=== PATIENT | female | born 1955 | race Caucasian/White ===

== ENCOUNTER 2016-12-14 17:58 | Emergency (ER) | payer MEDICARE, BC ==
[~2016-12-14] VITALS: Ht 167.6 cm; Wt 60.0 kg
[~2016-12-14 17:58] MED LIST: AMIT50TA3 PO; BACL10TA PO; BUTA1CAP49 PO; DIAZ5TAB4 PO; HYDR-3841 PO; HYDR-4181 PO; PROP80TA4 PO; [UNRECOGNIZED DRUG - CODE] PO
--- OUTSIDE RECORDS SUMMARY | 2016-12-14 18:02 | XMS REPORT ---
Author Author GENERATED, SYSTEM Organization Unknown Address Unknown Phone Unavailable Care Team Providers Care Cremator Name Role Phone FRIEND, CHIQUI FLORZE PP [phone] Reason For Visit Chief Complaint MUSCLE CRAMPS Social History Functional Status Vital Signs Results Chemistry from 07/12/2016 3:30 PMSODIUM 135 MMOL/L L (136-145 MMOL/L) POTASSIUM 3.7 MMOL/L (3.5-5.1 MMOL/L) CHLORIDE 101 MMOL/L (98-107 MMOL/L) TCO2 27.4 MMOL/L (21.0-32.0 MMOL/L) *ANION GAP 6.6 MMOL/L L (8.0-16.0 MMOL/L) BUN 11 MG/DL (7-18 MG/DL) CREATININE 0.71 MG/DL (0.55-1.02 MG/DL) *BUN/CREATININE RATIO 15.5 (9.1-17.0 ) GLUCOSE 95 MG/DL (65-99 MG/DL) *GFR EST NON AFR PALAUAN >90 ML/MIN *GFR EST AFR AMER >90 ML/MIN CALCIUM 10.1 MG/DL (8.5-10.1 MG/DL) BILIRUBIN TOTAL 0.30 MG/DL (0.20-1.00 MG/DL) TOTAL PROTEIN 7.1 GM/DL (6.4-8.2 GM/DL) ALBUMIN 4.0 GM/DL (3.4-5.0 GM/DL) *GLOBULIN 3.1 GM/DL (2.3-3.5 GM/DL) *A/G RATIO 1.3 MG/DL L (1.5-2.2 MG/DL) ALK PHOS 144 U/L H (46-116 U/L) ALT (SGPT) 16 U/L (16-63 U/L) AST (SGOT) 13 U/L L (15-37 U/L) MAGNESIUM 2.0 MG/DL (1.8-2.4 MG/DL) Problems Encounter Diagnosis No relevant problems exist. Additional Problems * Fall Risk Comment:Problem resolved by [facility] Workflow upon Discharge, Status: Resolved. Encounters Encounter Diagnosis No relevant problems exist. Plan of Care Procedures * Completed septoplasty bilateral inferior turbinectomy sphenoid sinuplasty, by MD MARK MENESES, on 04/03/2015 1:15 PM Immunizations No immunizations administered or ordered. Hospital Course Hospital Discharge Instructions Allergies, Adverse Reactions, Alerts * Latex Allergy has not been assessed. * IV Contrast Allergy has not been assessed. * No Known Drug Allergies. * No Known Food Allergies. * No Known Allergies. Medication Medication reconciliation has not been performed.
--- OUTSIDE RECORDS SUMMARY | 2016-12-14 18:02 | XMS REPORT ---
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 61089371 Problem Depression F32.9 Active 260815757 Problem Neuropathy G62.9 Active 035915679 Problem Arthritis of left knee M19.90 Active 1324780292986447 Problem Tear of meniscus of left knee S83.207A Active Problem Fibromyalgia M79.7 Active 635782954 Problem Migraine headache G43.909 Active 80655018 Problem Elevated alkaline phosphatase level R74.8 Active 258926893 Problem High cholesterol E78.0 Active 06349974 Problem CAD (coronary artery disease) I25.10 Active 79167193 Problem Status post left knee replacement Z96.652 Active 512173674292 Problem High blood pressure I10 Active 44190854 ALLERGIES Unknown Allergies SOCIAL HISTORY No smoking Hx information available PLAN OF CARE VITAL SIGNS MEDICATIONS Medication Instructions Dosage Frequency Start Date End Date Duration Status Fiorinal 50-325-40 MG Orally 3-4 times a day 1 capsule as needed Jul, 30 Active RESULTS No Results PROCEDURES No Known procedures IMMUNIZATIONS No Known Immunizations
--- OUTSIDE RECORDS SUMMARY | 2016-12-14 18:02 | XMS REPORT ---
Author Author GENERATED, SYSTEM Organization Unknown Address Unknown Phone Unavailable Care Team Providers Care Baseball Glove Stuffer Name Role Phone MD DENISE, GARY Unavailable Reason For Visit Chief Complaint ANGIOPLASTY,TELEMTRY MONITORED EXCERCISE Social History Functional Status Vital Signs Results Problems Encounter Diagnosis No relevant problems exist. [...]
--- OUTSIDE RECORDS SUMMARY | 2016-12-14 18:03 | XMS REPORT | Summary of Care ---
Author Author Jose Trammell M.D. Organization Unknown Address [address], [place] [id number] Phone Unavailable Care Team Providers Care Tax Staff Accountant Name Role Phone Price Garcia M.D. Unavailable Unavailable Normh-Laura BIG DATA HADOOP DEVELOPER, Crystal Unavailable Unavailable Jose Trammell M.D. Unavailable Unavailable Price Garcia PP Unavailable Unavailable Unavailable Functional Status Functional Status Health Issues* Name Dates Details Functional status health issues are not documented Status: Cognitive Status Health Issues* Name Dates Details Cognitive status health issues are not documented Status: Problems Name Dates Details Bilateral Elbow Joint Pain Status: Active Joint Pain In Both Wrists Status: Active Joint Pain In Both Knees Status: Active Injection Of Trigger Point(S) One Or Two Muscle Group(S) Status: Active Postmenopausal status (V49.81, Z78.0) Status: Active Endometriosis (617.9, N80.9) Status: Active Essential and other specified forms of tremor (333.1, R25.1) Status: Active Obsessive compulsive disorder (300.3, F42) Status: Active Postconcussion syndrome (310.2, F07.81) Status: Active Abnormal electrocardiogram (794.31, R94.31) Status: Active Well woman exam (V70.0, Z00.00) Status: Active High risk medication use (V58.69, Z79.899) Status: Active Atypical facial pain (350.2, G50.1) Status: Active Hyperthyroidism (242.90, E05.90) Status: Active Need for influenza vaccination (V04.81, Z23) Status: Active Headache (784.0, R51) Status: Active Insomnia (780.52, G47.00) Status: Active Dermatitis (692.9, L30.9) Status: Active Inflamed seborrheic keratosis (702.11, L82.0) Status: Active Depression (311, F32.9) Status: Active Hypertension (401.9, I10) Status: Active Anxiety (300.00, F41.9) Status: Active Migraine headache (346.90, G43.909) Status: Active Medications Name Dates Details Zolpidem Tartrate 10 MG Oral Tablet TAKE 1 TABLET AT BEDTIME NEEDED FOR SLEEP. Quantity: 30 Jose Trammell M.D.* Started 03-Jun-2014 ActiveAmitriptyline HCl - 100 MG Oral Tablet TAKE 1 TABLET DAILY AT BEDTIME. * Quantity: 30 Refills: 6 Jose Trammell M.D.* Started 09-Jun-2014 PjwenkAgqynfbnih-SBWZ-Daevxqde 50-325-40 MG Oral Tablet TAKE 1 TABLET Q 4HRS NEEDED FOR MIGRAINEMAX 6 PER DAYMUST LAST 30 DAYS * Quantity: 180 Refills: 0 Price Garcia M.D.* Started 09-Jun-2014 Ended 04-Oct-2014 ActiveMelatonin 5 MG Oral Tablet * Refills: 0 * Started 16-Jun-2014 ActiveTriamcinolone .1%/ Eucerin Compound (50/50 mix) -- 1 pound tub (454 grams) APPLY TO THE AFFECTED AREA TWICE DAILY * Quantity: 60 Refills: 0 rsh-Francktilek, Crystal BIG DATA HADOOP DEVELOPER* Started 24-Jun-2014 ActivePropranolol HCl - 80 MG Oral Tablet TAKE 1 TABLET EVERY 12 HOURS DAILY. * Quantity: 60 Refills: 3 Price Garcia M.D.* Started 07-Jul-2014 ActiveHydrALAZINE HCl - 50 MG Oral Tablet Take 1 tablet three times daily. * Quantity: 90 Refills: 5 Price Garcia M.D.* Started 05-Aug-2014 ActiveDiazepam 5 MG Oral Tablet TAKE 1 TABLET EVERY 8HRS NEEDED.*MUST LAST 30 DAYS*MAY FILL ON OR AFTER * * Quantity: 90 Refills: 0 Price Garcia M.D.* Started 21-Jul-2014 ActiveHydrOXYzine Pamoate 25 MG Oral Capsule TAKE 1 CAP BY MOUTH EVERY 6 HRS NEEDED WHILE IN [facility]. * Quantity: 120 Refills: 2 Price Garcia M.D.* Started 05-Aug-2014 Active Allergies and Adverse Reactions Name Dates Details No Known Drug Allergies Status: Active Past Medical History Name Dates Details History of anemia (V12.3, Z86.2) Status: Resolved History of depression (V11.8, Z86.59) Status: Resolved History of fibrocystic disease of breast (V13.89, Z87.898) Status: Resolved History of Inflamed seborrheic keratosis (702.11, L82.0) Status: Resolved History of migraine (V12.49, Z86.69) Status: Resolved Procedures Procedure Dates Details History of Appendectomy History of Tonsillectomy History of Cholecystectomy History of Tubal Ligation Injection Of Trigger Point(S) One Or Two Muscle Group(S) History of Colonoscopy (Fiberoptic) History of Section Procedures not documented Immunization Name Dates Details Influenza Administered on:21-Jun-2011 Influenza Administered on:03-May-2012 Tdap (Adacel) Lot #: [id number] Administered on:14-May-2013 Fluzone Quadrivalent 0.5 ML Intramuscular Suspension Lot #: [id number] Administered on:03-Jun-2014 Family History Grandfather* Name Dates Details Family history of Suicide by gunshot wound (E955.9, X74.9XXA) Status: Active Mother* Name Dates Details Family history of Chronic Obstructive Pulmonary Disease Status: Active Father* Name Dates Details Family history of Acute Myocardial Infarction (V17.3) Status: Active Family history of myocardial infarction (V17.3, Z82.49) Status: Active Family history of cerebrovascular accident (V17.1, Z82.3) Status: Active Family history of hypertension (V17.49, Z82.49) Status: Active Family history of diabetes mellitus (V18.0, Z83.3) Status: Active Family history of chronic obstructive pulmonary disease (V17.6, Z82.5) Status: Active Sister* Name Dates Details Family history of Asthma (V17.5) Status: Active Family history of Arthritis (V17.7) Status: Active Family history of Uterine Cancer (V16.49) Status: Active Social History Name Dates Details Smoking Status* Never smoker Vital Signs Date Test Result Details 16-Aug-2014 10:19 BP Systolic 165 mm[Hg] Status: BP Diastolic 85 mm[Hg] Status: Heart Rate 79 /min Status: Temperature 98.1 c Status: O2 SAT 97 % Status: 14-Aug-2014 09:38 BP Systolic 140 mm[Hg] Status: BP Diastolic 96 mm[Hg] Status: Heart Rate 84 /min Status: Respiration Rate 16 /min Status: Weight 150 lb Status: Height 66 in Status: O2 SAT 96 % Status: Body Mass Index Calculated 24.21 kg/m2 Status: Body Surface Area Calculated 1.77 m2 Status: Results Date Description Value Details Results not documented Plan of Care Planned Observations* Name Dates Details Planned Goals not documented Goal Planned Encounters* Appointment; Provider: Andre Pratt On 15-Jul-2015 13:45 * Appointment; Provider: Price Garcia On 16-Oct-2014 09:30 * Appointment; Provider: Price Garcia On 08-Sep-2014 15:15 Instructions * Instructions not documented Encounters Appointment; Ilya Basurto Encounter Diagnosis: Problem not documented On 16-Aug-2014 11:10 Appointment; Price Garcia Encounter Diagnosis: Problem not documented On 14-Aug-2014 09:30 Appointment; Price Garcia Encounter Diagnosis: Problem not documented On 05-Aug-2014 16:00 Appointment; Price Garcia Encounter Diagnosis: Problem not documented On 21-Jul-2014 14:00 Appointment; Andre Pratt Encounter Diagnosis: Problem not documented On 14-Jul-2014 13:15 Appointment; Price Garcia Encounter Diagnosis: Problem not documented On 07-Jul-2014 15:00 Appointment; Gaston Hare Encounter Diagnosis: Problem not documented On 27-Jun-2014 12:15 Appointment; Jessica Nguyen Encounter Diagnosis: Problem not documented On 24-Jun-2014 13:45 Appointment; [place] Encounter Diagnosis: Problem not documented On 16-Jun-2014 08:30 Appointment; Jose Trammell Encounter Diagnosis: Problem not documented On 09-Jun-2014 11:00 Appointment; Whitney Whitfield Encounter Diagnosis: Problem not documented On 07-Jun-2014 08:45 Appointment; Jose Trammell Encounter Diagnosis: Problem not documented On 03-Jun-2014 13:45 Appointment; Whitney Whitfield Encounter Diagnosis: Problem not documented On 31-May-2014 10:15 Appointment; Bessie Romero Encounter Diagnosis: Problem not documented On 29-May-2014 11:30 Appointment; Jose Trammell Encounter Diagnosis: Problem not documented On 19-May-2014 11:00 Appointment; Gaston Hare Encounter Diagnosis: Problem not documented On 13-May-2014 08:15 Appointment; Jessica Nguyen Encounter Diagnosis: Problem not documented On 29-Apr-2014 11:25 Appointment; Jessica Nguyen Encounter Diagnosis: Problem not documented On 09-Apr-2014 08:45 Appointment; Igor Charles Encounter Diagnosis: Problem not documented On 08:45 Appointment; Jose Trammell Encounter Diagnosis: Problem not documented On 14:00 Appointment; [place] Encounter Diagnosis: Problem not documented On 09:20 Appointment; Igor Charles Encounter Diagnosis: Problem not documented On 08:15 Appointment; Jose Trammell Encounter Diagnosis: Problem not documented On 11:15 Appointment; April Talley Encounter Diagnosis: Problem not documented On 08:40 Appointment; Melvin Cotto Encounter Diagnosis: Problem not documented On 11:00 Appointment; Melvin Cotto Encounter Diagnosis: Problem not documented On 14:00 Appointment; Gaston Hare Encounter Diagnosis: Problem not documented On 08:30 Appointment; Melvin Cotto Encounter Diagnosis: Problem not documented On 11:45 Appointment; Melvin Cotto Encounter Diagnosis: Problem not documented On 23-Jan-2014 08:15 Appointment; Jasmin Trejo Encounter Diagnosis: Problem not documented On 22-Jan-2014 09:15 Appointment; Juan Mendez Encounter Diagnosis: Problem not documented On 21-Jan-2014 11:00 Appointment; Jasmin Trejo Encounter Diagnosis: Problem not documented On 10-Jan-2014 09:30 Appointment; Melvin Cotto Encounter Diagnosis: Problem not documented On 09-Jan-2014 09:45 Appointment; Melvin Cotto Encounter Diagnosis: Problem not documented On 30-Dec-2013 11:00 Appointment; Melvin Cotto Encounter Diagnosis: Problem not documented On 09-Dec-2013 10:30 Appointment; Melvin Cotto Encounter Diagnosis: Problem not documented On 03-Dec-2013 11:30 Appointment; Jasmin Trejo Encounter Diagnosis: Problem not documented On 28-Nov-2013 11:50 Appointment; Melvin Cotto Encounter Diagnosis: Problem not documented On 20-Nov-2013 13:00 Appointment; Melvin Cotto Encounter Diagnosis: Problem not documented On 13-Nov-2013 11:00 Appointment; Melvin Cotto Encounter Diagnosis: Problem not documented On 30-Oct-2013 11:00 Appointment; Melvin Cotto Encounter Diagnosis: Problem not documented On 25-Oct-2013 15:30 Appointment; Jasmin Trejo Encounter Diagnosis: Problem not documented On 10-Oct-2013 11:10 Appointment; Melvin Cotto Encounter Diagnosis: Problem not documented On 07-Oct-2013 10:45 Appointment; Melvin Cotto Encounter Diagnosis: Problem not documented On 30-Sep-2013 15:30 Appointment; Melvin Cotto Encounter Diagnosis: Problem not documented On 10-Sep-2013 14:15 Appointment; Melvin Cotto Encounter Diagnosis: Problem not documented On 27-Aug-2013 15:45 Appointment; Melvin Cotto Encounter Diagnosis: Problem not documented On 14-Aug-2013 09:30 Appointment; Melvin Cotto Encounter Diagnosis: Problem not documented On 31-Jul-2013 15:30 Appointment; Melvin Cotto Encounter Diagnosis: Problem not documented On 24-Jul-2013 10:15 Appointment; Leigha Sanders Encounter Diagnosis: Problem not documented On 23-Jul-2013 13:00 Appointment; Melvin Cotto Encounter Diagnosis: Problem not documented On 17-Jul-2013 14:30 Appointment; Karolyn Cox Encounter Diagnosis: Problem not documented On 11-Jul-2013 15:45 Appointment; Jasmin Trejo Encounter Diagnosis: Problem not documented On 11-Jul-2013 09:35 Appointment; Josue Patel Encounter Diagnosis: Problem not documented On 01-Jul-2013 14:15 Appointment; Jasmin Trejo Encounter Diagnosis: Problem not documented On 21-Jun-2013 08:40 Appointment; Josue Patel Encounter Diagnosis: Problem not documented On 12-Jun-2013 09:00 Appointment; Melvin Cotto Encounter Diagnosis: Problem not documented On 05-Jun-2013 12:30 Appointment; Melvin Cotto Encounter Diagnosis: Problem not documented On 23-May-2013 09:00 Appointment; Melvin Cotto Encounter Diagnosis: Problem not documented On 20-May-2013 09:00 Appointment; Gaston Hare Encounter Diagnosis: Problem not documented On 14-May-2013 14:10 Appointment; Melvin Cotto Encounter Diagnosis: Problem not documented On 23-Apr-2013 10:30 Appointment; Jasmin Trejo Encounter Diagnosis: Problem not documented On 16-Apr-2013 09:20 Appointment; Melvin Cotto Encounter Diagnosis: Problem not documented On 28-Mar-2013 14:45 Appointment; Jasmin Trejo Encounter Diagnosis: Problem not documented On 14:45 Appointment; Jasmin Trejo Encounter Diagnosis: Problem not documented On 15:05 Appointment; Melvin Cotto Encounter Diagnosis: Problem not documented On 13:30 Appointment; Jasmin Trejo Encounter Diagnosis: Problem not documented On 13:50 Appointment; Melvin Cotto Encounter Diagnosis: Problem not documented On 24-Jan-2013 09:45 Appointment; Melvin Cotto Encounter Diagnosis: Problem not documented On 17-Jan-2013 09:00 Appointment; Jasmin Trejo Encounter Diagnosis: Problem not documented On 09-Jan-2013 16:25 Appointment; Melvin Cotto Encounter Diagnosis: Problem not documented On 08-Jan-2013 15:00 Appointment; Melvin Cotto Encounter Diagnosis: Problem not documented On 21-Nov-2012 13:15 Appointment; Igor Charles Encounter Diagnosis: Problem not documented On 01-Nov-2012 07:45 Appointment; Igor Charles Encounter Diagnosis: Problem not documented On 29-Oct-2012 08:00 Appointment; Melvin Cotto Diagnosis: Problem not documented On 25-Oct-2012 14:45 Appointment; Melvin Cotto Encounter Diagnosis: Problem not documented On 10-Oct-2012 11:45 Appointment; Melvin Cotto Encounter Diagnosis: Problem not documented On 04-Oct-2012 12:30 Appointment; Melvin Cotto Encounter Diagnosis: Problem not documented On 26-Sep-2012 08:45
--- OUTSIDE RECORDS SUMMARY | 2016-12-14 18:03 | XMS REPORT ---
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
--- OUTSIDE RECORDS SUMMARY | 2016-12-14 18:03 | XMS REPORT | Summary of Care ---
Author Author Jessica Nguyen APRN Organization Unknown Address [address], [place] [id number] Phone Unavailable Care Team Providers Care Industrial Maintenance Technician Name Role Phone Price Garcia M.D. Unavailable Unavailable Мария Gonzalez APRN Unavailable Unavailable Jessica Nguyen APRN Unavailable Unavailable Price Garcia PP Unavailable Unavailable [...] for influenza vaccination (V04.81, Z23) Status: Active Insomnia (780.52, G47.00) Status: Active Dermatitis (692.9, L30.9) Status: Active Inflamed seborrheic keratosis (702.11, L82.0) Status: Active Depression (311, F32.9) Status: Active Pain in a tooth or teeth (525.9, K08.8) Status: Active Bronchitis, acute (466.0, J20.9) Status: Active Anxiety (300.00, F41.9) Status: Active Hip pain, left (719.45, M25.552) Status: Active Atypical chest pain (786.59, R07.89) Status: Active Hypertension (401.9, I10) Status: Active Polyarthritis (716.50, M13.0) Status: Active Spondylolysis, lumbar region (738.4, M43.06) Status: Active Precordial pain (786.51, R07.2) Status: Active Cerumen impaction (380.4, H61.20) Status: Active Chronic sinus infection (473.9, J32.9) Status: Active Nasal septal deviation (470, J34.2) Status: Active Migraine headache (346.90, G43.909) Status: Active Cervicalgia (723.1, M54.2) Status: Active Headache (784.0, R51) Status: Active Medications Name Dates Details Euizcltirs-OJLI-Fujhszaw 50-325-40 MG Oral Tablet TAKE ONE TABLET BY MOUTH EVERY 4 HOURS MAX OF 6 TABLETS PER DAY MUST LAST 30 DAYS Quantity: 180 Price Garcia M.D.* Started 09-Jun-2014 ActiveMelatonin 5 MG Oral Tablet * Refills: 0 * Started 16-Jun-2014 ActiveTriamcinolone .1%/ Eucerin Compound (50/50 mix) -- 1 pound tub (454 grams) APPLY TO THE AFFECTED AREA TWICE DAILY * Quantity: 60 Refills: 0 Jessica Nguyen APRN* Started 24-Jun-2014 ActiveHydrALAZINE HCl - 50 MG Oral Tablet Take 1 tablet three times daily. * Quantity: 90 Refills: 5 Price Garcia M.D.* Started 05-Aug-2014 ActiveVerapamil HCl - 80 MG Oral Tablet 1 TABLET TWICE DAILY * Quantity: 60 Refills: 5 Price Garcia M.D.* Started 30-Oct-2014 ActiveQUEtiapine Fumarate 50 MG Oral Tablet TAKE 1 TABLET AT BEDTIME. * Refills: 0 * Started 30-Oct-2014 ActiveDiazepam 10 MG Oral Tablet TAKE ONE TABLET BY MOUTH EVERY 8 HOURSMUST LAST 30 DAYS * Quantity: 90 Refills: 0 Price Garcia M.D.* Started 30-Oct-2014 ActiveFluvoxaMINE Maleate 100 MG Oral Tablet TAKE 1 TABLET AT BEDTIME. * Quantity: 30 Refills: 5 Price Garcia M.D.* Started 30-Oct-2014 ActiveAmLODIPine Besylate 5 MG Oral Tablet TAKE 1 TABLET BY MOUTH DAILY * Quantity: 30 Refills: 5 Price Garcia M.D.* Started 30-Oct-2014 ActiveZolpidem Tartrate ER 12.5 MG Oral Tablet Extended Release TAKE 1 TABLET AT BEDTIME NEEDED FOR SLEEP.*MUST LAST 30 DAYS * Quantity: 30 Refills: 0 Price Garcia M.D.* Started 30-Oct-2014 ActiveLithium Carbonate 300 MG Oral Capsule TAKE 1 CAPSULE TWICE DAILY. * Refills: 0 * Started 18-Dec-2014 ActiveNalbuphine HCl - 10 MG/ML Injection Solution Inject 10mg IM x 1 now * Quantity: 1 Refills: 0 Мария Gonzalez APRN* Started 24-Jan-2015 Admin RequestedPromethazine HCl - 25 MG/ML Injection Solution Inject 12.5mg IM x 1 now * Quantity: 1 Refills: 0 Мария Gonzalez APRN* Started 24-Jan-2015 Admin Requested Allergies and Adverse Reactions Name Dates Details [...] Influenza Administered on:03-May-2012 Tdap (Adacel) Lot #: [id number] Administered on:14-May-2013 Fluzone Quadrivalent 0.5 ML Intramuscular Suspension Lot #: [id number] Administered on:03-Jun-2014 Family History Grandfather* Name Dates [...] smoker Vital Signs Date Test Result Details 09:17 BP Systolic 144 mm[Hg] Status: BP Diastolic 87 mm[Hg] Status: Heart Rate 60 /min Status: Respiration Rate 18 /min Status: Temperature 97.7 c Status: Weight 150 lb Status: O2 SAT 97 % Status: Body Mass Index Calculated 24.21 kg/m2 Status: Body Surface Area Calculated 1.77 m2 Status: 11:13 BP Systolic 128 mm[Hg] Status: BP Diastolic 76 mm[Hg] Status: Heart Rate 60 /min Status: Respiration Rate 18 /min Status: Weight 149.375 lb Status: Height 66 in Status: O2 SAT 97 % Status: Body Mass Index Calculated 24.11 kg/m2 Status: Body Surface Area Calculated 1.77 m2 Status: 09:04 BP Systolic 158 mm[Hg] Status: BP Diastolic 68 mm[Hg] Status: Heart Rate 67 /min Status: Temperature 98.6 c Status: Weight 149 lb Status: O2 SAT 97 % Status: Body Mass Index Calculated 24.05 kg/m2 Status: Body Surface Area Calculated 1.76 m2 Status: 08:47 Heart Rate 66 /min Status: Temperature 98.8 c Status: O2 SAT 98 % Status: 24-Jan-2015 10:38 BP Systolic 144 mm[Hg] Status: BP Diastolic 90 mm[Hg] Status: Heart Rate 60 /min Status: Temperature 98.2 c Status: O2 SAT 96 % Status: 22-Jan-2015 10:45 BP Systolic 142 mm[Hg] Status: BP Diastolic 90 mm[Hg] Status: Heart Rate 65 /min Status: Respiration Rate 18 /min Status: Temperature 98.2 c Status: O2 SAT 97 % Status: Results Date Description Value Details 14:07 CT SINUSES Comments: Exam Date: 01/26/2015 13: 48Dictation Date: 01/26/2015 14:07 XC SINUSES ([facility]) 13:37 XRay SPINE-CERVICAL Comments: Exam Date: 02/12/2015 11:49Dictation Date: 02/12/2015 13:37 X SPINE CERVICAL COMP ([facility]) Plan of Care Planned Observations* Name Dates Details Planned Goals not documented Goal Planned Encounters* Appointment; Provider: Andre Pratt On 15-Jul-2015 13:45 * Appointment; Provider: Price Garcia On 11:15 * Appointment; Provider: Harris Barragan On 08:45 Instructions * Instructions not documented Encounters Appointment; Jessica Nguyen Encounter Diagnosis: Problem not documented On 09:15 Appointment; Price Garcia Encounter Diagnosis: Problem not documented On 10:45 Appointment; Linda Bingham Encounter Diagnosis: Problem not documented On 09:05 Appointment; Harris Barragan Encounter Diagnosis: Problem not documented On 11:15 Appointment; Linda Bingham Encounter Diagnosis: Problem not documented On 08:30 Appointment; Мария Gonzalez Encounter Diagnosis: Problem not documented On 24-Jan-2015 10:35 Appointment; Price Garcia Encounter Diagnosis: Problem not documented On 22-Jan-2015 10:30 Appointment; Price Garcia Encounter Diagnosis: Problem not documented On 06-Jan-2015 10:45 Appointment; Price Garcia Encounter Diagnosis: Problem not documented On 29-Dec-2014 11:15 Appointment; Price Garcia Encounter Diagnosis: Problem not documented On 18-Dec-2014 09:45 Appointment; Gaston Hare Encounter Diagnosis: Problem not documented On 05-Dec-2014 13:00 Appointment; Linda Bingham Encounter Diagnosis: Problem not documented On 03-Dec-2014 10:20 Appointment; Price Garcia Encounter Diagnosis: Problem not documented On 13-Nov-2014 13:45 Appointment; Price Garcia Encounter Diagnosis: Problem not documented On 30-Oct-2014 09:30 Appointment; [place] Encounter Diagnosis: Problem not documented On 11-Oct-2014 08:25 Appointment; Linda Bingham Encounter Diagnosis: Problem not documented On 02-Oct-2014 08:15 Appointment; Jessica Nguyen Encounter Diagnosis: Problem not documented On 15-Sep-2014 09:30 Appointment; Price Garcia Encounter Diagnosis: Problem not documented On 08-Sep-2014 15:15 Appointment; Ilya Basurto Encounter Diagnosis: Problem not [...] not documented On 19-May-2014 11:00 Appointment; Gaston Hrae Encounter Diagnosis: Problem not documented On 13-May-2014 08:15 Appointment; Jessica Nguyen Encounter Diagnosis: Problem not documented On 29-Apr-2014 11:25 Appointment; Jessica Nguyen Encounter Diagnosis: Problem not documented On 09-Apr-2014 08:45 Appointment; Igor Charles Encounter Diagnosis: Problem not documented On 08:45 Appointment; Jose Trammell Encounter Diagnosis: Problem not documented On 14:00 Appointment; [place] Encounter Diagnosis: Problem not documented On 09:20 [...] Problem not documented On 21-Jun-2013 08:40 Appointment; Joseu Patel Encounter Diagnosis: Problem not documented On [...]
--- OUTSIDE RECORDS SUMMARY | 2016-12-14 18:03 | XMS REPORT | Summary of Care ---
Author Author Gaston Hare M.D. Organization Unknown Address [address], [place] [id number] Phone Unavailable Care Team Providers Care Line Up Examiner Name Role Phone Price Garcia M.D. Unavailable Unavailable Lisa MISSION MANAGER, Мария Unavailable Unavailable [employer] MISSION MANAGER, Crystal Unavailable Unavailable Price Garcia PP Unavailable Unavailable Unavailable Functional Status Functional Status Health Issues* Name Dates Details Functional status health issues are not documented Status: Cognitive Status Health Issues* Name Dates Details Cognitive status health issues are not documented Status: Problems Name Dates Details Joint Pain In Both Wrists Status: Active Joint Pain In Both Knees Status: Active Injection Of Trigger Point(S) One Or Two Muscle Group(S) Status: Active Postmenopausal status (V49.81, Z78.0) Status: Active Endometriosis (617.9, N80.9) Status: Active Essential and other specified forms of tremor (333.1, G25.0) Status: Active Abnormal electrocardiogram (794.31, R94.31) Status: Active Well woman exam (V70.0, Z00.00) Status: Active High risk medication use (V58.69, Z79.899) Status: Active Hyperthyroidism (242.90, E05.90) Status: Active Insomnia (780.52, G47.00) Status: Active Dermatitis (692.9, L30.9) Status: Active Inflamed seborrheic keratosis (702.11, L82.0) Status: Active Depression (311, F32.9) Status: Active Hip pain, left (719.45, M25.552) Status: Active Polyarthritis (716.50, M13.0) Status: Active Spondylolysis, lumbar region (738.4, M43.06) Status: Active Precordial pain (786.51, R07.2) Status: Active Headache (784.0, R51) Status: Active Nasal congestion (478.19, R09.81) Status: Active Preop examination (V72.84, Z01.818) Status: Active Anxiety (300.00, F41.9) Status: Active Pain of both shoulder joints (719.41, M25.511) Status: Active Knee joint pain, right (719.46, M25.561) Status: Active Nasal septal deviation (470, J34.2) Status: Active Hypertrophy of nasal turbinates (478.0, J34.3) Status: Active Chronic sinus infection (473.9, J32.9) Status: Active Presence of stent in coronary artery in patient with coronary artery disease ( 414.01, I25.10) Status: Active Dysuria (788.1, R30.0) Status: Active Dysuria (788.1, R30.0) Status: Active 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, M47.812) Status: Active Cervicogenic headache (784.0, R51) Status: Active Essential hypertension, benign (401.1, I10) Status: Active Migraine headache (346.90, G43.909) Status: Active Medications Name Dates Details Tyiwhblmdq-AHVL-Yeamqbtn 50-325-40 MG Oral Tablet TAKE ONE TABLET BY MOUTH EVERY 4 HOURS NEEDED MAX OF 6 TABLETS PER DAY MUST LAST 30 DAYS Quantity: 180 Price Garcia M.D.* Started 09-Jun-2014 ActiveTriamcinolone .1%/ Eucerin Compound (50/50 mix) -- 1 pound tub (454 grams) APPLY TO THE AFFECTED AREA TWICE DAILY * Quantity: 60 Refills: 0 Jessica Nguyen APRN* Started 24-Jun-2014 ActiveQUEtiapine Fumarate 25 MG Oral Tablet TAKE 1 TABLET IN MORNING, THEN TAKE 1 TABLET IN EVENING, THEN TAKE 2 TABLETS AT BEDTIME * Quantity: 120 Refills: 3 Price Garcia M.D.* Started 30-Oct-2014 ActiveDiazepam 10 MG Oral Tablet TAKE ONE TABLET BY MOUTH EVERY 8 HOURS NEEDED MUST LAST 30 DAYS * Quantity: 90 Refills: 0 Price Garcia M.D.* Started 30-Oct-2014 ActiveFluvoxaMINE Maleate 100 MG Oral Tablet TAKE 1 TABLET AT BEDTIME. * Quantity: 30 Refills: 5 Price Garcia M.D.* Started 30-Oct-2014 ActiveAmLODIPine Besylate 10 MG Oral Tablet take one tablet by mouth every day * Quantity: 30 Refills: 6 Price Garcia M.D.* Started 30-Oct-2014 ActiveNalbuphine HCl - 10 MG/ML Injection Solution Inject 10mg IM x 1 now * Quantity: 1 Refills: 0 Мария Gonzalez MISSION MANAGER* Started 24-Jan-2015 Admin RequestedPromethazine HCl - 25 MG/ML Injection Solution Inject 12.5mg IM x 1 now * Quantity: 1 Refills: 0 LisaPrakashy MISSION MANAGER* Started 24-Jan-2015 Admin RequestedCyclobenzaprine HCl - 10 MG Oral Tablet TAKE 1 TABLET 3 TIMES DAILY NEEDED. * Quantity: 90 Refills: 3 Price Garcia M.D.* Started ActiveAspirin 325 MG Oral Tablet TAKE 1 TABLET DAILY. * Refills: 0 * Started 05-May-2015 ActiveAtorvastatin Calcium 80 MG Oral Tablet TAKE 1 TABLET AT BEDTIME. * Refills: 0 * Started 05-May-2015 ActivePlavix 75 MG Oral Tablet TAKE 1 TABLET DAILY. * Refills: 0 * Started 05-May-2015 ActiveDocusate Sodium 100 MG Oral Capsule Take 1 capsule BID. * Refills: 0 * Started 05-May-2015 ActiveZetia 10 MG Oral Tablet * Refills: 0 * Started 05-May-2015 ActiveLosartan Potassium 50 MG Oral Tablet TAKE 1 TABLET DAILY. * Quantity: 30 Refills: 5 * Started 05-May-2015 ActiveZolpidem Tartrate ER 12.5 MG Oral Tablet Extended Release TAKE ONE TABLET BY MOUTH AT BEDTIME * Quantity: 30 Refills: 0 Price Garcia M.D.* Started 30-Oct-2014 ActiveAtenolol 50 MG Oral Tablet take 25 MG in a.m then 50 MG at p.m * Refills: 0 * Started 05-May-2015 ActiveEvzio 0.4 MG/0.4ML Injection Solution Auto-injector INJECT 0.4MG SC/IM Q 2-3MIN NEEDED PER OVERDOSE * Quantity: 1 Refills: 0 Price Garcia M.D.* Started 17-Jun-2015 Active0.4 ML Package (2 Packages) Hydrocodone-Acetaminophen 5-325 MG Oral Tablet TAKE 1 TABLET EVERY 8 HOURS NEEDED.*MAX 3 PER DAY* * Quantity: 90 Refills: 0 Price Garcia M.D.* Started 17-Jun-2015 Active Allergies and Adverse Reactions Name Dates Details Imitrex Status: Active Past Medical History Name Dates [...] Influenza Administered on:03-May-2012 Tdap (Adacel) Lot #: [id number] Administered on:14-May-2013 Fluzone Quadrivalent 0.5 ML Intramuscular Suspension Lot #: [id number] Administered on:03-Jun-2014 Fluzone Quadrivalent 0.5 ML Intramuscular Suspension Prefilled Syringe Lot #: [id number] Administered on:17-Jun-2015 Family History Grandfather* Name Dates Details Family [...] smoker Vital Signs Date Test Result Details 23-Jun-2015 10:51 BP Systolic 137 mm[Hg] Status: BP Diastolic 78 mm[Hg] Status: Temperature 97.9 f Status: Heart Rate 69 /min Status: O2 SAT 94 % Status: 17-Jun-2015 10:22 BP Systolic 170 mm[Hg] Status: BP Diastolic 110 mm[Hg] Status: Heart Rate 71 /min Status: Respiration Rate 20 /min Status: Height 66 in Status: Weight 138.125 lb Status: O2 SAT 98 % Status: Body Mass Index Calculated 22.29 kg/m2 Status: Body Surface Area Calculated 1.71 m2 Status: 09-Jun-2015 15:06 BP Systolic 178 mm[Hg] Status: BP Diastolic 98 mm[Hg] Status: Temperature 98.2 f Status: Heart Rate 86 /min Status: O2 SAT 96 % Status: 06-Jun-2015 10:57 BP Systolic 155 mm[Hg] Status: BP Diastolic 96 mm[Hg] Status: Temperature 97.5 c Status: Heart Rate 74 /min Status: O2 SAT 96 % Status: Results Date Description Value Details Results not documented Plan of Care Planned Observations* Name Dates Details Planned Goals not documented Goal Planned Encounters* Appointment; Provider: Price Garcia On 13-Aug-2015 10:00 * Appointment; Provider: Andre Pratt On 15-Jul-2015 13:45 * Appointment; Provider: Harris Barragan On 03-Apr-2015 13:00 * Appointment; Provider: Schedule Radiology On 07:00 Instructions * Instructions not documented Encounters Appointment; Gaston Hare Encounter Diagnosis: Problem not documented On 23-Jun-2015 10:35 Appointment; Price Garcia Encounter Diagnosis: Problem not documented On 17-Jun-2015 10:15 Appointment; Gaston Hare Encounter Diagnosis: Problem not documented On 09-Jun-2015 14:35 Appointment; Lesley Trimble Encounter Diagnosis: Problem not documented On 09-Jun-2015 14:00 Appointment; Gordon Mancera Encounter Diagnosis: Problem not documented On 06-Jun-2015 10:55 Appointment; Lesley Trimble Encounter Diagnosis: Problem not documented On 02-Jun-2015 11:30 Appointment; Price Garcia Encounter Diagnosis: Problem not documented On 22-May-2015 13:15 Appointment; Price Garcia Encounter Diagnosis: Problem not documented On 14-May-2015 15:15 Appointment; Price Garcia Encounter Diagnosis: Problem not documented On 05-May-2015 11:00 Appointment; Harris Barragan Encounter Diagnosis: Problem not documented On 05-May-2015 10:30 Appointment; Price Garcia Encounter Diagnosis: Problem not documented On 22-Apr-2015 10:15 Appointment; Harris Barragan Encounter Diagnosis: Problem not documented On 13-Apr-2015 11:00 Appointment; Price Garcia Encounter Diagnosis: Problem not documented On 10:00 Appointment; Linda Bingham Encounter Diagnosis: Problem not documented On 09:50 Appointment; Price Garcia Encounter Diagnosis: Problem not documented On 09:45 Appointment; Harris Barragan Encounter Diagnosis: Problem not documented On 08:45 Appointment; Price Garcia Encounter Diagnosis: Problem not documented On 11:15 Appointment; Jessica Nguyen Encounter Diagnosis: Problem not [...]
--- OUTSIDE RECORDS SUMMARY | 2016-12-14 18:04 | XMS REPORT | Summary of Care ---
Author Author Radha Titus, Price Organization Unknown Address Unknown Phone Unavailable Care Team Providers Care General Worker Name Role Phone Price Garcia M.D. Unavailable Unavailable [employer] WEB SERVICES PROFESSIONAL, Crystal Unavailable Unavailable Price Garcia PP Unavailable [...] Hip pain, left (719.45, M25.552) Status: Active Migraine headache (346.90, G43.909) Status: Active Atypical chest pain (786.59, R07.89) Status: Active Hypertension (401.9, I10) Status: Active Polyarthritis (716.50, M13.0) Status: Active Spondylolysis, lumbar region (738.4, M43.06) Status: Active Precordial pain (786.51, R07.2) Status: Active Medications Name Dates Details Melatonin 5 MG Oral Tablet * Started 16-Jun-2014 ActiveTriamcinolone .1%/ Eucerin Compound (50/50 mix) -- 1 pound tub (454 grams) APPLY TO THE AFFECTED AREA TWICE DAILY * Quantity: 60 Refills: 0 Patrick, Jessica WEB SERVICES PROFESSIONAL* Started 24-Jun-2014 ActiveZolpidem Tartrate ER 12.5 MG Oral Tablet Extended Release TAKE 1 TABLET AT BEDTIME NEEDED FOR SLEEP.*MUST LAST 30 DAYS * Quantity: 30 Refills: 0 Price Garcia M.D.* Started 30-Oct-2014 ActiveFluvoxaMINE Maleate 100 MG Oral Tablet TAKE 1 TABLET AT BEDTIME. * Quantity: 30 Refills: 5 Price Garcia M.D.* Started 30-Oct-2014 ActiveHydrALAZINE HCl - 50 MG Oral Tablet [...] Refills: 5 Price Garcia M.D.* Started 30-Oct-2014 EirdvjJgwbtzwxlx-NGXT-Ygxdppfn 50-325-40 MG Oral Tablet TAKE ONE TABLET BY MOUTH EVERY 4 HOURS MAX OF 6 TABLETS PER DAY MUST LAST 30 DAYS * Quantity: 180 Refills: 0 Price Garcia M.D.* Started 09-Jun-2014 ActiveDiazepam 10 MG Oral Tablet TAKE ONE TABLET BY MOUTH EVERY 8 HOURS MUST LAST 30 DAYS * Quantity: 90 Refills: 0 Price Garcia M.D.* Started 30-Oct-2014 ActiveQUEtiapine Fumarate 50 MG Oral Tablet TAKE 1 TABLET AT BEDTIME. * Refills: 0 * Started 30-Oct-2014 ActiveLithium Carbonate 300 MG Oral Capsule TAKE 1 CAPSULE TWICE DAILY. * Refills: 0 * Started 18-Dec-2014 ActiveAcetaminophen-Codeine 300-30 MG Oral Tablet TAKE ONE TABLET BY MOUTH EVERY 6 HOURS NEEDED FOR PAIN.MAX 4 PER DAY* * Quantity: 120 Refills: 0 Price Garcia M.D.* Started 29-Dec-2014 Active Allergies and Adverse Reactions Name Dates [...] History of Colonoscopy (Fiberoptic) History of Section URIC ACID 1155 Ordered:18-Dec-2014 ANALYZER PROFILE 3031 Ordered:18-Dec-2014 ERYTHROCYTE SED RATE 7800 Ordered:18-Dec-2014 HLA B 27 Disease Association 164260 Ordered:18-Dec-2014 XRay CHEST-PA & LAT Ordered:29-Dec-2014 Immunization Name Dates Details Influenza Administered on:21-Jun-2011 Influenza Administered on:03-May-2012 Tdap (Adacel) Lot #: [id number] Administered on:14-May-2013 Fluzone Quadrivalent 0.5 ML Intramuscular Suspension Lot #: [id number] Administered on:03-Jun-2014 Family History Grandfather* Name Dates [...] smoker Vital Signs Date Test Result Details 29-Dec-2014 11:10 BP Systolic 162 mm[Hg] Status: BP Diastolic 102 mm[Hg] Status: Heart Rate 58 /min Status: Respiration Rate 18 /min Status: Weight 150.375 lb Status: Height 66 in Status: O2 SAT 97 % Status: Body Mass Index Calculated 24.27 kg/m2 Status: Body Surface Area Calculated 1.77 m2 Status: 18-Dec-2014 09:42 BP Systolic 162 mm[Hg] Status: BP Diastolic 98 mm[Hg] Status: Heart Rate 63 /min Status: Respiration Rate 18 /min Status: Weight 149.25 lb Status: Height 66 in Status: O2 SAT 97 % Status: Body Mass Index Calculated 24.09 kg/m2 Status: Body Surface Area Calculated 1.77 m2 Status: 05-Dec-2014 13:08 BP Systolic 153 mm[Hg] Status: BP Diastolic 85 mm[Hg] Status: Heart Rate 55 /min Status: Temperature 97.9 c Status: O2 SAT 98 % Status: 03-Dec-2014 10:21 BP Systolic 124 mm[Hg] Status: BP Diastolic 72 mm[Hg] Status: Heart Rate 66 /min Status: Temperature 98.1 c Status: Weight 152 lb Status: Body Mass Index Calculated 24.53 kg/m2 Status: Body Surface Area Calculated 1.78 m2 Status: Results Date Description Value Details 05-Dec-2014 14:10 XRay HIP-Left Comments: Exam Date: 13: 13Dictation Date: 14:10 X HIP COMP (MIN 2V) LT ([facility]) 12-Dec-2014 10:12 LITHIUM 1162 LITHIUM 0.77 mmol/L ([facility]) Range: 0.30-1.19 Comments: Mj/ED----- Dose last dose last night at 5pm. ([facility]) Plan of Care Planned Observations* Name Dates Details Planned Goals not documented Goal Planned Encounters* Appointment; Provider: Andre Pratt On 15-Jul-2015 13:45 Instructions * Instructions not documented Encounters Appointment; Price Garcia Encounter Diagnosis: Problem not [...] Problem not documented On 29-May-2014 11:30 Appointment; Jsoe Trammell Encounter Diagnosis: Problem not documented On [...] Problem not documented On 09-Dec-2013 10:30 Appointment; Mevlin Cotto Encounter Diagnosis: Problem not documented On [...] Problem not documented On 15:05 Appointment; Melvin Cotot Diagnosis: Problem not documented On 13:30 Appointment; [...]
--- OUTSIDE RECORDS SUMMARY | 2016-12-14 18:04 | XMS REPORT | Summary of Care ---
Author Author [place] [facility] D.O. Organization Unknown Address [address], [place] [id number] Phone Unavailable Care Team Providers Care Material Stress Tester Name Role Phone Marv Titus, Ghazal Unavailable Unavailable Radha Titus, Price Unavailable Unavailable [employer] SERVICE CONSULTANT, Crystal Unavailable Unavailable Jp Titus, Jose Unavailable Unavailable Price Garcia PP Unavailable Unavailable [...] Status: Active Depression (311, F32.9) Status: Active Anxiety (300.00, F41.9) Status: Active Pain in a tooth or teeth (525.9, K08.8) Status: Active Hypertension (401.9, I10) Status: Active Bronchitis, acute (466.0, J20.9) Status: Active Migraine headache (346.90, G43.909) Status: Active Medications Name Dates Details Melatonin 5 MG Oral Tablet * Started 16-Jun-2014 ActiveTriamcinolone .1%/ Eucerin Compound (50/50 mix) -- 1 pound tub (454 grams) APPLY TO THE AFFECTED AREA TWICE DAILY * Quantity: 60 Refills: 0 MichaelleKristinaJessica Sanchez SERVICE CONSULTANT* Started 24-Jun-2014 ActiveAmitriptyline HCl - 100 MG Oral Tablet TAKE 1 TABLET DAILY AT BEDTIME. * Quantity: 30 Refills: 6 Jose Trammell M.D.* Started 09-Jun-2014 ActivePropranolol HCl - 80 MG Oral Tablet TAKE 1 TABLET EVERY 12 HOURS DAILY. * Quantity: 60 Refills: 3 Price Garcia M.D.* Started 07-Jul-2014 ActiveZolpidem Tartrate 10 MG Oral Tablet TAKE 1 TABLET AT BEDTIME NEEDED FOR SLEEP. * Quantity: 30 Refills: 0 Jose Trammell M.D.* Started 03-Jun-2014 ActiveHydrALAZINE HCl - 50 MG Oral Tablet Take 1 tablet three times daily. * Quantity: 90 Refills: 5 Price Garcia M.D.* Started 05-Aug-2014 ActiveDiazepam 5 MG Oral Tablet TAKE 1 TABLET EVERY 8HRS NEEDED.*MUST LAST 30 DAYS*MAY FILL ON OR AFTER * * Quantity: 90 Refills: 0 Price Garcia M.D.* Started 21-Jul-2014 ActiveBaclofen 10 MG Oral Tablet * Refills: 0 * Started 08-Sep-2014 ActiveHydrOXYzine Pamoate 25 MG Oral Capsule TAKE 1 CAP BY MOUTH EVERY 6 HRS NEEDED * Quantity: 120 Refills: 2 Price Garcia M.D.* Started 05-Aug-2014 BlwmrtHcgogpzqwe-PMCB-Ubykedkr 50-325-40 MG Oral Tablet TAKE ONE TABLET BY MOUTH EVERY 4 HOURS (MAX 6 PER DAY)(MUST LAST 30 DAYS) * Quantity: 180 Refills: 0 Hiram Fair M.D.* Started 09-Jun-2014 Active Allergies and Adverse Reactions Name Dates [...] Influenza Administered on:03-May-2012 Tdap (Adacel) Lot #: [id number] Administered on:14-May-2013 Fluzone Quadrivalent 0.5 ML Intramuscular Suspension Lot #: [id number] Administered on:03-Jun-2014 Family History Grandfather* Name Dates [...] smoker Vital Signs Date Test Result Details 11-Oct-2014 08:27 BP Systolic 158 mm[Hg] Status: BP Diastolic 92 mm[Hg] Status: Heart Rate 83 /min Status: Temperature 98.2 c Status: O2 SAT 95 % Status: 02-Oct-2014 08:22 Heart Rate 74 /min Status: Respiration Rate 18 /min Status: Temperature 97.2 c Status: Weight 151 lb Status: O2 SAT 98 % Status: Body Mass Index Calculated 24.37 kg/m2 Status: Body Surface Area Calculated 1.77 m2 Status: 15-Sep-2014 09:29 BP Systolic 154 mm[Hg] Status: BP Diastolic 96 mm[Hg] Status: Heart Rate 79 /min Status: Temperature 97.5 c Status: Weight 149 lb Status: Body Mass Index Calculated 24.05 kg/m2 Status: Body Surface Area Calculated 1.76 m2 Status: Results Date Description Value Details Results not documented Plan of Care Planned Observations* Name Dates Details Planned Goals not documented Goal Planned Encounters* Appointment; Provider: Andre Pratt On 15-Jul-2015 13:45 * Appointment; Provider: Price Garcia On 16-Oct-2014 09:30 Instructions * Instructions not documented Encounters Appointment; [place] Encounter Diagnosis: Problem not [...] Problem not documented On 30-Dec-2013 11:00 Appointment; Melvni Cotto Encounter Diagnosis: Problem not documented On [...] documented On 29-Oct-2012 08:00 Appointment; Melvin Cotto Encounter Diagnosis: Problem not documented On 25-Oct-2012 14:45
--- OUTSIDE RECORDS SUMMARY | 2016-12-14 18:04 | XMS REPORT ---
Author Author [employer], SYSTEM Organization Unknown Address Unknown Phone Unavailable Care Team Providers Care Seam Stay Stitcher Name Role Phone MD DENISE, GARY CASTILLO Unavailable Reason For Visit Chief Complaint LT KNEE PAIN Social History Functional Status Vital Signs Results [...]
--- OUTSIDE RECORDS SUMMARY | 2016-12-14 18:04 | XMS REPORT | Summary of Care ---
Author Author Yung Titus, Harris Boss Unknown Address [address], [place] [address] Phone Unavailable Care Team Providers Care Mayonnaise Mixer Name Role Phone Price Garcia M.D. Unavailable Unavailable Lisa COMPUTER INSTRUCTOR, Мария Unavailable Unavailable [employer] COMPUTER INSTRUCTOR, Crystal Unavailable Unavailable Price Garcia PP Unavailable [...] acute (466.0, J20.9) Status: Active Anxiety (300.00, F41.1) Status: Active Hip pain, left (719.45, M25.552) Status: Active Atypical chest pain (786.59, R07.89) Status: Active Hypertension (401.9, I10) Status: Active Polyarthritis (716.50, M13.0) Status: Active Spondylolysis, lumbar region (738.4, M43.06) Status: Active Precordial pain (786.51, R07.2) Status: Active Cerumen impaction (380.4, H61.20) Status: Active Cervicalgia (723.1, M54.2) Status: Active Cervicogenic headache (784.0, R51) Status: Active Headache (784.0, R51) Status: Active Nasal congestion (478.19, R09.81) Status: Active Migraine headache (346.90, G43.909) Status: Active Preop examination (V72.84, Z01.818) Status: Active Nasal septal deviation (470, J34.2) Status: Active Chronic sinus infection (473.9, J32.9) Status: Active Hypertrophy of nasal turbinates (478.0, J34.3) Status: Active Medications Name Dates Details Dyvmotlzlw-SPVO-Tfwrwymf 50-325-40 MG Oral Tablet TAKE ONE TABLET [...] TWICE DAILY * Quantity: 60 Refills: 0 Michaelle-Jessica Sanchez COMPUTER INSTRUCTOR* Started 24-Jun-2014 ActiveHydrALAZINE HCl - 50 MG Oral Tablet Take 1 tablet three times daily. * Quantity: 90 Refills: 5 Price Garcia M.D.* Started 05-Aug-2014 ActiveBaclofen 10 MG Oral Tablet TAKE ONE TABLET BY MOUTH EVERY 8 HOURS NEEDED FOR MUSCLE SPASM * Quantity: 90 Refills: 0 Price Garcia M.D.* Started 08-Sep-2014 ActiveVerapamil HCl - 80 MG Oral Tablet 1 TABLET TWICE DAILY * Quantity: 60 Refills: 5 Price Garcia M.D.* Started 30-Oct-2014 ActiveQUEtiapine Fumarate 50 MG Oral Tablet TAKE 1 TABLET AT BEDTIME. * Refills: 0 * Started 30-Oct-2014 ActiveDiazepam 10 MG Oral Tablet TAKE ONE TABLET BY MOUTH EVERY 8 HOURS NEEDEDMUST LAST 30 DAYS * Quantity: 90 Refills: [...] 0 Мария Gonzalez APRN* Started 24-Jan-2015 Admin RequestedCyclobenzaprine HCl - 10 MG Oral Tablet TAKE 1 TABLET 3 TIMES DAILY NEEDED. * Quantity: 90 Refills: 3 Price Garcia M.D.* Started Active Allergies and Adverse Reactions Name Dates [...] Influenza Administered on:03-May-2012 Tdap (Adacel) Lot #: [id number] Administered on:14-May-2013 Fluzone Quadrivalent 0.5 ML Intramuscular Suspension Lot #: [id number] Administered on:03-Jun-2014 Family History Grandfather* Name Dates [...] smoker Vital Signs Date Test Result Details 13-Apr-2015 10:49 Temperature 97.2 c Status: Heart Rate 72 /min Status: Weight 146 lb Status: Body Mass Index Calculated 23.57 kg/m2 Status: Body Surface Area Calculated 1.75 m2 Status: 09:37 BP Systolic 148 mm[Hg] Status: BP Diastolic 86 mm[Hg] Status: Heart Rate 63 /min Status: Respiration Rate 18 /min Status: Height 66 in Status: Weight 146.25 lb Status: O2 SAT 97 % Status: Body Mass Index Calculated 23.61 kg/m2 Status: Body Surface Area Calculated 1.75 m2 Status: 09:53 BP Systolic 147 mm[Hg] Status: BP Diastolic 88 mm[Hg] Status: Temperature 98.8 c Status: Heart Rate 60 /min Status: Weight 146 lb Status: O2 SAT 97 % Status: Body Mass Index Calculated 23.57 kg/m2 Status: Body Surface Area Calculated 1.75 m2 Status: Results Date Description Value Details 09:52 CBC w/ Auto Diff 7150 WBC 5.3 K/uL (Better) Range: 4.5-11.0 RBC 3.92 mil/uL (Better) Range: 3.60-5.00 HGB 12.5 g/dL (Better) Range: 12.0-16.0 HCT 37.8 % (Better) Range: 36.0-48.0 MCV 96.6 fL (Better) Range: 80.0-99.0 MCH 32.0 pg (Better) Range: 27.3-32.5 MCHC 33.1 % (Better) Range: 32.0-36.0 RDW 12.4 % (Better) Range: 11.6-14.8 PLATELETS 205 K/uL (Better) Range: 150-400 MPV 8.5 fL (Better) Range: 6.0-11.0 %NEUTRO 62.7 % (Better) Range: 37.0-80.0 %LYMPHS 29.8 % (Better) Range: 13.0-50.0 %MONO 5.2 % (Better) Range: 0.0-12.0 %EOS 0.4 % (Better) Range: 0.0-7.0 %BASO 0.2 % (Better) Range: 0.0-2.5 %ALVINO 1.6 % (Better) Range: 0.0-5.0 NEUTRO 3.3 K/uL (Better) Range: 2.0-6.9 LYMPHS 1.6 K/uL (Better) Range: 0.6-3.4 MONOS 0.3 K/uL (Better) Range: 0.0-0.9 EOS 0.0 K/uL (Better) Range: 0.0-0.7 BASO 0.0 K/uL (Better) Range: 0.0-0.2 09:56 Urinalysis, Reflex to Microscopic or Culture PRN 8005 pH 7.0 (Better) Range: 5.0-7.5 SP GRAVITY 1.010 (Better) Range: 1.010-1.030 APPEARANCE CLEAR (Better) Range: Clear COLOR YELLOW (Better) Range: Straw-Yellow PROTEIN NEGATIVE mg/dL (Better) Range: Negative-Trace GLUCOSE NEGATIVE mg/dL (Better) Range: Negative KETONE NEGATIVE mg/dL (Better) Range: Negative BILIRUB NEGATIVE (Better) Range: Negative BLOOD NEGATIVE (Better) Range: Negative UROBIL 0.2 EU/dL (Better) Range: 0.2-1.0 NITRITE NEGATIVE (Better) Range: Negative LEUK NEGATIVE (Better) Range: Negative 10:04 XRay CHEST-PA & LAT Comments: Exam Date: 03/26/2015 09: 54Dictation Date: 03/26/2015 10:04 X CHEST PA & LAT (Better) 10:04 PROTIME PANEL 7000 PROTIME 12.4 secs (Better) Range: 12.0-14.9 INR 0.93 (Better) 10:08 ECG/ EKG Preop Electro CardioGram (Better) 10:08 BASIC METABOLIC PROFILE 1210 SODIUM 137 mmol/L (Better) Range: 133-144 POTASSIUM 3.9 mmol/L (Better) Range: 3.5-5.1 CHLORIDE 104 mmol/L (Better) Range: 98-110 CARBON DIOXIDE 27.1 mmol/L (Better) Range: 23.0-33.0 ANION GAP 6 mmol/L (Better) Range: 6-16 BUN 9 mg/dL (Better) Range: 7-18 CREATININE, SERUM 0.81 mg/dL (Better) Range: 0.55-1.02 Comments: Please note new reference ranges effective 2015.----- EST GFR, >60 ml/min (Better) Range: >60 EST GFR, NON-AFR ANDORRAN >60 ml/min (Better) Range: >60 Comments: EST GFR is reported in ml/min per 1.73 m2 of body surface area. For -[place], please multiple result by 1.2.----- BUN:CREATININE RATIO 11 (Better) GLUCOSE 92 mg/dL (Better) Range: 70-100 CALCIUM 9.7 mg/dL (Better) Range: 8.5-10.1 Plan of Care Planned Observations* Name Dates Details Planned Goals not documented Goal Planned Encounters* Appointment; Provider: Andre Pratt On 15-Jul-2015 13:45 * Appointment; Provider: Price Garcia On 22-Apr-2015 10:15 * Appointment; Provider: Harris Barragan On 03-Apr-2015 13:00 * Appointment; Provider: Schedule Radiology On 07:00 Instructions * Instructions not documented Encounters Appointment; Harris Barragan Encounter Diagnosis: Problem not [...]
--- OUTSIDE RECORDS SUMMARY | 2016-12-14 18:04 | XMS REPORT ---
Author Author GENERATED, SYSTEM Organization Unknown Address Unknown Phone Unavailable Care Team Providers Care Data Entry Analyst Name Role Phone MD DENISE, GARY CASTILLO Unavailable Reason For Visit Reason for Visit from 04/02/2015 3:40 PM:* Pt Stated Reason for Adm : "sinus surgery" Chief Complaint HEADACHES, NASAL SEPTAL DEVIATION,BILATERAL ENDO SINUS Social History Social History from 04/03/2015 3:21 PM:* Tobacco Use? : Former Smoker Social History from 04/02/2015 3:40 PM:* Tobacco Use? : Former Smoker Functional Status Functional Status from 04/03/2015 3:25 PM:* LOC : Alert Functional Status from 04/03/2015 2:18 PM:* LOC : Alert Functional Status from 04/02/2015 3:40 PM:* LOC : Alert * Oriented To : Person,Place,Time,Event * Weight Bearing Status : Full * Assist Level : Independent * # Assists : Independent Vital Signs Hospital Vital Signs from 04/03/2015 4:30 PM:* Height : 5/4.25 ft,in * Pulse : 64 * Respirations : 16 * BP : 155/96 Hospital Vital Signs from 04/03/2015 4:15 PM:* Height : 5/4.25 ft,in * Pulse : 69 * Respirations : 16 * BP : 152/87 Hospital Vital Signs from 04/03/2015 4:00 PM:* Height : 5/4.25 ft,in * Pulse : 66 * Respirations : 16 * BP : 153/82 Hospital Vital Signs from 04/03/2015 3:55 PM:* Height : 5/4.25 ft,in * Pulse : 62 * Respirations : 16 * BP : 153/82 Hospital Vital Signs from 04/03/2015 2:50 PM:* Heart Rate : 64 * Resp Rate : 11 * Systolic BP (mmHg) : 169 * Diastolic BP (mmHg) : 92 * Mean BP (mmHg) : 124 * O2 Saturation (%) : 99 Hospital Vital Signs from 04/03/2015 2:45 PM:* Heart Rate : 66 * Resp Rate : 11 * Systolic BP (mmHg) : 170 * Diastolic BP (mmHg) : 92 * Mean BP (mmHg) : 122 * O2 Saturation (%) : 99 Hospital Vital Signs from 04/03/2015 2:40 PM:* Heart Rate : 64 * Resp Rate : 12 * Systolic BP (mmHg) : 172 * Diastolic BP (mmHg) : 92 * Mean BP (mmHg) : 133 * O2 Saturation (%) : 100 Hospital Vital Signs from 04/03/2015 2:35 PM:* Temp : 98.1 * Heart Rate : 69 * Resp Rate : 11 * Systolic BP (mmHg) : 163 * Diastolic BP (mmHg) : 92 * Mean BP (mmHg) : 119 * O2 Saturation (%) : 98 Hospital Vital Signs from 04/03/2015 2:30 PM:* Heart Rate : 77 * Resp Rate : 11 * Systolic BP (mmHg) : 161 * Diastolic BP (mmHg) : 89 * Mean BP (mmHg) : 120 * O2 Saturation (%) : 96 Hospital Vital Signs from 04/03/2015 2:25 PM:* Heart Rate : 80 * Resp Rate : 13 * Systolic BP (mmHg) : 157 * Diastolic BP (mmHg) : 95 * Mean BP (mmHg) : 120 * O2 Saturation (%) : 96 Hospital Vital Signs from 04/03/2015 2:20 PM:* Temp : 98.2 * Heart Rate : 84 * Resp Rate : 12 * Systolic BP (mmHg) : 151 * Diastolic BP (mmHg) : 88 * Mean BP (mmHg) : 114 * O2 Saturation (%) : 94 Hospital Vital Signs from 04/03/2015 11:19 AM:* Weight : 65.4/ kg * Height : 5/4.25 ft,in * Temperature : 98.2 F * Pulse : 71 * Respirations : 16 * BP : 157/91 Hospital Vital Signs from 04/02/2015 3:40 PM:* Weight : 65.4/ kg * Height : 5/4 ft,in Results Problems Encounter Diagnosis * Fall Risk Status:Active. Encounters Encounter Diagnosis * Fall Risk Status:Active. Plan of Care Follow-up Appointments from 04/03/2015 3:21 PM:* #1 Office appointment: : Dr. Meneses * #1 Date/Time : 04/13/2015 11:00 AM * Address # 1 : [facility]: [address], [place]- or Procedures * Completed septoplasty bilateral inferior turbinectomy sphenoid sinuplasty, by MD MARK MENESES on 04/03/2015 1:15 PM Immunizations No immunizations administered or ordered. Hospital Course Hospital Discharge Instructions How to care for yourself at home from 04/03/2015 3:21 PM:* Discharge Activity : May Shower * Do not drive or operate machinery for: : 24 hours or while taking narcotic pain medication * Discharge Diet : Diet as tolerated * Discharge Wound Care : Notify your physician if the following develops: redness, swelling, drainage or color of drainage changes, odor or increased pain. * Call your doctor if: : Fever over 101 F or severe chills,You have persistent or worsening symptoms * Specific Discharge Teaching Instructions provided: : Yes * Specific Discharge Teaching Instructions Reviewed: : Other * Discharge on Warfarin : No Allergies, Adverse Reactions, Alerts * No Latex Allergy. * No IV Contrast Allergy. * No Known Drug Allergies. * No Known Food Allergies. * No Known Allergies. Medication Medication reconciliation has not been performed.
--- OUTSIDE RECORDS SUMMARY | 2016-12-14 18:04 | XMS REPORT ---
Author Author GENERATED, SYSTEM Organization Unknown Address Unknown Phone Unavailable Care Team Providers Care Development Geologist Name Role Phone DO TIERNEY ALAN [phone] Reason For Visit Chief Complaint MIGRAIN HEADACH Social History Functional Status Vital Signs Results Problems Encounter Diagnosis No relevant problems exist. Encounters Encounter Diagnosis No relevant problems exist. Plan of Care Procedures No relevant procedures performed. Immunizations No immunizations administered or ordered. Hospital Course Hospital Discharge Instructions Allergies, Adverse Reactions, Alerts * Latex Allergy has not been assessed. * IV Contrast Allergy has not been assessed. * No Known Drug Allergies. * No Known Food Allergies. * No Known Allergies. Medication Medication reconciliation has not been performed.
--- OUTSIDE RECORDS SUMMARY | 2016-12-14 18:05 | XMS REPORT ---
Author Author FriendKyara 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
--- OUTSIDE RECORDS SUMMARY | 2016-12-14 18:05 | XMS REPORT ---
Author Author FriendKyara [employer] Address Unknown Phone Unavailable Care Team Providers Care Wool Washer Feeder Name Role Phone Friend, Kyara CP Unavailable [...]
--- OUTSIDE RECORDS SUMMARY | 2016-12-14 18:05 | XMS REPORT | Summary of Care ---
Author Author Yung Titus, Harris Boss Unknown Address [address], [place] [address] Phone Unavailable Care Team Providers Care Crown Blocker Name Role Phone Price Garcia M.D. Unavailable Unavailable Lisa PRODUCTION CONTROL PEGBOARD CLERK, Мария Unavailable Unavailable [employer] PRODUCTION CONTROL PEGBOARD CLERK, Crystal Unavailable Unavailable Price Garcia PP Unavailable [...] forms of tremor (333.1, G25.0) Status: Active Obsessive compulsive disorder (300.3, F42) [...] Active Bronchitis, acute (466.0, J20.9) Status: Active Hip pain, left (719.45, M25.552) Status: Active Atypical chest pain (786.59, R07.89) Status: Active Polyarthritis (716.50, M13.0) Status: Active Spondylolysis, lumbar region (738.4, M43.06) Status: Active Precordial pain (786.51, R07.2) Status: Active Cerumen impaction (380.4, H61.20) Status: Active Cervicalgia (723.1, M54.2) Status: Active Headache (784.0, R51) Status: Active Nasal congestion (478.19, R09.81) Status: Active Migraine headache (346.90, G43.909) Status: Active Preop examination (V72.84, Z01.818) Status: Active Hypertension (401.9, I10) Status: Active Cervicogenic headache (784.0, R51) Status: Active Anxiety (300.00, F41.9) Status: Active Pain of both shoulder joints (719.41, M25.511) Status: Active Knee joint pain, right (719.46, M25.561) Status: Active Nasal septal deviation (470, J34.2) Status: Active Hypertrophy of nasal turbinates (478.0, J34.3) Status: Active Chronic sinus infection (473.9, J32.9) Status: Active Medications Name Dates Details Rccvauqptt-ZDEW-Neujirrn 50-325-40 MG Oral Tablet TAKE ONE TABLET [...] TWICE DAILY * Quantity: 60 Refills: 0 Smarsh-Kutilek, Crystal PRODUCTION CONTROL PEGBOARD CLERK* Started 24-Jun-2014 ActiveHydrALAZINE HCl - 50 MG Oral Tablet Take 1 tablet three times daily. * Quantity: 90 Refills: 5 Price Garcia M.D.* Started 05-Aug-2014 ActiveQUEtiapine Fumarate 50 MG Oral Tablet TAKE [...] Refills: 6 Price Garcia M.D.* Started 30-Oct-2014 ActiveZolpidem Tartrate ER 12.5 MG Oral Tablet Extended Release TAKE 1 TABLET AT BEDTIME NEEDED FOR SLEEP.*MUST LAST 30 DAYS * Quantity: 30 Refills: 0 Price Garcia M.D.* Started 30-Oct-2014 ActiveNalbuphine HCl - 10 MG/ML Injection Solution Inject 10mg IM x 1 now * Quantity: 1 Refills: 0 Мария Gonzalez APRN* Started 24-Jan-2015 Admin RequestedPromethazine HCl - 25 MG/ML Injection Solution Inject 12.5mg IM x 1 now * Quantity: 1 Refills: 0 Мария Gonzalez PRODUCTION CONTROL PEGBOARD CLERK* Started 24-Jan-2015 Admin RequestedCyclobenzaprine HCl - 10 MG Oral Tablet TAKE 1 TABLET 3 TIMES DAILY NEEDED. * Quantity: 90 Refills: 3 Price Garcia M.D.* Started ActiveAcetaminophen 500 MG Oral Capsule * Refills: 0 * Started 05-May-2015 ActiveAcetaminophen-Codeine #3 300-30 MG Oral Tablet * Refills: 0 * Started 05-May-2015 ActiveAspirin 325 MG Oral Tablet TAKE 1 TABLET DAILY. * Refills: 0 * Started 05-May-2015 ActiveAtenolol 50 MG Oral Tablet TAKE 1 TABLET DAILY. * Refills: 0 * Started 05-May-2015 ActiveAtorvastatin Calcium 80 MG Oral Tablet TAKE 1 TABLET AT BEDTIME. * Refills: 0 * Started 05-May-2015 ActivePlavix 75 MG Oral Tablet TAKE 1 TABLET DAILY. * Refills: 0 * Started 05-May-2015 ActiveDiclofenac Sodium 3 % Transdermal Gel * Refills: 0 * Started 05-May-2015 ActiveDocusate Sodium 100 MG Oral Capsule Take 1 capsule BID. * Refills: 0 * Started 05-May-2015 ActiveZetia 10 MG Oral Tablet * Refills: 0 * Started 05-May-2015 Active Allergies and Adverse Reactions Name Dates [...] Influenza Administered on:03-May-2012 Tdap (Adacel) Lot #: [id number] Administered on:14-May-2013 Fluzone Quadrivalent 0.5 ML Intramuscular Suspension Lot #: [id number] Administered on:03-Jun-2014 Family History Grandfather* Name Dates [...] smoker Vital Signs Date Test Result Details 05-May-2015 10:46 BP Systolic 157 mm[Hg] Status: BP Diastolic 97 mm[Hg] Status: Heart Rate 87 /min Status: Weight 139.25 lb Status: Body Mass Index Calculated 22.48 kg/m2 Status: Body Surface Area Calculated 1.71 m2 Status: 22-Apr-2015 10:01 BP Systolic 158 mm[Hg] Status: BP Diastolic 102 mm[Hg] Status: Heart Rate 67 /min Status: Respiration Rate 18 /min Status: Height 66 in Status: Weight 145.125 lb Status: O2 SAT 97 % Status: Body Mass Index Calculated 23.42 kg/m2 Status: Body Surface Area Calculated 1.75 m2 Status: 13-Apr-2015 10:49 Temperature 97.2 c Status: Heart Rate 72 /min Status: Weight 146 lb Status: Body Mass Index Calculated 23.57 kg/m2 Status: Body Surface Area Calculated 1.75 m2 Status: Results Date Description Value Details 22-Apr-2015 11:05 XRay SHOULDER-BILATERAL Comments: Exam Date: 2014 10:22Dictation Date: 04/22/2015 11:05 X SHOULDER COMP (MIN 2V) BILAT (Better) 11:06 XRay KNEE-Right Comments: Exam Date: 04/22/2015 10:23Dictation Date: 04/22/2015 11:06 X KNEE COMP (MIN 4V) RT (Better) Plan of Care Planned Observations* Name Dates Details Planned Goals not documented Goal Planned Encounters* Appointment; Provider: Andre Pratt On 15-Jul-2015 13:45 * Appointment; Provider: Price Garcia On 17-Jun-2015 10:15 * Appointment; Provider: Price Garcia On 22-May-2015 13:15 * Appointment; Provider: Harris Barragan On 03-Apr-2015 [...]
--- OUTSIDE RECORDS SUMMARY | 2016-12-14 18:05 | XMS REPORT ---
Author Author FriendKyara [facility] Address [address] [place], [place] [address] Care Team Providers Care Poultry Husbandman Name Role Phone FriendKyara Unavailable [phone] PROBLEMS Type Condition ICD9-CM Code PUG23-SE Code Onset Dates Condition Status SNOMED Code Problem Neuropathy G62.9 Active 378766184 Problem CAD (coronary artery disease) I25.10 Active 78676827 Problem Depression F32.9 Active 478509566 Problem Arthritis of left knee M19.90 Active 6836596559814197 Problem Tear of meniscus of left knee S83.207A Active Problem Fibromyalgia M79.7 Active 068481916 Problem 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
--- OUTSIDE RECORDS SUMMARY | 2016-12-14 18:05 | XMS REPORT | Summary of Care ---
Author Author Radha Titus, Price Organization Unknown Address Unknown Phone Unavailable Care Team Providers Care Curam Developer Name Role Phone Price Garcia M.D. Unavailable Unavailable Мария Gonzalez APRN Unavailable Unavailable Price Garcia PP Unavailable [...] Active Abnormal electrocardiogram (794.31, R94.31) Status: Active Hyperthyroidism (242.90, E05.90) Status: Active Insomnia (780.52, G47.00) Status: Active Depression (311, F32.9) Status: Active Hip pain, left (719.45, M25.552) Status: Active Spondylolysis, lumbar region (738.4, M43.06) Status: Active Precordial pain (786.51, R07.2) Status: Active Headache (784.0, R51) Status: Active Nasal congestion (478.19, R09.81) Status: Active Anxiety (300.00, F41.9) Status: Active Pain of both shoulder joints (719.41, M25.511) Status: Active Knee joint pain, right (719.46, M25.561) Status: Active Nasal septal deviation (470, J34.2) Status: Active Hypertrophy of nasal turbinates (478.0, J34.3) Status: Active Chronic sinus infection (473.9, J32.9) Status: Active Presence of stent in coronary artery in patient with coronary artery disease ( 414.01, I25.10) Status: Active Nausea (787.02, R11.0) Status: Active Inflamed seborrheic keratosis (702.11, L82.0) Status: Active Polyarthritis (716.50, M13.0) Status: Active Migraine headache (346.90, G43.909) Status: Active 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, M47.812) Status: Active Cervicogenic headache (784.0, R51) Status: Active Essential hypertension, benign (401.1, I10) Status: Active Medications Name Dates Details FluvoxaMINE Maleate 100 MG Oral Tablet TAKE 1 TABLET AT BEDTIME. Quantity: 30 Price Garcia M.D.* Started 30-Oct-2014 ActiveNalbuphine HCl - 10 MG/ML Injection Solution Inject 10mg IM x 1 now * Quantity: 1 Refills: 0 Мария Gonzalez BANK OPERATIONS OFFICER* Started 24-Jan-2015 Admin RequestedPromethazine HCl - 25 MG/ML Injection Solution Inject 12.5mg IM x 1 now * Quantity: 1 Refills: 0 Мария Gonzalez BANK OPERATIONS OFFICER* Started 24-Jan-2015 Admin RequestedAspirin 325 MG Oral Tablet TAKE 1 TABLET DAILY. * Refills: 0 * Started 05-May-2015 ActiveAtorvastatin Calcium 80 MG Oral Tablet TAKE 1 TABLET AT BEDTIME. * Refills: 0 * Started 05-May-2015 ActivePlavix 75 MG Oral Tablet TAKE 1 TABLET DAILY. * Refills: 0 * Started 05-May-2015 ActiveDocusate Sodium 100 MG Oral Capsule Take 1 capsule BID. * Refills: 0 * Started 05-May-2015 ActiveLosartan Potassium 50 MG Oral Tablet TAKE 1 TABLET DAILY. * Quantity: 30 Refills: 5 * Started 05-May-2015 ActiveAmLODIPine Besylate 10 MG Oral Tablet take one tablet by mouth every day * Quantity: 30 Refills: 6 Price Garcia M.D.* Started 30-Oct-2014 ActiveQUEtiapine Fumarate 25 MG Oral Tablet TAKE 1 TABLET IN MORNING, THEN TAKE 1 TABLET IN EVENING, THEN TAKE 2 TABLETS AT BEDTIME * Quantity: 120 Refills: 3 Price Garcia M.D.* Started 30-Oct-2014 ActiveAtenolol 50 MG Oral Tablet take 25 MG in a.m then 50 MG at p.m * Refills: 0 * Started 05-May-2015 ActiveEvzio 0.4 MG/0.4ML Injection Solution Auto-injector INJECT 0.4MG SC/IM Q 2-3MIN NEEDED PER OVERDOSE * Quantity: 1 Refills: 0 Price Garcia M.D.* Started 17-Jun-2015 Active0.4 ML Package (2 Packages) Cyclobenzaprine HCl - 10 MG Oral Tablet TAKE ONE TABLET BY MOUTH THREE TIMES DAILY NEEDED * Quantity: 90 Refills: 0 Price Garcia M.D.* Started ActiveZolpidem Tartrate 10 MG Oral Tablet TAKE ONE TABLET BY MOUTH AT BEDTIME NEEDED FOR SLEEP MUST LAST 30 DAYS * Quantity: 30 Refills: 0 Price Garcia M.D.* Started 26-Jun-2015 ActiveDiazepam 10 MG Oral Tablet TAKE ONE TABLET BY MOUTH EVERY 8 HOURS NEEDED MUST LAST 30 DAYS * Quantity: 90 Refills: 0 Price Garcia M.D.* Started 30-Oct-2014 Active Allergies and Adverse Reactions Name Dates [...] Influenza Administered on:03-May-2012 Tdap (Adacel) Lot #: [id number] Administered on:14-May-2013 Fluzone Quadrivalent 0.5 ML Intramuscular Suspension Lot #: [id number] Administered on:03-Jun-2014 Fluzone Quadrivalent 0.5 ML Intramuscular Suspension Prefilled Syringe Lot #: [id number] Administered on:17-Jun-2015 Family History Grandfather* Name Dates [...] smoker Vital Signs Date Test Result Details 17-Aug-2015 10:50 BP Systolic 160 mm[Hg] Status: BP Diastolic 90 mm[Hg] Status: Heart Rate 64 /min Status: Respiration Rate 16 /min Status: Height 66 in Status: Weight 139 lb Status: O2 SAT 97 % Status: Body Mass Index Calculated 22.44 kg/m2 Status: Body Surface Area Calculated 1.71 m2 Status: 13-Aug-2015 09:06 BP Systolic 142 mm[Hg] Status: BP Diastolic 74 mm[Hg] Status: Temperature 97.7 f Status: Heart Rate 76 /min Status: Respiration Rate 16 /min Status: O2 SAT 98 % Status: 07-Aug-2015 13:10 BP Systolic 96 mm[Hg] Status: BP Diastolic 60 mm[Hg] Status: Heart Rate 78 /min Status: Respiration Rate 20 /min Status: Height 66 in Status: Weight 137.25 lb Status: O2 SAT 96 % Status: Body Mass Index Calculated 22.15 kg/m2 Status: Body Surface Area Calculated 1.7 m2 Status: Results Date Description Value Details Results not documented Plan of Care Planned Observations* Name Dates Details Planned Goals not documented Goal Planned Encounters* Appointment; Provider: Andre Pratt On 18-Jul-2016 11:00 * Appointment; Provider: Harris Barragan On 03-Apr-2015 13:00 * Appointment; Provider: Schedule Radiology On 07:00 Instructions * Instructions not documented Encounters Appointment; Price Garcia Encounter Diagnosis: Problem not documented On 17-Aug-2015 11:00 Appointment; Gaston Hare Encounter Diagnosis: Problem not documented On 13-Aug-2015 08:35 Appointment; Price Garcia Encounter Diagnosis: Problem not documented On 07-Aug-2015 13:15 Appointment; Andre Pratt Encounter Diagnosis: Problem not documented On 15-Jul-2015 13:45 Appointment; [place] Encounter Diagnosis: Problem not documented On 13-Jul-2015 09:15 Appointment; Virginia Medina Encounter Diagnosis: Problem not documented On 25-Jun-2015 10:50 Appointment; Gaston Hare Encounter Diagnosis: Problem not [...]
--- OUTSIDE RECORDS SUMMARY | 2016-12-14 18:05 | XMS REPORT | Continuity of care Document ---
Author Author GENERATED, SYSTEM Organization Unknown Address Unknown Phone Unavailable Purpose Hospital Course Allergies, Adverse Reactions, Alerts * Latex Allergy has not been assessed. * IV Contrast Allergy has not been assessed. * No Known Drug Allergies. * No Known Food Allergies. * No Known Allergies. Problems No relevant problems exist. Procedures No relevant procedures performed. Medication Medication reconciliation has not been performed. Results Chemistry from 01/18/2014 9:28 AMSODIUM 134 MMOL/L L (136-145 MMOL/L) POTASSIUM 3.4 MMOL/L L (3.5-5.1 MMOL/L) CHLORIDE 95 MMOL/L L (98-107 MMOL/L) TCO2 30.6 MMOL/L (21.0-32.0 MMOL/L) ANION GAP 8.4 MMOL/L (8.0-16.0 MMOL/L) BUN 16 MG/DL (7-18 MG/DL) CREATININE 0.73 MG/DL (0.43-0.83 MG/DL) BUN/CREATININE RATIO 21.9 H (9.1-17.0 ) GLUCOSE 108 MG/DL H (65-99 MG/DL) GFR EST NON AFR GABONESE >=90 ML/MIN GFRA EST AFR AMER >=90 ML/MIN CALCIUM 10.3 MG/DL H (8.5-10.1 MG/DL) Hematology from 01/18/2014 9:28 AMWBC 7.3 X10e3/UL (3.6-11.2 X10e3/UL) RBC 4.30 X10e6/UL (3.63-4.92 X10e6/UL) HEMOGLOBIN 12.5 G/DL (11.0-14.3 G/DL) HEMATOCRIT 37.4 % (31.2-41.9 %) MCV 87.0 FL (79.0-98.0 FL) MCH 29.1 PG (27.0-33.0 PG) MCHC 33.4 G/DL (32.0-36.0 G/DL) RDW 12.4 % (12.3-17.0 %) RDWSD 37.6 (37.1-47.8 ) PLATELET 223 X10e3/UL (159-386 X10e3/UL) MPV 7.0 FL L (7.4-10.4 FL) AUTOMATED DIFF PERFORMED SEGS 66.0 % LYMPHOCYTES 28.4 % MONOCYTES 5.4 % EOSINOPHILS 0.0 % BASOPHILS 0.2 % ABSOLUTE NEUTROPHILS 4.8 X10e3/UL (1.8-7.8 X10e3/UL) ABSOLUTE LYMPHOCYTES 2.1 X10e3/UL (1.0-3.0 X10e3/UL) ABSOLUTE MONOCYTES 0.4 X10e3/UL (0.3-1.0 X10e3/UL) ABSOLUTE EOSINOPHILS 0.0 X10e3/UL (0.0-0.5 X10e3/UL) ABSOLUTE BASOPHILS 0.0 X10e3/UL (0.0-0.2 X10e3/UL) CT Scan from 01/18/2014 9:16 AMCT CEREBRAL W/O CONTRAST (Preliminary Result) DATE OF EXAM: Jan 18 2014 9:43AM Proc: CT 0001 - CT CEREBRAL W/O CONTRAST CPT Code(s): 60272-; ; ; INDICATION / CLINICAL HISTORY: Headache COMPARISON: None. FINDINGS: The ventricles are normal in size and configuration. There is no mass effect or midline shift. No intracranial hemorrhage or abnormal extraaxial fluid collections are demonstrated. The visualized sinuses are well aerated. IMPRESSION: No acute intracranial processes.
--- OUTSIDE RECORDS SUMMARY | 2016-12-14 18:05 | XMS REPORT | Summary of Care ---
Author Author Papa Keys M.D. Organization Unknown Address [address], [place] [id number] Phone Unavailable Care Team Providers Care Brineyard Supervisor Name Role Phone Price Garcia M.D. Unavailable Unavailable Мария Gonzalez APRN Unavailable Unavailable Klaudia Keys M.D. Unavailable Unavailable Price Garcia PP Unavailable Unavailable Unavailable Functional Status Functional Status Health Issues* Name Dates Details Functional status health issues are not documented Status: Cognitive Status Health Issues* Name Dates Details Cognitive status health issues are not documented Status: Problems Name Dates Details Essential and other specified forms of tremor (333.1, G25.0) Status: Active Abnormal electrocardiogram (794.31, R94.31) Status: Active Hyperthyroidism (242.90, E05.90) Status: Active Insomnia (780.52, G47.00) Status: Active Depression (311, F32.9) Status: Active Nasal septal deviation (470, J34.2) Status: Active Hypertrophy of nasal turbinates (478.0, J34.3) Status: Active Chronic sinus infection (473.9, J32.9) Status: Active Presence of stent in coronary artery in patient with coronary artery disease ( 414.01, I25.10) Status: Active Clinical trial exam (V70.7, Z00.6) Status: Active Never smoker Status: Active Cervicogenic headache (784.0, R51) Status: Active Migraine headache (346.90, G43.909) Status: Active Essential hypertension, benign (401.1, I10) Status: Active 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, F41.8) Status: Active Low back pain (724.2, M54.5) Status: Active Spondylolysis, lumbar region (738.4, M43.06) Status: Active Localized primary osteoarthritis of right lower leg (715.16, M17.11) Status: Active Cervical pain (neck) (723.1, M54.2) Status: Active Localized primary osteoarthritis of left lower leg (715.16, M17.12) Status: Active Tear of medial meniscus of knee, left, initial encounter (836.0, S83.242A) Status: Active Primary osteoarthritis of left knee (715.16, M17.12) Status: Active Acute pain of left knee (719.46, M25.562) Status: Active Medications Name Dates Details Mqshyfayrn-WQKH-Vizhrzgl 50-325-40 MG Oral Tablet TAKE ONE TABLET BY MOUTH EVERY 6 HOURS NEEDED MAX OF 4 TABLETS PER DAY MUST LAST 30 DAYSMAY FILL ON OR AFTER 01/11/16* Quantity: 120 Price Garcia M.D.* Started 09-Jun-2014 ActiveQUEtiapine Fumarate 25 MG Oral Tablet TAKE 1 TABLET IN MORNING, THEN TAKE 1 TABLET IN EVENING, THEN TAKE 2 TABLETS AT BEDTIME * Quantity: 120 Refills: 3 Price Garcia M.D.* Started 30-Oct-2014 ActiveDiazepam 10 MG Oral Tablet TAKE ONE TABLET BY MOUTH EVERY 8 HOURS NEEDED MUST LAST 30 DAYSMAY FILL ON OR AFTER 01/11/16 * Quantity: 90 Refills: 0 Price Garcia [...] * Quantity: 1 Refills: 0 Мария Gonzalez HAND EDGER* Started 24-Jan-2015 Admin RequestedPromethazine HCl - 25 MG/ML Injection Solution Inject 12.5mg IM x 1 now * Quantity: 1 Refills: 0 Lisa, Мария HAND EDGER* Started 24-Jan-2015 Admin RequestedAspirin 325 MG Oral [...] BID. * Refills: 0 * Started 05-May-2015 ActiveAtenolol 50 MG Oral Tablet take 25 [...] TIMES DAILY NEEDED * Quantity: 90 Refills: 3 Price Garcia M.D.* Started ActiveLosartan Potassium 100 MG Oral Tablet TAKE 1 TABLET DAILY. * Quantity: 30 Refills: 6 Price Garcia M.D.* Started 05-May-2015 ActivePennsaid 2 % Transdermal Solution Apply 2 pumps twice daily over area of pain. * Quantity: 1 Refills: 0 Papa Keys M.D.* Started 23-Dec-2015 [id number] GM Pump Btl Acetaminophen-Codeine 300-30 MG Oral Tablet Si PO every 4-6 hrs prn with a max of 4 per day. Scripts must last 30 days. * Quantity: 120 Refills: 0 Papa Keys M.D.* Started 30-Dec-2015 ActiveZolpidem Tartrate 10 MG Oral Tablet TAKE 1 TAB BY MOUTH EVERY NIGHT AT BEDTIME NEEDED FOR SLEEP *MUST LAST 30 DAYS*MAY FILL ON OR AFTER 01/16/16* * Quantity: 30 Refills: 0 Price Garcia M.D.* Started 26-Jun-2015 ActiveOxycodone-Acetaminophen 5-325 MG Oral Tablet Si PO every 4-6 hrs prn with a max of 3 per day. * Quantity: 90 Refills: 0 Papa Keys M.D.* Started 21-Jan-2016 Active Allergies and Adverse Reactions Name Dates Details codeine Status: Active Imitrex Status: Active Maxalt Status: Active Toradol Status: Active Past Medical History Name Dates Details History of anemia (V12.3, Z86.2) Status: Resolved History of Cervico-occipital neuralgia of right side (723.8, M54.81) Status: Resolved History of depression (V11.8, Z86.59) Status: Resolved History of fibrocystic disease of breast (V13.89, Z87.898) Status: Resolved History of Inflamed seborrheic keratosis (702.11, L82.0) Status: Resolved History of Localized primary osteoarthritis of left lower leg (715.16, M17.12) Status: Resolved History of migraine (V12.49, Z86.69) Status: Resolved Procedures Procedure Dates Details History of Appendectomy History of Tonsillectomy History of Cholecystectomy History of Tubal Ligation History of Colonoscopy (Fiberoptic) History of Section History of Septoplasty History of Excision Of Turbinate History of Nasal Endoscopy With Dilation Of Sphenoid Sinus Ostium Clinical Trials 4045 Ordered:11-Jan-2016 Immunization Name Dates Details Influenza Administered on:21-Jun-2011 Influenza Administered on:03-May-2012 Tdap (Adacel) Lot #: [id number] Administered on:14-May-2013 Fluzone Quadrivalent 0.5 ML Intramuscular Suspension Lot #: [id number] Administered on:03-Jun-2014 Fluzone Quadrivalent 0.5 ML Intramuscular Suspension Prefilled Syringe Lot #: [id number] Administered on:17-Jun-2015 Family History Grandfather* Name Dates [...] smoker Vital Signs Date Test Result Details 20-Jan-2016 13:58 BP Systolic 110 mm[Hg] Status: BP Diastolic 62 mm[Hg] Status: Temperature 97.9 f Status: Heart Rate 72 /min Status: O2 SAT 97 % Status: Results Date Description Value Details 04-Jan-2016 08:13 Clinical Trials 4045 Comments: Fastin hours Clinical Trials Clinical Trial [facility] ([facility] 11-Jan-2016 08:02 Clinical Trials 4045 Clinical Trials Clinical Trial Lab ([facility] Plan of Care Planned Observations* Name Dates Details Planned Goals not documented Goal Planned Encounters* Appointment; Provider: Andre Pratt On 18-Jul-2016 11:00 * Appointment; Provider: Price Garcia On 10:00 * Appointment; Provider: Price Garcia On 26-Jan-2016 14:15 * Appointment; Provider: Schedule Radiology On 30-Nov-2015 07:00 * Appointment; Provider: Schedule Radiology On 25-Nov-2015 08:00 * Appointment; Provider: Harris Barragan On 03-Apr-2015 13:00 * Appointment; Provider: Schedule Radiology On 07:00 Instructions * Instructions not documented Encounters Appointment; Paap Keys Encounter Diagnosis: Problem not documented On 21-Jan-2016 14:00 Appointment; [place] Encounter Diagnosis: Problem not documented On 20-Jan-2016 13:45 Appointment; Papa Keys Encounter Diagnosis: Problem not documented On 31-Dec-2015 15:30 Appointment; Papa Keys Encounter Diagnosis: Problem not documented On 23-Dec-2015 14:00 Appointment; Papa Keys Encounter Diagnosis: Problem not documented On 16-Dec-2015 14:00 Appointment; Price Garcia Encounter Diagnosis: Problem not documented On 11-Dec-2015 14:00 Appointment; Papa Keys Diagnosis: Problem not documented On 09-Dec-2015 14:00 Appointment; Papa Keys Encounter Diagnosis: Problem not documented On 02-Dec-2015 14:00 Appointment; Papa Keys Encounter Diagnosis: Problem not documented On 25-Nov-2015 14:00 Appointment; Price Garcia Encounter Diagnosis: Problem not documented On 20-Nov-2015 09:45 Appointment; Papa Keys Encounter Diagnosis: Problem not documented On 18-Nov-2015 13:30 Appointment; Jose Jimenez Encounter Diagnosis: Problem not documented On 10-Nov-2015 10:15 Appointment; Jose Jimenez Encounter Diagnosis: Problem not documented On 06-Nov-2015 09:00 Appointment; Jose Jimenez Encounter Diagnosis: Problem not documented On 03-Nov-2015 08:15 Appointment; Jose Jimenez Encounter Diagnosis: Problem not documented On 27-Oct-2015 08:30 Appointment; Jose Jimenez Encounter Diagnosis: Problem not documented On 23-Oct-2015 09:30 Appointment; Jose Jimenez Encounter Diagnosis: Problem not documented On 21-Oct-2015 11:30 Appointment; Jose Jimenez Encounter Diagnosis: Problem not documented On 16-Oct-2015 09:15 Appointment; Gordon Sandy Encounter Diagnosis: Problem not documented On 16-Oct-2015 08:45 Appointment; Gaston Hare Encounter Diagnosis: Problem not documented On 15-Oct-2015 16:10 Appointment; Price Garcia Encounter Diagnosis: Problem not documented On 14-Oct-2015 10:30 Appointment; Gordon Sandy Encounter Diagnosis: Problem not documented On 30-Sep-2015 09:00 Appointment; Linda Bingahm Encounter Diagnosis: Problem not documented On 22-Sep-2015 09:10 Appointment; Gordon Sandy Encounter Diagnosis: Problem not documented On 16-Sep-2015 08:45 Appointment; Gordon Sandy Encounter Diagnosis: Problem not documented On 08-Sep-2015 09:45 Appointment; Price Garcia Encounter Diagnosis: Problem not documented On 03-Sep-2015 10:10 Appointment; Linda Bingham Encounter Diagnosis: Problem not documented On 26-Aug-2015 08:35 Appointment; Price Garcia Encounter Diagnosis: Problem [...] Diagnosis: Problem not documented On 08:30 Appointment; Маиря Gonzalez Encounter Diagnosis: Problem not documented On [...]
--- OUTSIDE RECORDS SUMMARY | 2016-12-14 18:06 | XMS REPORT | Continuity of Care Document ---
Author Author [facility] Organization [facility] Address Unknown Phone Unavailable Allergies Active Description Code Type Severity Reaction Onset Reported/Identified Relationship to Patient Clinical Status Yes codeine 1550 1 N/A N/A Yes Iodinated Contrast Media - IV Dye 7 3 N/A N/A Yes RIZATRIPTAN BENZOATE 7572 1 N/A N/A Yes sumatriptan 4044 1 N/A N/A Yes SUMATRIPTAN SUCCINATE 4045 1 N/A N/A Yes codeine codeine Drug Allergy Moderate FAST HEART BEAT 06/14/2016 Yes morphine morphine Drug Allergy Moderate HEART FEELS WEIRD 06/14/2016 Yes rizatriptan rizatriptan Drug Allergy Moderate HEART RACES 06/14/2016 Yes sumatriptan sumatriptan Drug Allergy Moderate FAST HEARBEAT 06/14/2016 Yes codeine codeine Drug Allergy Moderate FAST HEART BEAT 06/14/2016 Yes morphine morphine Drug Allergy Moderate HEART FEELS WEIRD 06/14/2016 Yes rizatriptan rizatriptan Drug Allergy Moderate HEART RACES 06/14/2016 Yes sumatriptan sumatriptan Drug Allergy Moderate FAST HEARBEAT 06/14/2016 Medications Problems Date Dx Coded Attending Type Code Diagnosis Diagnosed By 10/28/2015 ITA PAGAN [id number] Pain in left leg 10/28/2015 ITA PAGAN [id number] Other specified postprocedural states 06/15/2016 Gordon Aragon MD D62 ACUTE POSTHEMORRHAGIC ANEMIA 06/15/2016 Gordon Aragon MD E78.5 HYPERLIPIDEMIA, UNSPECIFIED 06/15/2016 Gordon Aragon MD F32.9 MAJOR DEPRESSIVE DISORDER, SINGLE EPISODE, UNSPECI 06/15/2016 Gordon Aragon MD F41.9 ANXIETY DISORDER, UNSPECIFIED 06/15/2016 Gordon Aragon MD F44.81 DISSOCIATIVE IDENTITY DISORDER 06/15/2016 Gordon Aragon MD I10 ESSENTIAL (PRIMARY) HYPERTENSION 06/15/2016 Gordon Aragon MD I25.10 ATHSCL HEART DISEASE OF [place] CORONARY ARTERY W/O 06/15/2016 Gordon Aragon MD M17.12 UNILATERAL PRIMARY OSTEOARTHRITIS, LEFT KNEE 06/15/2016 Gordon Aragon MD M25.562 PAIN IN LEFT KNEE 06/15/2016 Gordon Aragon MD M79.7 FIBROMYALGIA 12/06/2016 D R296 Repeated falls 12/06/2016 D R51 Headache 12/06/2016 D R531 Weakness 12/06/2016 D Z955 Presence of coronary angioplasty implant and graft Procedures Code Description Performed By Performed On [id number] REPLACE OF L KNEE JT WITH SYNTH SUB, CEMENT, OPEN Gordon Aragon MD 06/15/2016 70893 11/29/2016 26976 11/29/2016 80773 11/29/2016 89171 11/29/2016 55680 11/29/2016 57789 11/29/2016 06239 11/29/2016 95094 11/29/2016 23810 11/29/2016 74457 11/29/2016 A9270 11/29/2016 Results Test Result Range CBC - 06/16/16 04:50 MEAN CELL HGB 29.7 pg 27.0-33.0 MEAN CELL HGB CONCENTRATION 34.5 g/dL 32.0-37.0 MEAN CELL VOLUME 86.0 fl 80.0-100.0 RED BLOOD CELL 3.44 m/cumm 4.00-6.00 RED CELL DISTRIBUTION WIDTH 13.2 % 11.0- 15.6 WHITE BLOOD CELL 7.7 k/cumm 5.0-10.0 HEMOGLOBIN 10.2 gm/dL 12.0-16.0 HEMATOCRIT 29.6 % 37.0-47.0 PLATELET COUNT 144 k/cumm 150-400 METABOLIC PANEL, COMPREHN - 06/16/16 04:50 POTASSIUM 3.6 mmol/L 3.5-5.3 EST GFR (MDRD) > 60 mL/min > 59 ANION GAP 8 mmol/L 5-15 EST CrCl (CG) > 60 mL/min > 59 GLUCOSE 129 mg/dL 70-99 CALCIUM 8.9 mg/dL 8.5-10.1 BLOOD UREA NITROGEN 10 mg/dL 7-20 CREATININE 0.7 mg/dL 0.6-1.0 SODIUM 138 mmol/L 135-148 CHLORIDE 103 mmol/L 98-110 AST/SGOT 72 Units/L 10-37 ALT/SGPT 64 Units/L < 66 CARBON DIOXIDE 27 mmol/L 21-32 TOTAL PROTEIN 6.1 gm/dL 6.4-8.2 ALBUMIN 3.2 gm/dL 3.4-5.0 BILI TOTAL 0.2 mg/dL 0.0-1.0 ALKALINE PHOSPHATASE TOTAL 157 IU/L 45- 117 COMPREHENSIVE METABOLIC PANEL - 07/12/16 15:30 BILIFUBIN TOTAL 0.30 0.20-1.00 TOTAL PROTEIN 7.1 6.4-8.2 ALBUMIN 4.0 3.4-5.0 *GLOBULIN 3.1 2.3-3.5 *A/G RATIO 1.3 1.5-2.2 ALK PHOS 144 U/L 46-116 ALT (SGPT) 16 U/L 16-63 AST (SGOT) 13 U/L 15-37 GFR ESTIMATION - 07/12/16 15:30 *GFR EST NON AFR [place] >90 mL/min NRG *GRFA EST AFR AMER >90 mL/min NRG MAGNESIUM - 07/12/16 15:30 MAGNESIUM 2.0 1.8-2.4 METABOLIC PANEL, BASIC - 07/16/16 05:32 POTASSIUM 4.0 mmol/L 3.5-5.3 EST GFR (MDRD) > 60 mL/min > 59 ANION GAP 6 mmol/L 5-15 GLUCOSE 94 mg/dL 70-99 CALCIUM 9.8 mg/dL 8.5-10.1 BLOOD UREA NITROGEN 4 mg/dL 7-20 CREATININE 0.7 mg/dL 0.6-1.0 SODIUM 141 mmol/L 135-148 CHLORIDE 106 mmol/L 98-110 CARBON DIOXIDE 29 mmol/L 21-32 LIPID PANEL - 07/16/16 05:32 CHOLESTEROL/HDL RATIO 2.9 < 5.0 LDL CHOLESTEROL 90 mg/dL < 100 VLDL CHOLESTEROL 23 mg/dL < 30 TRIGLYCERIDES 113 mg/dL < 150 CHOLESTEROL 171 mg/dL < 200 HDL CHOLESTEROL 58 mg/dL > 39 MAGNESIUM - 07/16/16 05:32 MAGNESIUM 2.0 mg/dL 1.8-2.4 THYROID STIM HORMONE (TSH) - 07/16/16 05:32 THYROID STIM HORMONE (TSH) 3.69 uIU/mL 0.34-4.82 CBC W/DIFF - 07/16/16 05:32 BASOPHIL # 0.0 k/cumm 0.0-0.2 BASOPHIL % 1 % 0-1 GRANULOCYTE # 1.1 k/cumm 2.0-9.0 GRANULOCYTE % 30 % 50-75 LYMPHOCYTE # 2.1 k/cumm 1.0-4.0 LYMPHOCYTE % 59 % 20-30 MEAN CELL HGB 30.1 pg 27.0-33.0 MEAN CELL HGB CONCENTRATION 32.5 g/dL 32.0-37.0 MEAN CELL VOLUME 92.6 fl 80.0-100.0 MONOCYTE # 0.4 k/cumm 0.1-1.0 MONOCYTE % 10 % 4-6 RED BLOOD CELL 3.52 m/cumm 4.00-6.00 RED CELL DISTRIBUTION WIDTH 13.1 % 11.0- 15.6 WHITE BLOOD CELL 3.6 k/cumm 5.0-10.0 HEMOGLOBIN 10.6 gm/dL 12.0-16.0 HEMATOCRIT 32.6 % 37.0-47.0 PLATELET COUNT 223 k/cumm 150-450 VITAMIN B12 - 07/16/16 10:52 VITAMIN B12 496 pg/mL 211-911 VITAMIN D 25-HYDROXY - 07/16/16 10:52 VITAMIN D 25-HYDROXY 21.4 ng/mL 30.0- 100.0 CBC WITH PLATELET AND DIFFERENTIAL - 11/29/16 11:50 SEGS 59.6 % NRG *BASOPHILS 0.6 % NRG *EOSINOPHILS 0.0 % NRG AUTOMATED DIFF PERFORMED NRG *LYMPHOCYTES 33.1 % NRG *MONOCYTES 6.7 % NRG *ABSOLUTE BASOPHILS 0.00 10*3/uL 0.00- 0.20 *ABSOLUTE EOSINOPHILS 0.00 10*3/uL 0.00- 0.50 *ABSOLUTE LYMPHOCYTES 1.60 10*3/uL 1.00- 3.00 *ABSOLUTE MONOCYTES 0.30 10*3/uL 0.30- 1.00 *ABSOLUTE NEUTROPHILS 2.90 10*3/uL 1.80- 7.80 MPV 7.6 fL 7.4-10.4 PLATELETS 222 10*3/uL 159-386 WBC 4.9 10*3/uL 3.6-11.2 RBC 4.18 3.63-4.92 HEMOGLOBIN 12.6 11.0-14.3 HEMATOCRIT 37.9 % 31.2-41.9 MCV 90.8 fL 79.0-98.0 MCH 30.2 pg 27.0-33.0 MCHC 33.3 32.0-36.0 RDW 14.4 % 12.3-17.0 RDWSD 45.5 37.1-47.8 PROTHROMBIN TIME - 11/29/16 11:50 *INR 1.0 0.9-1.1 *PROTHROMBIN TIME 10.4 s 9.4-11.5 COMPREHENSIVE METABOLIC PANEL - 11/29/16 11:50 BILIFUBIN TOTAL 0.40 0.20-1.00 TOTAL PROTEIN 8.4 6.4-8.2 ALBUMIN 5.3 3.4-5.0 *GLOBULIN 3.1 2.3-3.5 *A/G RATIO 1.7 1.5-2.2 ALK PHOS 116 U/L 46-116 ALT (SGPT) 20 U/L 16-63 AST (SGOT) 15 U/L 15-37 GFR ESTIMATION - 11/29/16 11:50 *GFR EST NON AFR [place] 81 mL/min NRG *GRFA EST AFR AMER >90 mL/min NRG URINALYSIS (CULTURE PRN) - 11/29/16 11:50 *URINE APPEARANCE CLEAR CLEAR *URINE BILIRUBIN NEGATIVE NEGATIVE *URINE BLOOD NEGATIVE NEGATIVE *URINE GLUCOSE NEGATIVE NEGATIVE *URINE KETONES NEGATIVE NEGATIVE *URINE LEUKOCYTES NEGATIVE NEGATIVE *URINE NITRITES NEGATIVE NEGATIVE URINE PH 5.5 5.0-8.0 *URINE PROTEIN NEGATIVE NEGATIVE URINE SPECIFIC GRAVITY <1.005 <=1.005->= 1.030 *URINE UROBILINOGEN 0.2 0.2-1.0 *URINE COLOR YELLOW STRAW/YELL/DK YELL TROPONIN-I - 11/29/16 11:50 TROPONIN-I <0.017 ng/mL 0.000-0.056 MAGNESIUM - 11/29/16 11:50 MAGNESIUM 2.1 1.8-2.4 Encounters ACCT No. Visit Date/Time Discharge Status Pt. Type Provider Facility Loc./Unit Complaint [id number] 02/08/2016 08:19:00 [facility] [place]
--- OUTSIDE RECORDS SUMMARY | 2016-12-14 18:06 | XMS REPORT ---
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 02141989 Problem Depression F32.9 Active 329667151 Problem Neuropathy G62.9 Active 880604920 Problem Migraine headache G43.909 Active 97787683 Problem Elevated alkaline phosphatase level R74.8 Active 164149271 Problem High cholesterol E78.0 Active 03095531 Problem CAD (coronary artery disease) I25.10 Active 16395625 Problem Status post left knee replacement Z96.652 Active 498691067490 Problem High blood pressure I10 Active 70324344 Assessment 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 Sep, Active 70842394 Assessment Major depressive disorder, recurrent, severe with psychotic features F33.3 Sep, Active 25216832 Problem Arthritis of left knee M19.90 Active 3740734138261074 Assessment OCD (obsessive compulsive disorder) F42.9 Sep, Active 087211701 Problem Tear of meniscus of left knee S83.207A Active Assessment Generalized anxiety disorder F41.1 Sep, Active 07652937 Problem Fibromyalgia M79.7 Active 948524860 ALLERGIES Unknown Allergies SOCIAL HISTORY No smoking Hx information available PLAN OF CARE VITAL SIGNS MEDICATIONS Medication Instructions Dosage Frequency Start Date End Date Duration Status Amlodipine Besylate 5 MG Orally Once a day preferably at bedtime 1 tablet Aug, 30 day(s) Active Oxycodone-Acetaminophen 10-325 MG Orally every 6 hours 1 tablet as needed 6h 5 Oct, 2016 30 days Active Losartan Potassium 100 MG Orally Once a day 1 tablet 24h 90 Active Clopidogrel Bisulfate 75 MG Orally Once a day 1 tablet 24h Active Propranolol HCl 20 MG Orally Twice a day 1 tablet 12h Jul, Active Diazepam 10 MG Orally three times a day 1 tablet as needed 8h Active QUEtiapine Fumarate ER 200 MG Orally three times a day 1 tablet 8h Active Fluvoxamine Maleate 100 MG Orally Once a day 1 tablet at bedtime 24h Active Promethazine HCl 25 MG Orally every 8 hrs prn neausea 1 tablet as needed Jul, Nov, 30 day(s) Active Sennosides-Docusate Sodium 8.6-50 MG Orally twice a day 1 tablet 12h Active Zolpidem Tartrate 10 MG Orally Once a day 1 tablet at bedtime as needed 24h Active Fiorinal 50-325-40 MG Orally 3-4 times a day 1 capsule as needed Jul, 15 Active RESULTS No Results PROCEDURES Procedure Date Ordered Related Diagnosis Body Site PSYTX PT 60 MINUTES Oct 20, 2016 [facility] VISIT MENTAL HEALTH ESTAB PT Oct 20, 2016 IMMUNIZATIONS No Known Immunizations
--- OUTSIDE RECORDS SUMMARY | 2016-12-14 18:06 | XMS REPORT | Summary of Care ---
Author Author Linda Bingham APRN Organization Unknown Address [address], [place] [id number] Phone Unavailable Care Team Providers Care Business Performance Advisor Name Role Phone Price Garcia M.D. 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, F41.8) Status: Active Spondylolysis, lumbar region (738.4, M43.06) Status: Active Localized primary osteoarthritis of right lower leg (715.16, M17.11) Status: Active Tear of medial meniscus of knee, left, initial encounter (836.0, S83.242A) Status: Active Primary osteoarthritis of left knee (715.16, M17.12) Status: Active CAD (coronary atherosclerotic disease) (414.00, I25.10) Status: Active Cervicogenic headache (784.0, R51) Status: Active Preop examination (V72.84, Z01.818) Status: Active Localized primary osteoarthritis of left lower leg (715.16, M17.12) Status: Active Migraine without status migrainosus, not intractable (346.90, G43.909) Status: Active Left knee pain (719.46, M25.562) Status: Active Medications Name Dates Details Bhfbnciatz-ENIL-Zinfkzth 50-325-40 MG Oral Tablet TAKE 1 TABLET BY MOUTH EVERY 6 HRS NEEDED MAX OF 4 TABS PER DAY MUST LAST 30 DAYSMAY FILL ON OR AFTER 02/09/16* Quantity: 120 Price Garcia M.D.* Started 09-Jun-2014 ActiveFluvoxaMINE Maleate 100 MG Oral Tablet TAKE 1 TABLET AT BEDTIME. * Quantity: 30 Refills: 5 Price Garcia M.D.* Started 30-Oct-2014 ActiveNalbuphine HCl - 10 MG/ML Injection Solution Inject 10mg IM x 1 now * Quantity: 1 Refills: 0 Мария Gonzalez APRN* Started 24-Jan-2015 Admin RequestedPromethazine HCl - 25 MG/ML Injection Solution Inject 12.5mg IM x 1 now * Quantity: 1 Refills: 0 Мария Gonzalez APRN* Started 24-Jan-2015 Admin RequestedAspirin 325 MG Oral [...] BID. * Refills: 0 * Started 05-May-2015 ActiveAmLODIPine Besylate 10 MG Oral Tablet take one tablet by mouth every day * Quantity: 30 Refills: 6 Price Garcia M.D.* Started 30-Oct-2014 ActiveAtenolol 50 [...] Refills: 0 Papa Keys M.D.* Started 23-Dec-2015 [id number] GM Pump Btl Acetaminophen-Codeine 300-30 MG Oral Tablet Si PO every 4-6 hrs prn with a max of 4 per day. Scripts must last 30 days. * Quantity: 120 Refills: 0 Papa Keys M.D.* Started 30-Dec-2015 ActiveQUEtiapine Fumarate 200 MG Oral Tablet TAKE 1 TABLET Three DAILY. * Quantity: 90 Refills: 0 Price Garcia M.D.* Started 30-Oct-2014 ActiveDiazepam 10 MG Oral Tablet TAKE ONE TABLET BY MOUTH EVERY 8 HOURS NEEDED MUST LAST 30 DAYSMAY FILL ON OR AFTER 02/09/16 * Quantity: 90 Refills: 0 Price Garcia M.D.* Started 30-Oct-2014 ActiveZolpidem Tartrate 10 MG Oral Tablet TAKE 1 TAB BY MOUTH EVERY NIGHT AT BEDTIME NEEDED FOR SLEEP *MUST LAST 30 DAYS*MAY FILL ON OR AFTER 02/14/16* * Quantity: 30 Refills: 0 Price Garcia M.D.* Started 26-Jun-2015 ActiveEndocet 10-325 MG Oral Tablet Si PO every 6-8 hrs prn with a max of 3 per day. Script must last 30 days. * Quantity: 90 Refills: 0 Papa Keys M.D.* Started Active Allergies and Adverse Reactions [...] Endoscopy With Dilation Of Sphenoid Sinus Ostium ECG/ EKG Preop Pendin22-Jan-2016 Clinical Trials 4045 Ordered:11-Jan-2016 XRay CHEST-PA & LAT Ordered:22-Jan-2016 XRay KNEE-Left Ordered: Immunization Name Dates Details Influenza Administered on:21-Jun-2011 Influenza Administered on:03-May-2012 Tdap (Adacel) Lot #: [id number] Administered on:14-May-2013 Fluzone Quadrivalent 0.5 ML Intramuscular Suspension Lot #: [id number] Administered on:03-Jun-2014 Fluzone Quadrivalent 0.5 ML Intramuscular Suspension Prefilled Syringe Lot #: [id number] Administered on:17-Jun-2015 Family History Grandfather* Name Dates [...] smoker Vital Signs Date Test Result Details 11:52 BP Systolic 124 mm[Hg] Status: BP Diastolic 88 mm[Hg] Status: Temperature 97.9 f Status: Heart Rate 67 /min Status: O2 SAT 97 % Status: 09:53 BP Systolic 112 mm[Hg] Status: BP Diastolic 68 mm[Hg] Status: Temperature 97.9 f Status: Heart Rate 70 /min Status: O2 SAT 97 % Status: 26-Jan-2016 14:16 BP Systolic 144 mm[Hg] Status: BP Diastolic 80 mm[Hg] Status: Heart Rate 75 /min Status: Respiration Rate 16 /min Status: Height 66 in Status: Weight 139.5 lb Status: O2 SAT 95 % Status: Body Mass Index Calculated 22.52 kg/m2 Status: Body Surface Area Calculated 1.72 m2 Status: Results Date Description Value Details 26-Jan-2016 09:44 Urinalysis, reflex to Micro and Culture ([facility]) 8016 pH 6.0 (Better) Range: 5.0-7.5 SP GRAVITY 1.015 (Better) Range: 1.010-1.030 APPEARANCE Cloudy (Abnormal) Range: Clear COLOR Straw (Better) Range: Straw-Yellow PROTEIN 15 mg/dL (Abnormal) Range: Negative-Trace GLUCOSE Negative mg/dL (Better) Range: Negative KETONES Negative mg/dL (Better) Range: Negative BILIRUBIN Negative (Better) Range: Negative BLOOD Negative (Better) Range: Negative UROBIL 0.2 EU/dL (Better) Range: 0.2-1.0 NITRITE Negative (Better) Range: Negative LEUKOCYTES Negative (Better) Range: Negative 10:19 PROTIME PANEL 7000 Comments: Fastin hours PROTIME 12.3 secs (Better) Range: 12.0-14.9 INR 0.92 (Better) 10:22 CBC w/ Auto Diff 7150 Comments: Fastin hours WBC 5.7 K/uL (Better) Range: 4.5-11.0 RBC 3.93 mil/uL (Better) Range: 3.60-5.00 HGB 12.0 g/dL (Better) Range: 12.0-16.0 HCT 38.2 % (Better) Range: 36.0-48.0 MCV 97.0 fL (Better) Range: 80.0-99.0 MCH 30.5 pg (Better) Range: 27.3-32.5 MCHC 31.5 % (Below low threshold) Range: 32.0-36.0 RDW 13.2 % (Better) Range: 11.6-14.8 PLATELETS 244 K/uL (Better) Range: 150-400 MPV 8.1 fL (Better) Range: 6.0-11.0 %NEUTRO 62.9 % (Better) Range: 37.0-80.0 %LYMPHS 28.5 % (Better) Range: 13.0-50.0 %MONO 6.1 % (Better) Range: 0.0-12.0 %EOS 0.3 % (Better) Range: 0.0-7.0 %BASO 0.3 % (Better) Range: 0.0-2.5 %ALVINO 1.9 % (Better) Range: 0.0-5.0 NEUTRO 3.6 K/uL (Better) Range: 2.0-6.9 LYMPHS 1.6 K/uL (Better) Range: 0.6-3.4 MONOS 0.4 K/uL (Better) Range: 0.0-0.9 EOS 0.0 K/uL (Better) Range: 0.0-0.7 BASO 0.0 K/uL (Better) Range: 0.0-0.2 10:30 BASIC METABOLIC PROFILE 1210 Comments: Fastin hours SODIUM 139 mmol/L (Better) Range: 133-144 POTASSIUM 4.0 mmol/L (Better) Range: 3.5-5.1 CHLORIDE 102 mmol/L (Better) Range: 98-110 CARBON DIOXIDE 28.5 mmol/L (Better) Range: 23.0-33.0 ANION GAP 9 mmol/L (Better) Range: 6-16 BUN 14 mg/dL (Better) Range: 7-18 CREATININE, SERUM 0.73 mg/dL (Better) Range: 0.55-1.02 Comments: Please note new reference ranges effective 2015.----- EST GFR, >60 ml/min (Better) Range: >60 EST GFR, NON-AFR [place] >60 ml/min (Better) Range: >60 Comments: EST GFR is reported in ml/min per 1.73 m2 of body surface area. For -Swedish, please multiple result by 1.2.----- BUN:CREATININE RATIO 19 (Better) GLUCOSE 104 mg/dL (Above high threshold) Range: 70-100 CALCIUM 9.5 mg/dL (Better) Range: 8.5-10.1 Plan of Care Planned Observations* Name Dates Details Planned Goals not documented Goal Planned Encounters* Appointment; Provider: Andre Pratt On 18-Jul-2016 11:00 * Appointment; Provider: Schedule Radiology On 30-Nov-2015 07:00 * Appointment; Provider: Schedule Radiology On 25-Nov-2015 08:00 * Appointment; Provider: Harris Barragan On 03-Apr-2015 13:00 * Appointment; Provider: Schedule Radiology On 07:00 Instructions * Instructions not documented Encounters Appointment; Linda Bingham Encounter Diagnosis: Problem not documented On 11:35 Appointment; Papa Keys Encounter Diagnosis: Problem not documented On 13:15 Appointment; Linda Bingham Encounter Diagnosis: Problem not documented On 09:45 Appointment; Price Garcia Encounter Diagnosis: Problem not documented On 26-Jan-2016 14:15 Appointment; Papa Keys Encounter Diagnosis: Problem not [...] documented On 11-Dec-2015 14:00 Appointment; Papa Keys Encounter Diagnosis: Problem not documented On 09-Dec-2015 14:00 [...] not documented On 30-Sep-2015 09:00 Appointment; Linda Bingham Encounter Diagnosis: Problem not documented On 22-Sep-2015 [...] Diagnosis: Problem not documented On 14:00 Appointment; Wset Berrios Encounter Diagnosis: Problem not documented On 09:20 Appointment; Igor Charles Encounter Diagnosis: Problem not documented On 08:15 Appointment; Jose Trammell Encounter Diagnosis: Problem not documented On 11:15 Appointment; April Talley Encounter Diagnosis: Problem not documented On 08:40 Appointment; Melvin Cotto Encounter Diagnosis: Problem not documented On 11:00
--- OUTSIDE RECORDS SUMMARY | 2016-12-14 18:06 | XMS REPORT | Summary of Care ---
Author Author Price Garcia M.D. Organization Unknown Address Unknown Phone Unavailable Care Team Providers Care Sleeve Wheel Maker Name Role Phone Price Garcia M.D. Unavailable Unavailable Lisa INSIDE SALES, Мария Unavailable Unavailable [employer] INSIDE SALES, Crystal Unavailable Unavailable Price Garcia PP Unavailable [...] Status: Active Dysuria (788.1, R30.0) Status: Active Urinary tract infection (599.0, N39.0) Status: Active Medications Name Dates Details Triamcinolone .1%/ Eucerin Compound (50/50 mix) -- 1 pound tub (454 grams) APPLY TO THE AFFECTED AREA TWICE DAILY Quantity: 60 rsh-Jessica Sanchez APRN* Started 24-Jun-2014 ActiveFluvoxaMINE Maleate 100 MG Oral Tablet TAKE 1 TABLET AT BEDTIME. * Quantity: 30 Refills: 5 Price Garcia M.D.* Started 30-Oct-2014 ActiveNalbuphine HCl - 10 MG/ML Injection Solution Inject 10mg IM x 1 now * Quantity: 1 Refills: 0 Мария Gonzalez INSIDE SALES* Started 24-Jan-2015 Admin RequestedPromethazine HCl - 25 MG/ML Injection Solution Inject 12.5mg IM x 1 now * Quantity: 1 Refills: 0 Мария Gonzalez INSIDE SALES* Started 24-Jan-2015 Admin RequestedCyclobenzaprine HCl - 10 MG Oral Tablet TAKE 1 TABLET 3 TIMES DAILY NEEDED. * Quantity: 90 Refills: 3 Price Garcia M.D.* Started JfenwxGzbyfxksos-WVVR-Frfyzucm 50-325-40 MG Oral Tablet TAKE ONE TABLET BY MOUTH EVERY 4 HOURS NEEDED MAX OF 6 TABLETS PER DAY MUST LAST 30 DAYS * Quantity: 180 Refills: 0 Price Garcia M.D.* Started 09-Jun-2014 ActiveAspirin 325 MG Oral Tablet TAKE 1 [...] Quantity: 30 Refills: 5 * Started 05-May-2015 ActiveAcetaminophen-Codeine #3 300-30 MG Oral Tablet TAKE ONE TABLET BY MOUTH EVERY 4-6 HOURS NEEDED FOR PAIN MUST LAST 30 DAYS* * * Quantity: 60 Refills: 0 Price Garcia M.D.* Started 05-May-2015 ActiveAmLODIPine Besylate 10 MG Oral Tablet take one tablet by mouth every day * Quantity: 30 Refills: 6 Price Garcia M.D.* Started 30-Oct-2014 ActiveQUEtiapine Fumarate 25 MG Oral Tablet TAKE 1 TABLET IN MORNING, THEN TAKE 1 TABLET IN EVENING, THEN TAKE 2 TABLETS AT BEDTIME * Quantity: 120 Refills: 3 Price Garcia M.D.* Started 30-Oct-2014 ActiveZolpidem Tartrate ER 12.5 MG Oral Tablet Extended Release TAKE ONE TABLET BY MOUTH AT BEDTIME * Quantity: 30 Refills: 0 Price Garcia M.D.* Started 30-Oct-2014 ActiveDiazepam 10 MG Oral Tablet TAKE ONE TABLET BY MOUTH EVERY 8 HOURS NEEDED MUST LAST 30 DAYS * Quantity: 90 Refills: 0 Price Garcia M.D.* Started 30-Oct-2014 ActiveSulfamethoxazole-TMP DS 800-160 MG Oral Tablet TAKE 1 TABLET TWICE DAILY WITH FOOD. * Quantity: 10 Refills: 0 Price Garcia M.D.* Started 14-May-2015 Ended 19-May-2015 Active Allergies and Adverse Reactions Name Dates [...] Influenza Administered on:03-May-2012 Tdap (Adacel) Lot #: [id number] Administered on:14-May-2013 Fluzone Quadrivalent 0.5 ML Intramuscular Suspension Lot #: [id number] Administered on:03-Jun-2014 Family History Grandfather* Name Dates [...] smoker Vital Signs Date Test Result Details 14-May-2015 15:11 BP Systolic 116 mm[Hg] Status: BP Diastolic 72 mm[Hg] Status: Temperature 97.5 c Status: Heart Rate 72 /min Status: Respiration Rate 20 /min Status: Height 66 in Status: Weight 138 lb Status: O2 SAT 97 % Status: Body Mass Index Calculated 22.27 kg/m2 Status: Body Surface Area Calculated 1.71 m2 Status: 05-May-2015 11:18 BP Systolic 160 mm[Hg] Status: BP Diastolic 106 mm[Hg] Status: Heart Rate 92 /min Status: Respiration Rate 18 /min Status: Height 66 in Status: Weight 139.25 lb Status: O2 SAT 97 % Status: Body Mass Index Calculated 22.48 kg/m2 Status: Body Surface Area Calculated 1.71 m2 Status: 05-May-2015 10:46 BP Systolic 157 mm[Hg] Status: [...] X KNEE COMP (MIN 4V) RT (Better) 14-May-2015 15:30 Urinalysis, Reflex to Microscopic or Culture PRN 8005 pH 6.0 (Better) Range: 5.0-7.5 SP GRAVITY 1.010 (Better) Range: 1.010-1.030 APPEARANCE CLOUDY (Abnormal) Range: Clear COLOR YELLOW (Better) Range: Straw-Yellow PROTEIN NEGATIVE mg/dL (Better) Range: Negative-Trace GLUCOSE NEGATIVE mg/dL (Better) Range: Negative KETONE NEGATIVE mg/dL (Better) Range: Negative BILIRUB NEGATIVE (Better) Range: Negative BLOOD MODERATE (Abnormal) Range: Negative UROBIL 0.2 EU/dL (Better) Range: 0.2-1.0 NITRITE POSITIVE (Abnormal) Range: Negative Comments: Specimen referred to Microbiology for Culture----- LEUK LARGE (Abnormal) Range: Negative 15:30 Urine Microscopic UMIC Comments: Quantity not sufficient for concentration.Less than 10 ml received for analysis WBC TNTC /HPF (Abnormal) Range: 0-5 Comments: Specimen referred to Microbiology for Culture----- BACTERIA 1+ /HPF (Abnormal) Range: Negative-Trace U TRANSEPI 0-2 /HPF (Better) Range: 0-2 Plan of Care Planned Observations* Name Dates [...] Problem not documented On 24-Jul-2013 10:15 Appointment; Leigah Sanders Encounter Diagnosis: Problem not documented On [...]
--- OUTSIDE RECORDS SUMMARY | 2016-12-14 18:06 | XMS REPORT ---
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 89251272 Problem Depression F32.9 Active 679390843 Problem Neuropathy G62.9 Active 238406147 Problem Migraine headache G43.909 Active 35684855 Problem Elevated alkaline phosphatase level R74.8 Active 966781402 Problem High cholesterol E78.0 Active 92150457 Problem CAD (coronary artery disease) I25.10 Active 18853406 Problem Status post left knee replacement Z96.652 Active 660702341365 Problem High blood pressure I10 Active 05442297 Assessment 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 Oct, Active 07593324 Assessment Major depressive disorder, recurrent, severe with psychotic features F33.3 Oct, Active 98392825 Problem Arthritis of left knee M19.90 Active 6302965684505903 Assessment OCD (obsessive compulsive disorder) F42.9 Oct, Active 435622456 Problem Tear of meniscus of left knee S83.207A Active Assessment Generalized anxiety disorder F41.1 Oct, Active 00259449 Problem Fibromyalgia M79.7 Active 846996349 ALLERGIES Unknown Allergies SOCIAL HISTORY No smoking Hx information available PLAN OF CARE VITAL SIGNS MEDICATIONS Medication Instructions Dosage Frequency Start Date End Date Duration Status Propranolol HCl 20 MG Orally Twice a day 1 tablet 12h Jul, Active Amlodipine Besylate 5 MG Orally Once a day preferably at bedtime 1 tablet Aug, 30 day(s) Active Fluvoxamine Maleate 100 MG Orally Once a day 1 tablet at bedtime 24h Active Promethazine HCl 25 MG Orally every 8 hrs prn neausea 1 tablet as needed Jul, Nov, 30 day(s) Active Oxycodone-Acetaminophen 10-325 MG Orally every 6 hours 1 tablet as needed 6h 30 Oct, 2016 30 days Active Naproxen 500 MG Orally every 12 hrs 1 tablet as needed 12h 09 Oct, 2016 8 Nov, 2016 30 days Active Cyclobenzaprine HCl 10 MG Orally Three times a day as needed 1 tablet 30 Active Sennosides-Docusate Sodium 8.6-50 MG Orally twice a day 1 tablet 12h as needed Active QUEtiapine Fumarate ER 200 MG Orally three times a day 1 tablet 8h Active Losartan Potassium 100 MG Orally Once a day 1 tablet 24h 90 Active Zolpidem Tartrate 10 MG Orally Once a day 1 tablet at bedtime as needed 24h 30 Active Clopidogrel Bisulfate 75 MG Orally Once a day 1 tablet 24h Active Atorvastatin Calcium 40 MG Orally Once a day 1 tablet 24h Active Diazepam 10 MG Orally three times a day 1 tablet as needed 8h 30 Active RESULTS No Results PROCEDURES Procedure Date Ordered Related Diagnosis Body Site PSYTX PT 60 MINUTES November 17, 2016 [facility] VISIT MENTAL HEALTH ESTAB PT November 17, 2016 IMMUNIZATIONS No Known Immunizations
--- OUTSIDE RECORDS SUMMARY | 2016-12-14 18:07 | XMS REPORT | Summary of Care ---
Author Author Radha Titus, Price Organization Unknown Address Unknown Phone Unavailable Care Team Providers Care Quality Assurance Supervisor Body Name Role Phone Radha Titus, Price Unavailable Unavailable Patrick PROFESSIONAL SHOPPER, Jessica Unavailable Unavailable Jose Trammell M.D. Unavailable Unavailable [...] Active Migraine headache (346.90, G43.909) Status: Active Pain in a tooth or teeth (525.9, K08.8) Status: Active Hypertension (401.9, I10) Status: Active Medications Name Dates Details Zolpidem Tartrate 10 MG Oral Tablet TAKE 1 TABLET AT BEDTIME NEEDED FOR SLEEP. Quantity: 30 Jose Trammell M.D.* Started 03-Jun-2014 ActiveAmitriptyline HCl - 100 MG Oral Tablet TAKE 1 TABLET DAILY AT BEDTIME. * Quantity: 30 Refills: 6 Jose Trammell M.D.* Started 09-Jun-2014 BzvnpoLorwebwntd-JTUL-Tzmznhfr 50-325-40 MG Oral Tablet TAKE 1 TABLET [...] TWICE DAILY * Quantity: 60 Refills: 0 rsh-Ladyk, Crystal PROFESSIONAL SHOPPER* Started 24-Jun-2014 ActivePropranolol HCl - 80 MG [...] Influenza Administered on:03-May-2012 Tdap (Adacel) Lot #: [id number] Administered on:14-May-2013 Fluzone Quadrivalent 0.5 ML Intramuscular Suspension Lot #: [id number] Administered on:03-Jun-2014 Family History Grandfather* Name Dates [...] smoker Vital Signs Date Test Result Details 08-Sep-2014 15:29 BP Systolic 202 mm[Hg] Status: BP Diastolic 118 mm[Hg] Status: Heart Rate 82 /min Status: Respiration Rate 16 /min Status: Temperature 97 c Status: O2 SAT 97 % Status: 16-Aug-2014 10:19 BP Systolic 165 mm[Hg] Status: [...] not documented On 21-Jul-2014 14:00 Appointment; Andre Partt Encounter Diagnosis: Problem not documented On 14-Jul-2014 [...] not documented On 21-Jan-2014 11:00 Appointment; Jasmin Trjeo Encounter Diagnosis: Problem not documented On 10-Jan-2014 [...]
--- OUTSIDE RECORDS SUMMARY | 2016-12-14 18:07 | XMS REPORT ---
Author Author FriendKyara [facility] Address [address] [place], [place] [address] Care Team Providers Care Display Fabricator Name Role Phone FriendKyara Unavailable [phone] PROBLEMS Type Condition ICD9-CM Code KAD34-HM Code Onset Dates Condition Status SNOMED Code Problem Neuropathy G62.9 Active 009845256 Problem CAD (coronary artery disease) I25.10 Active 25631016 Problem Depression F32.9 Active 312197926 Problem Arthritis of left knee M19.90 Active 9319587323497680 Problem Tear of meniscus of left knee S83.207A Active Problem Fibromyalgia M79.7 Active 242285880 Problem 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
--- OUTSIDE RECORDS SUMMARY | 2016-12-14 18:07 | XMS REPORT ---
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 41092517 Problem Depression F32.9 Active 153781665 Problem Neuropathy G62.9 Active 620519322 Problem Arthritis of left knee M19.90 Active 6449164884243292 Problem Tear of meniscus of left knee S83.207A Active Problem Fibromyalgia M79.7 Active 360342089 Problem Migraine headache G43.909 Active 91383422 Problem Elevated alkaline phosphatase level R74.8 Active 138266440 Problem High cholesterol E78.0 Active 42450384 Problem CAD (coronary artery disease) I25.10 Active 59403939 Problem Status post left knee replacement Z96.652 Active 817675560999 Problem High blood pressure I10 Active 78996439 ALLERGIES Unknown Allergies SOCIAL HISTORY No smoking Hx information available PLAN OF CARE VITAL SIGNS MEDICATIONS Unknown Medications RESULTS No Results PROCEDURES No Known procedures IMMUNIZATIONS No Known Immunizations
--- OUTSIDE RECORDS SUMMARY | 2016-12-14 18:07 | XMS REPORT ---
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
--- OUTSIDE RECORDS SUMMARY | 2016-12-14 18:07 | XMS REPORT | Summary of Care ---
Author Author Gaston Hare M.D. Organization Unknown Address [address], [place] [address] Phone Unavailable Care Team Providers Care Oiling Machine Operator Name Role Phone Price Garcia M.D. Unavailable Unavailable rsh-Kutilek ELECTRONIC EQUIPMENT REPAIRMEN, Crystal Unavailable Unavailable Price Garcia PP Unavailable [...] Active Bronchitis, acute (466.0, J20.9) Status: Active Hypertension (401.9, I10) Status: Active Anxiety (300.00, F41.9) Status: Active Spondylolysis, lumbar region (738.4, M43.06) Status: Active Migraine headache (346.90, G43.909) Status: Active Hip pain, left (719.45, M25.552) Status: Active Medications Name Dates Details Auglajiiyg-MHPF-Jjiokqsu 50-325-40 MG Oral Tablet TAKE ONE TABLET BY MOUTH EVERY 4 HOURS (MAX 6 PER DAY)(MUST LAST 30 DAYS) Quantity: 180 Price Garcia M.D.* Started 09-Jun-2014 ActiveMelatonin 5 MG Oral Tablet * Refills: 0 * Started 16-Jun-2014 ActiveTriamcinolone .1%/ Eucerin Compound (50/50 mix) -- 1 pound tub (454 grams) APPLY TO THE AFFECTED AREA TWICE DAILY * Quantity: 60 Refills: 0 Jessica Nguyen ELECTRONIC EQUIPMENT REPAIRMEN* Started 24-Jun-2014 ActiveQUEtiapine Fumarate 25 MG Oral Tablet USE DIRECTED. * Refills: 0 * Started 30-Oct-2014 ActiveDiazepam 10 MG Oral Tablet TAKE 1 TABLET Q 8HRS.*MUST LAST 30 DAYSMAY FILL ON OR AFTER 11/20/14* * Quantity: 90 Refills: 0 Price Garcia M.D.* Started 30-Oct-2014 ActiveHydrocodone-Acetaminophen 5-325 MG Oral Tablet TAKE 1 TABLET EVERY 6 HOURS NEEDED.*Max 4 per day* * Quantity: 56 Refills: 0 Price Garcia M.D.* Started 13-Nov-2014 ActiveZolpidem Tartrate ER 12.5 MG Oral Tablet Extended Release TAKE 1 TABLET AT BEDTIME NEEDED FOR SLEEP.*MUST LAST 30 DAYS * Quantity: 30 Refills: 0 Price Garcia M.D.* Started 30-Oct-2014 ActivePropranolol HCl - 80 MG Oral Tablet TAKE 1 TABLET EVERY 12 HOURS DAILY. * Quantity: 60 Refills: 6 Price Garcia M.D.* Started 07-Jul-2014 ActiveFluvoxaMINE Maleate 100 MG Oral Tablet TAKE 1 TABLET AT BEDTIME. * Quantity: 30 Refills: 5 Price Garcia M.D.* Started 30-Oct-2014 ActiveHydrALAZINE HCl - 50 MG Oral Tablet Take 1 tablet three times daily. * Quantity: 90 Refills: 5 Price Garcia M.D.* Started 05-Aug-2014 ActiveIndomethacin 25 MG Oral Capsule TAKE 1 CAPSULE 3 TIMES DAILY WITH FOOD NEEDED. * Quantity: 90 Refills: 5 Price Garcia M.D.* Started 30-Oct-2014 ActiveVerapamil HCl - 80 MG Oral Tablet 1 TABLET TWICE DAILY * Quantity: 60 Refills: 5 Price Garcia M.D.* Started 30-Oct-2014 ActiveBaclofen 10 MG Oral Tablet TAKE 1 TABLET EVERY 8 HOURS NEEDED FOR MUSCLE SPASM. * Quantity: 90 Refills: 3 Price Garcia M.D.* Started 08-Sep-2014 ActiveAmLODIPine Besylate 5 MG Oral Tablet TAKE 1 TABLET BY MOUTH DAILY * Quantity: 30 Refills: 5 Price Garcia M.D.* Started 30-Oct-2014 Active Allergies [...] History of Colonoscopy (Fiberoptic) History of Section XRay HIP-Left Ordered:05-Dec-2014 Immunization Name Dates Details Influenza Administered on:21-Jun-2011 Influenza Administered on:03-May-2012 Tdap (Adacel) Lot #: [id number] Administered on:14-May-2013 Fluzone Quadrivalent 0.5 ML Intramuscular Suspension Lot #: [id number] Administered on:03-Jun-2014 Family History Grandfather* Name Dates [...] smoker Vital Signs Date Test Result Details 05-Dec-2014 13:08 BP Systolic 153 mm[Hg] Status: [...] Body Surface Area Calculated 1.78 m2 Status: 13-Nov-2014 13:36 BP Systolic 122 mm[Hg] Status: BP Diastolic 90 mm[Hg] Status: Heart Rate 79 /min Status: Respiration Rate 18 /min Status: O2 SAT 97 % Status: Results Date Description Value Details Results not documented Plan of Care Planned Observations* Name Dates Details Planned Goals not documented Goal Planned Encounters* Appointment; Provider: Andre Pratt On 15-Jul-2015 13:45 * Appointment; Provider: Price Garcia On 29-Dec-2014 11:15 Instructions * Instructions not documented Encounters Appointment; [...] Problem not documented On 07-Oct-2013 10:45 Appointment; Melivn Cotto Encounter Diagnosis: Problem not documented On [...] not documented On 14:45 Appointment; Jasmin Trejo Diagnosis: Problem not documented On 15:05 Appointment; Melvin Cotto Encounter Diagnosis: Problem not documented On 13:30 Appointment; Jasmin Trejo Encounter Diagnosis: Problem not documented On 13:50 Appointment; Melvin Cotto Encounter Diagnosis: Problem not documented On 24-Jan-2013 09:45 Appointment; Melvin Cotto Encounter Diagnosis: Problem not documented On 17-Jan-2013 09:00 Appointment; Jasmin Trejo Encounter Diagnosis: Problem not documented On 09-Jan-2013 16:25 Appointment; Melvin Cotto Diagnosis: Problem not documented On 08-Jan-2013 15:00
--- OUTSIDE RECORDS SUMMARY | 2016-12-14 18:07 | XMS REPORT | Summary of Care ---
Author Author Du Titus, [facility] Address [address] [place] [address] Phone Unavailable Care Team Providers Care Wood Room Supervisor Name Role Phone Price Garcia M.D. 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, M47.812) Status: Active Cervicogenic headache (784.0, R51) Status: Active Essential hypertension, benign (401.1, I10) Status: Active Clinical trial exam (V70.7, Z00.6) Status: Active Migraine headache (346.90, G43.909) Status: Active Marquez cyst, left (727.51, M71.22) Status: Active Acute knee pain, left (719.46, M25.562) Status: Active Medications Name Dates Details Tytmxppnnv-JEJB-Vgmcedfq 50-325-40 MG Oral Tablet TAKE ONE TABLET BY MOUTH EVERY 4 HOURS NEEDED MAX OF 6 TABLETS PER DAY MUST LAST 30 DAYSMAY FILL ON OR AFTER 09/15/15* Quantity: 180 Price Garcia M.D.* Started 09-Jun-2014 ActiveQUEtiapine Fumarate [...] Quantity: 30 Refills: 5 * Started 05-May-2015 ActiveAtenolol 50 MG Oral Tablet take 25 MG in a.m then 50 MG at p.m * Refills: 0 * Started 05-May-2015 ActiveEvzio 0.4 MG/0.4ML Injection Solution Auto-injector INJECT 0.4MG SC/IM Q 2-3MIN NEEDED PER OVERDOSE * Quantity: 1 Refills: 0 Price Garcia M.D.* Started 17-Jun-2015 Active0.4 ML Package (2 Packages) Zolpidem Tartrate 10 MG Oral Tablet TAKE ONE TABLET BY MOUTH AT BEDTIME NEEDED FOR SLEEP MUST LAST 30 DAYS * Quantity: 30 Refills: 0 Price Garcia M.D.* Started 26-Jun-2015 ActiveCyclobenzaprine HCl - 10 MG Oral Tablet TAKE ONE TABLET BY MOUTH THREE TIMES DAILY NEEDED * Quantity: 90 Refills: 3 Price Garcia M.D.* Started Active Allergies and Adverse Reactions Name Dates Details codeine Status: Active Imitrex Status: Active Past Medical History Name [...] History of Colonoscopy (Fiberoptic) History of Section Clinical Trials 4045 Ordered:09-Sep-2015 Immunization Name Dates Details Influenza Administered on:21-Jun-2011 Influenza Administered on:03-May-2012 Tdap (Adacel) Lot #: [id number] Administered on:14-May-2013 Fluzone Quadrivalent 0.5 ML Intramuscular Suspension Lot #: [id number] Administered on:03-Jun-2014 Fluzone Quadrivalent 0.5 ML Intramuscular Suspension Prefilled Syringe Lot #: [id number] Administered on:17-Jun-2015 Family History Grandfather* Name Dates [...] smoker Vital Signs Date Test Result Details 16-Sep-2015 08:28 BP Systolic 142 mm[Hg] Status: BP Diastolic 89 mm[Hg] Status: Heart Rate 78 /min Status: Weight 139 lb Status: Body Mass Index Calculated 22.44 kg/m2 Status: Body Surface Area Calculated 1.71 m2 Status: 08-Sep-2015 09:49 BP Systolic 144 mm[Hg] Status: BP Diastolic 89 mm[Hg] Status: Heart Rate 80 /min Status: Weight 139 lb Status: Body Mass Index Calculated 22.44 kg/m2 Status: Body Surface Area Calculated 1.71 m2 Status: 03-Sep-2015 10:52 BP Systolic 150 mm[Hg] Status: BP Diastolic 94 mm[Hg] Status: Heart Rate 81 /min Status: Respiration Rate 16 /min Status: O2 SAT 95 % Status: 26-Aug-2015 08:58 BP Systolic 121 mm[Hg] Status: BP Diastolic 80 mm[Hg] Status: Temperature 97.9 f Status: Heart Rate 73 /min Status: O2 SAT 97 % Status: 17-Aug-2015 10:50 BP Systolic 160 mm[Hg] Status: BP Diastolic 90 mm[Hg] Status: Heart Rate 64 /min Status: Respiration Rate 16 /min Status: Height 66 in Status: Weight 139 lb Status: O2 SAT 97 % Status: Body Mass Index Calculated 22.44 kg/m2 Status: Body Surface Area Calculated 1.71 m2 Status: Results Date Description Value Details 25-Aug-2015 09:42 Clinical Trials 4045 Clinical Trials Clinical Trial Lab ([facility]) 02-Sep-2015 09:34 Clinical Trials 4045 Comments: Fastin hours Clinical Trials Clinical Trial Lab ([facility]) 14-Sep-2015 08:28 MRI KNEE LEFT Comments: Exam Date: 09/14/2015 07: 01Dictation Date: 09/14/2015 08:28 XMR EXT KNEE LEFT ([facility]) Plan of Care Planned Observations* Name Dates Details Planned Goals not documented Goal Planned Encounters* Appointment; Provider: Andre Pratt On 18-Jul-2016 11:00 * Appointment; Provider: Price Garcia On 14-Oct-2015 10:30 * Appointment; Provider: Gordon Sandy On 30-Sep-2015 09:00 * Appointment; Provider: Harris Barragan On 03-Apr-2015 13:00 * Appointment; Provider: Schedule Radiology On 07:00 Instructions * Instructions not documented Encounters Appointment; Gordon Sandy Encounter Diagnosis: Problem not [...]
--- OUTSIDE RECORDS SUMMARY | 2016-12-14 18:07 | XMS REPORT | Summary of Care ---
Author Author Price Garcia M.D. Organization Unknown Address Unknown Phone Unavailable Care Team Providers Care Publicity Writer Name Role Phone Price Garcia M.D. Unavailable Unavailable Lisa THREAD SINGER, Мария Unavailable Unavailable Smarsh-Kutilek THREAD SINGER, Crystal Unavailable Unavailable Price Garcia PP Unavailable [...] Nasal septal deviation (470, J34.2) Status: Active Cervicalgia (723.1, M54.2) Status: Active Headache (784.0, R51) Status: Active Migraine headache (346.90, G43.909) Status: Active Cervicogenic headache (784.0, R51) Status: Active Medications Name Dates Details Jbuvmyywhg-TXCU-Dnmklcxt 50-325-40 MG Oral Tablet TAKE ONE TABLET [...] * Quantity: 60 Refills: 0 Jessica Nguyen THREAD SINGER* Started 24-Jun-2014 ActiveZolpidem Tartrate ER 12.5 MG [...] * Quantity: 1 Refills: 0 Мария Gonzalez THREAD SINGER* Started 24-Jan-2015 Admin RequestedPromethazine HCl - 25 MG/ML Injection Solution Inject 12.5mg IM x 1 now * Quantity: 1 Refills: 0 Мария Gonzalez APRN* Started 24-Jan-2015 Admin RequestedDiazepam 10 MG Oral Tablet TAKE ONE TABLET [...] Influenza Administered on:03-May-2012 Tdap (Adacel) Lot #: [id number] Administered on:14-May-2013 Fluzone Quadrivalent 0.5 ML Intramuscular Suspension Lot #: [id number] Administered on:03-Jun-2014 Family History Grandfather* Name Dates [...] smoker Vital Signs Date Test Result Details 10:58 BP Systolic 148 mm[Hg] Status: BP Diastolic 86 mm[Hg] Status: Heart Rate 62 /min Status: Respiration Rate 18 /min Status: O2 SAT 98 % Status: 09:17 BP Systolic 144 mm[Hg] Status: BP [...] c Status: O2 SAT 98 % Status: Results Date Description Value Details [...]
--- OUTSIDE RECORDS SUMMARY | 2016-12-14 18:08 | XMS REPORT ---
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 right radial head fx History of Present Illness No HPI available. Problems * Normal Routine History And Physical Adult (V70.0); (Active) * Feeling Weak (780.79); (Active) * Involuntary Movements (Symptom) (781.0); (Active) * Bone Pain In The FootBilateral; (Active) * Fatigue (780.79); (Active) * Constipation (Symptom) (Active) * Osteoarthritis (715.90); (Active) * Bilateral Elbow Joint Pain (Active) * Axilla Pain Bilateral (Active) * Joint Pain In Both Wrists (Active) * Joint Pain In Both Knees (Active) * Difficulty Swallowing (Dysphagia) (787.20); (Active) * Endometriosis (617.9); (Active) * Involuntary Movements Which Come And Go (Active) * Decreased Concentrating Ability (799.51); (Active) * Menopause Has Occurred (V49.81); (Active) * Foot Pain Sudden OnsetBilateral; (Active) * Peripheral Neuropathy (356.9); (Active) * Strain Of Coccyx (847.4); (Active) * Headache (784.0); (Active) * Depression (311); (Active) * Idiopathic Peripheral Neuropathy (356.9); (Active) * Obsessive Compulsive Disorder (300.3); (Active) * Arthritis (716.90); (Active) * Anxiety (Symptom) (300.00); (Active) * Bipolar Disorder (296.00); (Active) * Classic Migraine (With Aura) With Intractable Migraine (346.01); ( Active) * Diarrhea (Symptom) (787.91); (Active) * Tension-type Headache (339.10); (Active) * Esophageal Reflux (530.81); (Active) * Lower Back Pain (724.2); (Active) * Chest Pain (786.50); (Active) * Hypertension (401.9); (Active) * Abnormal Electrocardiogram (794.31); (Active) * Tremor (781.0); (Active) * Insomnia (780.52); (Active) * Urinary Tract Infection (599.0); (Active) * Frequent, Full-bladder Emptying (Polyuria) (788.42); (Active) * Burning Sensation During Urination (Active) * Neck Pain In The Lower Neck / Upper Back Left (Active) * Injection Of Trigger Point(S) One Or Two Muscle Group(S) (Active) * Abnormality Of Walk (781.2); (Active) * Familial (Benign Essential) Tremor (333.1); (Active) * Memory Lapses Or Loss (780.93); (Active) * Upper Respiratory Infection (465.9); (Active) * Muscle Spasms (Symptom) (728.85); (Active) * Abdominal Pain (789.00); (Active) * Migraine Headache (346.90); (Active) * Classic Migraine (With Aura) (346.00); (Active) * Pain During Urination (Dysuria) (788.1); (Active) * A Fall (E888.9); (Active) * Postconcussion Syndrome (310.2); (Active) * Elbow Injury (959.3); (Active) * Joint Pain In The Left Knee (719.46); (Active) Medication * ALPRAZolam 1 MG Oral Tablet; TAKE 2 TABS IN AM TAKE 1 TAB NOON & PM; Start Date: 02/16/2011 (Active) * Zolpidem Tartrate 10 MG Oral Tablet; TAKE 1 TABLET AT BEDTIME NEEDED FOR INSOMNIA.; Start Date: 02/16/2011 (Active) * Lisinopril 10 MG Oral Tablet; TAKE 1 TABLET DAILY.; Start Date: 03/04/2013; End Date: (Active) * Morphine Sulfate 15 MG Oral Tablet; Take 15mg- 2 tablets in am, 3 tablet in pm; Start Date: 04/19/2012 (Active) * SEROquel 300 MG Oral Tablet; TAKE 1 TABLET AT BEDTIME.; Start Date: 2012 (Active) * Bystolic 20 MG Oral Tablet; Start Date: 05/20/2013 (Active) * HydrOXYzine HCl 25 MG Oral Tablet; Start Date: 06/12/2013 (Active) * Senokot 8.6 MG Oral Tablet; TAKE 2 TABLET Bedtime; Start Date: 09/05/2012; End Date: 06/12/2013 (Complete) * Estrace 0.1 MG/GM Vaginal Cream; Apply a pea sized amount to external urethra and vagina nightly; Start Date: 07/11/2012; End Date: 06/12/2013 (Complete) Allergies and Adverse Reactions * No Known Drug Allergies (Active) Past Medical History * History of Anemia (285.9); (Resolved) * History of Breast Fibrocystic Disease (610.1); (Resolved) * History of Inflamed Seborrheic Keratosis (702.11); (Resolved) Procedures Procedure Procedure Date Date Completed Status Appendectomy - - Active Tonsillectomy - - Active Cholecystectomy - - Active Tubal Ligation - - Active Immunization * Influenza - Administered on: 06/21/2011 * Influenza - Administered on: 05/03/2012 * Tdap (Adacel) (Lot #: [id number]) - Administered on: 05/14/2013 Family History * Paternal history of Acute Myocardial Infarction (V17.3); (Active) * Maternal history of Chronic Obstructive Pulmonary Disease (Active) * Sororal history of Asthma (V17.5); (Active) * Sororal history of Arthritis (V17.7); (Active) * Sororal history of Uterine Cancer (V16.49); (Active) Social History * Educational Level - Has High School Diploma (Active) * Education - Highest Level Achieved (___ Years Completed) (Active) * Mental Disability: (Active) * Physical Disability: (Active) * Marital History - Currently (Active) * Uses Safety Equipment - Seatbelts (Active) * Never Drank Alcohol (Active) * Never A Smoker (Active) Vital Signs Date Description Test Result 12 Jun 2013 08:47 AM recorded by: Candace Johnson Height 67 in BP Systolic 154 mm[Hg] BP Diastolic 74 mm[Hg] Heart Rate 63 /min Treatment Plan * XM CAD (DIAGNOSTIC) 10/21/2011 Routine * Urinalysis, Reflex to Microscopic or Culture PRN 8005 04/05/2012 Routine * Urine Culture PRN 8000 04/05/2012 Routine * Urinalysis, Reflex to Microscopic or Culture PRN 8005 04/05/2012 Routine * Urine Culture PRN 8000 04/05/2012 Routine * Urine Culture PRN 8000 04/18/2012 Routine * Urinalysis, Reflex to Microscopic or Culture PRN 8005 04/18/2012 Routine * Urine Culture PRN 8000 04/27/2012 Routine * Urinalysis, Reflex to Microscopic or Culture PRN 8005 04/27/2012 Routine * Urine Culture PRN 8000 06/06/2012 Routine * XRay ELBOW-BILATERAL 05/14/2013 Routine * XRay FOREARM-BILATERAL 05/14/2013 Routine * XRay KNEE-Left 06/04/2013 Routine Advance Directives * No Advance Directives available. Encounters * Appointment 06/12/2013 * RTNPT , Provider: Yadiel Charles, Status: Adin , Time: 11:30 AM 2012 * RTNPT , Provider: Brooke Parr, Status: Adin , Time: 3:45 PM 2012 * PX30 , Provider: Marilyn Ahuja, Status: Adin , Time: 12:30 PM * RTNPT , Provider: Yadiel Charles, Status: Adin , Time: 10:15 AM 2012
--- OUTSIDE RECORDS SUMMARY | 2016-12-14 18:08 | XMS REPORT | Summary of Care ---
Author Author Jessica Nguyen APRN Organization Unknown Address [address], [place] [address] Phone Unavailable Care Team Providers Care Conference Service Coordinator Name Role Phone Price Garcia M.D. Unavailable Unavailable Jessica Nguyen APRN Unavailable Unavailable Jose Trammell M.D. Unavailable Unavailable [...] Status: Active Hypertension (401.9, I10) Status: Active Migraine headache (346.90, G43.909) Status: Active Medications Name Dates Details Zolpidem Tartrate 10 MG Oral Tablet TAKE 1 TABLET AT BEDTIME NEEDED FOR SLEEP. Quantity: 30 Jose Trammell M.D.* Started 03-Jun-2014 ActiveAmitriptyline HCl - 100 MG Oral Tablet TAKE 1 TABLET DAILY AT BEDTIME. * Quantity: 30 Refills: 6 Jose Trammell M.D.* Started 09-Jun-2014 QnwnzoHcmhsyxvic-LDZO-Jbkmfele 50-325-40 MG Oral Tablet TAKE 1 TABLET [...] Refills: 0 Jessica Nguyen APRN* Started 24-Jun-2014 ActivePropranolol HCl - 80 MG [...] Refills: 2 Price Garcia M.D.* Started 05-Aug-2014 ActivePromethazine HCl - 25 MG/ML Injection Solution INJECT INTRAMUSCULARLY DIRECTED. * Quantity: 1 Refills: 0 Jessica Nguyen APRN* Started 15-Sep-2014 Admin RequestedKetorolac Tromethamine 30 MG/ML Injection Solution 30mg given IM in the office. * Quantity: 1 Refills: 0 Jessica Nguyen CARPENTER MOLD* Started 15-Sep-2014 Admin RequestedOrphenadrine Citrate 30 MG/ML Injection Solution 30mg given IM in the office * Quantity: 1 Refills: 0 Jessica Nguyen CARPENTER MOLD* Started 15-Sep-2014 Admin Requested Allergies and Adverse Reactions Name [...] Influenza Administered on:03-May-2012 Tdap (Adacel) Lot #: [id number] Administered on:14-May-2013 Fluzone Quadrivalent 0.5 ML Intramuscular Suspension Lot #: [id number] Administered on:03-Jun-2014 Family History Grandfather* Name Dates [...] smoker Vital Signs Date Test Result Details 15-Sep-2014 09:29 BP Systolic 154 mm[Hg] Status: BP Diastolic 96 mm[Hg] Status: Heart Rate 79 /min Status: Temperature 97.5 c Status: Weight 149 lb Status: Body Mass Index Calculated 24.05 kg/m2 Status: Body Surface Area Calculated 1.76 m2 Status: 08-Sep-2014 15:29 BP Systolic 202 mm[Hg] Status: [...] Problem not documented On 29-Apr-2014 11:25 Appointment; Jesisca Nguyen Encounter Diagnosis: Problem not documented On [...]
--- OUTSIDE RECORDS SUMMARY | 2016-12-14 18:08 | XMS REPORT | Summary of Care ---
Author Author Papa Keys M.D. Organization Unknown Address [address], [place] [id number] Phone Unavailable Care Team Providers Care Fleet Administrator Name Role Phone Price Garcia M.D. 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 Scripts must last 30 days. * Quantity: 120 Refills: 0 Papa Keys M.D.* Started 02-Dec-2015 ActiveDiazepam 10 MG Oral Tablet TAKE ONE TABLET BY MOUTH EVERY 8 HOURS NEEDED MUST LAST 30 DAYSMAY FILL ON OR AFTER 01/11/16 * Quantity: 90 Refills: 0 Price Garcia M.D.* Started 30-Oct-2014 OafsusXzhpkrvzpj-IFTB-Pkcvpxhv 50-325-40 MG Oral Tablet TAKE ONE TABLET BY MOUTH EVERY 6 HOURS NEEDED MAX OF 4 TABLETS PER DAY MUST LAST 30 DAYSMAY FILL ON OR AFTER 12/14/15* * Quantity: 120 Refills: 0 Price Garcia M.D.* Started 09-Jun-2014 Active Allergies and Adverse [...] Of Sphenoid Sinus Ostium Clinical Trials 4045 Ordered:30-Nov-2015 Immunization Name Dates Details Influenza Administered on:21-Jun-2011 Influenza Administered on:03-May-2012 Tdap (Adacel) Lot #: [id number] Administered on:14-May-2013 Fluzone Quadrivalent 0.5 ML Intramuscular Suspension Lot #: [id number] Administered on:03-Jun-2014 Fluzone Quadrivalent 0.5 ML Intramuscular Suspension Prefilled Syringe Lot #: [id number] Administered on:17-Jun-2015 Family History Grandfather* Name Dates [...] smoker Vital Signs Date Test Result Details 11-Dec-2015 13:42 BP Systolic 150 mm[Hg] Status: BP Diastolic 106 mm[Hg] Status: Heart Rate 73 /min Status: Respiration Rate 16 /min Status: Height 66 in Status: Weight 143 lb Status: O2 SAT 96 % Status: Body Mass Index Calculated 23.08 kg/m2 Status: Body Surface Area Calculated 1.73 m2 Status: 20-Nov-2015 10:14 BP Systolic 110 mm[Hg] Status: BP Diastolic 84 mm[Hg] Status: Heart Rate 84 /min Status: Respiration Rate 16 /min Status: Height 66 in Status: O2 SAT 95 % Status: Results Date Description Value Details 19-Nov-2015 12:28 Urinalysis, Reflex to Microscopic or Culture PRN 8005 pH 6.0 (Better) Range: 5.0-7.5 SP GRAVITY 1.015 (Better) Range: 1.010-1.030 APPEARANCE Cloudy (Abnormal) Range: Clear COLOR Straw (Better) Range: Straw-Yellow PROTEIN Negative mg/dL (Better) Range: Negative-Trace GLUCOSE Negative mg/dL (Better) Range: Negative KETONE Negative mg/dL (Better) Range: Negative BILIRUB Negative (Better) Range: Negative BLOOD Trace (Abnormal) Range: Negative UROBIL 0.2 EU/dL (Better) Range: 0.2-1.0 NITRITE Positive (Abnormal) Range: Negative Comments: Specimen referred to Microbiology for Culture----- LEUK Trace (Abnormal) Range: Negative 14:17 Urine Microscopic UMIC WBC 21-50 /HPF (Abnormal) Range: 0-5 Comments: Specimen referred to Microbiology for Culture----- RBC 0-2 /HPF (Better) Range: 0-2 BACTERIA 2+ /HPF (Abnormal) Range: Negative-Trace EPITH 0-2 /HPF (Better) Range: 0-10 23-Nov-2015 09:09 URINE CULTURE [id number] Comments: [email or web address] performed at: [facility] [address] [place] [address], [phone], Parking Meter Installer: Igor Perez D.O., MPHQuest Collection Date/Time: [id number] Results Received Date/Time: [id number] Reported Date/Time: [id number] performed at: [facility], [address] [place] [address], [phone], Parking Meter Installer: Igor Perez D.O., MPHQuest Collection Date/Time: [id number] Results Received Date/Time: [id number] Reported Date/Time: [id number] CULTURE, URINE, ROUTINE SEE NOTE (Abnormal) Comments: CULTURE, URINE, ROUTINE MICRO NUMBER: [id number] TEST STATUS: FINAL SPECIMEN SOURCE : URINE, CLEAN CATCH SPECIMEN QUALITY: ADEQUATE RESULT: Greater than 100,000 CFU/mL of Escherichia coli E.coli INT NEHA AMOX/ CLAVULANATE S <=2 AMPICILLIN S <=2 AMP/SULBACTAM S <=2 CEFAZOLIN NR <=4 1 CEFEPIME S <=1 CEFTRIAXONE S <=1 CIPROFLOXACIN S <=0.25 ERTAPENEM S <=0.5 GENTAMICIN S <=1 IMIPENEM S <=0.25 LEVOFLOXACIN S <=0.12 NITROFURANTOIN S <=16 PIP/TAZOBACTAM S <=4 TOBRAMYCIN S <=1 TRIMETHOPRIM/SULFA S <=20S= Susceptible I=Intermediate R=Resistant *=Not TestedNR=Not Reported NN=See Therapy CommentsTHERAPY COMMENTS Note 1: ORAL therapy: A cefazolin NEHA of < 32 predicts susceptibility to the oral agents cefaclor, cefdinir, cefpodoxime, cefprozil, cefuroxime, cephalexin, and loracarbef when used for therapy of uncomplicated UTIs due to E. coli, K. pneumoniae, and P. mirabilis. PARENTERAL therapy: A cefazolin NEHA of > 8 indicates resistance to parenteral cefazolin. An alternate test method must be performed to to confirm susceptibility to parenteral cefazolin.[KS]----- 25-Nov-2015 09:22 MRI LUMBAR SPINE Comments: Exam Date: 11/25/2015 07: 15Dictation Date: 11/25/2015 09:22 XMR SPINE LUMBAR ([facility]) 30-Nov-2015 07:30 Clinical Trials 4045 Clinical Trials Clinical Trial Lab ([facility]) 14:02 MRI KNEE LEFT Comments: Exam Date: 11/30/2015 06:28Dictation Date : 11/30/2015 14:02 XMR EXT KNEE LEFT ([facility]) Plan of Care Planned Observations* Name Dates Details Planned Goals not documented Goal Planned Encounters* Appointment; Provider: Andre Pratt On 18-Jul-2016 11:00 * Appointment; Provider: Price Garcia On 10:00 * Appointment; Provider: Papa Keys On 23-Dec-2015 14:00 * Appointment; Provider: Schedule Radiology On 30-Nov-2015 07:00 * Appointment; Provider: Schedule Radiology On 25-Nov-2015 08:00 * Appointment; Provider: Harris Barragan On 03-Apr-2015 13:00 * Appointment; Provider: Schedule Radiology On 07:00 Instructions * Instructions not documented Encounters Appointment; Papa Keys Encounter Diagnosis: Problem not [...] Problem not documented On 24-Jun-2014 13:45 Appointment; Wets Berrios Encounter Diagnosis: Problem not documented On [...]
--- OUTSIDE RECORDS SUMMARY | 2016-12-14 18:08 | XMS REPORT | Summary of Care ---
Author Author Linda Bingham APRN Organization Unknown Address [address], [place] [address] Phone Unavailable Care Team Providers Care Reeling Machine Setup Operator Name Role Phone Price Garcia M.D. [...] M25.562) Status: Active Medications Name Dates Details FluvoxaMINE [...] * Quantity: 1 Refills: 0 Мария Gonzalez DIRECTOR SALES SUPPORT* Started 24-Jan-2015 Admin RequestedAspirin 325 MG Oral [...] 90 Refills: 3 Price Garcia M.D.* Started LmrcdoFocmsrjekx-ZDZJ-Fealfkke 50-325-40 MG Oral Tablet TAKE ONE TABLET BY MOUTH EVERY 4 HOURS NEEDED MAX OF 6 TABLETS PER DAY MUST LAST 30 DAYSMAY FILL ON OR AFTER 09/15/15* * Quantity: 180 Refills: 0 Price Garcia [...] Refills: 0 Price Garcia M.D.* Started 26-Jun-2015 Active Allergies and Adverse Reactions Name Dates [...] Influenza Administered on:03-May-2012 Tdap (Adacel) Lot #: [id number] Administered on:14-May-2013 Fluzone Quadrivalent 0.5 ML Intramuscular Suspension Lot #: [id number] Administered on:03-Jun-2014 Fluzone Quadrivalent 0.5 ML Intramuscular Suspension Prefilled Syringe Lot #: [id number] Administered on:17-Jun-2015 Family History Grandfather* Name Dates [...] smoker Vital Signs Date Test Result Details 22-Sep-2015 09:22 BP Systolic 128 mm[Hg] Status: BP Diastolic 88 mm[Hg] Status: Heart Rate 83 /min Status: O2 SAT 98 % Status: 16-Sep-2015 08:28 BP Systolic 142 mm[Hg] Status: [...] % Status: Results Date Description Value Details 25-Aug-2015 09:42 Clinical Trials 4045 Clinical Trials Clinical Trial Lab ([facility]) 02-Sep-2015 09:34 Clinical Trials 4045 Comments: Fastin hours Clinical Trials Clinical Trial Lab ([facility]) 14-Sep-2015 08:28 MRI KNEE LEFT Comments: Exam Date: 09/14/2015 07: 01Dictation Date: 09/14/2015 08:28 XMR EXT KNEE LEFT ([facility]) 17-Sep-2015 08:56 Clinical Trials 4045 Comments: Fastin hours Clinical Trials Clinical Trial Lab ([facility]) Plan of Care Planned Observations* Name Dates Details Planned Goals not documented Goal Planned Encounters* Appointment; Provider: Andre Pratt On 18-Jul-2016 11:00 * Appointment; Provider: Price Garcia On 14-Oct-2015 10:30 * Appointment; Provider: Gordon Sandy On 30-Sep-2015 09:00 * Appointment; Provider: Harris Barragna On 03-Apr-2015 13:00 * Appointment; Provider: Schedule [...]
--- OUTSIDE RECORDS SUMMARY | 2016-12-14 18:08 | XMS REPORT ---
Author Author Yue Zapata [facility] Address [address] [place], [place] [address] Care Team Providers Care Accountant Property Name Role Phone Santos Zapataanda Unavailable [phone] PROBLEMS Type Condition ICD9-CM Code QIC81-BM Code Onset Dates Condition Status SNOMED Code Problem Neuropathy G62.9 Active 398784691 Problem CAD (coronary artery disease) I25.10 Active 12441640 Problem Depression F32.9 Active 113415936 Problem Hallucinations R44.3 Active 1159443 Problem Migraine headache G43.909 Active 82968449 Problem High blood pressure I10 Active 49452594 Problem High cholesterol E78.0 Active 66304200 Problem Elevated alkaline phosphatase level R74.8 Active 462859094 Problem Status post left knee replacement Z96.652 Active 306182825784 Problem Arthritis of left knee M19.90 Active 1540673448358112 Problem Tear of meniscus of left knee S83.207A Active Assessment Exposure to influenza Z20.828 Nov, Active Problem Fibromyalgia M79.7 Active 258691561 Assessment Acute URI J06.9 Nov, Active 16016406 Problem 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 21838096 ALLERGIES Substance Reaction Event Type Date Status Imitrex heart problems Drug Allergy Nov, Active Codeine Sulfate felt like a heart attack Drug Allergy Nov, Active toradol-in high or freq doses has a heart stent, it crunches my heart Non Drug Allergy Nov, Active maxalt felt like a heart attack Non Drug Allergy Nov, Active SOCIAL HISTORY No smoking Hx information available PLAN OF CARE VITAL SIGNS Height 5 ft 7 in in 2016-12-08 Weight 133 lb 0 oz lbs 2016-12-08 BMI 20.83 kg/m2 2016-12-08 Temperature 98.6 degrees Fahrenheit 2016-12-08 Heart Rate 76 /min 2016-12-08 Oximetry 95 % 2016-12-08 Blood pressure systolic 120 mm Hg 2016-12-08 Blood pressure diastolic 70 mm Hg 2016-12-08 MEDICATIONS Medication Instructions Dosage Frequency Start Date End Date Duration Status Tamiflu 75 MG Orally Twice a day 1 capsule 12h Nov, 5 day(s) Active QUEtiapine Fumarate ER 200 MG Orally three times a day 1 tablet 8h Active Promethazine HCl 25 MG Orally every 8 hrs prn neausea 1 tablet as needed Jul, Nov, 30 day(s) Active Fluvoxamine Maleate 100 MG Orally Once a day 1 tablet at bedtime 24h Active Sennosides-Docusate Sodium 8.6-50 MG Orally twice a day 1 tablet 12h as needed Active Diazepam 10 MG Orally three times a day 1 tablet as needed 8h 30 Active Cyclobenzaprine HCl 10 MG Orally Three times a day as needed 1 tablet 30 Active Amlodipine Besylate 5 MG Orally Once a day preferably at bedtime 1 tablet Aug, 30 day(s) Active Clopidogrel Bisulfate 75 MG Orally Once a day 1 tablet 24h Active Losartan Potassium 100 MG Orally Once a day 1 tablet 24h 90 Active Zolpidem Tartrate 10 MG Orally Once a day 1 tablet at bedtime as needed 24h 30 Active Propranolol HCl 20 MG Orally Twice a day 1 tablet 12h Jul, Active Atorvastatin Calcium 40 MG Orally Once a day 1 tablet 24h Active Oxycodone-Acetaminophen 10-325 MG Orally every 6 hrs 1 tablet as needed 6h Nov, Nov, 14 days Active RESULTS No Results PROCEDURES Procedure Date Ordered Related Diagnosis Body Site [facility] VISIT ESTABLISHED PATIENT December 08, 2016 OFFICE VISIT EST PATIENT LEVEL 4 December 08, 2016 IMMUNIZATIONS No Known Immunizations
--- OUTSIDE RECORDS SUMMARY | 2016-12-14 18:08 | XMS REPORT ---
Author Author Friend, Kyara Boss eClinicalWorks Address Unknown Phone Unavailable Care Team Providers Care Product Development Name Role Phone Friend, Kyara CP Unavailable Allergies, Adverse Reactions, Alerts Substance Reaction Event Type Imitrex Info Not Available Drug Allergy Codeine Sulfate Info Not Available Drug Allergy toradol Info Not Available Non Drug Allergy maxalt Info Not Available Non Drug Allergy Problems Problem Type Condition Code Onset Dates Condition Status Problem Tear of meniscus of left knee S83.207A Active Problem 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 Problem Fibromyalgia M79.7 Active Problem Status post left knee replacement Z96.652 Active Problem High blood pressure I10 Active Problem Elevated alkaline phosphatase level R74.8 Active Problem Depression F32.9 Active Problem Neuropathy G62.9 Active Problem High cholesterol E78.0 Active Problem CAD (coronary artery disease) I25.10 Active Assessment Pre-op testing Z01.818 Active Assessment Preoperative examination Z01.818 Active Assessment Pre-op chest exam Z01.811 Active Problem Arthritis of left knee M19.90 Active Medications Medication Code System Code Instructions Start Date End Date Status Dosage Atenolol [facility] [address]-69 50 MG Orally at bedtime 1 tablet Losartan Potassium [facility] [address]-94 100 MG Orally Once a day 1 tablet Fioricet [facility] [address]-37 50-300-40 MG Orally 3-4 times a day 1 capsule as needed Fluvoxamine Maleate [facility] [address]-06 100 MG Orally Once a day 1 tablet at bedtime Zolpidem Tartrate [facility] [address]-30 10 MG Orally Once a day 1 tablet at bedtime as needed Atenolol [facility] [address]-51 25 MG Orally Once a day 1 tablet Clopidogrel Bisulfate [facility] [address]-72 75 MG Orally Once a day 1 tablet Oxycodone HCl [facility] [address]-78 10 MG Orally three times a day 1 tablet as needed Seroquel [facility] [address]-57 200 MG Orally three times a day 1 tablet at bedtime Flexeril NDC 0 10mg three times a day 1 tablet Procedures Procedure Coding System Code Date COMPLETE CBC W/AUTO DIFF WBC.[facility] CPT-4 89419 May 31, 2016 PROTHROMBIN TIME CPT-4 50938 May 31, 2016 Metabolic Panel Total Ca.[facility] CPT-4 24601 May 31, 2016 MR-STAPH, DNA, AMP PROBE CPT-4 31102 May 31, 2016 THROMBOPLASTIN TIME, PARTIAL.[facility] CPT-4 89210 May 31, 2016 OFFICE VISIT EST PATIENT LEVEL 4 CPT-4 68019 May 31, 2016 [facility] VISIT ESTABLISHED PATIENT CPT-4 G0467 May 31, 2016 Vital Signs Date/Time: May 31, 2016 BMI 21.24 Index Weight 135.6 lbs Height 67 in Blood Pressure Diastolic 80 mm Hg Blood Pressure Systolic 130 mm Hg Cardiac Monitoring Heart Rate 74 /min Temperature 97.7 F Oximetry 97 % Respiratory Rate 18 /min Results Name Result Date Reference Range Unit Abnormality Flag Protime (INR) ----INR 1.1 [id number] 0.9-1.2 PTT ----PTT 27.9 [id number] 25.0-35.0 seconds Basic Metabolic Panel (BMP) ----Anion Gap 8 [id number] 3-20 ----CO2 29 60901412 22-31 mEq/L ----Chloride 105 39933472 99-111 mEq/L ----Potassium 3.7 [id number] 3.5-5.2 mEq/L ----Sodium 142 48123525 135-144 mEq/L ----Glucose 93 58226933 70-99 mg/dL ----BUN 8 04319604 10-20 mg/dL L ----Creatinine 0.68 00266156 0.57-1.11 mg/dL ----Calcium 10.0 94164789 8.9-10.5 mg/dL CBC With Platelet and Differential ----MCHC 33.5 69714545 32.0-36.0 g/dL ----MCH 30.3 [id number] 27.0-32.0 pg ----MPV 10.3 29622505 8.8-14.8 fL ----RDW 13.7 07138616 11.5-14.5 % ----Eosinophils 0 73399352 0-4 % ----Basophils 0 56633973 0-2 % ----Immature Granulocytes 0.0 00769492 0.0-1.0 % ----Absolute Neutrophils 2.66 31956743 1.90-7.00 10*3 ----Platelet Count 252 [id number] 150-400 K/uL ----Absolute Eosinophils 0.02 87144867 0.00-0.50 10*3 ----HCT 36.4 72950397 37.0-47.0 % L ----Absolute Basophils 0.02 24504602 0.00-0.20 10*3 ----MCV 90.5 21142752 82.0-99.0 fL ----RBC 4.02 39600175 4.00-5.20 10*6/uL ----Absolute Lymphocytes 1.90 21358006 0.80-3.30 10*3 ----Absolute Monocytes 0.47 36525678 0.30-1.00 10*3 ----HGB 12.2 99692128 12.0-18.0 g/dL ----Monocytes 9 15968439 4-11 % ----WBC 5.1 55132564 4.8-10.8 K/uL ----Neutrophils 52 18654751 51-75 % ----Lymphocytes 38 34157752 20-46 % MRSA Nasal Screen by PCR eGFR ----eGFR >60 [id number] >60 mL/min Chartable Prothrombin Time ----Chartable Prothrombin Time 11.2 [id number] 10.0-12.8 sec Summary Purpose eClinicalWorks Submission
--- OUTSIDE RECORDS SUMMARY | 2016-12-14 18:09 | XMS REPORT ---
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 Problem Fibromyalgia M79.7 Active Problem Depression F32.9 Active Problem Neuropathy G62.9 Active Medications Medication Code System Code Instructions Start Date End Date Status Dosage Losartan Potassium [facility] [address]-13 100 MG Orally Once a day 1 tablet Zolpidem Tartrate [facility] [address]-19 10 MG Orally Once a day 1 tablet at bedtime as needed Seroquel [facility] [address]-28 200 MG Orally three times a day 1 tablet at bedtime Clopidogrel Bisulfate [facility] [address]-99 75 MG Orally Once a day 1 tablet Flexeril ND 0 10mg three times a day 1 tablet Atenolol [facility] [address]-17 25 MG Orally Once a day 1 tablet Fioricet [facility] [address]-55 50-300-40 MG Orally 3-4 times a day 1 capsule as needed Fluvoxamine Maleate [facility] [address]-18 100 MG Orally Once a day 1 tablet at bedtime Oxycodone HCl [facility] [address]-02 10 MG Orally three times a day 1 tablet as needed Atenolol [facility] [address]-98 50 MG Orally at bedtime 1 tablet Procedures Procedure Coding System Code Date Hepatic Function Panel - [facility] CPT-4 46917 Jun 29, 2016 ROUTINE VENIPUNCTURE CPT-4 29833 Jun 29, 2016 Lipid Panel - [facility] CPT-4 52728 Jun 29, 2016 Results Name Result Date Reference Range Unit Abnormality Flag Venipuncture Summary Purpose eClinicalWorks Submission
--- OUTSIDE RECORDS SUMMARY | 2016-12-14 18:09 | XMS REPORT | Summary of Care ---
Author Author Radha Titus, Price Organization Unknown Address Unknown Phone Unavailable Care Team Providers Care Boiler Mechanic Name Role Phone Price Garcia M.D. Unavailable Unavailable [place] REPRESENTATIVE PERSONAL SERVICE, Crystal Unavailable Unavailable Price Garcia PP Unavailable [...] Inflamed seborrheic keratosis (702.11, L82.0) Status: Active Pain in a tooth or teeth (525.9, K08.8) Status: Active Bronchitis, acute (466.0, J20.9) Status: Active Anxiety (300.00, F41.9) Status: Active Hip pain, left (719.45, M25.552) Status: Active Atypical chest pain (786.59, R07.89) Status: Active Hypertension (401.9, I10) Status: Active Polyarthritis (716.50, M13.0) Status: Active Spondylolysis, lumbar region (738.4, M43.06) Status: Active Precordial pain (786.51, R07.2) Status: Active Migraine headache (346.90, G43.909) Status: Active Depression (311, F32.9) Status: Active Medications Name Dates Details Orfjktmcux-GQEH-Jxpzakxg 50-325-40 MG Oral Tablet TAKE ONE TABLET BY MOUTH EVERY 4 HOURS MAX OF 6 TABLETS PER DAY MUST LAST 30 DAYS Quantity: 180 Price Garcia M.D.* Started 09-Jun-2014 ActiveMelatonin 5 MG Oral Tablet * Refills: 0 * Started 16-Jun-2014 ActiveQUEtiapine Fumarate 50 MG Oral Tablet TAKE 1 TABLET AT BEDTIME. * Refills: 0 * Started 30-Oct-2014 ActiveFluvoxaMINE Maleate 100 MG Oral [...] DAILY. * Refills: 0 * Started 18-Dec-2014 ActiveHydrALAZINE HCl - 50 MG Oral Tablet [...] Refills: 5 Price Garcia M.D.* Started 30-Oct-2014 ActiveDiazepam 10 MG Oral Tablet TAKE ONE TABLET BY MOUTH EVERY 8 HOURS MUST LAST 30 DAYS * Quantity: 90 Refills: 0 Price Garcia M.D.* Started 30-Oct-2014 ActiveAcetaminophen-Codeine 300-30 MG Oral Tablet TAKE ONE TABLET BY MOUTH EVERY 6 HOURS NEEDED FOR PAIN.MAX 4 PER DAY* * Quantity: 120 Refills: 0 Price Garcia M.D.* Started 29-Dec-2014 ActiveTriamcinolone .1%/ Eucerin Compound (50/50 mix) -- 1 pound tub (454 grams) APPLY TO THE AFFECTED AREA TWICE DAILY * Quantity: 60 Refills: 0 Smarsh-[place], Crystal REPRESENTATIVE PERSONAL SERVICE* Started 24-Jun-2014 Active Allergies and Adverse Reactions Name Dates [...] Influenza Administered on:03-May-2012 Tdap (Adacel) Lot #: [id number] Administered on:14-May-2013 Fluzone Quadrivalent 0.5 ML Intramuscular Suspension Lot #: [id number] Administered on:03-Jun-2014 Family History Grandfather* Name Dates [...] smoker Vital Signs Date Test Result Details 06-Jan-2015 11:12 BP Systolic 142 mm[Hg] Status: BP Diastolic 88 mm[Hg] Status: Heart Rate 54 /min Status: Respiration Rate 18 /min Status: O2 SAT 96 % Status: 29-Dec-2014 11:10 BP Systolic 162 mm[Hg] Status: BP Diastolic 102 mm[Hg] Status: Heart Rate 58 /min Status: Respiration Rate 18 /min Status: Weight 150.375 lb Status: Height 66 in Status: O2 SAT 97 % Status: Body Mass Index Calculated 24.27 kg/m2 Status: Body Surface Area Calculated 1.77 m2 Status: Results Date Description Value Details 29-Dec-2014 12:40 XRay CHEST-PA & LAT Comments: Exam Date: 12/29/2014 12: 00Dictation Date: 12/29/2014 12:40 X CHEST PA & LAT (Better) Plan of Care Planned Observations* Name Dates Details Planned Goals not documented Goal Planned Encounters* Appointment; Provider: Andre Pratt On 15-Jul-2015 13:45 * Appointment; Provider: Price Garcia On 11:15 Instructions * Instructions not documented Encounters [...] Problem not documented On 30-Sep-2013 15:30 Appointment; eMlvin Cotto Encounter Diagnosis: Problem not documented On [...]
--- OUTSIDE RECORDS SUMMARY | 2016-12-14 18:09 | XMS REPORT | Summary of Care ---
Author Author Price Garcia M.D. Organization Unknown Address Unknown Phone Unavailable Care Team Providers Care Forms Analyst Name Role Phone Price Garcia M.D. Unavailable Unavailable Lisa SWITCH CREW SUPERVISOR, Мария Unavailable Unavailable [place] SWITCH CREW SUPERVISOR, Crystal Unavailable Unavailable Price Garcia PP Unavailable [...] I10) Status: Active Medications Name Dates Details Triamcinolone .1%/ Eucerin Compound (50/50 mix) -- 1 pound tub (454 grams) APPLY TO THE AFFECTED AREA TWICE DAILY Quantity: 60 Jessica Nguyen APRN* Started 24-Jun-2014 ActiveFluvoxaMINE Maleate 100 MG [...] Refills: 0 Price Garcia M.D.* Started 30-Oct-2014 SekwxbGshvdordni-OVCX-Mjgysqft 50-325-40 MG Oral Tablet TAKE ONE TABLET BY MOUTH EVERY 4 HOURS NEEDED MAX OF 6 TABLETS PER DAY MUST LAST 30 DAYS * Quantity: 180 Refills: 0 Price Garcia M.D.* Started 09-Jun-2014 ActiveAtenolol 50 MG Oral Tablet take 25 [...] Influenza Administered on:03-May-2012 Tdap (Adacel) Lot #: [id number] Administered on:14-May-2013 Fluzone Quadrivalent 0.5 ML Intramuscular Suspension Lot #: [id number] Administered on:03-Jun-2014 Fluzone Quadrivalent 0.5 ML Intramuscular Suspension Prefilled Syringe Lot #: [id number] Administered on:17-Jun-2015 Family History Grandfather* Name Dates [...] smoker Vital Signs Date Test Result Details 17-Jun-2015 10:22 BP Systolic 170 mm[Hg] Status: [...] /min Status: O2 SAT 96 % Status: 22-May-2015 13:31 BP Systolic 126 mm[Hg] Status: BP Diastolic 84 mm[Hg] Status: Heart Rate 73 /min Status: Respiration Rate 20 /min Status: Height 66 in Status: Weight 138 lb Status: O2 SAT 96 % Status: Body Mass Index Calculated 22.27 kg/m2 Status: Body Surface Area Calculated 1.71 m2 Status: Results Date Description Value Details 21-May-2015 10:41 Comprehensive Metabolic Panel 1212 Comments: Fasting : 8 hours SODIUM 135 mmol/L (Better) Range: 133-144 POTASSIUM 3.7 mmol/L (Better) Range: 3.5-5.1 CHLORIDE 98 mmol/L (Better) Range: 98-110 CARBON DIOXIDE 26.4 mmol/L (Better) Range: 23.0-33.0 ANION GAP 11 mmol/L (Better) Range: 6-16 BUN 19 mg/dL (Above high threshold) Range: 7-18 CREATININE, SERUM 0.87 mg/dL (Better) Range: 0.55-1.02 Comments: Please note new reference ranges effective 2015.----- BUN:CREATININE RATIO 22 (Better) EST GFR, >60 ml/min (Better) Range: >60 EST GFR, NON-AFR ANGOLAN >60 ml/min (Better) Range: >60 Comments: EST GFR is reported in ml/min per 1.73 m2 of body surface area. For -[place], please multiple result by 1.2.----- GLUCOSE 106 mg/dL (Above high threshold) Range: 70-100 ALK PHOSPHATASE 143 U/L (Above high threshold) Range: 46-116 TOTAL BILIRUBIN 0.20 mg/dL (Better) Range: 0.20-1.00 AST 34 U/L (Better) Range: 8-35 ALT 52 U/L (Better) Range: 14-59 Comments: Please note new reference ranges. Effective 11/06/2014.----- ALBUMIN 3.9 g/dL (Better) Range: 3.4-5.0 TOTAL PROTEIN 7.1 g/dL (Better) Range: 6.4-8.2 A/G RATIO 1.2 units (Better) Range: 1.0-1.8 CALCIUM 9.9 mg/dL (Better) Range: 8.5-10.1 10:41 LIPID PROFILE 1184 Comments: Fastin hours CHOLESTEROL 145 mg/dL (Better) Range: <200 TRIGLYCERIDES 119 mg/dL (Better) Range: 30-200 HDL Cholesterol 42 mg/dL (Better) Range: >39 NON HDL CHOLESTEROL 103 (Better) CARDIAC RSK FACTOR 3.5 units (Below low threshold) Range: 4.4-5.0 LDL - CALCULATED 79 mg/dL (Better) Range: 0-130 Plan of Care Planned Observations* Name Dates [...] not documented On 22-Apr-2015 10:15 Appointment; Harris Barraagn Encounter Diagnosis: Problem not documented On 13-Apr-2015 [...]
--- OUTSIDE RECORDS SUMMARY | 2016-12-14 18:09 | XMS REPORT | Summary of Care ---
Author Author Radha Titus, Price Organization Unknown Address Unknown Phone Unavailable Care Team Providers Care Telephone Order Dispatcher Name Role Phone Radha Titus, Price Unavailable Unavailable Patrick PASTOR, Jessica Unavailable Unavailable Jose Trammell M.D. Unavailable [...] Quantity: 30 Jose Trammell M.D.* Started 03-Jun-2014 ActiveMelatonin 5 MG Oral Tablet * Refills: 0 * Started 16-Jun-2014 ActiveTriamcinolone .1%/ Eucerin Compound (50/50 mix) -- 1 pound tub (454 grams) APPLY TO THE AFFECTED AREA TWICE DAILY * Quantity: 60 Refills: 0 Michaelle-Jessica Sanchez PASTOR* Started 24-Jun-2014 ActiveAmitriptyline HCl - 100 MG [...] Refills: 0 Price Garcia M.D.* Started 21-Jul-2014 NebempErdlqcmdxf-BAWW-Cogoytii 50-325-40 MG Oral Tablet TAKE 1 TABLET Q 4HRS NEEDED FOR MIGRAINEMAX 6 PER DAYMUST LAST 30 DAYS * Quantity: 180 Refills: 0 Price Garcia M.D.* Started 09-Jun-2014 Ended 04-Oct-2014 ActiveBaclofen 10 MG Oral Tablet * Refills: [...] Influenza Administered on:03-May-2012 Tdap (Adacel) Lot #: [id number] Administered on:14-May-2013 Fluzone Quadrivalent 0.5 ML Intramuscular Suspension Lot #: [id number] Administered on:03-Jun-2014 Family History Grandfather* Name Dates [...]
--- OUTSIDE RECORDS SUMMARY | 2016-12-14 18:10 | XMS REPORT | Summary of Care ---
Author Author Linda Bingham APRN Organization Unknown Address [address] [place], [place] [id number] Phone Unavailable Care Team Providers Care Last Picker Name Role Phone Price Garcia M.D. Unavailable Unavailable Lsia TON CONTAINER FILLER, Мария Unavailable Unavailable [place] TON CONTAINER FILLER, Crystal Unavailable Unavailable Price Garcia PP Unavailable [...] Active Migraine headache (346.90, G43.909) Status: Active Chronic sinus infection (473.9, J32.9) Status: Active Cerumen impaction (380.4, H61.20) Status: Active Medications Name Dates Details Melatonin 5 MG Oral Tablet * Started 16-Jun-2014 ActiveTriamcinolone .1%/ Eucerin Compound (50/50 mix) -- 1 pound tub (454 grams) APPLY TO THE AFFECTED AREA TWICE DAILY * Quantity: 60 Refills: 0 Smarsh-Kutilek, Crystal TON CONTAINER FILLER* Started 24-Jun-2014 ActiveZolpidem Tartrate ER 12.5 MG [...] DAILY. * Refills: 0 * Started 18-Dec-2014 ActiveDiazepam 10 MG Oral Tablet TAKE ONE TABLET BY MOUTH EVERY 8 HOURS MUST LAST 30 DAYS * Quantity: 90 Refills: 0 Price Garcia M.D.* Started 30-Oct-2014 XjzpovLnehvhjvyw-BOCJ-Nmhssbbi 50-325-40 MG Oral Tablet TAKE ONE TABLET BY MOUTH EVERY 4 HOURS MAX OF 6 TABLETS PER DAY MUST LAST 30 DAYS * Quantity: 180 Refills: 0 Price Garcia M.D.* Started 09-Jun-2014 ActiveAmoxicillin 500 MG Oral Tablet TAKE ONE TABLET THREE TIMES DAILY X 21 DAYS * Quantity: 63 Refills: 0 Price Garcia M.D.* Started 22-Jan-2015 Ended ActiveNalbuphine HCl - 10 MG/ML Injection Solution [...] Influenza Administered on:03-May-2012 Tdap (Adacel) Lot #: [id number] Administered on:14-May-2013 Fluzone Quadrivalent 0.5 ML Intramuscular Suspension Lot #: [id number] Administered on:03-Jun-2014 Family History Grandfather* Name Dates [...] smoker Vital Signs Date Test Result Details 08:47 Heart Rate 66 /min Status: Temperature [...] c Status: O2 SAT 97 % Status: 06-Jan-2015 11:12 BP Systolic 142 mm[Hg] Status: [...] 12:40 X CHEST PA & LAT (Better) 14:07 CT SINUSES Comments: Exam Date: 01/26/2015 13: 48Dictation Date: 01/26/2015 14:07 XC SINUSES (Better) Plan of Care Planned Observations* Name Dates Details Planned Goals not documented Goal Planned Encounters* Appointment; Provider: Andre Pratt On 15-Jul-2015 13:45 * Appointment; Provider: Price Garcia On 11:15 Instructions * Instructions not documented Encounters Appointment; Linda Bingham Encounter Diagnosis: Problem not documented On 08:30 Appointment; Мария Gonzalez Encounter Diagnosis: Problem not documented On 24-Jan-2015 10:35 Appointment; Price aGrcia Encounter Diagnosis: Problem not documented On 22-Jan-2015 [...]
--- OUTSIDE RECORDS SUMMARY | 2016-12-14 18:10 | XMS REPORT ---
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 25269535 Problem Depression F32.9 Active 598023702 Problem Neuropathy G62.9 Active 673450037 Problem Arthritis of left knee M19.90 Active 1009156465795666 Problem Tear of meniscus of left knee S83.207A Active Problem Fibromyalgia M79.7 Active 129363364 Problem Migraine headache G43.909 Active 56160643 Problem Elevated alkaline phosphatase level R74.8 Active 579123996 Problem High cholesterol E78.0 Active 56528382 Problem CAD (coronary artery disease) I25.10 Active 85844274 Problem Status post left knee replacement Z96.652 Active 509058379929 Problem High blood pressure I10 Active 59546021 ALLERGIES Unknown Allergies SOCIAL HISTORY No smoking Hx information available PLAN OF CARE VITAL SIGNS MEDICATIONS Unknown Medications RESULTS No Results PROCEDURES No Known procedures IMMUNIZATIONS No Known Immunizations
--- OUTSIDE RECORDS SUMMARY | 2016-12-14 18:10 | XMS REPORT ---
Author Author FriendKyara [employer]ClinicalWorks Address Unknown Phone Unavailable Care Team Providers Care Software Sales Manager Name Role Phone Friend, Kyara CP Unavailable [...]
--- OUTSIDE RECORDS SUMMARY | 2016-12-14 18:10 | XMS REPORT | Summary of Care ---
Author Author Papa Keys M.D. Organization Unknown Address Unknown Phone Unavailable Care Team Providers Care Engineer Conductor Name Role Phone Radha Titus, Price Unavailable Unavailable Lisa MEYERNМария Unavailable Unavailable Klaudia Keys M.D. Unavailable Unavailable Friend, Kyara Unavailable Unavailable Unavailable Unavailable Functional Status Name Dates Details Functional status health issues are not documented Status: Name Dates Details Cognitive status health issues [...] Z00.6) Status: Active Never smoker Status: Active Tear of medial meniscus of knee, left, initial encounter (836.0, S83.242A) Status: Active CAD (coronary atherosclerotic disease) (414.00, I25.10) Status: Active Cervicogenic headache (784.0, R51) Status: Active Preop examination (V72.84, Z01.818) Status: Active Non-smoker (V49.89, Z78.9) Status: Active Essential hypertension, benign (401.1, I10) Status: Active 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, F41.8) Status: Active Localized primary osteoarthritis of right lower leg (715.16, M17.11) Status: Active Primary osteoarthritis of left knee (715.16, M17.12) Status: Active Spondylolysis, lumbar region (738.4, M43.06) Status: Active Migraine without status migrainosus, not intractable (346.90, G43.909) Status: Active Nausea (787.02, R11.0) Status: Active Left knee pain (719.46, M25.562) Status: Active Localized primary osteoarthritis of left lower leg (715.16, M17.12) Status: Active Medications Name Dates Details Dhuuzeaspn-QGYE-Xniexvgb 50-325-40 MG Oral Tablet TAKE 1 TABLET BY MOUTH EVERY 6 HRS NEEDED MAX OF 4 TABS PER DAY MUST LAST 30 DAYSMAY FILL ON OR AFTER 03/09/16* Quantity: 120 Papa Keys M.D. * Start 09-Jun-2014 Active FluvoxaMINE Maleate 100 MG Oral Tablet TAKE 1 TABLET AT BEDTIME. * Quantity: 30 Refills: 5 Price Garcia M.D. * Start 30-Oct-2014 Active Nalbuphine HCl - 10 MG/ML Injection Solution Inject 10mg IM x 1 now * Quantity: 1 Refills: 0 Мария Gonzalez APRN * Start 24-Jan-2015 Admin Requested Promethazine HCl - 25 MG/ML Injection Solution Inject 12.5mg IM x 1 now * Quantity: 1 Refills: 0 Мария Gonzalez APRN * Start 24-Jan-2015 Admin Requested Aspirin 325 MG Oral Tablet TAKE 1 TABLET DAILY. * Refills: 0 * Start 05-May-2015 Active Atorvastatin Calcium 80 MG Oral Tablet TAKE 1 TABLET AT BEDTIME. * Refills: 0 * Start 05-May-2015 Active Plavix 75 MG Oral Tablet TAKE 1 TABLET DAILY. * Refills: 0 * Start 05-May-2015 Active Docusate Sodium 100 MG Oral Capsule Take 1 capsule BID. * Refills: 0 * Start 05-May-2015 Active AmLODIPine Besylate 10 MG Oral Tablet take one tablet by mouth every day * Quantity: 30 Refills: 6 Price Garcia M.D. * Start 30-Oct-2014 Active Atenolol 50 MG Oral Tablet take 25 MG in a.m then 50 MG at p.m * Refills: 0 * Start 05-May-2015 Active Evzio 0.4 MG/0.4ML Injection Solution Auto-injector INJECT 0.4MG SC/IM Q 2-3MIN NEEDED PER OVERDOSE * Quantity: 1 Refills: 0 Price Garcia M.D. * Start 17-Jun-2015 Active 0.4 ML Package (2 Packages) Losartan Potassium 100 MG Oral Tablet TAKE 1 TABLET DAILY. * Quantity: 30 Refills: 6 Price Garcia M.D. * Start 05-May-2015 Active Pennsaid 2 % Transdermal Solution Apply 2 pumps twice daily over area of pain. * Quantity: 1 Refills: 0 Papa Keys M.D. Start 23-Dec-2015 Active 112 GM Pump Btl Acetaminophen-Codeine 300-30 MG Oral Tablet Si PO every 4-6 hrs prn with a max of 4 per day. Scripts must last 30 days. * Quantity: 120 Refills: 0 Papa Keys M.D. Start 30-Dec-2015 Active QUEtiapine Fumarate 200 MG Oral Tablet TAKE 1 TABLET Three DAILY. * Quantity: 90 Refills: 0 Price Garcia M.D. * Start 30-Oct-2014 Active DiazePAM 10 MG Oral Tablet TAKE ONE TABLET BY MOUTH EVERY 8 HOURS NEEDED MUST LAST 30 DAYSMAY FILL ON OR AFTER 03/09/16 * Quantity: 90 Refills: 0 Price Garcia M.D. * Start 30-Oct-2014 Active Endocet 10-325 MG Oral Tablet Si PO every 6-8 hrs prn with a max of 3 per day. Script must last 30 days. * Quantity: 90 Refills: 0 Papa Keys M.D. Start 21-Jan-2016 Active Zolpidem Tartrate 10 MG Oral Tablet TAKE ONE TABLET BY MOUTH EVERY NIGHT AT BEDTIME NEEDED FOR SLEEP *MUST LAST 30 DAYS* * Quantity: 30 Refills: 0 Price Garcia M.D. * Start 26-Jun-2015 Active Cyclobenzaprine HCl - 10 MG Oral Tablet TAKE ONE TABLET BY MOUTH THREE TIMES DAILY NEEDED * Quantity: 90 Refills: 3 Papa Keys M.D. Start Active Allergies and Adverse Reactions Name Dates Details codeine (Allergy) Status: Active Imitrex (Allergy) Status: Active Maxalt (Allergy) Status: Active morphine (Allergy) Status: Active Toradol (Allergy) Status: Active Past Medical History Name Dates [...] Of Sphenoid Sinus Ostium Clinical Trials 4045 Ordered: 04-Apr-2016 Immunization Name Dates Details Influenza on: 21-Jun-2011 Influenza on: 03-May-2012 Tdap (Adacel) Lot #: [id number] on: 14-May-2013 Fluzone Quadrivalent 0.5 ML Intramuscular Suspension Lot #: [id number] on: 03-Jun-2014 Fluzone Quadrivalent 0.5 ML Intramuscular Suspension Prefilled Syringe Lot #: [id number] on: 17-Jun-2015 Family History Name Dates Details Family history of Suicide by gunshot wound (E955.9, X74.9XXA) Status: Active Name Dates Details Family history of Chronic Obstructive Pulmonary Disease Status: Active Name Dates Details Family history of Acute Myocardial Infarction (V17.3) Status: Active Family history of myocardial infarction (V17.3, Z82.49) Status: Active Family history of cerebrovascular accident (V17.1, Z82.3) Status: Active Family history of hypertension (V17.49, Z82.49) Status: Active Family history of diabetes mellitus (V18.0, Z83.3) Status: Active Family history of chronic obstructive pulmonary disease (V17.6, Z82.5) Status: Active Name Dates Details Family history of Asthma (V17.5) Status: Active Family history of Arthritis (V17.7) Status: Active Family history of Uterine Cancer (V16.49) Status: Active Social History Name Dates Details - Status: Name Dates Details Never smoker Vital Signs Date Test Result Details 11-Apr-2016 09:31 BP Systolic 148 mm[Hg] Status: Comments: Location: ; Position: BP Diastolic 82 mm[Hg] Status: Comments: Location: ; Position: Temperature 97.7 f Status: Comments: Method: Heart Rate 70 /min Status: Comments: Location: ; Physical Findings 98 Status: Comments: O2 Saturation Results Date Description Value Details 04-Apr-2016 07:30 Clinical Trials 4045 Comments: Fastin hours Clinical Trials Clinical Trial Lab Plan of Care Name Dates Details Planned Observations Planned Goals not documented Planned Encounters Appointment; Provider: Andre Pratt M.D. On 18-Jul-2016 11:00 Instructions Name Dates Details Instructions not documented Encounters Appointment; Linda Bingham A.P.R.N. Encounter Diagnosis: Problem not documented On 11-Apr-2016 09:20 Appointment; Wset Berrios D.O. Encounter Diagnosis: Problem not documented On 12:49 Appointment; Papa Keys M.D. Encounter Diagnosis: Problem not documented On 13:00 Appointment; Price Garcia M.D. Encounter Diagnosis: Problem not documented On 13:30 Appointment; Linda Bingham A.P.R.N. Encounter Diagnosis: Problem not documented On 11:35 Appointment; Papa Keys M.D. Encounter Diagnosis: Problem not documented On 13:15 Appointment; Linda Bingham A.P.R.N. Encounter Diagnosis: Problem not documented On 09:45 Appointment; Price Garcia M.D. Encounter Diagnosis: Problem not documented On 26-Jan-2016 14:15 Appointment; Papa Keys M.D. Encounter Diagnosis: Problem not documented On 21-Jan-2016 14:00 Appointment; [place] Berrios D.O. Encounter Diagnosis: Problem not documented On 20-Jan-2016 13:45 Appointment; Papa Keys M.D. Encounter Diagnosis: Problem not documented On 31-Dec-2015 15:30 Appointment; Papa Keys M.D. Encounter Diagnosis: Problem not documented On 23-Dec-2015 14:00 Appointment; Papa Keys M.D. Encounter Diagnosis: Problem not documented On 16-Dec-2015 14:00 Appointment; Price Garcia M.D. Encounter Diagnosis: Problem not documented On 11-Dec-2015 14:00 Appointment; Papa Keys M.D. Encounter Diagnosis: Problem not documented On 09-Dec-2015 14:00 Appointment; Papa Keys M.D. Encounter Diagnosis: Problem not documented On 02-Dec-2015 14:00 Appointment; Papa Keys M.D. Encounter Diagnosis: Problem not documented On 25-Nov-2015 14:00 Appointment; Price Garcia M.D. Encounter Diagnosis: Problem not documented On 20-Nov-2015 09:45 Appointment; Papa Keys M.D. Encounter Diagnosis: Problem not documented On 18-Nov-2015 13:30 Appointment; Jose Jimenez M.D. Encounter Diagnosis: Problem not documented On 10-Nov-2015 10:15 Appointment; Jose Jimenez M.D. Encounter Diagnosis: Problem not documented On 06-Nov-2015 09:00 Appointment; Jose Jimenez M.D. Encounter Diagnosis: Problem not documented On 03-Nov-2015 08:15 Appointment; Jose Jimenez M.D. Encounter Diagnosis: Problem not documented On 27-Oct-2015 08:30 Appointment; Jose iJmenez M.D. Encounter Diagnosis: Problem not documented On 23-Oct-2015 09:30 Appointment; Jose Jimenez M.D. Encounter Diagnosis: Problem not documented On 21-Oct-2015 11:30 Appointment; Jose Jimenez M.D. Encounter Diagnosis: Problem not documented On 16-Oct-2015 09:15 Appointment; Gordon Sandy M.D. Encounter Diagnosis: Problem not documented On 16-Oct-2015 08:45 Appointment; Gaston Hare M.D. Encounter Diagnosis: Problem not documented On 15-Oct-2015 16:10 Appointment; Price Garcia M.D. Encounter Diagnosis: Problem not documented On 14-Oct-2015 10:30 Appointment; Gordon Sandy M.D. Encounter Diagnosis: Problem not documented On 30-Sep-2015 09:00 Appointment; Linda Bingham A.P.R.N. Encounter Diagnosis: Problem not documented On 22-Sep-2015 09:10 Appointment; Gordon Sandy M.D. Encounter Diagnosis: Problem not documented On 16-Sep-2015 08:45 Appointment; Gordon Sandy M.D. Encounter Diagnosis: Problem not documented On 08-Sep-2015 09:45 Appointment; Priec Garcia M.D. Encounter Diagnosis: Problem not documented On 03-Sep-2015 10:10 Appointment; Linda Bingham A.P.R.N. Encounter Diagnosis: Problem not documented On 26-Aug-2015 08:35 Appointment; Price Garcia M.D. Encounter Diagnosis: Problem not documented On 17-Aug-2015 11:00 Appointment; Gaston Hare M.D. Encounter Diagnosis: Problem not documented On 13-Aug-2015 08:35 Appointment; Price Garcia M.D. Encounter Diagnosis: Problem not documented On 07-Aug-2015 13:15 Appointment; Andre Pratt M.D. Encounter Diagnosis: Problem not documented On 15-Jul-2015 13:45 Appointment; [place] Berrios D.O. Encounter Diagnosis: Problem not documented On 13-Jul-2015 09:15 Appointment; Virginia Medina Encounter Diagnosis: Problem not documented On 25-Jun-2015 10:50 Appointment; Gaston Hare M.D. Encounter Diagnosis: Problem not documented On 23-Jun-2015 10:35 Appointment; Price Garcia M.D. Encounter Diagnosis: Problem not documented On 17-Jun-2015 10:15 Appointment; Gaston Hare M.D. Encounter Diagnosis: Problem not documented On 09-Jun-2015 14:35 Appointment; Lesley Trimble, P.T.|D.P.T. Encounter Diagnosis: Problem not documented On 09-Jun-2015 14:00 Appointment; Gordon Mnacera M.D. Encounter Diagnosis: Problem not documented On 06-Jun-2015 10:55 Appointment; Lesley Trimble, P.T.|D.P.T. Encounter Diagnosis: Problem not documented On 02-Jun-2015 11:30 Appointment; Price Garcia M.D. Encounter Diagnosis: Problem not documented On 22-May-2015 13:15 Appointment; Price Garcia M.D. Encounter Diagnosis: Problem not documented On 14-May-2015 15:15 Appointment; Price Garcia M.D. Encounter Diagnosis: Problem not documented On 05-May-2015 11:00 Appointment; Harris Barragan M.D. Encounter Diagnosis: Problem not documented On 05-May-2015 10:30 Appointment; Price Garcia M.D. Encounter Diagnosis: Problem not documented On 22-Apr-2015 10:15 Appointment; Harris Barragan M.D. Encounter Diagnosis: Problem not documented On 13-Apr-2015 11:00 Appointment; Price Garcia M.D. Encounter Diagnosis: Problem not documented On 10:00 Appointment; Linda Bingham A.P.R.N. Encounter Diagnosis: Problem not documented On 09:50 Appointment; Price Garcia M.D. Encounter Diagnosis: Problem not documented On 09:45 Appointment; Harris Barragan M.D. Encounter Diagnosis: Problem not documented On 08:45 Appointment; Price Garcia M.D. Encounter Diagnosis: Problem not documented On 11:15 Appointment; Jessica Nguyen A.PKarunaRJeromy Encounter Diagnosis: Problem not documented On 09:15 Appointment; Price Garcia M.D. Encounter Diagnosis: Problem not documented On 10:45 Appointment; Linda Bingham A.PKarunaRJeromy Encounter Diagnosis: Problem not documented On 09:05 Appointment; Harris Barragan M.D. Encounter Diagnosis: Problem not documented On 11:15 Appointment; Linda Bingham A.PKarunaRJeromy Encounter Diagnosis: Problem not documented On 08:30 Appointment; Мария Gonzalez A.PKarunaRJeromy Encounter Diagnosis: Problem not documented On 24-Jan-2015 10:35 Appointment; Price Garcia M.D. Encounter Diagnosis: Problem not documented On 22-Jan-2015 10:30 Appointment; Price Garcia M.D. Encounter Diagnosis: Problem not documented On 06-Jan-2015 10:45 Appointment; Price Garcia M.D. Encounter Diagnosis: Problem not documented On 29-Dec-2014 11:15 Appointment; Price Garcia M.D. Encounter Diagnosis: Problem not documented On 18-Dec-2014 09:45 Appointment; Gaston Hare M.D. Encounter Diagnosis: Problem not documented On 05-Dec-2014 13:00 Appointment; Linda Bingham A.PKarunaRJeromy Encounter Diagnosis: Problem not documented On 03-Dec-2014 10:20 Appointment; Price Garcia M.D. Encounter Diagnosis: Problem not documented On 13-Nov-2014 13:45 Appointment; Price Garcia M.D. Encounter Diagnosis: Problem not documented On 30-Oct-2014 09:30 Appointment; [place] Berrios D.O. Encounter Diagnosis: Problem not documented On 11-Oct-2014 08:25 Appointment; Linda Bingham A.PKarunaRJeromy Encounter Diagnosis: Problem not documented On 02-Oct-2014 08:15 Appointment; Jessica Nguyen A.P.R.N. Encounter Diagnosis: Problem not documented On 15-Sep-2014 09:30 Appointment; Price Garcia M.D. Encounter Diagnosis: Problem not documented On 08-Sep-2014 15:15 Appointment; Ilya Basurto M.D. Encounter Diagnosis: Problem not documented On 16-Aug-2014 11:10 Appointment; Price Garcia M.D. Encounter Diagnosis: Problem not documented On 14-Aug-2014 09:30 Appointment; Price Garcia M.D. Encounter Diagnosis: Problem not documented On 05-Aug-2014 16:00 Appointment; Price Garcia M.D. Encounter Diagnosis: Problem not documented On 21-Jul-2014 14:00 Appointment; Andre Pratt M.D. Encounter Diagnosis: Problem not documented On 14-Jul-2014 13:15 Appointment; Price Garcia M.D. Encounter Diagnosis: Problem not documented On 07-Jul-2014 15:00 Appointment; Gaston Hare M.D. Encounter Diagnosis: Problem not documented On 27-Jun-2014 12:15 Appointment; Jessica Nguyen A.P.R.N. Encounter Diagnosis: Problem not documented On 24-Jun-2014 13:45 Appointment; [place] Berrios D.O. Encounter Diagnosis: Problem not documented On 16-Jun-2014 08:30 Appointment; Jose Trammell M.D. Encounter Diagnosis: Problem not documented On 09-Jun-2014 11:00 Appointment; Whitney Whitfield M.D. Encounter Diagnosis: Problem not documented On 07-Jun-2014 08:45 Appointment; Jose Trammell M.D. Encounter Diagnosis: Problem not documented On 03-Jun-2014 13:45 Appointment; Whitney Whitfield M.D. Encounter Diagnosis: Problem not documented On 31-May-2014 10:15 Appointment; Bessie Romero M.D. Encounter Diagnosis: Problem not documented On 29-May-2014 11:30 Appointment; Jose Trammell M.D. Encounter Diagnosis: Problem not documented On 19-May-2014 11:00 Appointment; Gaston Hare M.D. Encounter Diagnosis: Problem not documented On 13-May-2014 08:15"
--- OUTSIDE RECORDS SUMMARY | 2016-12-14 18:10 | XMS REPORT | Summary of Care ---
Author Author Price Garcia M.D. Organization Unknown Address Unknown Phone Unavailable Care Team Providers Care Production Troubleshooter Name Role Phone Price Garcia M.D. Unavailable Unavailable Lisa QUEEN'S COUNSEL, Мария Unavailable Unavailable Smarsh-[place]k QUEEN'S COUNSEL, Crystal Unavailable Unavailable Price Garcia PP Unavailable [...] Active Headache (784.0, R51) Status: Active Nasal septal deviation (470, J34.2) Status: Active Nasal congestion (478.19, R09.81) Status: Active Hypertrophy of nasal turbinates (478.0, J34.3) Status: Active Chronic sinus infection (473.9, J32.9) Status: Active Migraine headache (346.90, G43.909) Status: Active Preop examination (V72.84, Z01.818) Status: Active Medications Name Dates Details Melatonin 5 MG Oral Tablet * Started 16-Jun-2014 ActiveTriamcinolone .1%/ Eucerin Compound (50/50 mix) -- 1 pound tub (454 grams) APPLY TO THE AFFECTED AREA TWICE DAILY * Quantity: 60 Refills: 0 Smarsh-Kutilek, Crystal QUEEN'S COUNSEL* Started 24-Jun-2014 ActiveZolpidem Tartrate ER 12.5 MG [...] 90 Refills: 3 Price Garcia M.D.* Started ActiveDiazepam 10 MG Oral Tablet TAKE ONE TABLET BY MOUTH EVERY 8 HOURS NEEDEDMUST LAST 30 DAYS * Quantity: 90 Refills: 0 Price Garcia M.D.* Started 30-Oct-2014 DqwjcnAbfgseduun-MLFX-Sumcvpbd 50-325-40 MG Oral Tablet TAKE ONE TABLET [...] Influenza Administered on:03-May-2012 Tdap (Adacel) Lot #: [id number] Administered on:14-May-2013 Fluzone Quadrivalent 0.5 ML Intramuscular Suspension Lot #: [id number] Administered on:03-Jun-2014 Family History Grandfather* Name Dates [...] smoker Vital Signs Date Test Result Details 09:37 BP Systolic 148 mm[Hg] Status: BP [...] Body Surface Area Calculated 1.75 m2 Status: 09:45 BP Systolic 186 mm[Hg] Status: BP Diastolic 114 mm[Hg] Status: Heart Rate 69 /min Status: Respiration Rate 18 /min Status: O2 SAT 97 % Status: 08:34 BP Systolic 163 mm[Hg] Status: BP Diastolic 96 mm[Hg] Status: Heart Rate 62 /min Status: Weight 147 lb Status: Body Mass Index Calculated 23.73 kg/m2 Status: Body Surface Area Calculated 1.75 [...] ml/min (Better) Range: >60 EST GFR, NON-AFR [place] >60 ml/min (Better) Range: >60 Comments: EST GFR is reported in ml/min per 1.73 m2 of body surface area. For -Indian, please multiple result by 1.2.----- BUN:CREATININE RATIO 11 (Better) GLUCOSE 92 mg/dL (Better) Range: 70-100 CALCIUM 9.7 mg/dL (Better) Range: 8.5-10.1 Plan of Care Planned Observations* Name Dates Details Planned Goals not documented Goal Planned Encounters* Appointment; Provider: Andre Pratt On 15-Jul-2015 13:45 * Appointment; Provider: Price Garcia On 22-Apr-2015 10:15 * Appointment; Provider: Harris Barragan On 13-Apr-2015 11:00 * Appointment; Provider: Harris Barragan On [...] Problem not documented On 13-Nov-2013 11:00 Appointment; Mlevin Cotto Encounter Diagnosis: Problem not documented On [...]
--- OUTSIDE RECORDS SUMMARY | 2016-12-14 18:10 | XMS REPORT ---
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
--- OUTSIDE RECORDS SUMMARY | 2016-12-14 18:11 | XMS REPORT | Summary of Care ---
Author Author Linda Bingham APRN Organization Unknown Address [address], [place] [id number] Phone Unavailable Care Team Providers Care Podiatric Assistant Name Role Phone Price Garcia M.D. Unavailable [...] M25.562) Status: Active Medications Name Dates Details Owozvexrxu-JCXW-Yoakluhc 50-325-40 MG Oral Tablet TAKE 1 TABLET [...] Refills: 0 Papa Keys M.D.* Started 23-Dec-2015 [id number] GM Pump Btl Acetaminophen-Codeine 300-30 MG Oral [...] 4045 Ordered:11-Jan-2016 XRay CHEST-PA & LAT Ordered:22-Jan-2016 Immunization Name Dates Details Influenza Administered on:21-Jun-2011 Influenza Administered on:03-May-2012 Tdap (Adacel) Lot #: [id number] Administered on:14-May-2013 Fluzone Quadrivalent 0.5 ML Intramuscular Suspension Lot #: [id number] Administered on:03-Jun-2014 Fluzone Quadrivalent 0.5 ML Intramuscular Suspension Prefilled Syringe Lot #: [id number] Administered on:17-Jun-2015 Family History Grandfather* Name Dates [...] 09:44 Urinalysis, reflex to Micro and Culture ([facility]) 8016 pH 6.0 (Better) Range: 5.0-7.5 SP [...] ml/min (Better) Range: >60 EST GFR, NON-AFR [place]DIAN >60 ml/min (Better) Range: >60 Comments: EST GFR is reported in ml/min per 1.73 m2 of body surface area. For -French, please multiple result by 1.2.----- BUN:CREATININE RATIO 19 (Better) GLUCOSE 104 mg/dL (Above high threshold) Range: 70-100 CALCIUM 9.5 mg/dL (Better) Range: 8.5-10.1 13:39 XRay KNEE-Left Comments: Exam Date: 02/23/2016 12: 06Dictation Date: 02/23/2016 13:39 X KNEE COMP (MIN 4V) LT (Better) Plan of Care Planned Observations* Name [...] not documented On 31-May-2014 10:15 Appointment; Bessie oRmero Encounter Diagnosis: Problem not documented On 29-May-2014 [...]
--- OUTSIDE RECORDS SUMMARY | 2016-12-14 18:11 | XMS REPORT ---
Author Author FriendKyara [employer] Address Unknown Phone Unavailable Care Team Providers Care Flight Crew Ordnanceman Name Role Phone Friend, Kyara CP Unavailable [...]
--- OUTSIDE RECORDS SUMMARY | 2016-12-14 18:11 | XMS REPORT ---
Author Author GENERATED, SYSTEM Organization Unknown Address Unknown Phone Unavailable Care Team Providers Care Toolsmith Name Role Phone FRIEND, CHIQUI FLOREZ [phone] Reason For Visit Chief Complaint MRI BRAIN W.O W CONTRAST Social History Functional Status Vital Signs Results [...] Hospital Discharge Instructions Allergies, Adverse Reactions, Alerts This section is sales training representative of the current allergy information, at the time of the CCD generation. In the case of regeneration of the CCD, the allergy information may not reflect the state of known allergies at the time of the CCD' s subject visit. * Latex Allergy has not been assessed. * IV Contrast Allergy has not been assessed. * No Known Drug Allergies. * No Known Food Allergies. * No Known Allergies. Medication Medication reconciliation has not been performed.
--- OUTSIDE RECORDS SUMMARY | 2016-12-14 18:11 | XMS REPORT | Summary of Care ---
Author Author Papa Keys M.D. Organization Unknown Address Unknown Phone Unavailable Care Team Providers Care Baker Pie Name Role Phone Price Garcia M.D. 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, F41.8) Status: Active Localized primary osteoarthritis of right lower leg (715.16, M17.11) Status: Active Primary osteoarthritis of left knee (715.16, M17.12) Status: Active Spondylolysis, lumbar region (738.4, M43.06) Status: Active Localized primary osteoarthritis of left lower leg (715.16, M17.12) Status: Active Migraine without status migrainosus, not intractable (346.90, G43.909) Status: Active Medications Name Dates Details Rxapzdykgi-RGPR-Buepitgc 50-325-40 MG Oral Tablet TAKE 1 TABLET BY MOUTH EVERY 6 HRS NEEDED MAX OF 4 TABS PER DAY MUST LAST 30 DAYSMAY FILL ON OR AFTER 03/09/16* Quantity: 120 Price Garcia M.D.* Started 09-Jun-2014 [...] Refills: 0 Papa Keys M.D.* Started 23-Dec-2015 [id number] GM Pump Btl Acetaminophen-Codeine 300-30 MG Oral Tablet Si PO every 4-6 hrs prn with a max of 4 per day. Scripts must last 30 days. * Quantity: 120 Refills: 0 Papa Keys M.D.* Started 30-Dec-2015 ActiveQUEtiapine Fumarate 200 MG Oral Tablet TAKE 1 TABLET Three DAILY. * Quantity: 90 Refills: 0 Price Garcia M.D.* Started 30-Oct-2014 ActiveDiazePAM 10 MG Oral Tablet TAKE ONE TABLET BY MOUTH EVERY 8 HOURS NEEDED MUST LAST 30 DAYSMAY FILL ON OR AFTER 03/09/16 * Quantity: 90 Refills: 0 Price Garcia M.D.* Started 30-Oct-2014 ActiveEndocet 10-325 MG Oral Tablet Si PO every 6-8 hrs prn with a max of 3 per day. Script must last 30 days. * Quantity: 90 Refills: 0 Papa Keys M.D.* Started 21-Jan-2016 ActiveZolpidem Tartrate 10 MG Oral Tablet TAKE [...] Sphenoid Sinus Ostium ECG/ EKG Preop Pendin22-Jan-2016 XRay CHEST-PA & LAT Ordered:22-Jan-2016 Immunization Name Dates Details Influenza Administered on:21-Jun-2011 Influenza Administered on:03-May-2012 Tdap (Adacel) Lot #: [id number] Administered on:14-May-2013 Fluzone Quadrivalent 0.5 ML Intramuscular Suspension Lot #: [id number] Administered on:03-Jun-2014 Fluzone Quadrivalent 0.5 ML Intramuscular Suspension Prefilled Syringe Lot #: [id number] Administered on:17-Jun-2015 Family History Grandfather* Name Dates [...] smoker Vital Signs Date Test Result Details 13:39 BP Systolic 144 mm[Hg] Status: BP Diastolic 94 mm[Hg] Status: Heart Rate 80 /min Status: Respiration Rate 16 /min Status: Height 66 in Status: Weight 137 lb Status: O2 SAT 93 % Status: Body Mass Index Calculated 22.11 kg/m2 Status: Body Surface Area Calculated 1.7 m2 Status: 11:52 BP Systolic 124 mm[Hg] Status: BP Diastolic 88 mm[Hg] Status: Temperature 97.9 f Status: Heart Rate 67 /min Status: O2 SAT 97 % Status: Results Date Description Value Details 13:39 XRay KNEE-Left Comments: Exam Date: 02/23/2016 [...] Keys Encounter Diagnosis: Problem not documented On 13:00 Appointment; Price Garcia Encounter Diagnosis: Problem not documented On 13:30 Appointment; Linda Bingham Encounter Diagnosis: Problem not [...] Problem not documented On 22-Apr-2015 10:15 Appointment; Harrsi Barragan Encounter Diagnosis: Problem not documented On [...] Diagnosis: Problem not documented On 11:15 Appointment; Lnida Bingham Encounter Diagnosis: Problem not documented On [...]
--- OUTSIDE RECORDS SUMMARY | 2016-12-14 18:11 | XMS REPORT | Summary of Care ---
Author Author Papa Keys M.D. Organization Unknown Address [address] [place], [place] [id number] Phone Unavailable Care Team Providers Care Metal Finisher Name Role Phone Price Garcia M.D. Unavailable [...] left, initial encounter (836.0, S83.242A) Status: Active Localized primary osteoarthritis of left lower leg (715.16, M17.12) Status: Active Primary osteoarthritis of left knee (715.16, M17.12) Status: Active CAD (coronary atherosclerotic disease) (414.00, I25.10) Status: Active Cervicogenic headache (784.0, R51) Status: Active Preop examination (V72.84, Z01.818) Status: Active Migraine without status migrainosus, not intractable (346.90, G43.909) Status: Active Medications Name Dates Details Hvqpxrnbpu-ZWPA-Zcruouhb 50-325-40 MG Oral Tablet TAKE 1 TABLET [...] * Quantity: 1 Refills: 0 Мария Gonzalez COMPLIANCE SPECIALIST* Started 24-Jan-2015 Admin RequestedAspirin 325 MG Oral [...] Refills: 0 Papa Keys M.D.* Started 23-Dec-2015 [id number] GM Pump Btl Acetaminophen-Codeine 300-30 MG Oral [...] Influenza Administered on:03-May-2012 Tdap (Adacel) Lot #: [id number] Administered on:14-May-2013 Fluzone Quadrivalent 0.5 ML Intramuscular Suspension Lot #: [id number] Administered on:03-Jun-2014 Fluzone Quadrivalent 0.5 ML Intramuscular Suspension Prefilled Syringe Lot #: [id number] Administered on:17-Jun-2015 Family History Grandfather* Name Dates [...] smoker Vital Signs Date Test Result Details 09:53 BP Systolic 112 mm[Hg] Status: BP [...] Body Surface Area Calculated 1.72 m2 Status: 20-Jan-2016 13:58 BP Systolic 110 mm[Hg] Status: BP Diastolic 62 mm[Hg] Status: Temperature 97.9 f Status: Heart Rate 72 /min Status: O2 SAT 97 % Status: Results Date Description Value Details 26-Jan-2016 09:44 Urinalysis, reflex to Micro and Culture ([facility]) 8016 pH 6.0 (Better) Range: 5.0-7.5 [...] ml/min (Better) Range: >60 EST GFR, NON-AFR [place] >60 ml/min (Better) Range: >60 Comments: EST GFR is reported in ml/min per 1.73 m2 of body surface area. For -Cypriot, please multiple result by 1.2.----- BUN:CREATININE RATIO 19 (Better) GLUCOSE 104 mg/dL (Above high threshold) Range: 70-100 CALCIUM 9.5 mg/dL (Better) Range: 8.5-10.1 Plan of Care Planned Observations* Name Dates Details Planned Goals not documented Goal Planned Encounters* Appointment; Provider: Andre Pratt On 18-Jul-2016 11:00 * Appointment; Provider: Price Garcia On 10:45 * Appointment; Provider: Schedule Radiology On 30-Nov-2015 [...] not documented On 16-Dec-2015 14:00 Appointment; Price Gacria Encounter Diagnosis: Problem not documented On 11-Dec-2015 [...]
--- OUTSIDE RECORDS SUMMARY | 2016-12-14 18:11 | XMS REPORT ---
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 07932531 Problem Depression F32.9 Active 387503611 Problem Neuropathy G62.9 Active 791917502 Problem Migraine headache G43.909 Active 24473126 Problem Elevated alkaline phosphatase level R74.8 Active 293894143 Problem High cholesterol E78.0 Active 36935965 Problem CAD (coronary artery disease) I25.10 Active 44575062 Problem Status post left knee replacement Z96.652 Active 151016919404 Problem High blood pressure I10 Active 96551174 Assessment 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 Nov, Active 66482604 Assessment Major depressive disorder, recurrent, severe with psychotic features F33.3 Nov, Active 34063269 Problem Arthritis of left knee M19.90 Active 5672071889088540 Assessment OCD (obsessive compulsive disorder) F42.9 Nov, Active 199962401 Problem Tear of meniscus of left knee S83.207A Active Assessment Generalized anxiety disorder F41.1 Nov, Active 24231682 Problem Fibromyalgia M79.7 Active 193753826 ALLERGIES Unknown Allergies SOCIAL HISTORY No smoking Hx information available PLAN OF CARE VITAL SIGNS MEDICATIONS Medication Instructions Dosage Frequency Start Date End Date Duration Status Amlodipine Besylate 5 MG Orally Once a day preferably at bedtime 1 tablet Aug, 30 day(s) Active QUEtiapine Fumarate ER 200 MG Orally three times a day 1 tablet 8h Active Losartan Potassium 100 MG Orally Once a day 1 tablet 24h 90 Active Cyclobenzaprine HCl 10 MG Orally Three times a day as needed 1 tablet 30 Active Propranolol HCl 20 MG Orally Twice a day 1 tablet 12h 14 Jul, 2016 Active Promethazine HCl 25 MG Orally every 8 hrs prn neausea 1 tablet as needed Jul, Nov, 30 day(s) Active Diazepam 10 MG Orally three times a day 1 tablet as needed 8h 30 Active Atorvastatin Calcium 40 MG Orally Once a day 1 tablet 24h Active Naproxen 500 MG Orally every 12 hrs 1 tablet as needed 12h 09 Oct, 2016 Nov, 30 days Active Clopidogrel Bisulfate 75 MG Orally Once a day 1 tablet 24h Active Sennosides-Docusate Sodium 8.6-50 MG Orally twice a day 1 tablet 12h as needed Active Zolpidem Tartrate 10 MG Orally Once a day 1 tablet at bedtime as needed 24h 30 Active Fluvoxamine Maleate 100 MG Orally Once a day 1 tablet at bedtime 24h Active RESULTS No Results PROCEDURES Procedure Date Ordered Related Diagnosis Body Site PSYTX PT 45 MINUTES November 29, 2016 [facility] VISIT MENTAL HEALTH ESTAB PT November 29, 2016 IMMUNIZATIONS No Known Immunizations
--- OUTSIDE RECORDS SUMMARY | 2016-12-14 18:11 | XMS REPORT ---
Author Author FriendKyara [facility] Address [address] [place], [place] [address] Care Team Providers Care Circular Sawyer Stone Name Role Phone FriendKyara Unavailable [phone] PROBLEMS Type Condition ICD9-CM Code MZB58-EY Code Onset Dates Condition Status SNOMED Code Problem Neuropathy G62.9 Active 324787469 Problem CAD (coronary artery disease) I25.10 Active 31835896 Problem Depression F32.9 Active 014199104 Problem Arthritis of left knee M19.90 Active 7264767049226513 Problem Tear of meniscus of left knee S83.207A Active Problem Fibromyalgia M79.7 Active 692775727 Problem 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
--- OUTSIDE RECORDS SUMMARY | 2016-12-14 18:12 | XMS REPORT ---
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 86960315 Problem Depression F32.9 Active 714119920 Problem Neuropathy G62.9 Active 487493305 Problem Arthritis of left knee M19.90 Active 5637746800175037 Problem Tear of meniscus of left knee S83.207A Active Problem Fibromyalgia M79.7 Active 285575623 Problem Migraine headache G43.909 Active 58790203 Problem Elevated alkaline phosphatase level R74.8 Active 312100082 Problem High cholesterol E78.0 Active 39588773 Problem CAD (coronary artery disease) I25.10 Active 07498844 Problem Status post left knee replacement Z96.652 Active 877992325489 Problem High blood pressure I10 Active 97036345 ALLERGIES Unknown Allergies SOCIAL HISTORY No smoking Hx information available PLAN OF CARE VITAL SIGNS MEDICATIONS Unknown Medications RESULTS No Results PROCEDURES No Known procedures IMMUNIZATIONS No Known Immunizations
--- OUTSIDE RECORDS SUMMARY | 2016-12-14 18:12 | XMS REPORT ---
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 05899024 Problem Depression F32.9 Active 786703047 Problem Neuropathy G62.9 Active 602506132 Problem Arthritis of left knee M19.90 Active 5471094875948483 Problem Tear of meniscus of left knee S83.207A Active Problem Fibromyalgia M79.7 Active 404586427 Problem Migraine headache G43.909 Active 92435696 Problem Elevated alkaline phosphatase level R74.8 Active 003187403 Problem High cholesterol E78.0 Active 32088730 Problem CAD (coronary artery disease) I25.10 Active 58635916 Problem Status post left knee replacement Z96.652 Active 701149422382 Problem High blood pressure I10 Active 94982217 ALLERGIES Unknown Allergies SOCIAL HISTORY No smoking Hx information available PLAN OF CARE VITAL SIGNS MEDICATIONS Medication Instructions Dosage Frequency Start Date End Date Duration Status Cyclobenzaprine HCl 10 MG Orally Three times a day as needed 1 tablet 30 Active RESULTS No Results PROCEDURES No Known procedures IMMUNIZATIONS No Known Immunizations
--- OUTSIDE RECORDS SUMMARY | 2016-12-14 18:12 | XMS REPORT ---
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 60183909 Problem Depression F32.9 Active 299088119 Problem Neuropathy G62.9 Active 672186398 Problem Arthritis of left knee M19.90 Active 4981129422078516 Problem Tear of meniscus of left knee S83.207A Active Problem Fibromyalgia M79.7 Active 709495317 Problem Migraine headache G43.909 Active 43052669 Problem Elevated alkaline phosphatase level R74.8 Active 007896787 Problem High cholesterol E78.0 Active 72193808 Problem CAD (coronary artery disease) I25.10 Active 99046004 Problem Status post left knee replacement Z96.652 Active 585274688952 Problem High blood pressure I10 Active 07200827 ALLERGIES Unknown Allergies SOCIAL HISTORY No smoking Hx information available PLAN OF CARE VITAL SIGNS MEDICATIONS Unknown Medications RESULTS No Results PROCEDURES No Known procedures IMMUNIZATIONS No Known Immunizations
--- OUTSIDE RECORDS SUMMARY | 2016-12-14 18:12 | XMS REPORT ---
Author Author Igor Charles Organization Unknown Address [address] [place], [place] [address] Phone Care Team Providers Care Renewable Energy Broker Name Role Phone Yadiel Charles, PP Unavailable Unavailable Reason for Referral No Reason for Referral was given. History of Present Illness No HPI available. [...] Joint Pain In Both Knees (Active) * Classic Migraine (With Aura) (346.00); (Active) * Difficulty Swallowing (Dysphagia) (787.20); (Active) * Endometriosis (617.9); (Active) * Involuntary Movements Which Come And Go (Active) * Decreased Concentrating Ability (799.51); (Active) * Menopause Has Occurred (V49.81); (Active) * Foot Pain Sudden OnsetBilateral; (Active) * Migraine Headache (346.90); (Active) * Peripheral Neuropathy (356.9); (Active) * [...] * Memory Lapses Or Loss (780.93); (Active) Medication * Zolpidem Tartrate 10 MG Oral Tablet; TAKE 1 TABLET AT BEDTIME NEEDED FOR INSOMNIA.; Start Date: 02/16/2011 (Active) * BuPROPion HCl 100 MG Oral Tablet; TAKE 1 TABLET DAILY.; Start Date: 02/20/2012 ; End Date: (Active) * Promethazine HCl 25 MG Oral Tablet; TAKE 1 TABLET EVERY 4 TO 6 HOURS NEEDED.; Start Date: 01/12/2011; End Date: (Active) * Meloxicam 7.5 MG Oral Tablet; Take 1 tablet twice daily; Start Date: 2011; End Date: (Active) * Bystolic 20 MG Oral Tablet; TAKE 1 TABLET DAILY.; Start Date: 02/01/2011 ( Active) * ALPRAZolam 1 MG Oral Tablet; TAKE 2 TABS IN AM TAKE 1 TAB NOON & PM; Start Date: 02/16/2011 (Active) * Carisoprodol 350 MG Oral Tablet; TAKE ONE TABLET BY MOUTH EVERY NIGHT AT BEDTIME; Start Date: 02/01/2011 (Active) * TraZODone HCl 100 MG Oral Tablet; TAKE 1 TABLET AT BEDTIME.; Start Date: 02/01; End Date: (Active) * Morphine Sulfate 15 MG Oral Tablet; Take 15mg- 2 tablets in am, 1 tablet in pm ; Start Date: 04/19/2012 (Active) * Senokot 8.6 MG Oral Tablet; TAKE 2 TABLET Bedtime; Start Date: 09/05/2012 ( Active) * Estrace 0.1 MG/GM Vaginal Cream; Apply a pea sized amount to external urethra and vagina nightly; Start Date: 07/11/2012; End Date: (Active) * Ketorolac Tromethamine 10 MG Oral Tablet; TAKE 1 TABLET Every 6 hours PRN pain ; Start Date: 10/10/2012; End Date: (Active) * Cymbalta 30 MG Oral Capsule Delayed Release Particles; TAKE 1 CAPSULE DAILY. in the am for 2 weeks then increased to 60mg; Start Date: 10/25/2012 (Active) * Cymbalta 60 MG Oral Capsule Delayed Release Particles; TAKE 1 CAPSULE DAILY.; Start Date: 10/25/2012 (Active) Allergies and Adverse Reactions * No Known [...] 06/21/2011 * Influenza - Administered on: 05/03/2012 Family History * Paternal history of Acute [...] Safety Equipment - Seatbelts (Active) * Never A Smoker (Active) * Never Drank Alcohol (Active) Vital Signs Date Description Test Result 01 Nov 2012 07:45 AM recorded by: Melany Schmid Weight 142 lb Body Mass Index Calculated 23.66 Body Surface Area Calculated 1.71 BP Systolic 140 mm[Hg] BP Diastolic 80 mm[Hg] Heart Rate 72 /min 29 Oct 2012 08:03 AM recorded by: Melany Schmid Weight 142 lb Body Mass Index Calculated 23.66 Body Surface Area Calculated 1.71 BP Systolic 140 mm[Hg] BP Diastolic 82 mm[Hg] Heart Rate 72 /min Results Date Description Test Name Value Reference Interpretation Status 29 Oct 2012 11:31 AM XMR BRAIN WO/W DIO XMR BRAIN WO/W DIO Active 29 Oct 2012 09:10 AM VITAMIN B12 3606 VITAMIN B12 481 pg/mL 211-911 Active 29 Oct 2012 09:10 AM THYROID STIM. HORMONE 3602 THYROID STIM. HORMONE 0.930 uIU/mL 0.510-6.270 Active 29 Oct 2012 09:10 AM FOLATE 3608 FOLATE >20 ng/mL 5.4-20.3 H Active 29 Oct 2012 09:10 AM CBC w/ Auto Diff 7150 RDW 13.3 % 11.6-14.8 Active PLATELETS 265 K/uL 150-400 Active %LYMPHS 18.5 % 13.0-50.0 Active %NEUTRO 76.4 % 37.0-80.0 Active BASO 0.0 K/uL 0.0-0.2 Active RBC 4.45 mil/uL 3.60-5.00 Active WBC 8.0 K/uL 4.5-11.0 Active HCT 40.3 % 36.0-48.0 Active HGB 13.0 g/dL 12.0-16.0 Active MCH 29.3 pg 27.3-32.5 Active MCV 90.7 fL 80.0-99.0 Active %BASO 0.3 % 0.0-2.5 Active MCHC 32.3 % 32.0-36.0 Active %EOS 0.5 % 0.0-7.0 Active LYMPHS 1.5 K/uL 0.6-3.4 Active MONOS 0.3 K/uL 0.0-0.9 Active %ALVINO 0.7 % 0.0-5.0 Active EOS 0.0 K/uL 0.0-0.7 Active MPV 7.6 fL 6.0-11.0 Active NEUTRO 6.1 K/uL 2.0-6.9 Active %MONO 3.7 % 0.0-12.0 Active 29 Oct 2012 09:10 AM Comprehensive Metabolic Panel 1212 CREATININE, SERUM 0.57 mg/dL 0.43-1.13 Active BUN 10 mg/dL 7-18 Active ALK PHOSPHATASE 93 U/L 50-136 Active ALBUMIN 4.3 g/dL 3.4-5.0 Active ANION GAP 11 mmol/L 6-16 Active ALT 25 U/L 12-78 Active SODIUM 136 mmol/L 133-144 Active AST 16 U/L 8-35 Active CHLORIDE 99 mmol/L 98-110 Active POTASSIUM 4.0 mmol/L 3.5-5.1 Active EST GFR, >60 ml/min >60 Active CARBON DIOXIDE 26 mmol/L 23-33 Active BUN:CREATININE RATIO 18 Active EST GFR, NON-AFR [place] >60 ml/min >60 Active GLUCOSE 106 mg/dL 70-100 H Active TOTAL PROTEIN 7.8 g/dL 6.4-8.2 Active TOTAL BILIRUBIN 0.23 mg/dL 0.00-1.00 Active CALCIUM 9.6 mg/dL 8.5-10.1 Active A/G RATIO 1.2 units 1.0-1.8 Active Treatment Plan * XM CAD (DIAGNOSTIC) 10/21/2011 Routine * CP Echo 01/11/2012 Routine * XN CARD REST PERFUSION 01/11/2012 Routine * XN NUC MED HEART WALL MOTION 01/11/2012 Routine * XN PERFUSION STUDY WITH EF 01/11/2012 Routine * XN CARD STRESS PERFUSION 01/11/2012 Routine * Urinalysis, Reflex to Microscopic or [...] Urine Culture PRN 8000 06/06/2012 Routine * Urinalysis, Reflex to Microscopic or Culture PRN 8005 09/07/2012 Routine Advance Directives * No Advance Directives available. Encounters * Appointment 11/01/2012 * RTNPT , Provider: Jason Iglesias, Status: Randell , Time: 12:15 PM * RTNPT , Provider: Jason Iglesias, Status: Adin , Time: 12:15 PM * RTNPT , Provider: Yadiel Charles, Status: Adin , Time: 10:30 AM 2012 * RTNPT , Provider: Brooke Parr, Status: Adin , Time: 3:45 PM 2012
--- OUTSIDE RECORDS SUMMARY | 2016-12-14 18:12 | XMS REPORT | Summary of Care ---
Author Author Jamison Lobo Unknown Address [address], [place] [address] Phone Unavailable Care Team Providers Care Labor Conciliator Name Role Phone Price Garcia M.D. Unavailable Unavailable Мария Gonzalez APRN Unavailable Unavailable Tony Titus, Valentina Unavailable Unavailable Price Garcia PP Unavailable Unavailable Unavailable Functional Status Functional Status Health Issues* Name Dates Details Functional status health issues are not documented Status: Cognitive Status Health Issues* Name Dates Details Cognitive status health issues are not documented Status: Problems Name Dates Details Joint Pain In Both Wrists Status: Active Injection Of Trigger Point(S) One Or Two Muscle Group(S) Status: Active Postmenopausal status (V49.81, Z78.0) Status: Active Endometriosis (617.9, N80.9) Status: Active Essential and other specified forms of tremor (333.1, G25.0) Status: Active Abnormal electrocardiogram (794.31, R94.31) Status: Active Hyperthyroidism (242.90, E05.90) Status: Active Insomnia (780.52, G47.00) Status: Active Depression (311, F32.9) Status: Active Spondylolysis, lumbar region (738.4, M43.06) Status: Active Pain of both shoulder joints (719.41, M25.511) Status: Active Nasal septal deviation (470, J34.2) Status: Active Hypertrophy of nasal turbinates (478.0, J34.3) Status: Active Chronic sinus infection (473.9, J32.9) Status: Active Presence of stent in coronary artery in patient with coronary artery disease ( 414.01, I25.10) Status: Active Inflamed seborrheic keratosis (702.11, L82.0) Status: Active Polyarthritis (716.50, M13.0) Status: Active Clinical trial exam (V70.7, Z00.6) Status: Active Migraine headache (346.90, G43.909) Status: Active 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, M47.812) Status: Active Essential hypertension, benign (401.1, I10) Status: Active Anxiety (300.00, F41.9) Status: Active Never smoker Status: Active Cervicogenic headache (784.0, R51) Status: Active Cervico-occipital neuralgia of right side (723.8, M54.81) Status: Active Primary osteoarthritis of left knee (715.16, M17.12) Status: Active Pre-op testing (V72.84, Z01.818) Status: Active Post-op pain (338.18, G89.18) Status: Active Status post arthroscopy of left knee (V45.89, Z98.89) Status: Active Medications Name Dates Details Hxhelfqpni-OKRL-Eksupwlb 50-325-40 MG Oral Tablet TAKE ONE TABLET BY MOUTH EVERY 4 HOURS NEEDED MAX OF 6 TABLETS PER DAY MUST LAST 30 DAYSMAY FILL ON OR AFTER 11/12/15* Quantity: 180 Price Garcia M.D.* Started 09-Jun-2014 ActiveFluvoxaMINE Maleate [...] * Quantity: 1 Refills: 0 Мария Gonzalez [employer]S [employer] SCI[employer]ES DEAN* Started 24-Jan-2015 Admin RequestedAspirin 325 MG Oral [...] Refills: 6 Price Garcia M.D.* Started 05-May-2015 ActiveDiazepam 10 MG Oral Tablet TAKE ONE TABLET BY MOUTH EVERY 8 HOURS NEEDED MUST LAST 30 DAYSMAY FILL ON OR AFTER 11/14/15 * Quantity: 90 Refills: 0 Price Garcia M.D.* Started 30-Oct-2014 ActiveHydrocodone-Acetaminophen 10-325 MG Oral Tablet Take 1/2 - 1 tablet PO q 4-6 hrs PRN pain * Quantity: 45 Refills: 0 Jose Jimenez M.D.* Started 20-Oct-2015 ActiveZolpidem Tartrate 10 MG Oral Tablet TAKE [...] Dilation Of Sphenoid Sinus Ostium ECG/ EKG Outside Interp Ordered:24-Sep-2015 Immunization Name Dates Details Influenza Administered on:21-Jun-2011 Influenza Administered on:03-May-2012 Tdap (Adacel) Lot #: [id number] Administered on:14-May-2013 Fluzone Quadrivalent 0.5 ML Intramuscular Suspension Lot #: [id number] Administered on:03-Jun-2014 Fluzone Quadrivalent 0.5 ML Intramuscular Suspension Prefilled Syringe Lot #: [id number] Administered on:17-Jun-2015 Family History Grandfather* Name Dates [...] smoker Vital Signs Date Test Result Details 16-Oct-2015 08:19 BP Systolic 142 mm[Hg] Status: BP Diastolic 76 mm[Hg] Status: Heart Rate 86 /min Status: Weight 142 lb Status: Body Mass Index Calculated 22.92 kg/m2 Status: Body Surface Area Calculated 1.73 m2 Status: 15-Oct-2015 16:15 BP Systolic 151 mm[Hg] Status: BP Diastolic 79 mm[Hg] Status: Temperature 99.3 f Status: Heart Rate 87 /min Status: O2 SAT 96 % Status: 14-Oct-2015 10:02 BP Systolic 146 mm[Hg] Status: BP Diastolic 96 mm[Hg] Status: Heart Rate 71 /min Status: Respiration Rate 16 /min Status: Height 66 in Status: Weight 142.5 lb Status: O2 SAT 97 % Status: Body Mass Index Calculated 23 kg/m2 Status: Body Surface Area Calculated 1.73 m2 Status: Results Date Description Value Details 16-Oct-2015 10:46 CBC w/ Auto Diff 7150 Comments: Manual differential indicated. WBC 6.1 K/uL (Better) Range: 4.5-11.0 RBC 3.97 mil/uL (Better) Range: 3.60-5.00 HGB 12.0 g/dL (Better) Range: 12.0-16.0 HCT 38.1 % (Better) Range: 36.0-48.0 MCV 96.1 fL (Better) Range: 80.0-99.0 MCH 30.2 pg (Better) Range: 27.3-32.5 MCHC 31.4 % (Below low threshold) Range: 32.0-36.0 RDW 13.1 % (Better) Range: 11.6-14.8 PLATELETS 237 K/uL (Better) Range: 150-400 MPV 8.4 fL (Better) Range: 6.0-11.0 10:52 XRay CHEST-PA & LAT Comments: Exam Date: 10/16/2015 10: 08Dictation Date: 10/16/2015 10:52 X CHEST PA & LAT (Better) 11:08 Manual Differential 7400 SEGS 84 % (Above high threshold) Range: 37-80 BANDS 0 % (Better) Range: 0-7 LYMPH 14 % (Better) Range: 13-50 MONO 2 % (Better) Range: 0-12 EOSIN 0 % (Better) Range: 0-7 BASO 0 % (Better) Range: 0-3 TATY LYMPH 0 % (Better) Range: 0-0 META 0 % (Better) Range: 0-0 MYELO 0 % (Better) Range: 0-0 PRO 0 % (Better) Range: 0-0 BLAST 0 % (Better) Range: 0-0 NUC RBC 0 /100 WBC (Better) Range: 0-0 SMUDGE 0 /100 WBC (Better) PLATELET Adequate (Better) Range: Adequate 11:12 Comprehensive Metabolic Panel 1212 SODIUM 138 mmol/L (Better) Range: 133-144 POTASSIUM 3.8 mmol/L (Better) Range: 3.5-5.1 CHLORIDE 102 mmol/L (Better) Range: 98-110 CARBON DIOXIDE 26.0 mmol/L (Better) Range: 23.0-33.0 ANION GAP 10 mmol/L (Better) Range: 6-16 BUN 15 mg/dL (Better) Range: 7-18 CREATININE, SERUM 0.65 mg/dL (Better) Range: 0.55-1.02 Comments: Please note new reference ranges effective 2015.----- BUN:CREATININE RATIO 23 (Better) EST GFR, >60 ml/min (Better) Range: >60 EST GFR, NON-AFR [place] >60 ml/min (Better) Range: >60 Comments: EST GFR is reported in ml/min per 1.73 m2 of body surface area. For -Nigerian, please multiple result by 1.2.----- GLUCOSE 124 mg/dL (Above high threshold) Range: 70-100 ALK PHOSPHATASE 123 U/L (Above high threshold) Range: 46-116 TOTAL BILIRUBIN 0.20 mg/dL (Better) Range: 0.20-1.00 AST 23 U/L (Better) Range: 8-35 ALT 60 U/L (Above high threshold) Range: 14-59 Comments: Please note new reference ranges. Effective 11/06/2014.----- ALBUMIN 4.1 g/dL (Better) Range: 3.4-5.0 TOTAL PROTEIN 7.5 g/dL (Better) Range: 6.4-8.2 A/G RATIO 1.2 units (Better) Range: 1.0-1.8 CALCIUM 9.9 mg/dL (Better) Range: 8.5-10.1 02-Nov-2015 08:23 Clinical Trials 4045 Clinical Trials Clinical Trial Lab (Better) Plan of Care Planned Observations* Name Dates Details Planned Goals not documented Goal Planned Encounters* Appointment; Provider: Andre Pratt On 18-Jul-2016 11:00 * Appointment; Provider: Price Garcia On 11-Dec-2015 14:00 * Appointment; Provider: Papa Keys On 18-Nov-2015 13:30 * Appointment; Provider: Harris Barragan On 03-Apr-2015 13:00 * Appointment; Provider: Schedule Radiology On 07:00 Instructions * Instructions not documented Encounters Appointment; Jose Jimenez Encounter Diagnosis: Problem not [...] not documented On 29-Apr-2014 11:25 Appointment; Jessica Nguyne Encounter Diagnosis: Problem not documented On 09-Apr-2014 [...] Diagnosis: Problem not documented On 11:45 Appointment; eMlvin Cotto Encounter Diagnosis: Problem not [...]
--- OUTSIDE RECORDS SUMMARY | 2016-12-14 18:12 | XMS REPORT | Summary of Care ---
Author Author Мария Gonzalez APRN Organization Unknown Address [address], [place] [address] Phone Unavailable Care Team Providers Care Rv Repairer Name Role Phone Price Garcia M.D. Unavailable Unavailable Мария Gonzalez APRN Unavailable Unavailable [place] ACCOUNT MANAGER B2B, Crystal Unavailable Unavailable Price Garcia PP Unavailable [...] J32.9) Status: Active Medications Name Dates Details Melatonin 5 MG Oral Tablet * Started 16-Jun-2014 ActiveTriamcinolone .1%/ Eucerin Compound (50/50 mix) -- 1 pound tub (454 grams) APPLY TO THE AFFECTED AREA TWICE DAILY * Quantity: 60 Refills: 0 Jessica Nguyen ACCOUNT MANAGER B2B* Started 24-Jun-2014 ActiveZolpidem Tartrate ER 12.5 MG [...] Refills: 0 Price Garcia M.D.* Started 30-Oct-2014 YredumMmopkzwzgq-CNPQ-Qzcfbrxq 50-325-40 MG Oral Tablet TAKE ONE TABLET BY MOUTH EVERY 4 HOURS MAX OF 6 TABLETS PER DAY MUST LAST 30 DAYS * Quantity: 180 Refills: 0 Price Garcia M.D.* Started 09-Jun-2014 ActiveAmoxicillin 500 MG Oral Tablet TAKE ONE TABLET THREE TIMES DAILY X 21 DAYS * Quantity: 63 Refills: 0 Price Garcia M.D.* Started 22-Jan-2015 Ended ActivePredniSONE 20 MG Oral Tablet Take 2 PO daily for 5 days * Quantity: 10 Refills: 0 Price Garcia M.D.* Started 22-Jan-2015 Ended ActiveNalbuphine HCl - 10 MG/ML Injection Solution Inject 10mg IM x 1 now * Quantity: 1 Refills: 0 Мария Gonzalez APRN* Started 24-Jan-2015 Admin RequestedPromethazine HCl - 25 MG/ML Injection Solution Inject 12.5mg IM x 1 now * Quantity: 1 Refills: 0 Prakash Gonzalezy ACCOUNT MANAGER B2B* Started 24-Jan-2015 Admin Requested Allergies and Adverse [...] History of Colonoscopy (Fiberoptic) History of Section CT SINUSES Ordered:22-Jan-2015 Immunization Name Dates Details Influenza Administered on:21-Jun-2011 Influenza Administered on:03-May-2012 Tdap (Adacel) Lot #: [id number] Administered on:14-May-2013 Fluzone Quadrivalent 0.5 ML Intramuscular Suspension Lot #: [id number] Administered on:03-Jun-2014 Family History Grandfather* Name Dates [...] smoker Vital Signs Date Test Result Details 24-Jan-2015 10:38 BP Systolic 144 mm[Hg] Status: [...] Instructions * Instructions not documented Encounters Appointment; Мария Gonzalez Encounter Diagnosis: Problem not [...]
--- OUTSIDE RECORDS SUMMARY | 2016-12-14 18:12 | XMS REPORT ---
Author Author FriendKyara [facility] Address [address] [place], [place] [address] Care Team Providers Care Double End Tenoner Operator Name Role Phone FriendKyara Unavailable [phone] PROBLEMS Type Condition ICD9-CM Code INK86-MH Code Onset Dates Condition Status SNOMED Code Problem Neuropathy G62.9 Active 665852899 Problem CAD (coronary artery disease) I25.10 Active 66011346 Problem Depression F32.9 Active 760175737 Problem Hallucinations R44.3 Active 4375930 Problem Migraine headache G43.909 Active 64335512 Problem High blood pressure I10 Active 87451237 Problem High cholesterol E78.0 Active 01986753 Problem Elevated alkaline phosphatase level R74.8 Active 160488409 Problem Status post left knee replacement Z96.652 Active 384978208703 Problem Arthritis of left knee M19.90 Active 4980338072603214 Problem Tear of meniscus of left knee S83.207A Active Problem Fibromyalgia M79.7 Active 313666285 Assessment Migraine G43.909 Nov, Active 55353785 Problem 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
--- OUTSIDE RECORDS SUMMARY | 2016-12-14 18:12 | XMS REPORT | Summary of Care ---
Author Author Linda Bingham APRN Organization Unknown Address [address], [place] [id number] Phone Unavailable Care Team Providers Care Smart Energy Specialist Name Role Phone Price Garcia M.D. Unavailable Unavailable Sabinaantoniooma Jessica DA SILVA Unavailable Unavailable Price Garcia PP Unavailable Unavailable [...] Active Migraine headache (346.90, G43.909) Status: Active Spondylolysis, lumbar region (738.4, M43.06) Status: Active Medications Name Dates Details Melatonin 5 MG Oral Tablet * Started 16-Jun-2014 ActiveTriamcinolone .1%/ Eucerin Compound (50/50 mix) -- 1 pound tub (454 grams) APPLY TO THE AFFECTED AREA TWICE DAILY * Quantity: 60 Refills: 0 Smarsh-Kutilek, Crystal TRIM OPERATOR* Started 24-Jun-2014 AmnkzySsrvolyyyl-AIDV-Gzcafpcw 50-325-40 MG Oral Tablet TAKE ONE TABLET BY MOUTH EVERY 4 HOURS (MAX 6 PER DAY)(MUST LAST 30 DAYS) * Quantity: 180 Refills: 0 Price Garcia M.D.* Started 09-Jun-2014 ActivePropranolol HCl - 80 MG Oral Tablet TAKE 1 TABLET EVERY 12 HOURS DAILY. * Quantity: 60 Refills: 6 Price Garcia M.D.* Started 07-Jul-2014 ActiveQUEtiapine Fumarate 25 MG Oral Tablet USE [...] Influenza Administered on:03-May-2012 Tdap (Adacel) Lot #: [id number] Administered on:14-May-2013 Fluzone Quadrivalent 0.5 ML Intramuscular Suspension Lot #: [id number] Administered on:03-Jun-2014 Family History Grandfather* Name Dates [...] smoker Vital Signs Date Test Result Details 03-Dec-2014 10:21 BP Systolic 124 mm[Hg] Status: [...]
--- OUTSIDE RECORDS SUMMARY | 2016-12-14 18:13 | XMS REPORT | Summary of Care ---
Author Author Radha Titus, Price Organization Unknown Address Unknown Phone Unavailable Care Team Providers Care Propellant Assembler Name Role Phone Price Garcia M.D. Unavailable Unavailable [place] REAL ESTATE PHOTOGRAPHER, Crystal Unavailable Unavailable Price Garcia PP Unavailable [...] J32.9) Status: Active Medications Name Dates Details Neqtkxwgck-QPYN-Jygixdzd 50-325-40 MG Oral Tablet TAKE ONE TABLET [...] TWICE DAILY * Quantity: 60 Refills: 0 Normlianna-FranckJessica gruber REAL ESTATE PHOTOGRAPHER* Started 24-Jun-2014 ActiveZolpidem Tartrate ER 12.5 MG [...] Refills: 0 Price Garcia M.D.* Started 30-Oct-2014 ActiveAmoxicillin 500 MG Oral Tablet TAKE ONE TABLET THREE TIMES DAILY X 21 DAYS * Quantity: 63 Refills: 0 Price Garcia M.D.* Started 22-Jan-2015 Ended ActivePredniSONE 20 MG Oral Tablet Take 2 PO daily for 5 days * Quantity: 10 Refills: 0 Price Garcia M.D.* Started 22-Jan-2015 Ended Active Allergies and Adverse Reactions Name Dates [...] Influenza Administered on:03-May-2012 Tdap (Adacel) Lot #: [id number] Administered on:14-May-2013 Fluzone Quadrivalent 0.5 ML Intramuscular Suspension Lot #: [id number] Administered on:03-Jun-2014 Family History Grandfather* Name Dates [...] smoker Vital Signs Date Test Result Details 22-Jan-2015 10:45 BP Systolic 142 mm[Hg] Status: [...] Problem not documented On 05-Dec-2014 13:00 Appointment; Linad Bingham Encounter Diagnosis: Problem not documented On [...]
--- OUTSIDE RECORDS SUMMARY | 2016-12-14 18:13 | XMS REPORT ---
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 71116252 Problem Depression F32.9 Active 720576739 Problem Neuropathy G62.9 Active 863392759 Problem Arthritis of left knee M19.90 Active 1782122259140460 Problem Tear of meniscus of left knee S83.207A Active Problem Fibromyalgia M79.7 Active 897084213 Problem Migraine headache G43.909 Active 45988148 Problem Elevated alkaline phosphatase level R74.8 Active 262227186 Problem High cholesterol E78.0 Active 60700556 Problem CAD (coronary artery disease) I25.10 Active 88201411 Problem Status post left knee replacement Z96.652 Active 947165845855 Problem High blood pressure I10 Active 50573257 ALLERGIES Unknown Allergies SOCIAL HISTORY No smoking Hx information available PLAN OF CARE VITAL SIGNS MEDICATIONS Unknown Medications RESULTS No Results PROCEDURES No Known procedures IMMUNIZATIONS No Known Immunizations
--- OUTSIDE RECORDS SUMMARY | 2016-12-14 18:13 | XMS REPORT ---
Author Author FriendKyara [facility] Address [address] [place], [place] [address] Care Team Providers Care Vacation Planner Name Role Phone FriendKyara Unavailable [phone] PROBLEMS Type Condition ICD9-CM Code OIY02-VO Code Onset Dates Condition Status SNOMED Code Problem Neuropathy G62.9 Active 797943082 Problem CAD (coronary artery disease) I25.10 Active 98268381 Problem Depression F32.9 Active 947939343 Problem Arthritis of left knee M19.90 Active 5225980369029175 Problem Tear of meniscus of left knee S83.207A Active Problem Fibromyalgia M79.7 Active 300892989 Problem 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
--- OUTSIDE RECORDS SUMMARY | 2016-12-14 18:13 | XMS REPORT | Referral Summary ---
Author Author [facility] Organization [facility] Address Unknown Phone Unavailable Care Team Providers Care Trimmer And Borer Machine Operator Name Role Phone Aurora Garcia Primary Care Physician [phone] Encounter SCARLET [id number] Date(s): 05/02/15 - 05/03/15 [facility] [address] [place] [id number] Final: SYNCOPE AND COLLAPSE Final: CORONARY ATHEROSCLEROSIS OF [place] CORONARY ARTERY Final: PERIPHERAL VASCULAR DISEASE, UNSPECIFIED Final: UNSPECIFIED ESSENTIAL HYPERTENSION Final: OTHER AND UNSPECIFIED HYPERLIPIDEMIA Final: ANXIETY STATE, UNSPECIFIED Final: Insomnia, unspecified Final: DISORDERS OF MAGNESIUM METABOLISM Final: Migraine, unspecified, without mention of intractable migraine, without mention of status migrainosus Discharge Disposition: 01-Home or Self Care Attending Physician: Clement Arrieta MD Admitting Physician: Clement Arrieta MD Vital Signs Most recent to 1 oldest [Reference Range]: Temperature Oral 36.5 degC [35.8-37.3 degC] (05/03/15 12:00 PM) Peripheral Pulse 82 bpm Rate [60-100 bpm] (05/03/15 3:51 PM) Respiratory Rate 18 br/min [14-20 br/min] (05/03/15 12:00 PM) Blood Pressure 153/89 mmHg [90-140/60-90 mmHg] *HI* (05/03/15 3:51 PM) SpO2 92 % (05/03/15 12:00 PM) Problem List Condition Effective Dates Status Health Status Informant Acute Active pain(Confirmed) At risk for Active infection(Confirmed) 1 At risk of pressure Active sore(Confirmed) Cardiac Active disorder(Confirmed)2 Depression(Confirmed Active patient ) Hypertension(Confirm Active patient ed) Insomnia(Confirmed) Active patient Knowledge Active deficit(Confirmed)3 Migraines(Confirmed) Active patient Tissue perfusion Active alteration(Confirmed )4 1Problem added automatically by system based on initiation of At Risk for Infection in Nutrition Plan of Care 2Problem added automatically by system based on initiation of Cardiac Output/ Ineffective Cardiac Perfusion Plan of Care 3Problem added automatically by system based on initiation of Knowledge Deficit Plan of Care 4Problem added automatically by system based on initiation of Tissue Perfusion Cerebral Plan of Care Allergies, Adverse Reactions, Alerts Substance Reaction Severity Status Imitrex heart races Active Maxalt heart races Active Medications acetaminophen 500 mg oral tablet 1,000 mg 2 tabs, Oral, BID, Pain - Breakthrough, 0 Refill(s) Start Date: 06/06/14 Status: Ordered amLODIPine 5 mg, Oral, Daily, Hypertension/High Blood Pressure, Take as needed for high blood pressure. If your blood pressure top number is greater than 160 take one tablet daily., 0 Refill(s) Start Date: 05/02/15 Status: Ordered aspirin 325 mg oral tablet 325 mg 1 tabs, Oral, Daily, 0 Refill(s) Start Date: 04/30/15 Status: Ordered atenolol 50 mg oral tablet 50 mg 1 tabs, Oral, Daily, # 30 tabs, 6 Refill(s), called to pharmacy (Rx) Start Date: 05/03/15 Status: Ordered atorvastatin 80 mg oral tablet 80 mg 1 tabs, Oral, Daily, # 30 tabs, 0 Refill(s), other reason (Rx) Start Date: 05/03/15 Status: Ordered butalbital/acetaminophen/caffeine 50 mg-325 mg-40 mg oral tablet 1 tabs, Oral, q4hr, Headache, 0 Refill(s) Start Date: 06/06/14 Status: Ordered cyclobenzaprine 10 mg oral tablet 10 mg 1 tabs, Oral, TID, as needed for spasm, # 30 tabs, 0 Refill(s) Start Date: 04/28/15 Status: Ordered diazepam 10 mg oral tablet 10 mg 1 tabs, Oral, TID, as needed for anxiety, 0 Refill(s) Start Date: 04/28/15 Status: Ordered docusate sodium 100 mg oral capsule 100 mg 1 caps, Oral, BID, 0 Refill(s) Start Date: 06/06/14 Status: Ordered fluvoxaMINE 100 mg oral tablet 100 mg 1 tabs, Oral, Bedtime (once a day), 0 Refill(s) Start Date: 04/28/15 Status: Ordered losartan 50 mg oral tablet 50 mg 1 tabs, Oral, Daily, # 30 tabs, 0 Refill(s), other reason (Rx) Start Date: 05/03/15 Status: Ordered Melatonin 5 mg, Oral, Bedtime (once a day), as needed for insomnia, 0 Refill(s) Start Date: 06/04/14 Status: Ordered Plavix 75 mg oral tablet 75 mg 1 tabs, Oral, Daily, Take daily for one year!!!!, # 30 tabs, 11 Refill(s) , Pharmacy: [facility], 1 tabs Oral Daily,Instr:Take daily for one year!!!! Start Date: 04/30/15 Status: Ordered QUEtiapine 25 mg oral tablet 25 mg 1 tabs, Oral, BID, 0 Refill(s) Start Date: 04/28/15 Status: Ordered SEROquel 50 mg, Oral, Daily, 0 Refill(s) Start Date: 05/02/15 Status: Ordered Voltaren 1% topical gel 1 karolyn, Topical, QID, 0 Refill(s) Start Date: 05/03/15 Status: Ordered Zetia 10 mg oral tablet 10 mg 1 tabs, Oral, Daily, # 30 tabs, 0 Refill(s), other reason (Rx) Start Date: 05/03/15 Status: Ordered zolpidem extended release 12.5 mg, Oral, Bedtime (once a day), 0 Refill(s) Start Date: 05/02/15 Status: Ordered Results Hematology Most recent to 1 oldest [Reference Range]: WBC [4.8-10.8 4.5 10*3/uL 10*3/uL] *LOW* (05/02/15 12:35 PM) RBC [4.00-5.20] 3.66 *LOW* (05/02/15 12:35 PM) Hgb [12.0-16.0 11.1 gm/dL gm/dL] *LOW* (05/02/15 12:35 PM) Hct [37.0-47.0 %] 33.4 % *LOW* (05/02/15 12:35 PM) MCV [82.0-99.0 fL] 91.3 fL (05/02/15 12:35 PM) MCH [27.0-32.0 pg] 30.3 pg (05/02/15 12:35 PM) MCHC [32.0-36.0 33.2 gm/dL gm/dL] (05/02/15 12:35 PM) RDW [11.5-14.5 %] 12.2 % (05/02/15 12:35 PM) Platelet [150-400 168 10*3/uL 10*3/uL] (05/02/15 12:35 PM) MPV [9.4-12.4 fL] 10.1 fL (05/02/15 12:35 PM) Chemistry Most recent to 1 oldest [Reference Range]: Sodium Lvl [136-144 141 mEq/L mEq/L] (05/03/15:35 AM) Potassium Lvl 4.8 mEq/L [3.6-5.1 mEq/L] (05/03/15 5:35 AM) Chloride [99-109 108 mEq/L mEq/L] (05/03/15:35 AM) CO2 [22-32 mEq/L] 30 mEq/L (05/03/15 5:35 AM) AGAP [3-20] 3 (05/03/15 5:35 AM) BUN [4-20 mg/dL] 6 mg/dL (05/03/15 5:35 AM) Glucose Lvl [70-100 102 mg/dL mg/dL] *HI* (05/03/15 5:35 AM) Creatinine Lvl 0.68 mg/dL [0.44-1.03 mg/dL] (05/03/15 5:35 AM) eGFR [>60] >60 1 (05/03/15 5:35 AM) Calcium Lvl 9.6 mg/dL [8.6-10.0 mg/dL] (05/03/15 5:35 AM) Albumin Lvl [3.5-4.8 3.7 gm/dL gm/dL] (05/02/15 12:34 PM) Total Protein 6.4 gm/dL [6.1-7.9 gm/dL] (05/02/15 12:34 PM) Globulin [1.9-4.3 2.7 gm/dL gm/dL] (05/02/15 12:34 PM) ALT [14-54 U/L] 23 U/L (05/02/15 12:34 PM) AST [15-41 U/L] 25 U/L (05/02/15 12:34 PM) Alk Phos [26-104 91 U/L U/L] (05/02/15 12:34 PM) Bili Total [0.2-1.2 0.5 mg/dL 2 mg/dL] (05/02/15 12:34 PM) Magnesium Lvl 1.7 mg/dL [1.8-2.5 mg/dL] *LOW* (05/02/15 12:34 PM) BNP [0-99 pg/mL] 14 pg/mL (05/02/15 12:35 PM) Troponin [<0.06 <0.05 ng/mL ng/mL] (05/02/15 8:01 PM) Chol [0-200 mg/dL] 143 mg/dL (05/03/15 5:35 AM) Trig [0-150 mg/dL] 96 mg/dL (05/03/15 5:35 AM) HDL [>40 mg/dL] 41 mg/dL (05/03/15 5:35 AM) LDL [0-100 mg/dL] 83 mg/dL (05/03/15 5:35 AM) VLDL Cholesterol 19 mg/dL [0-30 mg/dL] (05/03/15 5:35 AM) Cardiac Risk 3.5 [0.0-5.0] (05/03/15 5:35 AM) TSH with Reflex Free 0.60 T4 [0.35-5.50] (05/02/15 12:34 PM) 1Result Comment: Multiply eGFR results by 1.21 for race. 2Result Comment: Naproxen, specifically the metabolite O-desmethylnaproxen, may cause spurious elevation in Total Bilirubin levels. Urinalysis Most recent to 1 oldest [Reference Range]: UA Color Lt Yellow (05/02/15 10:08 PM) UA Appear Clear (05/02/15 10:08 PM) UA pH [5.0-8.0] 7.0 (05/02/15 10:08 PM) UA Leuk Est Negative [Negative] (05/02/15 10:08 PM) UA Nitrite Negative [Negative] (05/02/15 10:08 PM) UA Protein Negative [Negative] (05/02/15 10:08 PM) UA Glucose Negative [Negative] (05/02/15 10:08 PM) UA Ketones Negative [Negative] (05/02/15 10:08 PM) UA Urobilinogen Negative [<1.0] (05/02/15 10:08 PM) UA Bili [Negative] Negative (05/02/15 10:08 PM) UA Blood [Negative] Negative (05/02/15 10:08 PM) UA Spec Grav 1.007 [1.003-1.030] (05/02/15 10:08 PM) Type Clean Catch (05/02/15 10:08 PM) Immunizations No data available for this section Procedures Procedure Date Related Diagnosis Body Site Appendectomy section Cholecystectomy Colonoscopy Renal arteriogram sinus surgery Tonsillectomy Tubal ligation Social History Social History Type Response Smoking Status Former smoker Assessment and Plan No data available for this section
--- OUTSIDE RECORDS SUMMARY | 2016-12-14 18:13 | XMS REPORT ---
Author Author GENERATED, SYSTEM Organization Unknown Address Unknown Phone Unavailable Care Team Providers Care Public Relations Studies Director Name Role Phone MD DENISE, GARY CASTILLO [...] 11:00 AM * Address # 1 : [facility]: [address], [place]- or Procedures [...]
--- OUTSIDE RECORDS SUMMARY | 2016-12-14 18:13 | XMS REPORT | Summary of Care ---
Author Author West Berrios D.O[facility] Organization Unknown Address Unknown Phone Unavailable Care Team Providers Care Splunk Developer Name Role Phone Radha Titus, Price Unavailable Unavailable Patrick WIRE DRAWER, Jessica Unavailable Unavailable Jp Titus, Jose Unavailable Unavailable [...] Refills: 6 Jose Trammell M.D.* Started 09-Jun-2014 RjaktwLgsrrizmtf-CKHI-Nlwmpnhq 50-325-40 MG Oral Tablet TAKE 1 TABLET [...] TWICE DAILY * Quantity: 60 Refills: 0 MichaelleKristinaLauraJessica WIRE DRAWER* Started 24-Jun-2014 ActivePropranolol HCl - 80 MG [...] MOUTH EVERY 6 HRS NEEDED WHILE IN SENIOR LIVING. * Quantity: 120 Refills: 2 Price Garcia [...] Influenza Administered on:03-May-2012 Tdap (Adacel) Lot #: [id number] Administered on:14-May-2013 Fluzone Quadrivalent 0.5 ML Intramuscular Suspension Lot #: [id number] Administered on:03-Jun-2014 Family History Grandfather* Name Dates [...] Problem not documented On 23-Jan-2014 08:15 Appointment; Jasimn Trejo Encounter Diagnosis: Problem not documented On [...] not documented On 28-Nov-2013 11:50 Appointment; Melvin Ctoto Encounter Diagnosis: Problem not documented On 20-Nov-2013 [...]
--- OUTSIDE RECORDS SUMMARY | 2016-12-14 18:13 | XMS REPORT | Summary of Care ---
Author Author Radha Titus, Price Organization Unknown Address Unknown Phone Unavailable Care Team Providers Care Cabinet And Trim Installer Name Role Phone Marv Titus, Ghazal Unavailable Unavailable Radha Titus, Price Unavailable Unavailable [id number] SENIOR PYTHON DEVELOPER, Crystal Unavailable Unavailable Jp Titus, Jose Unavailable [...] Quantity: 30 Jose Trammell M.D.* Started 03-Jun-2014 VybgteAypqpznsia-KDXB-Btwwlzmj 50-325-40 MG Oral Tablet TAKE ONE TABLET BY MOUTH EVERY 4 HOURS (MAX 6 PER DAY)(MUST LAST 30 DAYS) * Quantity: 180 Refills: 0 Hiram Fair M.D.* Started 09-Jun-2014 ActiveMelatonin 5 MG Oral [...] Refills: 3 Price Garcia M.D.* Started 07-Jul-2014 ActiveDiazepam 5 MG Oral Tablet TAKE 1 TABLET EVERY 8HRS NEEDED.*MUST LAST 30 DAYS*MAY FILL ON OR AFTER * * Quantity: 90 Refills: 0 Price Garcia M.D.* Started 21-Jul-2014 ActiveHydrALAZINE HCl - 50 MG Oral Tablet Take 1 tablet three times daily. * Quantity: 90 Refills: 5 Price Garcia M.D.* Started 05-Aug-2014 ActiveBaclofen 10 MG Oral Tablet * Refills: 0 * Started 08-Sep-2014 ActiveIndomethacin 25 MG Oral Capsule TAKE 1 CAPSULE 3 TIMES DAILY WITH FOOD. * Quantity: 90 Refills: 0 * Started 30-Oct-2014 ActiveVerapamil HCl - 80 MG Oral Tablet 1 TABLET TWICE DAILY * Refills: 0 * Started 30-Oct-2014 ActiveQUEtiapine Fumarate 25 MG Oral Tablet USE DIRECTED. * Refills: 0 * Started 30-Oct-2014 ActiveDiazepam 10 MG Oral Tablet TAKE 1 TABLET TWICE DAILY NEEDED. * Refills: 0 * Started 30-Oct-2014 ActiveFluvoxaMINE Maleate 100 MG Oral Tablet TAKE 1 TABLET AT BEDTIME. * Refills: 0 * Started 30-Oct-2014 ActiveAmLODIPine Besylate 5 MG Oral Tablet TAKE 1 TABLET BY MOUTH DAILY * Quantity: 30 Refills: 5 * Started 30-Oct-2014 Active Allergies and Adverse Reactions [...] Influenza Administered on:03-May-2012 Tdap (Adacel) Lot #: [id number] Administered on:14-May-2013 Fluzone Quadrivalent 0.5 ML Intramuscular Suspension Lot #: [id number] Administered on:03-Jun-2014 Family History Grandfather* Name Dates [...] smoker Vital Signs Date Test Result Details 30-Oct-2014 09:39 BP Systolic 172 mm[Hg] Status: BP Diastolic 92 mm[Hg] Status: Heart Rate 82 /min Status: Respiration Rate 18 /min Status: Weight 150 lb Status: Height 66 in Status: O2 SAT 98 % Status: Body Mass Index Calculated 24.21 kg/m2 Status: Body Surface Area Calculated 1.77 m2 Status: 11-Oct-2014 08:27 BP Systolic 158 mm[Hg] Status: [...] not documented On 14-Aug-2014 09:30 Appointment; Price Garcai Encounter Diagnosis: Problem not documented On 05-Aug-2014 [...]
[2016-12-14 18:14] VITALS: TEMP 97.8
--- OUTSIDE RECORDS SUMMARY | 2016-12-14 18:14 | XMS REPORT | Summary of Care ---
Author Author Jamison Lobo Unknown Address [address] [place], [place] [id number] Phone Unavailable Care Team Providers Care Patient Financial Representative Name Role Phone Price Garcia M.D. Unavailable [...] Z98.89) Status: Active Medications Name Dates Details Cqtkzsqeqj-WOWE-Pdfrxvta 50-325-40 MG Oral Tablet TAKE ONE TABLET [...] Refills: 6 Price Garcia M.D.* Started 05-May-2015 ActiveHydrocodone-Acetaminophen 10-325 MG Oral Tablet Take 1/2 [...] Influenza Administered on:03-May-2012 Tdap (Adacel) Lot #: [id number] Administered on:14-May-2013 Fluzone Quadrivalent 0.5 ML Intramuscular Suspension Lot #: [id number] Administered on:03-Jun-2014 Fluzone Quadrivalent 0.5 ML Intramuscular Suspension Prefilled Syringe Lot #: [id number] Administered on:17-Jun-2015 Family History Grandfather* Name Dates [...] m2 Status: Results Date Description Value Details 05-Oct-2015 07:35 Clinical Trials 4045 Clinical Trials Clinical Trial Lab ([facility]) 16-Oct-2015 10:46 CBC w/ Auto Diff 7150 [...] ml/min ([facility]) Range: >60 EST GFR, NON-AFR NAURUAN >60 ml/min ([facility]) Range: >60 Comments: EST GFR is reported in ml/min per 1.73 m2 of body surface area. For -[place], please multiple result by 1.2.----- GLUCOSE 124 [...] Trials 4045 Clinical Trials Clinical Trial Lab ([facility]) Plan of Care Planned Observations* Name Dates Details Planned Goals not documented Goal Planned Encounters* Appointment; Provider: Andre Pratt On 18-Jul-2016 11:00 * Appointment; Provider: Price Garcia On 11-Dec-2015 14:00 * Appointment; Provider: Papa Keys On 23-Nov-2015 08:00 * Appointment; Provider: Harris Barragan On [...] Problem not documented On 22-May-2015 13:15 Appointment; Pirce Garcia Encounter Diagnosis: Problem not documented On [...]
--- OUTSIDE RECORDS SUMMARY | 2016-12-14 18:14 | XMS REPORT ---
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 Problem Fibromyalgia M79.7 Active Problem Depression F32.9 Active Problem Neuropathy G62.9 Active Medications Medication Code System Code Instructions Start Date End Date Status Dosage Losartan Potassium [facility] [address]-77 100 MG Orally Once a day 1 tablet Clopidogrel Bisulfate [facility] [address]-64 75 MG Orally Once a day 1 tablet Fluvoxamine Maleate [facility] [address]-92 100 MG Orally Once a day 1 tablet at bedtime Oxycodone HCl [facility] [address]-18 10 MG Orally three times a day 1 tablet as needed Atenolol [facility] [address]-56 50 MG Orally at bedtime 1 tablet Atenolol [facility] [address]-03 25 MG Orally Once a day 1 tablet Seroquel [facility] [address]-04 200 MG Orally Once a day 1 tablet at bedtime Zolpidem Tartrate [facility] [address]-57 10 MG Orally Once a day 1 tablet at bedtime as needed Fioricet [facility] [address]-97 50-300-40 MG Orally 3-4 times a day 1 capsule as needed Flexeril NDC 0 10mg three times a day 1 tablet Procedures Procedure Coding System Code Date URINE CULTURE/COLONY COUNT.AMS CPT-4 65930 Apr 21, 2016 URINALYSIS NONAUTO WO SCOPE CPT-4 69353 Apr 21, 2016 Results Name Result Date Reference Range Unit Abnormality Flag Urinalysis (UA) - IH ----Leukocytes neg 20160421 ----pH 6.5 20160421 ----Specific [place] 1.010 20160421 ----Ketones neg 20160421 0 - 0 ----Bilirubin neg 20160421 ----Nitrates neg 20160421 ----Color yellow 20160421 ----Protein neg 20160421 0 - 0 ----Character clear 20160421 ----Blood trace 20160421 ----Urobilirubin 0.2 20160421 0.2 - 1 ----Glucose neg 20160421 0 - 0 Summary Purpose eClinicalWorks Submission
--- OUTSIDE RECORDS SUMMARY | 2016-12-14 18:14 | XMS REPORT | Summary of Care ---
Author Author Papa Keys M.D. Organization Unknown Address [address], [place] [address] Phone Unavailable Care Team Providers Care Manager Auto Name Role Phone Price Garcia M.D. 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, M47.812) Status: Active Essential hypertension, benign (401.1, I10) Status: Active Anxiety (300.00, F41.9) Status: Active Never smoker Status: Active Cervicogenic headache (784.0, R51) Status: Active Cervico-occipital neuralgia of right side (723.8, M54.81) Status: Active Status post arthroscopy of left knee (V45.89, Z98.89) Status: Active UTI (urinary tract infection) (599.0, N39.0) Status: Active Low back pain (724.2, M54.5) Status: Active Degenerative disc disease, lumbar (722.52, M51.36) Status: Active Radicular syndrome of lower limbs (724.4, M54.10) Status: Active Migraine headache (346.90, G43.909) Status: Active Acute knee pain, left (719.46, M25.562) Status: Active Primary osteoarthritis of left knee (715.16, M17.12) Status: Active Medications Name Dates Details Fpxazgkfqd-XJJU-Qxjgtrgj 50-325-40 MG Oral Tablet TAKE ONE TABLET [...] * Quantity: 1 Refills: 0 Мария Gonzalez BRAILLE CODER* Started 24-Jan-2015 Admin RequestedAspirin 325 MG Oral [...] Refills: 0 Papa Keys M.D.* Started 02-Dec-2015 Active Allergies and Adverse Reactions Name Dates [...] Influenza Administered on:03-May-2012 Tdap (Adacel) Lot #: [id number] Administered on:14-May-2013 Fluzone Quadrivalent 0.5 ML Intramuscular Suspension Lot #: [id number] Administered on:03-Jun-2014 Fluzone Quadrivalent 0.5 ML Intramuscular Suspension Prefilled Syringe Lot #: [id number] Administered on:17-Jun-2015 Family History Grandfather* Name Dates [...] smoker Vital Signs Date Test Result Details 20-Nov-2015 10:14 BP Systolic 110 mm[Hg] Status: [...] ([facility]) Range: 0-10 23-Nov-2015 09:09 URINE CULTURE [id number] Comments: Xsigo performed at: [facility], [address] [place] [address], [address], Security Systems Administrator: Igor Perez D.O., MPHQuest Collection Date/Time: [id number] Results Received Date/Time: [id number] Reported Date/Time: [id number] performed at: [facility], [address], Security Systems Administrator: Igor Perez D.O., MPHQuest Collection Date/Time: [id number] Results Received Date/Time: [id number] Reported Date/Time: [id number] CULTURE, URINE, ROUTINE SEE NOTE (Abnormal) Comments: CULTURE, URINE, ROUTINE MICRO NUMBER: [id number] TEST STATUS: FINAL SPECIMEN SOURCE : URINE, [...] 15Dictation Date: 11/25/2015 09:22 XMR SPINE LUMBAR ([facility]) 30-Nov-2015 07:30 Clinical Trials 4045 Clinical Trials Clinical Trial Lab ([facility]) 14:02 MRI KNEE LEFT Comments: Exam Date: 11/30/2015 06:28Dictation Date : 11/30/2015 14:02 XMR EXT KNEE LEFT ([facility]) Plan of Care Planned Observations* Name Dates Details Planned Goals not documented Goal Planned Encounters* Appointment; Provider: Andre Pratt On 18-Jul-2016 11:00 * Appointment; Provider: Papa Keys On 23-Dec-2015 14:00 * Appointment; Provider: Papa Keys On 16-Dec-2015 14:00 * Appointment; Provider: Price Garcia On 11-Dec-2015 14:00 * Appointment; Provider: Papa Keys On 09-Dec-2015 14:00 * Appointment; Provider: Schedule Radiology On [...] Problem not documented On 22-May-2015 13:15 Appointment; Priec Garcia Encounter Diagnosis: Problem not documented On [...]
--- OUTSIDE RECORDS SUMMARY | 2016-12-14 18:14 | XMS REPORT ---
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 62860165 Problem Depression F32.9 Active 505541989 Problem Neuropathy G62.9 Active 844142527 Problem Arthritis of left knee M19.90 Active 6668751702386194 Problem Tear of meniscus of left knee S83.207A Active Problem Fibromyalgia M79.7 Active 958329382 Problem Migraine headache G43.909 Active 95509275 Problem Elevated alkaline phosphatase level R74.8 Active 536287754 Problem High cholesterol E78.0 Active 06119392 Problem CAD (coronary artery disease) I25.10 Active 76330539 Problem Status post left knee replacement Z96.652 Active 985649361019 Problem High blood pressure I10 Active 78836333 ALLERGIES Unknown Allergies SOCIAL HISTORY No smoking Hx information available PLAN OF CARE VITAL SIGNS MEDICATIONS Unknown Medications RESULTS No Results PROCEDURES No Known procedures IMMUNIZATIONS No Known Immunizations
--- OUTSIDE RECORDS SUMMARY | 2016-12-14 18:14 | XMS REPORT | Summary of Care ---
Author Author Price Garcia M.D. Organization Unknown Address Unknown Phone Unavailable Care Team Providers Care Bill Peddler Name Role Phone Price Garcia M.D. Unavailable Unavailable Мария Gonzalez APRN Unavailable Unavailable Klaudia Keys M.D. Unavailable Unavailable rPice Garcia PP Unavailable Unavailable Unavailable Functional Status [...] of left knee (V45.89, Z98.89) Status: Active Primary osteoarthritis of left knee (715.16, M17.12) Status: Active UTI (urinary tract infection) (599.0, N39.0) Status: Active Medications Name Dates Details Efxfkibsgl-JAEI-Mxfcainb 50-325-40 MG Oral Tablet TAKE ONE TABLET [...] * Quantity: 1 Refills: 0 Мария Gonzalez VALIDATION SCIENTIST* Started 24-Jan-2015 Admin RequestedAspirin 325 MG Oral [...] Refills: 0 Price Garcia M.D.* Started 26-Jun-2015 ActiveLortab 10-325 MG Oral Tablet ONE TABLET BY MOUTH EVERY 6-8 HOURS NEEDED WITH MAX OF 3 PER DAY * Quantity: 90 Refills: 0 Papa Keys M.D.* Started 18-Nov-2015 Active Allergies and Adverse Reactions Name Dates [...] Sinus Ostium ECG/ EKG Outside Interp Ordered:24-Sep-2015 MRI LUMBAR SPINE Ordered:18-Nov-2015 Immunization Name Dates Details Influenza Administered on:21-Jun-2011 Influenza Administered on:03-May-2012 Tdap (Adacel) Lot #: [id number] Administered on:14-May-2013 Fluzone Quadrivalent 0.5 ML Intramuscular Suspension Lot #: [id number] Administered on:03-Jun-2014 Fluzone Quadrivalent 0.5 ML Intramuscular Suspension Prefilled Syringe Lot #: [id number] Administered on:17-Jun-2015 Family History Grandfather* Name Dates [...] % Status: Results Date Description Value Details 02-Nov-2015 08:23 Clinical Trials 4045 Clinical Trials Clinical Trial Lab ([facility]) 19-Nov-2015 12:28 Urinalysis, Reflex to Microscopic or [...] Negative-Trace EPITH 0-2 /HPF ([facility]) Range: 0-10 Plan of Care Planned Observations* Name Dates Details Planned Goals not documented Goal Planned Encounters* Appointment; Provider: Andre Pratt On 18-Jul-2016 11:00 * Appointment; Provider: Papa Keys On 23-Dec-2015 14:00 * Appointment; Provider: Papa Keys On 16-Dec-2015 14:00 * Appointment; Provider: Price Garcia On 11-Dec-2015 14:00 * Appointment; Provider: Papa Keys On 09-Dec-2015 14:00 * Appointment; Provider: Papa Keys On 02-Dec-2015 14:00 * Appointment; Provider: Papa Keys On 25-Nov-2015 14:00 * Appointment; Provider: Schedule Radiology On 25-Nov-2015 [...] Diagnosis: Problem not documented On 09:20 Appointment; Iogr Charles Encounter Diagnosis: Problem not documented On [...]
--- OUTSIDE RECORDS SUMMARY | 2016-12-14 18:15 | XMS REPORT ---
Author Author GENERATED, SYSTEM Organization Unknown Address Unknown Phone Unavailable Care Team Providers Care Adoption Coordinator Name Role Phone FRIENDDO DESIRAE [phone] Reason For Visit Chief Complaint MIGRAINE, NAUSEA Social History Functional Status Vital Signs Results CT Scan from 07/31/2016 12:25 PMCT CEREBRAL W/O CONTRAST History: headache nausea on plavix . Severe headache and nausea since this morning Priors: 05/15/2016. Findings: Ventricles and Extra axial spaces: Normal in size and morphology for the patient's age. Hemorrhage: None. Cerebral parenchyma: Normal. Mass effect/midline shift: None. Brainstem/Cerebellum: Normal. Calvarium: Normal. Visualized Paranasal sinuses/Mastoids: Clear. Impression: Stable CT head without acute intracranial abnormality. Electronically signed by: COSMO HAAS Dictated: 07/31/2016 12:37 Problems Encounter Diagnosis No relevant problems exist. [...]
--- OUTSIDE RECORDS SUMMARY | 2016-12-14 18:15 | XMS REPORT | Summary of Care ---
Author Author Мария Gonzalez APRN Organization Unknown Address [address], [place] [address] Phone Unavailable Care Team Providers Care Steward/Stewardess Name Role Phone Price Garcia M.D. Unavailable Unavailable Мария Gonzalez APRN Unavailable Unavailable [employer] TANK SHOP SUPERVISOR, Crystal Unavailable Unavailable Price Garcia PP [...] R51) Status: Active Medications Name Dates Details Melatonin 5 MG Oral Tablet * Started 16-Jun-2014 ActiveTriamcinolone .1%/ Eucerin Compound (50/50 mix) -- 1 pound tub (454 grams) APPLY TO THE AFFECTED AREA TWICE DAILY * Quantity: 60 Refills: 0 PatrickJessica APRN* Started 24-Jun-2014 ActiveZolpidem Tartrate ER 12.5 MG [...] 1 now * Quantity: 1 Refills: 0 LisaМария TANK SHOP SUPERVISOR* Started 24-Jan-2015 Admin RequestedPromethazine HCl - 25 MG/ML Injection Solution Inject 12.5mg IM x 1 now * Quantity: 1 Refills: 0 Мария Gonzalez TANK SHOP SUPERVISOR* Started 24-Jan-2015 Admin RequestedDiazepam 10 MG Oral Tablet TAKE ONE TABLET BY MOUTH EVERY 8 HOURSMUST LAST 30 DAYS * Quantity: 90 Refills: 0 Price Garcia M.D.* Started 30-Oct-2014 EbkwawJpjrurotqc-XCCQ-Uiqjrngk 50-325-40 MG Oral Tablet TAKE ONE TABLET BY MOUTH EVERY 4 HOURS MAX OF 6 TABLETS PER DAY MUST LAST 30 DAYS * Quantity: 180 Refills: 0 Price Garcia M.D.* Started 09-Jun-2014 ActiveCyclobenzaprine HCl - 10 MG Oral Tablet [...] Influenza Administered on:03-May-2012 Tdap (Adacel) Lot #: [id number] Administered on:14-May-2013 Fluzone Quadrivalent 0.5 ML Intramuscular Suspension Lot #: [id number] Administered on:03-Jun-2014 Family History Grandfather* Name Dates [...] m2 Status: Results Date Description Value Details 13:37 XRay SPINE-CERVICAL Comments: Exam Date: 02/12/2015 11:49Dictation Date: 02/12/2015 13:37 X SPINE CERVICAL COMP ([facility]) 08:40 MRI CERVICAL SPINE Comments: Exam Date: 02/25/2015 06: 37Dictation Date: 02/25/2015 08:40 XMR SPINE CERVICAL ([facility]) Plan of Care Planned Observations* Name Dates Details Planned Goals not documented Goal Planned Encounters* Appointment; Provider: Andre Pratt On 15-Jul-2015 13:45 * Appointment; Provider: Price Garcia On 11:15 * Appointment; Provider: Harris Barragan On 08:45 * Appointment; Provider: Schedule Radiology On 07:00 [...]
--- OUTSIDE RECORDS SUMMARY | 2016-12-14 18:15 | XMS REPORT ---
Author Author GENERATED, SYSTEM Organization Unknown Address Unknown Phone Unavailable Care Team Providers Care Line Appliance Assembler Name Role Phone FRIEND, CHIQUI FLOREZ [phone] Reason For Visit Chief Complaint R74.8 Social History Functional Status Vital Signs Results [...]
--- OUTSIDE RECORDS SUMMARY | 2016-12-14 18:15 | XMS REPORT | Summary of Care ---
Author Author Papa Keys M.D. Organization Unknown Address [address], [place] [address] Phone Unavailable Care Team Providers Care Ultrasonic Welding Machine Operator Name Role Phone Price Garcia [...] (urinary tract infection) (599.0, N39.0) Status: Active Primary osteoarthritis of left knee (715.16, M17.12) Status: Active Medications Name Dates Details Qugxnwijzo-WJDK-Trhnpjvi 50-325-40 MG Oral Tablet TAKE ONE TABLET [...] * Quantity: 1 Refills: 0 Мария Gonzalez FACT CHECKER* Started 24-Jan-2015 Admin RequestedCyclobenzaprine HCl - 10 [...] p.m * Refills: 0 * Started 05-May-2015 ActiveAtorvastatin Calcium 80 MG Oral Tablet TAKE 1 TABLET AT BEDTIME. * Refills: 0 * Started 05-May-2015 ActivePlavix 75 MG Oral Tablet TAKE 1 TABLET DAILY. * Refills: 0 * Started 05-May-2015 ActiveDocusate Sodium 100 MG Oral Capsule Take 1 capsule BID. * Refills: 0 * Started 05-May-2015 ActiveLosartan Potassium 100 MG Oral Tablet TAKE 1 TABLET DAILY. * Quantity: 30 Refills: 6 Price Garcia M.D.* Started 05-May-2015 ActiveEvzio 0.4 MG/0.4ML Injection Solution [...] Refills: 0 Papa Keys M.D.* Started 18-Nov-2015 ActiveCiprofloxacin HCl - 500 MG Oral Tablet TAKE 1 TABLET TWICE DAILY FOR 7 DAYS. * Quantity: 14 Refills: 0 Price Garcia M.D.* Started 20-Nov-2015 Ended 27-Nov-2015 Active Allergies and Adverse Reactions Name Dates [...] Endoscopy With Dilation Of Sphenoid Sinus Ostium Procedures not documented Immunization Name Dates Details Influenza Administered on:21-Jun-2011 Influenza Administered on:03-May-2012 Tdap (Adacel) Lot #: [id number] Administered on:14-May-2013 Fluzone Quadrivalent 0.5 ML Intramuscular Suspension Lot #: [id number] Administered on:03-Jun-2014 Fluzone Quadrivalent 0.5 ML Intramuscular Suspension Prefilled Syringe Lot #: [id number] Administered on:17-Jun-2015 Family History Grandfather* Name Dates [...] ([facility]) Range: 0-10 23-Nov-2015 09:09 URINE CULTURE [id number] Comments: Sedimap performed at: [facility] [address], [address] [place] [address], Assistant Head Cashier: Igor Perez D.O., MPHQuest Collection Date/Time: [id number] Results Received Date/Time: [id number] Reported Date/Time: [id number] performed at: [facility] [address], [address] [place] [address], Assistant Head Cashier: Igor Perez D.O., [facility] Collection Date/Time: [id number] Results Received Date/Time: [id number] Reported Date/Time: [id number] CULTURE, URINE, ROUTINE SEE NOTE (Abnormal) Comments: CULTURE, URINE, ROUTINE MICRO NUMBER: [id number] TEST STATUS: FINAL SPECIMEN SOURCE : URINE, [...] 15Dictation Date: 11/25/2015 09:22 XMR SPINE LUMBAR ([facility]) Plan of Care Planned Observations* Name [...] Keys On 02-Dec-2015 14:00 * Appointment; Provider: Schedule Radiology On [...] Problem not documented On 10-Nov-2015 10:15 Appointment; oJse Jimenez Encounter Diagnosis: Problem not documented On [...]
--- OUTSIDE RECORDS SUMMARY | 2016-12-14 18:15 | XMS REPORT | Summary of Care ---
Author Author Linda Bingham APRN Organization Unknown Address [address], [place] [address] Phone Unavailable Care Team Providers Care Medical Laboratory Assistant Name Role Phone Price Garcia M.D. [...] M25.562) Status: Active Medications Name Dates Details Rcbvsusxjf-UDXT-Dlzuiadu 50-325-40 MG Oral Tablet TAKE 1 TABLET [...] Refills: 0 Papa Keys M.D.* Started 23-Dec-2015 [id number] GM Pump Btl Acetaminophen-Codeine 300-30 MG Oral [...] Influenza Administered on:03-May-2012 Tdap (Adacel) Lot #: [id number] Administered on:14-May-2013 Fluzone Quadrivalent 0.5 ML Intramuscular Suspension Lot #: [id number] Administered on:03-Jun-2014 Fluzone Quadrivalent 0.5 ML Intramuscular Suspension Prefilled Syringe Lot #: [id number] Administered on:17-Jun-2015 Family History Grandfather* Name Dates [...] 09:44 Urinalysis, reflex to Micro and Culture ([facility]) 8016 pH 6.0 ([facility]) Range: 5.0-7.5 [...] ml/min ([facility]) Range: >60 EST GFR, NON-AFR [place]AHAMIAN >60 ml/min (Better) Range: >60 Comments: EST GFR is reported in ml/min per 1.73 m2 of body surface area. For -Afghan, please multiple result by 1.2.----- BUN:CREATININE RATIO [...]
--- OUTSIDE RECORDS SUMMARY | 2016-12-14 18:15 | XMS REPORT ---
Author Author Jaclyn Koch Organization [employer] Address Unknown Phone Unavailable Care Team Providers Care Supervisor Contact Lens Name Role Phone Jaclyn Koch CP Unavailable Allergies No Known Allergies Problems Problem Type Condition Code Onset Dates Condition Status Assessment Chronic depression F32.9 Active Problem Tear of meniscus of left [...] Date End Date Status Dosage Losartan Potassium [facility] [address]-86 100 MG Orally Once a day 1 tablet Flexeril NDC 0 10mg three times a day 1 tablet Seroquel [facility] [address]-77 200 MG Orally Once a day 1 tablet at bedtime Clopidogrel Bisulfate [facility] [address]-74 75 MG Orally Once a day 1 tablet Zolpidem Tartrate [facility] [address]-22 10 MG Orally Once a day 1 tablet at bedtime as needed Atenolol [facility] [address]-77 25 MG Orally Once a day 1 tablet Fioricet [facility] [address]-38 50-300-40 MG Orally 3-4 times a day 1 capsule as needed Fluvoxamine Maleate [facility] [address]-18 100 MG Orally Once a day 1 tablet at bedtime Oxycodone HCl [facility] [address]-95 10 MG Orally three times a day 1 tablet as needed Atenolol [facility] [address]-26 50 MG Orally at bedtime 1 tablet Procedures Procedure Coding System Code Date Behavior Intervention CPT-4 37709 Apr 05, 2016 Results No Known Results Summary Purpose [employer] Submission
--- OUTSIDE RECORDS SUMMARY | 2016-12-14 18:15 | XMS REPORT ---
Author Author FriendKyara [facility] Address [address] [place], [place] [address] Care Team Providers Care Nurses Superintendent Name Role Phone FriendKyara Unavailable [phone] PROBLEMS Type Condition ICD9-CM Code DBN82-FT Code Onset Dates Condition Status SNOMED Code Problem Neuropathy G62.9 Active 466454106 Problem CAD (coronary artery disease) I25.10 Active 09406466 Problem Depression F32.9 Active 818375186 Problem Arthritis of left knee M19.90 Active 8646836835384754 Problem Tear of meniscus of left knee S83.207A Active Problem Fibromyalgia M79.7 Active 590799073 Problem 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
--- OUTSIDE RECORDS SUMMARY | 2016-12-14 18:16 | XMS REPORT | Summary of Care ---
Author Author Papa Keys M.D. Organization Unknown Address [address], [place] [id number] Phone Unavailable Care Team Providers Care Communications Intern Name Role Phone Price Garcia M.D. Unavailable Unavailable Мария Gonzalez APRN Unavailable Unavailable Klaudia Keys M.D. 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, F41.8) Status: Active Insomnia (780.52, G47.00) Status: Active Low back pain (724.2, M54.5) Status: Active Never smoker Status: Active Clinical trial exam (V70.7, Z00.6) Status: Active Chronic sinus infection (473.9, J32.9) Status: Active Abnormal electrocardiogram (794.31, R94.31) Status: Active Depression (311, F32.9) Status: Active Essential and other specified forms of tremor (333.1, G25.0) Status: Active Migraine headache (346.90, G43.909) Status: Active Hyperthyroidism (242.90, E05.90) Status: Active Nasal septal deviation (470, J34.2) Status: Active Hypertrophy of nasal turbinates (478.0, J34.3) Status: Active Essential hypertension, benign (401.1, I10) Status: Active Spondylolysis, lumbar region (738.4, M43.06) Status: Active Cervical pain (neck) (723.1, M54.2) Status: Active Cervicogenic headache (784.0, R51) Status: Active Localized primary osteoarthritis of left lower leg (715.16, M17.12) Status: Active Localized primary osteoarthritis of right lower leg (715.16, M17.11) Status: Active Presence of stent in coronary artery in patient with coronary artery disease ( 414.01, I25.10) Status: Active Medications Name Dates Details Bopkbnibgn-EWPW-Riatqynw 50-325-40 MG Oral Tablet TAKE ONE TABLET BY MOUTH EVERY 6 HOURS NEEDED MAX OF 4 TABLETS PER DAY MUST LAST 30 DAYSMAY FILL ON OR AFTER 12/14/15* Quantity: 120 Price Garcia M.D.* Started 09-Jun-2014 [...] * Quantity: 1 Refills: 0 Мария Gonzalez SULFURIC ACID PLANT OPERATOR* Started 24-Jan-2015 Admin RequestedAspirin 325 MG Oral [...] Refills: 6 Price Garcia M.D.* Started 05-May-2015 ActiveAcetaminophen-Codeine 300-30 MG Oral Tablet Si PO every 4-6 hrs prn with a max of 4 per day. Scripts must last 30 days. * Quantity: 120 Refills: 0 Papa Keys M.D.* Started 02-Dec-2015 ActiveZolpidem Tartrate 10 MG Oral Tablet TAKE ONE TABLET BY MOUTH EVERY NIGHT AT BEDTIME NEEDED FOR SLEEP *MUST LAST 30 DAYS* * Quantity: 30 Refills: 0 Price Garcia M.D.* Started 26-Jun-2015 ActivePennsaid 2 % Transdermal Solution Apply 2 pumps twice daily over area of pain. * Quantity: 1 Refills: 0 Papa Keys M.D.* Started 23-Dec-2015 Fnewmt963 GM Pump Btl Acetaminophen-Codeine 300-30 MG Oral Tablet Si PO every 4-6 hrs prn with a max of 4 per day. Scripts must last 30 days. * Quantity: 120 Refills: 0 Papa Keys M.D.* Started 30-Dec-2015 Active Allergies and Adverse Reactions Name Dates [...] Resolved Procedures Procedure Dates Details History of Nasal Endoscopy With Dilation Of Sphenoid Sinus Ostium History of Excision Of Turbinate History of Septoplasty History of Tonsillectomy History of Appendectomy History of Cholecystectomy History of Tubal Ligation History of Section History of Colonoscopy (Fiberoptic) Clinical Trials 4045 Ordered:30-Nov-2015 Immunization Name Dates Details Influenza Administered on:21-Jun-2011 Influenza Administered on:03-May-2012 Tdap (Adacel) Lot #: [id number] Administered on:14-May-2013 Fluzone Quadrivalent 0.5 ML Intramuscular Suspension Lot #: [id number] Administered on:03-Jun-2014 Fluzone Quadrivalent 0.5 ML Intramuscular Suspension Prefilled Syringe Lot #: [id number] Administered on:17-Jun-2015 Family History Grandfather* Name Dates Details Family history of Suicide by gunshot wound (E955.9, X74.9XXA) Status: Active Mother* Name Dates Details Family history of Chronic Obstructive Pulmonary Disease Status: Active Father* Name Dates Details Family history of diabetes mellitus (V18.0, Z83.3) Status: Active Family history of Acute Myocardial Infarction (V17.3) Status: Active Family history of hypertension (V17.49, Z82.49) Status: Active Family history of chronic obstructive pulmonary disease (V17.6, Z82.5) Status: Active Family history of myocardial infarction (V17.3, Z82.49) Status: Active Family history of cerebrovascular accident (V17.1, Z82.3) Status: Active Sister* Name Dates Details Family history of Arthritis (V17.7) Status: Active Family history of Uterine Cancer (V16.49) Status: Active Family history of Asthma (V17.5) Status: Active Social History Name Dates Details [...] Price Garcia On 10:00 * Appointment; Provider: Schedule Radiology On 30-Nov-2015 [...]
--- OUTSIDE RECORDS SUMMARY | 2016-12-14 18:16 | XMS REPORT | Summary of Care ---
Author Author Radha Titus, Price Organization Unknown Address Unknown Phone Unavailable Care Team Providers Care Personal Lines Account Manager Name Role Phone Price Garcia M.D. Unavailable Unavailable Lisa SALES EXECUTIVE INSURANCE, Мария Unavailable Unavailable [employer] SALES EXECUTIVE INSURANCE, Crystal Unavailable Unavailable Price Garcia PP Unavailable [...] artery disease ( 414.01, I25.10) Status: Active Essential hypertension, benign (401.1, I10) Status: Active Nausea (787.02, R11.0) Status: Active Inflamed seborrheic keratosis (702.11, L82.0) Status: Active Polyarthritis (716.50, M13.0) Status: Active Cervicogenic headache (784.0, R51) Status: Active Migraine headache (346.90, G43.909) Status: Active 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, M47.812) Status: Active Medications Name Dates Details Triamcinolone .1%/ Eucerin Compound (50/50 mix) -- 1 pound tub (454 grams) APPLY TO THE AFFECTED AREA TWICE DAILY Quantity: 60 Jessica Nguyen APRN* Started 24-Jun-2014 ActiveQUEtiapine Fumarate [...] TABLET DAILY. * Refills: 0 * Started 8-Sep-2015 ActiveAtorvastatin Calcium 80 MG Oral Tablet TAKE [...] Influenza Administered on:03-May-2012 Tdap (Adacel) Lot #: [id number] Administered on:14-May-2013 Fluzone Quadrivalent 0.5 ML Intramuscular Suspension Lot #: [id number] Administered on:03-Jun-2014 Fluzone Quadrivalent 0.5 ML Intramuscular Suspension Prefilled Syringe Lot #: [id number] Administered on:17-Jun-2015 Family History Grandfather* Name Dates [...] smoker Vital Signs Date Test Result Details 07-Aug-2015 13:10 BP Systolic 96 mm[Hg] Status: BP Diastolic 60 mm[Hg] Status: Heart Rate 78 /min Status: Respiration Rate 20 /min Status: Height 66 in Status: Weight 137.25 lb Status: O2 SAT 96 % Status: Body Mass Index Calculated 22.15 kg/m2 Status: Body Surface Area Calculated 1.7 m2 Status: 13-Jul-2015 09:39 BP Systolic 143 mm[Hg] Status: BP Diastolic 87 mm[Hg] Status: Temperature 98.2 f Status: Heart Rate 65 /min Status: O2 SAT 97 % Status: Results Date Description Value Details Results not documented Plan of Care Planned Observations* Name Dates Details Planned Goals not documented Goal Planned Encounters* Appointment; Provider: Andre Pratt On 18-Jul-2016 11:00 * Appointment; Provider: Price Garcia On 20-Aug-2015 09:30 * Appointment; Provider: Harris Barragan On 03-Apr-2015 [...]
--- OUTSIDE RECORDS SUMMARY | 2016-12-14 18:16 | XMS REPORT | Summary of Care ---
Author Author Virginia Medina Organization Unknown Address [address] [place] [address] Phone Unavailable Care Team Providers Care Hotel Security Officer Name Role Phone Price Garcia M.D. Unavailable Unavailable Lisa VISUAL EFFECTS ARTIST, Мария Unavailable Unavailable [employer] VISUAL EFFECTS ARTIST, Crystal Unavailable Unavailable Price Garcia PP Unavailable [...] G43.909) Status: Active Medications Name Dates Details Triamcinolone .1%/ Eucerin Compound (50/50 mix) -- 1 pound tub (454 grams) APPLY TO THE AFFECTED AREA TWICE DAILY Quantity: 60 Smarsh-Kutilek, Jessica VISUAL EFFECTS ARTIST* Started 24-Jun-2014 RizmwnYurvcwmmto-IIRG-Natudenk 50-325-40 MG Oral Tablet TAKE ONE TABLET BY MOUTH EVERY 4 HOURS NEEDED MAX OF 6 TABLETS PER DAY MUST LAST 30 DAYS * Quantity: 180 Refills: 0 Price Garcia M.D.* Started 09-Jun-2014 ActiveFluvoxaMINE Maleate [...] Refills: 0 Price Garcia M.D.* Started 17-Jun-2015 ActiveCyclobenzaprine HCl - 10 MG Oral Tablet TAKE ONE TABLET BY MOUTH THREE TIMES DAILY NEEDED * Quantity: 90 Refills: 0 Price Garcia M.D.* Started Active Allergies and [...] Influenza Administered on:03-May-2012 Tdap (Adacel) Lot #: [id number] Administered on:14-May-2013 Fluzone Quadrivalent 0.5 ML Intramuscular Suspension Lot #: [id number] Administered on:03-Jun-2014 Fluzone Quadrivalent 0.5 ML Intramuscular Suspension Prefilled Syringe Lot #: [id number] Administered on:17-Jun-2015 Family History Grandfather* Name Dates [...] smoker Vital Signs Date Test Result Details 25-Jun-2015 10:56 BP Systolic 125 mm[Hg] Status: BP Diastolic 78 mm[Hg] Status: Temperature 97.2 f Status: Heart Rate 70 /min Status: Weight 137 lb Status: O2 SAT 97 % Status: Body Mass Index Calculated 22.11 kg/m2 Status: Body Surface Area Calculated 1.7 m2 Status: 23-Jun-2015 10:51 BP Systolic 137 mm[Hg] Status: [...] % Status: Results Date Description Value Details 25-Jun-2015 10:55 Urinalysis, reflex to Micro and Culture ([facility]) 8016 pH 6.0 (Better) Range: 5.0-7.5 SP GRAVITY 1.015 (Better) Range: 1.010-1.030 APPEARANCE Clear (Better) Range: Clear COLOR Yellow (Better) Range: Straw-Yellow PROTEIN Negative mg/dL (Better) Range: Negative-Trace GLUCOSE Negative mg/dL (Better) Range: Negative KETONES Negative mg/dL (Better) Range: Negative BILIRUBIN Negative (Better) Range: Negative BLOOD Negative (Better) Range: Negative UROBIL 0.2 EU/dL (Better) Range: 0.2-1.0 NITRITE Negative (Better) Range: Negative LEUKOCYTES Negative (Better) Range: Negative Plan of Care Planned Observations* Name Dates Details Planned Goals not documented Goal Planned Encounters* Appointment; Provider: Price Garcia On 13-Aug-2015 10:00 * Appointment; Provider: Andre Pratt On 15-Jul-2015 13:45 * Appointment; Provider: Harris Barragan On 03-Apr-2015 13:00 * Appointment; Provider: Schedule Radiology On 07:00 Instructions * Instructions not documented Encounters Appointment; Virginia Medina Encounter Diagnosis: Problem not [...] Problem not documented On 22-May-2015 13:15 Appointment; rPice Garcia Encounter Diagnosis: Problem not documented On [...]
--- OUTSIDE RECORDS SUMMARY | 2016-12-14 18:17 | XMS REPORT | Summary of Care ---
Author Author Gaston Hare M.D. Organization Unknown Address [address], [place] [address] Phone Unavailable Care Team Providers Care Residential Appraiser Name Role Phone Price Garcia M.D. Unavailable [...] Active Cervicogenic headache (784.0, R51) Status: Active 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, M47.812) Status: Active Degenerative arthritis of knee (715.36, M17.9) Status: Active Essential hypertension, benign (401.1, I10) Status: Active Anxiety (300.00, F41.9) Status: Active Acute knee pain, left (719.46, M25.562) Status: Active Marquez cyst, left (727.51, M71.22) Status: Active Medications Name Dates Details Rmfyvoehqw-RJWW-Gkfgjrqv 50-325-40 MG Oral Tablet TAKE ONE TABLET [...] Refills: 0 Price Garcia M.D.* Started 30-Oct-2014 ActiveCyclobenzaprine HCl - 10 MG Oral Tablet TAKE ONE TABLET BY MOUTH THREE TIMES DAILY NEEDED * Quantity: 90 Refills: 3 Price Garcia M.D.* Started ActiveLosartan Potassium 100 MG Oral Tablet TAKE 1 TABLET DAILY. * Quantity: 30 Refills: 6 Price Garcia M.D.* Started 05-May-2015 Active Allergies and Adverse Reactions [...] Influenza Administered on:03-May-2012 Tdap (Adacel) Lot #: [id number] Administered on:14-May-2013 Fluzone Quadrivalent 0.5 ML Intramuscular Suspension Lot #: [id number] Administered on:03-Jun-2014 Fluzone Quadrivalent 0.5 ML Intramuscular Suspension Prefilled Syringe Lot #: [id number] Administered on:17-Jun-2015 Family History Grandfather* Name Dates [...] smoker Vital Signs Date Test Result Details 15-Oct-2015 16:15 BP Systolic 151 mm[Hg] Status: [...] Body Surface Area Calculated 1.73 m2 Status: 22-Sep-2015 09:22 BP Systolic 128 mm[Hg] Status: BP Diastolic 88 mm[Hg] Status: Heart Rate 83 /min Status: O2 SAT 98 % Status: 16-Sep-2015 08:28 BP Systolic 142 mm[Hg] Status: BP Diastolic 89 mm[Hg] Status: Heart Rate 78 /min Status: Weight 139 lb Status: Body Mass Index Calculated 22.44 kg/m2 Status: Body Surface Area Calculated 1.71 m2 Status: Results Date Description Value Details 17-Sep-2015 08:56 Clinical Trials 4045 Comments: Fastin hours Clinical Trials Clinical Trial Lab ([facility]) 05-Oct-2015 07:35 Clinical Trials 4045 Clinical Trials Clinical Trial Lab ([facility]) Plan of Care Planned Observations* Name Dates Details Planned Goals not documented Goal Planned Encounters* Appointment; Provider: Andre Pratt On 18-Jul-2016 11:00 * Appointment; Provider: Price Garcia On 11-Dec-2015 14:00 * Appointment; Provider: Gordon Sandy On 16-Oct-2015 08:45 * Appointment; Provider: Harris Barragan On 03-Apr-2015 [...] Problem not documented On 30-Oct-2014 09:30 Appointment; Wset Berrios Encounter Diagnosis: Problem not [...]
--- OUTSIDE RECORDS SUMMARY | 2016-12-14 18:17 | XMS REPORT | Summary of Care ---
Author Author Linda Bingham APRN Organization Unknown Address [address], [place] [address] Phone Unavailable Care Team Providers Care Blocking Machine Operator Name Role Phone Price Garcia [...] G43.909) Status: Active Medications Name Dates Details Hwfnixolbs-RPVK-Wcozxusk 50-325-40 MG Oral Tablet TAKE ONE TABLET [...] * Quantity: 1 Refills: 0 Мария Gonzalez MOLD STAMPER AND REPAIRER* Started 24-Jan-2015 Admin RequestedPromethazine HCl - 25 MG/ML Injection Solution Inject 12.5mg IM x 1 now * Quantity: 1 Refills: 0 Мария Gonzalez MOLD STAMPER AND REPAIRER* Started 24-Jan-2015 Admin RequestedAspirin 325 MG Oral [...] Refills: 0 Price Garcia M.D.* Started 30-Oct-2014 ActivePennsaid 2 % Transdermal Solution Apply 2 pumps twice daily over area of pain. * Quantity: 1 Refills: 0 Papa Keys M.D.* Started 23-Dec-2015 Kcgojt500 GM Pump Btl Acetaminophen-Codeine 300-30 MG Oral [...] day. * Quantity: 90 Refills: 0 Papa eKys M.D.* Started 21-Jan-2016 ActiveQUEtiapine Fumarate 200 MG Oral Tablet TAKE [...] Influenza Administered on:03-May-2012 Tdap (Adacel) Lot #: [id number] Administered on:14-May-2013 Fluzone Quadrivalent 0.5 ML Intramuscular Suspension Lot #: [id number] Administered on:03-Jun-2014 Fluzone Quadrivalent 0.5 ML Intramuscular Suspension Prefilled Syringe Lot #: [id number] Administered on:17-Jun-2015 Family History Grandfather* Name Dates [...] 4045 Clinical Trials Clinical Trial Lab ([facility]) 26-Jan-2016 09:44 Urinalysis, reflex to Micro and Culture ([facility]) 8016 pH 6.0 ([facility]) Range: [...] ml/min ([facility]) Range: >60 EST GFR, NON-AFR DUTCH >60 ml/min ([facility]) Range: >60 Comments: EST GFR is reported in ml/min per 1.73 m2 of body surface area. For -[place], please multiple result by 1.2.----- BUN:CREATININE RATIO [...] not documented On 08-Sep-2015 09:45 Appointment; Price Gracia Encounter Diagnosis: Problem not documented On 03-Sep-2015 [...]
--- OUTSIDE RECORDS SUMMARY | 2016-12-14 18:17 | XMS REPORT ---
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 48626043 Problem Depression F32.9 Active 185280496 Problem Neuropathy G62.9 Active 137344947 Problem Arthritis of left knee M19.90 Active 0445280334309676 Problem Tear of meniscus of left knee S83.207A Active Problem Fibromyalgia M79.7 Active 990025997 Problem Migraine headache G43.909 Active 09330983 Problem Elevated alkaline phosphatase level R74.8 Active 719387209 Problem High cholesterol E78.0 Active 03062141 Problem CAD (coronary artery disease) I25.10 Active 67451571 Problem Status post left knee replacement Z96.652 Active 829157785647 Problem High blood pressure I10 Active 64327025 ALLERGIES Unknown Allergies SOCIAL HISTORY No smoking Hx information available PLAN OF CARE VITAL SIGNS MEDICATIONS Unknown Medications RESULTS No Results PROCEDURES No Known procedures IMMUNIZATIONS No Known Immunizations
--- OUTSIDE RECORDS SUMMARY | 2016-12-14 18:17 | XMS REPORT ---
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 49562637 Problem Depression F32.9 Active 412648635 Problem Neuropathy G62.9 Active 599572407 Problem Arthritis of left knee M19.90 Active 1425523142302146 Problem Tear of meniscus of left knee S83.207A Active Problem Fibromyalgia M79.7 Active 144741789 Problem Migraine headache G43.909 Active 03105753 Problem Elevated alkaline phosphatase level R74.8 Active 082320010 Problem High cholesterol E78.0 Active 30530208 Problem CAD (coronary artery disease) I25.10 Active 26951568 Problem Status post left knee replacement Z96.652 Active 891104087958 Problem High blood pressure I10 Active 42481002 ALLERGIES Unknown Allergies SOCIAL HISTORY No smoking Hx information available PLAN OF CARE VITAL SIGNS MEDICATIONS Unknown Medications RESULTS No Results PROCEDURES No Known procedures IMMUNIZATIONS No Known Immunizations
--- OUTSIDE RECORDS SUMMARY | 2016-12-14 18:17 | XMS REPORT ---
Author Author FriendKyara 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 16076097 Problem Depression F32.9 Active 400172789 Problem Neuropathy G62.9 Active 867260800 Problem Arthritis of left knee M19.90 Active 9498994230267951 Problem Tear of meniscus of left knee S83.207A Active Problem Fibromyalgia M79.7 Active 153781984 Problem Migraine headache G43.909 Active 94789588 Problem Elevated alkaline phosphatase level R74.8 Active 225816280 Problem High cholesterol E78.0 Active 35240522 Problem CAD (coronary artery disease) I25.10 Active 87623253 Problem Status post left knee replacement Z96.652 Active 410469684057 Problem High blood pressure I10 Active 51837922 ALLERGIES Unknown Allergies SOCIAL HISTORY No smoking Hx information available PLAN OF CARE VITAL SIGNS MEDICATIONS Unknown Medications RESULTS No Results PROCEDURES No Known procedures IMMUNIZATIONS No Known Immunizations
--- OUTSIDE RECORDS SUMMARY | 2016-12-14 18:17 | XMS REPORT | Summary of Care ---
Author Author Conner Bustos M.D. 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, F41.8) Status: Active Primary osteoarthritis of left knee (715.16, M17.12) Status: Active Spondylolysis, lumbar region (738.4, M43.06) Status: Active Nausea (787.02, R11.0) Status: Active Headache, acute (784.0, R51) Status: Active Left knee pain (719.46, M25.562) Status: Active Localized primary osteoarthritis of left lower leg (715.16, M17.12) Status: Active Localized primary osteoarthritis of right lower leg (715.16, M17.11) Status: Active Migraine without status migrainosus, not intractable (346.90, G43.909) Status: Active Medications Name Dates Details Qkfglvapmf-YWKZ-Xceudenb 50-325-40 MG Oral Tablet TAKE 1 TABLET EVERY 6 HOURS NEEDED.Must last [address] Keys. Quantity: 120 Papa Keys M.D. * Start 06-Jul-2016 Active QUEtiapine Fumarate 200 MG Oral Tablet TAKE 1 TABLET Three DAILY. * Quantity: 90 Refills: 0 Price Garcia M.D. * Start 30-Oct-2014 Active DiazePAM 10 MG Oral Tablet TAKE ONE TABLET BY MOUTH EVERY 8 HOURS NEEDED MUST LAST 30 DAYSMAY FILL ON OR AFTER 03/09/16 * Quantity: 90 Refills: 0 Price Garcia M.D. * Start 30-Oct-2014 Active FluvoxaMINE Maleate 100 MG Oral Tablet TAKE 1 TABLET AT BEDTIME. * Quantity: 30 Refills: 5 Price Garcia M.D. * Start 30-Oct-2014 Active AmLODIPine Besylate 10 MG Oral Tablet [...] * Refills: 0 * Start 05-May-2015 Active Atenolol 50 MG Oral Tablet take [...] 0 Papa Keys M.D. Start 30-Dec-2015 Active Zolpidem Tartrate 10 MG Oral Tablet TAKE ONE TABLET BY MOUTH EVERY NIGHT AT BEDTIME NEEDED FOR SLEEP *MUST LAST 30 DAYS* * Quantity: 30 Refills: 0 Price Garcia M.D. * Start 26-Jun-2015 Active Cyclobenzaprine HCl - 10 MG Oral Tablet TAKE ONE TABLET BY MOUTH THREE TIMES DAILY NEEDED * Quantity: 90 Refills: 3 Papa Keys M.D. Start Active Endocet 10-325 MG Oral Tablet Si PO every 6-8 hrs prn with a max of 3 per day.Script must last [address] Keys. * Quantity: 90 Refills: 0 Papa Keys M.D. Start 14-Jul-2016 Active Allergies and Adverse Reactions Name Dates [...] Sphenoid Sinus Ostium ECG/ EKG Outside Interp Pendin05-Jul-2016 Immunization Name Dates Details Influenza on: 21-Jun-2011 Influenza on: 03-May-2012 Tdap (Adacel) Lot #: [id number] on: 14-May-2013 Fluzone Quadrivalent 0.5 ML Intramuscular Suspension Lot #: [id number] on: 03-Jun-2014 Fluzone Quadrivalent 0.5 ML Intramuscular Suspension Prefilled Syringe Lot #: [id number] on: 17-Jun-2015 Family History Name Dates Details [...] smoker Vital Signs Date Test Result Details No Known Vitals to report Results Date Description Value Details 11-Jul-2016 08:18 Clinical Trials 4045 Clinical Trials Clinical Trial Lab Plan of Care Name Dates Details Planned Observations Planned Goals not documented Planned Encounters Appointment; Provider: Andre Pratt M.D. On 18-Jul-2016 11:00 Instructions Name Dates Details Instructions not documented Encounters Appointment; Papa Keys M.D. Encounter Diagnosis: Problem not documented On 24-May-2016 09:45 Appointment; Linda Bingham A.P.R.N. Encounter Diagnosis: Problem not documented On 04-May-2016 10:29 Appointment; Papa Keys M.D. Encounter Diagnosis: Problem not documented On 21-Apr-2016 13:00 Appointment; Linda Bingham A.P.R.N. Encounter Diagnosis: Problem not documented On 11-Apr-2016 09:20 Appointment; [place] Berrios D.O. Encounter Diagnosis: Problem not documented On 12:49 Appointment; Papa Keys M.D. Encounter Diagnosis: Problem not documented On 13:00 Appointment; Price Garcia M.D. Encounter Diagnosis: Problem not documented On 13:30 Appointment; Linda Bingham A.P.R.N. Encounter Diagnosis: Problem not documented On 11:35 Appointment; Papa Keys M.D. Encounter Diagnosis: Problem not documented On 13:15 Appointment; Linda Bingham A.P.RJeromy Encounter Diagnosis: Problem not documented On 09:45 [...] documented On 27-Oct-2015 08:30 Appointment; Jose Jimenez M.D. Encounter Diagnosis: Problem [...] documented On 08-Sep-2015 09:45 Appointment; Price Garcia M.D. Encounter Diagnosis: [...] documented On 09-Jun-2015 14:00 Appointment; Gordon Mancera M.D. Encounter Diagnosis: Problem not documented On [...] not documented On 10:00 Appointment; Linda Bingham A.PKarunaRJeromy Encounter Diagnosis: Problem not documented On 09:50 [...] not documented On 10:45 Appointment; Linda Bingham A.P.RJeromy Encounter Diagnosis: Problem not documented On 09:05 Appointment; Harris Barragan M.D. Encounter Diagnosis: Problem not documented On 11:15 Appointment; Linda Bingham A.P.RKarunaNKaruna Encounter Diagnosis: Problem not documented On 08:30 [...] documented On 02-Oct-2014 08:15 Appointment; Jessica Nguyen A.P.RJeromy Encounter Diagnosis: Problem not documented On 15-Sep-2014 [...] Encounter Diagnosis: Problem not documented On 14-Jul-2014 13:15"
--- OUTSIDE RECORDS SUMMARY | 2016-12-14 18:18 | XMS REPORT | Summary of Care ---
Author Author Harris Barragan M.D. Unknown Address [address], [place] [address] Phone Unavailable Care Team Providers Care Banking Teacher Name Role Phone Price Garcia M.D. Unavailable Unavailable Lisa PHARMACY COORDINATOR, Мария Unavailable Unavailable [place] PHARMACY COORDINATOR, Crystal Unavailable Unavailable Ghazal Barragan M.D. Unavailable Unavailable Price Garcia PP Unavailable [...] G43.909) Status: Active Medications Name Dates Details Ytvffakdle-LEOS-Bffjycrn 50-325-40 MG Oral Tablet TAKE ONE TABLET [...] TWICE DAILY * Quantity: 60 Refills: 0 Normh-Jessica Sanchez PHARMACY COORDINATOR* Started 24-Jun-2014 ActiveHydrALAZINE HCl - 50 MG [...] DAYS * Quantity: 30 Refills: 0 Price Gacria M.D.* Started 30-Oct-2014 ActiveLithium Carbonate 300 MG [...] 90 Refills: 3 Price Garcia M.D.* Started ActivePredniSONE 10 MG Oral Tablet Take 40mg po qd x 5 days, 20mg po qd x 3days, 10mg po qd x 3 days * Quantity: 29 Refills: 0 Harris Barragan M.D.* Ended 11-Apr-2015 ActiveLevofloxacin 500 MG Oral Tablet TAKE 1 TAB PO QD X 14 DAYS * Quantity: 14 Refills: 0 Harris Barragan M.D.* Ended 14-Apr-2015 Active Allergies and Adverse Reactions Name Dates [...] Influenza Administered on:03-May-2012 Tdap (Adacel) Lot #: [id number] Administered on:14-May-2013 Fluzone Quadrivalent 0.5 ML Intramuscular Suspension Lot #: [id number] Administered on:03-Jun-2014 Family History Grandfather* Name Dates [...] smoker Vital Signs Date Test Result Details 09:45 BP Systolic 186 mm[Hg] Status: BP Diastolic 114 mm[Hg] Status: Heart Rate 69 /min Status: Respiration Rate 18 /min Status: O2 SAT 97 % Status: 08:34 BP Systolic 163 mm[Hg] Status: BP Diastolic 96 mm[Hg] Status: Heart Rate 62 /min Status: Weight 147 lb Status: Body Mass Index Calculated 23.73 kg/m2 Status: Body Surface Area Calculated 1.75 m2 Status: 10:58 BP Systolic 148 mm[Hg] Status: BP [...] 13:45 * Appointment; Provider: Harris Barragan On 13-Apr-2015 11:00 * Appointment; Provider: Harrsi Barragan On 03-Apr-2015 13:00 * Appointment; Provider: Price Garcia On 10:00 * Appointment; Provider: Schedule Radiology On 07:00 [...] Problem not documented On 16-Aug-2014 11:10 Appointment; Prcie Garcia Encounter Diagnosis: Problem not documented On [...] Problem not documented On 14-May-2013 14:10 Appointment; eMlvin Cotto Encounter Diagnosis: Problem not documented On 23-Apr-2013 10:30 Appointment; Jasmin Trejo Encounter Diagnosis: Problem not documented On 16-Apr-2013 09:20 Appointment; Melvin Cotto Encounter Diagnosis: Problem not documented On 28-Mar-2013 14:45 Appointment; Jasmin Trejo Encounter Diagnosis: Problem not documented On 14:45
--- OUTSIDE RECORDS SUMMARY | 2016-12-14 18:18 | XMS REPORT | Summary of Care ---
Author Author Papa Keys M.D. Organization Unknown Address [address], [place] [address] Phone Unavailable Care Team Providers Care Aquatics Specialist Name Role Phone Price Garcia M.D. [...] right lower leg (715.16, M17.11) Status: Active Medications Name Dates Details Dbqraxcpur-WOKC-Ggpqdpri 50-325-40 MG Oral Tablet TAKE ONE TABLET [...] Influenza Administered on:03-May-2012 Tdap (Adacel) Lot #: [id number] Administered on:14-May-2013 Fluzone Quadrivalent 0.5 ML Intramuscular Suspension Lot #: [id number] Administered on:03-Jun-2014 Fluzone Quadrivalent 0.5 ML Intramuscular Suspension Prefilled Syringe Lot #: [id number] Administered on:17-Jun-2015 Family History Grandfather* Name Dates [...] ([facility]) Range: 0-10 23-Nov-2015 09:09 URINE CULTURE [id number] Comments: Zbird performed at: [facility] [place] Daily [address], [address] [place] [address], Window Draper: Igor Perez D.O., MPHQuest Collection Date/Time: [id number] Results Received Date/Time: [id number] Reported Date/Time: [id number] performed at: [facility] [place] Zbird [address], [address] [place] [address], Window Draper: Igor Perez D.O., MPHQuest Collection Date/Time: [id number] Results Received Date/Time: [id number] Reported Date/Time: [id number] CULTURE, URINE, ROUTINE SEE NOTE (Abnormal) Comments: CULTURE, URINE, ROUTINE MICRO NUMBER: [id number] TEST STATUS: FINAL SPECIMEN SOURCE : URINE, [...] Date: 11/25/2015 09:22 XMR SPINE LUMBAR ([facility]) 30-Nov-2015 07:30 Clinical Trials 4045 Clinical Trials Clinical Trial Lab ([facility]) 14:02 MRI KNEE LEFT Comments: Exam Date: 11/30/2015 06:28Dictation Date : 11/30/2015 14:02 XMR EXT KNEE LEFT ([facility]) Plan of Care Planned Observations* Name [...]
--- OUTSIDE RECORDS SUMMARY | 2016-12-14 18:18 | XMS REPORT | Summary of Care ---
Author Author Ilya Montoya Organization Unknown Address [address] [place], [place] [address] Phone Unavailable Care Team Providers Care Pit Slagman Name Role Phone Price Garcia M.D. Unavailable [...] Marquez cyst, left (727.51, M71.22) Status: Active Never smoker Status: Active Degenerative arthritis of knee (715.36, M17.9) Status: Active Cervicogenic headache (784.0, R51) Status: Active Cervico-occipital neuralgia of right side (723.8, M54.81) Status: Active Effusion of left knee (719.06, M25.462) Status: Active Primary osteoarthritis of left knee (715.16, M17.12) Status: Active Medications Name Dates Details Koflpdxdzy-OKUO-Exetrgnm 50-325-40 MG Oral Tablet TAKE ONE TABLET [...] AT BEDTIME * Quantity: 120 Refills: 3 Priec Garcia M.D.* Started 30-Oct-2014 ActiveAtenolol 50 MG [...] Influenza Administered on:03-May-2012 Tdap (Adacel) Lot #: [id number] Administered on:14-May-2013 Fluzone Quadrivalent 0.5 ML Intramuscular Suspension Lot #: [id number] Administered on:03-Jun-2014 Fluzone Quadrivalent 0.5 ML Intramuscular Suspension Prefilled Syringe Lot #: [id number] Administered on:17-Jun-2015 Family History Grandfather* Name Dates [...] /min Status: O2 SAT 98 % Status: Results Date Description Value Details 17-Sep-2015 [...] Garcia On 11-Dec-2015 14:00 * Appointment; Provider: Harris Barragan On 03-Apr-2015 [...] not documented On 22-Apr-2015 10:15 Appointment; Harris Barargan Encounter Diagnosis: Problem not documented On 13-Apr-2015 [...]
--- OUTSIDE RECORDS SUMMARY | 2016-12-14 18:18 | XMS REPORT ---
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 52877116 Problem Depression F32.9 Active 674808546 Problem Neuropathy G62.9 Active 018248799 Problem Arthritis of left knee M19.90 Active 2983457140639490 Problem Tear of meniscus of left knee S83.207A Active Problem Fibromyalgia M79.7 Active 214661595 Problem Migraine headache G43.909 Active 57704198 Problem Elevated alkaline phosphatase level R74.8 Active 838438184 Problem High cholesterol E78.0 Active 18513103 Problem CAD (coronary artery disease) I25.10 Active 50759904 Problem Status post left knee replacement Z96.652 Active 867380664350 Problem High blood pressure I10 Active 95444563 ALLERGIES Unknown Allergies SOCIAL HISTORY No smoking Hx information available PLAN OF CARE VITAL SIGNS MEDICATIONS Unknown Medications RESULTS No Results PROCEDURES No Known procedures IMMUNIZATIONS No Known Immunizations
--- OUTSIDE RECORDS SUMMARY | 2016-12-14 18:18 | XMS REPORT | Summary of Care ---
Author Author Radha Titus, Price Organization Unknown Address Unknown Phone Unavailable Care Team Providers Care Software Firmware Engineer Name Role Phone Price Garcia M.D. Unavailable [...] M71.22) Status: Active Medications Name Dates Details Dqmuppjffa-FUEX-Tauqunfn 50-325-40 MG Oral Tablet TAKE ONE TABLET [...] Influenza Administered on:03-May-2012 Tdap (Adacel) Lot #: [id number] Administered on:14-May-2013 Fluzone Quadrivalent 0.5 ML Intramuscular Suspension Lot #: [id number] Administered on:03-Jun-2014 Fluzone Quadrivalent 0.5 ML Intramuscular Suspension Prefilled Syringe Lot #: [id number] Administered on:17-Jun-2015 Family History Grandfather* Name Dates [...] smoker Vital Signs Date Test Result Details 03-Sep-2015 10:52 BP Systolic 150 mm[Hg] Status: [...] 4045 Clinical Trials Clinical Trial Lab ([facility]) 02-Sep-2015 09:34 Clinical Trials 4045 Comments: Fastin hours Clinical Trials Clinical Trial Lab (Better) Plan of Care Planned Observations* Name Dates Details Planned Goals not documented Goal Planned Encounters* Appointment; Provider: Andre Pratt On 18-Jul-2016 11:00 * Appointment; Provider: Price Garcia On 14-Oct-2015 10:30 * Appointment; Provider: Harirs Barragan On 03-Apr-2015 13:00 * Appointment; Provider: [...] documented On 30-Sep-2013 15:30 Appointment; Melvin Cotto Diagnosis: Problem not documented On 10-Sep-2013 14:15
--- OUTSIDE RECORDS SUMMARY | 2016-12-14 18:19 | XMS REPORT ---
Author Author FriendKyara [facility] Address [address] [place], [place] [address] Care Team Providers Care Academic Advising Director Name Role Phone FriendKyara Unavailable [phone] PROBLEMS Type Condition ICD9-CM Code OJB37-II Code Onset Dates Condition Status SNOMED Code Problem Neuropathy G62.9 Active 932756518 Problem CAD (coronary artery disease) I25.10 Active 67227909 Problem Depression F32.9 Active 389083066 Problem Arthritis of left knee M19.90 Active 9896222639706508 Problem Tear of meniscus of left knee S83.207A Active Problem Fibromyalgia M79.7 Active 599021388 Problem 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
--- OUTSIDE RECORDS SUMMARY | 2016-12-14 18:19 | XMS REPORT | Referral Summary ---
Author Author [facility] Organization [facility] Address Unknown Phone Unavailable Care Team Providers Care Bacon Stringer Name Role Phone Aurora Garcia Primary Care Physician [phone] Encounter Date(s): 04/28/15 - 04/30/15 [facility] [address], [place] [address] Final: CORONARY ATHEROSCLEROSIS OF [place] CORONARY ARTERY Final: MALIGNANT ESSENTIAL HYPERTENSION Final: OTHER AND UNSPECIFIED HYPERLIPIDEMIA Final: Migraine, unspecified, without mention of intractable migraine, without mention of status migrainosus Final: PAIN IN LIMB Final: Personal History of Tobacco Use Discharge Disposition: 01-Home or Self Care Attending Physician: Ayde Hurtado MD Admitting Physician: Ayde Hurtado MD Vital Signs Most recent to 1 oldest [Reference Range]: Temperature Tympanic 36.5 degC [36.6-38.1 degC] *LOW* (04/29/15 4:00 AM) Temperature Temporal 36.8 degC Artery [36.3-37.8 (04/30/15 8:00 AM) degC] Peripheral Pulse 72 bpm Rate [60-100 bpm] (04/30/15 8:34 AM) Heart Rate Monitored 72 bpm [60-100 bpm] (04/30/15 8:00 AM) Respiratory Rate 18 br/min [14-20 br/min] (04/30/15 8:00 AM) Blood Pressure 112/72 mmHg [90-140/60-90 mmHg] (04/30/15 8:34 AM) Mean Arterial 97 mmHg Pressure, Cuff (04/30/15 2:54 AM) SpO2 94 % (04/30/15 8:00 AM) Problem List Condition Effective Dates Status Health [...] # 30 tabs, 11 Refill(s) , Pharmacy: [facility], 1 tabs Oral Daily,Instr:Take daily for one [...] to 1 oldest [Reference Range]: WBC [4.8-10.8 4.4 10*3/uL 10*3/uL] *LOW* (04/30/15 3:44 AM) RBC [4.00-5.20] 3.58 *LOW* (04/30/15 3:44 AM) Hgb [12.0-16.0 11.0 gm/dL gm/dL] *LOW* (04/30/15 3:44 AM) Hct [37.0-47.0 %] 33.4 % *LOW* (04/30/15 3:44 AM) MCV [82.0-99.0 fL] 93.3 fL (04/30/15 3:44 AM) MCH [27.0-32.0 pg] 30.7 pg (04/30/15 3:44 AM) MCHC [32.0-36.0 32.9 gm/dL gm/dL] (04/30/15 3:44 AM) RDW [11.5-14.5 %] 12.1 % (04/30/15 3:44 AM) Platelet [150-400 134 10*3/uL 10*3/uL] *LOW* (04/30/15 3:44 AM) MPV [9.4-12.4 fL] 10.3 fL (04/30/15 3:44 AM) Coagulation Most recent to 1 oldest [Reference Range]: INR [0.9-1.2] 1.0 (04/28/15 6:30 PM) PTT [25.0-35.0 29.1 seconds seconds] (04/28/15 6:30 PM) Chemistry Most recent to 1 oldest [Reference Range]: Sodium Lvl [136-144 131 mEq/L mEq/L] *LOW* (04/30/15 3:44 AM) Potassium Lvl 3.8 mEq/L [3.6-5.1 mEq/L] (04/30/15 3:44 AM) Chloride [99-109 99 mEq/L mEq/L] (04/30/15 3:44 AM) CO2 [22-32 mEq/L] 26 mEq/L (04/30/15 3:44 AM) AGAP [3-20] 6 (04/30/15 3:44 AM) BUN [4-20 mg/dL] 8 mg/dL (04/30/15 3:44 AM) Glucose Lvl [70-100 110 mg/dL mg/dL] *HI* (04/30/15 3:44 AM) Creatinine Lvl 0.58 mg/dL [0.44-1.03 mg/dL] (04/30/15 3:44 AM) eGFR [>60] >60 1 (04/30/15 3:44 AM) Calcium Lvl 9.2 mg/dL [8.6-10.0 mg/dL] (04/30/15 3:44 AM) Troponin [<0.06 0.06 ng/mL 2 ng/mL] (04/28/15 6:30 PM) Vitamin B12 Lvl 488 pg/mL [213-816 pg/mL] (04/28/15 6:29 PM) Chol [0-200 mg/dL] 270 mg/dL *HI* (04/28/15 5:30 AM) Trig [0-150 mg/dL] 118 mg/dL (04/28/15 5:30 AM) HDL [>40 mg/dL] 61 mg/dL (04/28/15 5:30 AM) LDL [0-100 mg/dL] 185 mg/dL *HI* (04/28/15 5:30 AM) VLDL Cholesterol 24 mg/dL [0-30 mg/dL] (04/28/15 5:30 AM) Cardiac Risk 4.4 [0.0-5.0] (04/28/15 5:30 AM) TSH with Reflex Free 4.47 T4 [0.35-5.50] (04/28/15 6:30 PM) Hgb A1c [4.1-5.6 %] 5.4 % (04/28/15 6:29 PM) eAvg Glucose 108.3 mg/dL (04/28/15 6:29 PM) 1Result Comment: Multiply eGFR results by 1.21 for race. 2Result Comment: Critical value called, and read-back verified. Called to Papa Correa RN 04/28/2015 19:07 Immunizations No data available for this section Procedures Procedure Date Related Diagnosis Body Site Appendectomy section Cholecystectomy Colonoscopy Renal arteriogram sinus surgery Tonsillectomy Tubal ligation Social History Social History Type Response Smoking Status Former smoker Assessment and Plan No data available for this section
--- OUTSIDE RECORDS SUMMARY | 2016-12-14 18:19 | XMS REPORT | Summary of Care ---
Author Author Yung Titus, Harris Boss Unknown Address [address], [place] [address] Phone Unavailable Care Team Providers Care Senior Contracts Administrator Name Role Phone Price Garcia M.D. Unavailable Unavailable Lisa MANAGER UNIX, Мария Unavailable Unavailable Smarsh[place] MANAGER UNIX, Crystal Unavailable Unavailable Price Garcia PP Unavailable [...] I25.10) Status: Active Medications Name Dates Details Qztvcosvny-XUTN-Iysktsnr 50-325-40 MG Oral Tablet TAKE ONE TABLET BY MOUTH EVERY 4 HOURS NEEDED MAX OF 6 TABLETS PER DAY MUST LAST 30 DAYS Quantity: 180 Price Garcia M.D.* Started 09-Jun-2014 ActiveTriamcinolone .1%/ Eucerin Compound (50/50 mix) -- 1 pound tub (454 grams) APPLY TO THE AFFECTED AREA TWICE DAILY * Quantity: 60 Refills: 0 Smarsh-Kutilek, Crystal MANAGER UNIX* Started 24-Jun-2014 ActiveQUEtiapine Fumarate 25 MG Oral [...] * Quantity: 1 Refills: 0 Мария Gonzalez MANAGER UNIX* Started 24-Jan-2015 Admin RequestedCyclobenzaprine HCl - 10 [...] Refills: 0 Price Garcia M.D.* Started 05-May-2015 Active Allergies [...] Influenza Administered on:03-May-2012 Tdap (Adacel) Lot #: [id number] Administered on:14-May-2013 Fluzone Quadrivalent 0.5 ML Intramuscular Suspension Lot #: [id number] Administered on:03-Jun-2014 Family History Grandfather* Name Dates [...] Vital Signs Date Test Result Details 05-May-2015 11:18 BP Systolic 160 mm[Hg] Status: [...]
--- OUTSIDE RECORDS SUMMARY | 2016-12-14 18:19 | XMS REPORT ---
Author Author [employer], SYSTEM Organization Unknown Address Unknown Phone Unavailable Care Team Providers Care Telephone Operators Supervisor Name Role Phone MD DENISE, GARY CASTILLO Unavailable Reason For Visit Chief Complaint L LEG PAIN AND SWELLING, FATIGUE Social History Functional Status Vital Signs Results [...]
--- OUTSIDE RECORDS SUMMARY | 2016-12-14 18:19 | XMS REPORT | Summary of Care ---
Author Author Conner Bustos M.D. Unknown Address [address], [place] [address] Phone Unavailable Care Team Providers Care Wheel Press Operator Name Role Phone Price Garcia M.D. 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) Status: Active Migraine headache (346.90, G43.909) Status: Active Acute knee pain, left (719.46, M25.562) Status: Active Medications Name Dates Details Diazepam 10 MG Oral Tablet TAKE ONE TABLET BY MOUTH EVERY 8 HOURS NEEDED MUST LAST 30 DAYSMAY FILL ON OR AFTER 11/14/15 Quantity: 90 Price Garcia M.D.* Started 30-Oct-2014 ActiveFluvoxaMINE Maleate [...] 90 Refills: 3 Price Garcia M.D.* Started YaqdxrYfsuuyaqnh-AVGZ-Teeemaop 50-325-40 MG Oral Tablet TAKE ONE TABLET BY MOUTH EVERY 4 HOURS NEEDED MAX OF 6 TABLETS PER DAY MUST LAST 30 DAYSMAY FILL ON OR AFTER 11/12/15* * Quantity: 180 Refills: 0 Price Garcia M.D.* Started 09-Jun-2014 ActiveLosartan Potassium 100 MG Oral Tablet TAKE 1 TABLET DAILY. * Quantity: 30 Refills: 6 Price Garcia M.D.* Started 05-May-2015 ActiveLortab 10-325 MG Oral Tablet ONE TABLET BY MOUTH EVERY 6-8 HOURS NEEDED WITH MAX OF 3 PER DAY * Quantity: 90 Refills: 0 Papa Keys M.D.* Started 18-Nov-2015 ActiveZolpidem Tartrate 10 MG Oral Tablet TAKE [...] Endoscopy With Dilation Of Sphenoid Sinus Ostium MRI KNEE LEFT Ordered:26-Nov-2015 Immunization Name Dates Details Influenza Administered on:21-Jun-2011 Influenza Administered on:03-May-2012 Tdap (Adacel) Lot #: [id number] Administered on:14-May-2013 Fluzone Quadrivalent 0.5 ML Intramuscular Suspension Lot #: [id number] Administered on:03-Jun-2014 Fluzone Quadrivalent 0.5 ML Intramuscular Suspension Prefilled Syringe Lot #: [id number] Administered on:17-Jun-2015 Family History Grandfather* Name Dates [...] (Better) Range: 0-10 23-Nov-2015 09:09 URINE CULTURE [id number] Comments: Navidog performed at: [facility], [address] [place] [address], [phone], Flight Engineer Manager: Igor Perez D.O., MPHQuest Collection Date/Time: [id number] Results Received Date/Time: [id number] Reported Date/Time: [id number] performed at: [facility], [address] [place] [address], [phone], Flight Engineer Manager: Igor Perez D.O., MPHQuest Collection Date/Time: [id number] Results Received Date/Time: [id number] Reported Date/Time: [id number] CULTURE, URINE, ROUTINE SEE NOTE (Abnormal) Comments: CULTURE, URINE, ROUTINE MICRO NUMBER: [id number] TEST STATUS: FINAL SPECIMEN SOURCE : URINE, [...] Date: 11/25/2015 09:22 XMR SPINE LUMBAR ([facility]) 30-Nov-2015 07:30 Clinical Trials 4045 Clinical Trials Clinical Trial Lab ([facility]) Plan of Care Planned Observations* [...]
--- OUTSIDE RECORDS SUMMARY | 2016-12-14 18:20 | XMS REPORT | Summary of Care ---
Author Author Price Garcia M.D. Organization Unknown Address Unknown Phone Unavailable Care Team Providers Care Kosher Sealer Name Role Phone Price Garcia M.D. 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, F41.8) Status: Active Localized primary osteoarthritis of left lower leg (715.16, M17.12) Status: Active Localized primary osteoarthritis of right lower leg (715.16, M17.11) Status: Active Primary osteoarthritis of left knee (715.16, M17.12) Status: Active Spondylolysis, lumbar region (738.4, M43.06) Status: Active Medications Name Dates Details Dawugrkraf-DUQT-Oselqpfw 50-325-40 MG Oral Tablet TAKE 1 TABLET BY MOUTH EVERY 6 HRS NEEDED MAX OF 4 TABS PER DAY MUST LAST 30 DAYSMAY FILL ON OR AFTER 02/09/16* Quantity: 120 Price Garcia M.D.* Started 09-Jun-2014 ActiveQUEtiapine Fumarate 200 MG Oral Tablet TAKE [...] Refills: 0 Papa Keys M.D.* Started 23-Dec-2015 [id number] GM Pump Btl Acetaminophen-Codeine 300-30 MG Oral [...] Influenza Administered on:03-May-2012 Tdap (Adacel) Lot #: [id number] Administered on:14-May-2013 Fluzone Quadrivalent 0.5 ML Intramuscular Suspension Lot #: [id number] Administered on:03-Jun-2014 Fluzone Quadrivalent 0.5 ML Intramuscular Suspension Prefilled Syringe Lot #: [id number] Administered on:17-Jun-2015 Family History Grandfather* Name Dates [...] not documented On 06-Jun-2015 10:55 Appointment; Lesley Trmible Encounter Diagnosis: Problem not documented On 02-Jun-2015 [...]
--- OUTSIDE RECORDS SUMMARY | 2016-12-14 18:20 | XMS REPORT | Summary of Care ---
Author Author Price Garcia M.D. Organization Unknown Address Unknown Phone Unavailable Care Team Providers Care Filter Cloth Maker Name Role Phone Price Garcia M.D. 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, M47.812) Status: Active Cervicogenic headache (784.0, R51) Status: Active Migraine headache (346.90, G43.909) Status: Active Medications Name Dates Details Triamcinolone .1%/ Eucerin Compound (50/50 mix) -- 1 pound tub (454 grams) APPLY TO THE AFFECTED AREA TWICE DAILY Quantity: 60 Smarsh-Kutilek, Crystal CARTOGRAPHY TECHNICIAN* Started 24-Jun-2014 ActiveFluvoxaMINE Maleate 100 MG Oral [...] * Quantity: 1 Refills: 0 Мария Gonzalez CARTOGRAPHY TECHNICIAN* Started 24-Jan-2015 Admin RequestedCyclobenzaprine HCl - 10 [...] Refills: 0 Price Garcia M.D.* Started 30-Oct-2014 WtagkgZfepgarbcq-QKBZ-Txbynhub 50-325-40 MG Oral Tablet TAKE ONE TABLET BY MOUTH EVERY 4 HOURS NEEDED MAX OF 6 TABLETS PER DAY MUST LAST 30 DAYS * Quantity: 180 Refills: 0 Price Garcia M.D.* Started 09-Jun-2014 ActiveZolpidem Tartrate ER 12.5 MG Oral Tablet Extended Release TAKE ONE TABLET BY MOUTH AT BEDTIME * Quantity: 30 Refills: 0 Price Garcia M.D.* Started 30-Oct-2014 ActiveAcetaminophen-Codeine #3 300-30 MG Oral Tablet TAKE [...] Influenza Administered on:03-May-2012 Tdap (Adacel) Lot #: [id number] Administered on:14-May-2013 Fluzone Quadrivalent 0.5 ML Intramuscular Suspension Lot #: [id number] Administered on:03-Jun-2014 Family History Grandfather* Name Dates [...] smoker Vital Signs Date Test Result Details 09-Jun-2015 15:06 BP Systolic 178 mm[Hg] Status: [...] Body Surface Area Calculated 1.71 m2 Status: 14-May-2015 15:11 BP Systolic 116 mm[Hg] Status: BP Diastolic 72 mm[Hg] Status: Temperature 97.5 c Status: Heart Rate 72 /min Status: Respiration Rate 20 /min Status: Height 66 in Status: Weight 138 lb Status: O2 SAT 97 % Status: Body Mass Index Calculated 22.27 kg/m2 Status: Body Surface Area Calculated 1.71 m2 Status: Results Date Description Value Details 14-May-2015 15:30 Urinalysis, Reflex to Microscopic or [...] U TRANSEPI 0-2 /HPF (Better) Range: 0-2 18-May-2015 09:32 URINE CULTURE [id number] Comments: [employer] performed at: [facility] [facility], [address] [place] [address], [phone], Lip Of Shank Cutter: Igor Perez D.O., MPHQuest Collection Date/Time: [id number] Results Received Date/Time: [id number] Reported Date/Time: [id number] performed at: [facility] [employer] [facility], [address] [place] [address], [phone], Lip Of Shank Cutter: Igor Perez D.O., MPHQuest Collection Date/Time: [id number] Results Received Date/Time: [id number] Reported Date/Time: [id number] CULTURE, URINE, ROUTINE SEE NOTE (Abnormal) Comments: CULTURE, URINE, ROUTINE MICRO NUMBER: [id number] TEST STATUS: FINAL SPECIMEN SOURCE : URINE, CLEAN CATCH SPECIMEN QUALITY: ADEQUATE RESULT: Greater than 100,000 CFU/mL of Escherichia coli E.coli INT NEHA AMOX/ CLAVULANATE S 4 AMPICILLIN S 4 AMP/SULBACTAM S 4 CEFAZOLIN NR <=4 1 CEFEPIME S <=1 CEFTRIAXONE S <=1 CIPROFLOXACIN S <= 0.25 ERTAPENEM S <=0.5 GENTAMICIN S <=1 IMIPENEM [...] to to confirm susceptibility to parenteral cefazolin.[KS]----- 21-May-2015 10:41 Comprehensive Metabolic Panel 1212 Comments: [...] ml/min (Better) Range: >60 EST GFR, NON-AFR [place] >60 ml/min (Better) Range: >60 Comments: EST GFR is reported in ml/min per 1.73 m2 of body surface area. For -Gambian, please multiple result by 1.2.----- GLUCOSE 106 [...] Garcia On 17-Jun-2015 10:15 * Appointment; Provider: Harris Barragan On [...] not documented On 22-Jan-2014 09:15 Appointment; Juan Mednez Encounter Diagnosis: Problem not documented On 21-Jan-2014 [...]
--- OUTSIDE RECORDS SUMMARY | 2016-12-14 18:20 | XMS REPORT | Summary of Care ---
Author Author Gordon Mancera M.D. Organization Unknown Address [address] [place], [place] [address] Phone Unavailable Care Team Providers Care Hand Mica Plate Layer Name Role Phone Price Garcia M.D. Unavailable Unavailable Lisa REALTIME COURT REPORTER, Мария Unavailable Unavailable [place]arsh[place] REALTIME COURT REPORTER, Crystal Unavailable Unavailable Price Garcia PP Unavailable [...] G43.909) Status: Active Medications Name Dates Details Jalkjxnkab-CYFC-Ahcfskpu 50-325-40 MG Oral Tablet TAKE ONE TABLET BY MOUTH EVERY 4 HOURS NEEDED MAX OF 6 TABLETS PER DAY MUST LAST 30 DAYS Quantity: 180 Price Garcia M.D.* Started 09-Jun-2014 ActiveTriamcinolone .1%/ Eucerin Compound (50/50 mix) -- 1 pound tub (454 grams) APPLY TO THE AFFECTED AREA TWICE DAILY * Quantity: 60 Refills: 0 Jessica Nguyen REKHA* Started 24-Jun-2014 ActiveQUEtiapine Fumarate 25 MG Oral Tablet TAKE 1 TABLET IN MORNING, THEN TAKE 1 TABLET IN EVENING, THEN TAKE 2 TABLETS AT BEDTIME * Quantity: 120 Refills: 3 Price Garcia M.D.* Started 30-Oct-2014 ActiveFluvoxaMINE Maleate [...] Influenza Administered on:03-May-2012 Tdap (Adacel) Lot #: [id number] Administered on:14-May-2013 Fluzone Quadrivalent 0.5 ML Intramuscular Suspension Lot #: [id number] Administered on:03-Jun-2014 Family History Grandfather* Name Dates [...] smoker Vital Signs Date Test Result Details 06-Jun-2015 10:57 BP Systolic 155 mm[Hg] Status: [...] (Better) Range: 0-2 18-May-2015 09:32 URINE CULTURE [id number] Comments: Phobious performed at: [facility], [address] [place] [address], [phone], Kiln Maintenance: Igor Perez D.O., MPHQuest Collection Date/Time: [id number] Results Received Date/Time: [id number] Reported Date/Time: [id number] performed at: [facility], [address] [place] [address], [phone], Kiln Maintenance: Igor Perez D.O., MPHQuest Collection Date/Time: [id number] Results Received Date/Time: [id number] Reported Date/Time: [id number] CULTURE, URINE, ROUTINE SEE NOTE (Abnormal) Comments: CULTURE, URINE, ROUTINE MICRO NUMBER: [id number] TEST STATUS: FINAL SPECIMEN SOURCE : URINE, [...] ml/min (Better) Range: >60 EST GFR, NON-AFR JAPANESE >60 ml/min (Better) Range: >60 Comments: EST GFR is reported in ml/min per 1.73 m2 of body surface area. For -Vincentian, please multiple result by 1.2.----- GLUCOSE 106 [...] Garcia On 17-Jun-2015 10:15 * Appointment; Provider: Lesley Trimble On 11-Jun-2015 14:00 * Appointment; Provider: Lesley Trimble On 09-Jun-2015 14:00 * Appointment; Provider: Harris Barragan On 03-Apr-2015 13:00 * Appointment; Provider: Schedule Radiology On 07:00 Instructions * Instructions not documented Encounters Appointment; Gordon Mancera Encounter Diagnosis: Problem not documented On 06-Jun-2015 10:55 Appointment; Lesley Trimble Encounter Diagnosis: Problem not documented On 02-Jun-2015 11:30 Appointment; Price Garcia Encounter Diagnosis: Problem not documented On 22-May-2015 13:15 Appointment; Price Garcia Encounter Diagnosis: Problem not documented On 14-May-2015 15:15 Appointment; Price Garcia Encounter Diagnosis: Problem not documented On 05-May-2015 11:00 Appointment; Hraris Barragan Encounter Diagnosis: Problem not documented On [...]
--- OUTSIDE RECORDS SUMMARY | 2016-12-14 18:21 | XMS REPORT ---
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 95704915 Problem Depression F32.9 Active 585739913 Problem Neuropathy G62.9 Active 190467627 Problem Arthritis of left knee M19.90 Active 3404066981211173 Problem Tear of meniscus of left knee S83.207A Active Problem Fibromyalgia M79.7 Active 698981795 Problem Migraine headache G43.909 Active 71863170 Problem Elevated alkaline phosphatase level R74.8 Active 989112051 Problem High cholesterol E78.0 Active 12983373 Problem CAD (coronary artery disease) I25.10 Active 75659061 Problem Status post left knee replacement Z96.652 Active 837677247869 Problem High blood pressure I10 Active 37940652 ALLERGIES Unknown Allergies SOCIAL HISTORY No smoking Hx information available PLAN OF CARE VITAL SIGNS MEDICATIONS Unknown Medications RESULTS No Results PROCEDURES No Known procedures IMMUNIZATIONS No Known Immunizations
--- OUTSIDE RECORDS SUMMARY | 2016-12-14 18:21 | XMS REPORT | Summary of Care ---
Author Author Linda Bingham APRN Organization Unknown Address [address], [place] [id number] Phone Unavailable Care Team Providers Care Carry Out Clerk Name Role Phone Price Garcia M.D. Unavailable [...] G43.909) Status: Active Medications Name Dates Details Siecjfkksw-SNPM-Pzghtlen 50-325-40 MG Oral Tablet TAKE ONE TABLET [...] Influenza Administered on:03-May-2012 Tdap (Adacel) Lot #: [id number] Administered on:14-May-2013 Fluzone Quadrivalent 0.5 ML Intramuscular Suspension Lot #: [id number] Administered on:03-Jun-2014 Fluzone Quadrivalent 0.5 ML Intramuscular Suspension Prefilled Syringe Lot #: [id number] Administered on:17-Jun-2015 Family History Grandfather* Name Dates [...] smoker Vital Signs Date Test Result Details 26-Aug-2015 08:58 BP Systolic 121 mm[Hg] Status: [...] Garcia On 14-Oct-2015 10:30 * Appointment; Provider: Harris Barragan On 03-Apr-2015 [...] documented On 20-Nov-2013 13:00 Appointment; Melvin Cotto Diagnosis: Problem not documented On 13-Nov-2013 11:00 Appointment; Melvin Cotto Encounter Diagnosis: Problem not documented On 30-Oct-2013 11:00 Appointment; Melvin Cotto Diagnosis: Problem not documented On 25-Oct-2013 15:30 Appointment; Jasmin Trejo Encounter Diagnosis: Problem not documented On 10-Oct-2013 11:10 Appointment; Melvin Cotto Diagnosis: Problem not documented On 07-Oct-2013 10:45 Appointment; Melvin Cotto Encounter Diagnosis: Problem not documented On 30-Sep-2013 15:30 Appointment; Melvin Cotto Diagnosis: Problem not documented On 10-Sep-2013 14:15 Appointment; Melvin Cotto Encounter Diagnosis: Problem not documented On 27-Aug-2013 15:45
--- OUTSIDE RECORDS SUMMARY | 2016-12-14 18:21 | XMS REPORT | Continuity of care Document ---
[...] has not been performed. Results Chemistry from 01/19/2014 10:12 PMSODIUM 136 MMOL/L (136-145 MMOL/L) POTASSIUM 3.4 MMOL/L L (3.5-5.1 MMOL/L) CHLORIDE 101 MMOL/L (98-107 MMOL/L) TCO2 28.3 MMOL/L (21.0-32.0 MMOL/L) ANION GAP 6.7 MMOL/L L (8.0-16.0 MMOL/L) BUN 20 MG/DL H (7-18 MG/DL) CREATININE 0.92 MG/DL H (0.43-0.83 MG/DL) BUN/CREATININE RATIO 21.7 H (9.1-17.0 ) GLUCOSE 135 MG/DL H (65-99 MG/DL) GFR EST NON AFR ARMENIAN 68 ML/MIN GFRA EST AFR AMER 79 ML/MIN CALCIUM 9.5 MG/DL (8.5-10.1 MG/DL) BILIRUBIN TOTAL 0.30 MG/DL (0.20-1.00 MG/DL) TOTAL PROTEIN 6.4 GM/DL (6.4-8.2 GM/DL) ALBUMIN 3.6 GM/DL (3.4-5.0 GM/DL) GLOBULIN 2.8 GM/DL (2.3-3.5 GM/DL) A/G RATIO 1.3 MG/DL L (1.5-2.2 MG/DL) ALK PHOS 79 U/L (46-116 U/L) ALT (SGPT) 28 U/L (12-78 U/L) AST (SGOT) 20 U/L (15-37 U/L) ALCOHOL <0.003 GM/DL ACETAMINOPHEN 4 MCG/ML L (10-30 MCG/ML) SALICYLATE 5.1 MG/DL (2.8-20.0 MG/DL) Chemistry from 01/19/2014 11:15 PMCOCAINE NEGATIVE (NEG <150 ) PCP NEGATIVE (NEG <25 ) OXYCODONE NEGATIVE (NEG <100 ) *PROPOXYPHENE (NORPROPOXYPHENE) (LAB) NEGATIVE (NEG <300 ) CANNABINOIDS NEGATIVE (NEG <50 ) BENZODIAZEINE NEGATIVE (NEG <150 ) AMPHETAMINE NEGATIVE (NEG <500 ) BARBITURATES NEGATIVE (NEG <200 ) METHAMPHETAMINES NEGATIVE (NEG <500 ) METHADONE (UR) NEGATIVE (NEG <200 ) OPIATES POSITIVE A (NEG <100 ) TRICYCLICS POSITIVE A (NEG <300 ) Hematology from 01/19/2014 10:12 PMWBC 11.2 X10e3/UL (3.6-11.2 X10e3/UL) RBC 4.14 X10e6/UL (3.63-4.92 X10e6/UL) HEMOGLOBIN 12.0 G/DL (11.0-14.3 G/DL) HEMATOCRIT 35.9 % (31.2-41.9 %) MCV 86.8 FL (79.0-98.0 FL) MCH 28.9 PG (27.0-33.0 PG) MCHC 33.3 G/DL (32.0-36.0 G/DL) RDW 12.3 % (12.3-17.0 %) RDWSD 37.2 (37.1-47.8 ) PLATELET 220 X10e3/UL (159-386 X10e3/UL) MPV 7.1 FL L (7.4-10.4 FL) AUTOMATED DIFF PERFORMED SEGS 80.7 % LYMPHOCYTES 13.2 % MONOCYTES 5.9 % EOSINOPHILS 0.0 % BASOPHILS 0.2 % ABSOLUTE NEUTROPHILS 9.1 X10e3/UL H (1.8-7.8 X10e3/UL) ABSOLUTE LYMPHOCYTES 1.5 X10e3/UL (1.0-3.0 X10e3/UL) ABSOLUTE MONOCYTES 0.7 X10e3/UL (0.3-1.0 X10e3/UL) ABSOLUTE EOSINOPHILS 0.0 X10e3/UL (0.0-0.5 X10e3/UL) ABSOLUTE BASOPHILS 0.0 X10e3/UL (0.0-0.2 X10e3/UL) Urinalysis from 01/19/2014 11:15 PMURINE COLOR DK YELLOW (STRAW/YELL/DK YELL ) URINE APPEARANCE SL CLOUDY A (CLEAR ) URINE PH 6.0 (5.0-8.0 ) URINE SPECIFIC GRAVITY >=1.030 (<=1.005->=1.030 ) URINE GLUCOSE NEGATIVE MG/DL (NEGATIVE MG/DL) URINE BILIRUBIN NEGATIVE (NEGATIVE ) URINE KETONES TRACE MG/DL A (NEGATIVE MG/DL) URINE BLOOD Trace-Intact A (NEGATIVE ) URINE PROTEIN TRACE MG/DL A (NEGATIVE MG/DL) URINE UROBILINOGEN 0.2 EU/DL (0.2-1.0 EU/DL) URINE NITRITES NEGATIVE (NEGATIVE ) *URINE LEUKOCYTES SMALL A (NEGATIVE ) MICROSCOPIC EXAM PERFORMED PERFORMED WBC 0-1 /HPF (0-5 /HPF) RBC 0-1 /HPF (0-1 /HPF) SQUAMOUS EP. CELLS FEW /LPF (NEG-FEW /LPF) TRANSITIONAL EP. CELLS FEW /LPF (NEG-FEW /LPF) BACTERIA MODERATE /HPF A (NEGATIVE /HPF) HYALINE CASTS >10 /LPF A (0 /LPF) AMORPH. URATE RAMONITA. FEW /HPF (NEGATIVE /HPF) COMMENT See Below Coagulation from 01/19/2014 10:12 PMPROTHROMBIN TIME 10.4 SECONDS (9.4-11.5 SECONDS) INR 1.0 PARTIAL THROMBOPLASTIN TIME 18.0 SECONDS L (22.0-28.0 SECONDS) Microbiology from 01/19/2014 11:15 PM* CULTURE URINE Specimen Number: [id number] Specimen Source: Sample Collection Date/Time: 01/19/2014 11:15 PM CULTURE URINE: >100,000 cfu/ml 3 or more mixed colony types Suggestive of colonization or contamination Report Status: FINAL DX Radiology from 01/19/2014 9:57 PMCHEST 1 VIEW DATE OF EXAM: Jan 19 2014 10: 11PM Proc: DG 0066 - CHEST 1 VIEW CPT Code(s): 59606-; ; ; INDICATION / CLINICAL HISTORY: Hypertension COMPARISON: None. FINDINGS: The cardiac silhouette and pulmonary vasculature are within normal limits. There are no acute infiltrates or effusions. IMPRESSION: Negative chest. CT Scan from 01/19/2014 9:55 PMCT FACIAL BONES W/O CONTRAST DATE OF EXAM: Jan 19 2014 10:21PM Proc: CT 0008 - CT FACIAL BONES W/O CONTRAST CPT Code(s): 74993-; ; ; INDICATION / CLINICAL HISTORY: Fall. Facial pain COMPARISON: None. FINDINGS: There is mild motion artifact particularly at the level of the lower mandible, which slightly limits the evaluation, particularly in this region. No discrete fracture is demonstrated. The intraorbital contents are unremarkable. There is minimal opacification of the sphenoid sinus. There is mild rightward deviation of the nasal septum. The osteomeatal units are patent. IMPRESSION: 1. No acute osseous abnormality. 2. Minimal opacification of the sphenoid sinuses. CT SPINE CERVICAL W/O CONTRAST DATE OF EXAM: Jan 19 2014 10:21PM Proc: CT 0051 - CT SPINE CERVICAL W/O CONTRAST CPT Code(s): 56708-; ; ; INDICATION / CLINICAL HISTORY: Fall. Neck Injury and pain. COMPARISON: None. FINDINGS: The cervical vertebral bodies are normal in height and alignment. No acute fracture is demonstrated. There is reversal of the normal cervical lordosis. This is likely positional in nature. Other etiologies such muscle spasm could also be considered. The prevertebral soft tissues are unremarkable. IMPRESSION: Straightening of normal cervical lordosis without acute osseous abnormality. CT Scan from 01/19/2014 9:56 PMCT CEREBRAL W/O CONTRAST DATE OF EXAM: Jan 19 2014 10:21PM Proc: CT 0001 - CT CEREBRAL W/O CONTRAST CPT Code(s): 78954-; ; ; INDICATION / CLINICAL HISTORY: Head Injury. Fall. COMPARISON: 01/18/14. FINDINGS: The ventricles are normal in size and configuration. There is no mass effect or midline shift. No intracranial hemorrhage or abnormal extraaxial fluid collections are demonstrated. There are no displaced skull fractures. There is minimal mucosal thickening of the ethmoid sinus. IMPRESSION: No acute intracranial processes.
--- OUTSIDE RECORDS SUMMARY | 2016-12-14 18:21 | XMS REPORT | Summary of Care ---
Author Author Gaston Hare M.D. Organization Unknown Address [address], [place] [address] Phone Unavailable Care Team Providers Care Drum Tender Name Role Phone Price Garcia M.D. Unavailable Unavailable Lisa PHARMACY TECHNICIAN INSTRUCTOR, Мария Unavailable Unavailable Smarsh[place] PHARMACY TECHNICIAN INSTRUCTOR, Crystal Unavailable Unavailable Price Garcia PP [...] G43.909) Status: Active Medications Name Dates Details Mmbyvlayna-KUZG-Egryczmn 50-325-40 MG Oral Tablet TAKE ONE TABLET BY MOUTH EVERY 4 HOURS NEEDED MAX OF 6 TABLETS PER DAY MUST LAST 30 DAYS Quantity: 180 Price Garcia M.D.* Started 09-Jun-2014 ActiveTriamcinolone .1%/ Eucerin Compound (50/50 mix) -- 1 pound tub (454 grams) APPLY TO THE AFFECTED AREA TWICE DAILY * Quantity: 60 Refills: 0 Jessica Nguyen PHARMACY TECHNICIAN INSTRUCTOR* Started 24-Jun-2014 ActiveFluvoxaMINE Maleate 100 MG Oral Tablet TAKE 1 TABLET AT BEDTIME. * Quantity: 30 Refills: 5 Price Garcia M.D.* Started 30-Oct-2014 ActiveNalbuphine HCl - 10 MG/ML Injection Solution Inject 10mg IM x 1 now * Quantity: 1 Refills: 0 Мария Gonzalez PHARMACY TECHNICIAN INSTRUCTOR* Started 24-Jan-2015 Admin RequestedPromethazine HCl - 25 MG/ML Injection Solution Inject 12.5mg IM x 1 now * Quantity: 1 Refills: 0 Мария Gonzalez PHARMACY TECHNICIAN INSTRUCTOR* Started 24-Jan-2015 Admin RequestedCyclobenzaprine HCl - 10 MG Oral Tablet TAKE 1 TABLET 3 TIMES DAILY NEEDED. * Quantity: 90 Refills: 3 Price aGrcia M.D.* Started ActiveAspirin 325 MG Oral Tablet [...] Influenza Administered on:03-May-2012 Tdap (Adacel) Lot #: [id number] Administered on:14-May-2013 Fluzone Quadrivalent 0.5 ML Intramuscular Suspension Lot #: [id number] Administered on:03-Jun-2014 Family History Grandfather* Name Dates [...] (Better) Range: 0-2 18-May-2015 09:32 URINE CULTURE [id number] Comments: Yellowsmith performed at: [facility], [address] [place] [address], [id number], Laborer Construction Or Leak Gang: Igor Perez D.O., MPHQuest Collection Date/Time: [id number] Results Received Date/Time: [id number] Reported Date/Time: [id number] performed at: [facility], [address] [place] [address], [id number], Laborer [employer] Leak Gang: Igor Perez D.O., MPHQuest Collection Date/Time: [id number] Results Received Date/Time: [id number] Reported Date/Time: [id number] CULTURE, URINE, ROUTINE SEE NOTE (Abnormal) Comments: CULTURE, URINE, ROUTINE MICRO NUMBER: [id number] TEST STATUS: FINAL SPECIMEN SOURCE : URINE, [...] ml/min (Better) Range: >60 EST GFR, NON-AFR MACANESE >60 ml/min (Better) Range: >60 Comments: EST GFR is reported in ml/min per 1.73 m2 of body surface area. For -Nauruan, please multiple result by 1.2.----- GLUCOSE 106 [...] Trimble On 11-Jun-2015 14:00 * Appointment; Provider: Harris Barragan On [...] not documented On 21-Jul-2014 14:00 Appointment; Andre rPatt Encounter Diagnosis: Problem not documented On 14-Jul-2014 [...] Problem not documented On 10-Jan-2014 09:30 Appointment; Mlevin Cotto Encounter Diagnosis: Problem not [...]
--- OUTSIDE RECORDS SUMMARY | 2016-12-14 18:21 | XMS REPORT | Summary of Care ---
Author Author Jose Jimenez M.D. Unknown Address [address] [place], [place] [id number] Phone Unavailable Care Team Providers Care Cad Design Engineer Name Role Phone Price Garcia M.D. Unavailable Unavailable Мария Gonzalez APRN Unavailable Unavailable Valentina Jimenez M.D. Unavailable Unavailable Price Garcia PP Unavailable [...] Active Post-op pain (338.18, G89.18) Status: Active Medications Name Dates Details Tmdwamoltg-QOKL-Tcwcjbdb 50-325-40 MG Oral Tablet TAKE ONE TABLET [...] 1 now * Quantity: 1 Refills: 0 Lisa Мария DA SILVA* Started 24-Jan-2015 Admin RequestedPromethazine HCl - 25 MG/ML Injection Solution Inject 12.5mg IM x 1 now * Quantity: 1 Refills: 0 Мария Gonzalez DISTRICT WILDLIFE MANAGER* Started 24-Jan-2015 Admin RequestedAspirin 325 MG Oral [...] Influenza Administered on:03-May-2012 Tdap (Adacel) Lot #: [id number] Administered on:14-May-2013 Fluzone Quadrivalent 0.5 ML Intramuscular Suspension Lot #: [id number] Administered on:03-Jun-2014 Fluzone Quadrivalent 0.5 ML Intramuscular Suspension Prefilled Syringe Lot #: [id number] Administered on:17-Jun-2015 Family History Grandfather* Name Dates [...] ml/min (Better) Range: >60 EST GFR, NON-AFR CITIZEN OF [place] >60 ml/min (Better) Range: >60 Comments: EST GFR is reported in ml/min per 1.73 m2 of body surface area. For -Yemeni, please multiple result by 1.2.----- GLUCOSE 124 [...] 1.0-1.8 CALCIUM 9.9 mg/dL (Better) Range: 8.5-10.1 Plan of Care Planned Observations* Name Dates Details Planned Goals not documented Goal Planned Encounters* Appointment; Provider: Andre Pratt On 18-Jul-2016 11:00 * Appointment; Provider: Price Garcia On 11-Dec-2015 14:00 * Appointment; Provider: Jose Jimenez On 29-Oct-2015 13:30 * Appointment; Provider: Harris Barragan On [...]
--- OUTSIDE RECORDS SUMMARY | 2016-12-14 18:22 | XMS REPORT | Summary of Care ---
Author Author West Berrios D.O. Organization Unknown Address [address], [place] [address] Phone Unavailable Care Team Providers Care Supervisor Paper Coating Name Role Phone Price Garcia M.D. Unavailable [...] M25.562) Status: Active Medications Name Dates Details Feremxnqys-CTCK-Svovlyjk 50-325-40 MG Oral Tablet TAKE ONE TABLET BY MOUTH EVERY 6 HOURS NEEDED MAX OF 4 TABLETS PER DAY MUST LAST 30 DAYSMAY FILL ON OR AFTER 01/11/16* Quantity: 120 Price Garcia M.D.* Started 09-Jun-2014 ActiveQUEtiapine Fumarate 25 MG Oral Tablet TAKE 1 TABLET IN MORNING, THEN TAKE 1 TABLET IN EVENING, THEN TAKE 2 TABLETS AT BEDTIME * Quantity: 120 Refills: 3 rPice Garcia M.D.* Started 30-Oct-2014 ActiveDiazepam 10 MG [...] * Quantity: 1 Refills: 0 Lisa, Мария PROGRAM COUNSELOR* Started 24-Jan-2015 Admin RequestedAspirin 325 MG Oral [...] Refills: 0 Papa Keys M.D.* Started 02-Dec-2015 ActivePennsaid 2 % Transdermal Solution Apply 2 pumps twice daily over area of pain. * Quantity: 1 Refills: 0 Papa Keys M.D.* Started 23-Dec-2015 [id number] GM Pump Btl Acetaminophen-Codeine 300-30 MG Oral [...] Influenza Administered on:03-May-2012 Tdap (Adacel) Lot #: [id number] Administered on:14-May-2013 Fluzone Quadrivalent 0.5 ML Intramuscular Suspension Lot #: [id number] Administered on:03-Jun-2014 Fluzone Quadrivalent 0.5 ML Intramuscular Suspension Prefilled Syringe Lot #: [id number] Administered on:17-Jun-2015 Family History Grandfather* Name Dates [...] Problem not documented On 07-Aug-2015 13:15 Appointment; nAdre Pratt Encounter Diagnosis: Problem not documented On [...]
--- OUTSIDE RECORDS SUMMARY | 2016-12-14 18:22 | XMS REPORT | Summary of Care ---
Author [facility] Address [address] [place] [address] Phone Unavailable Care Team Providers Care Assessment Nurse Practitioner Name Role Phone Price Garcia M.D. Unavailable [...] M25.562) Status: Active Medications Name Dates Details Bvqumfdhyp-EDSV-Xekkjtiv 50-325-40 MG Oral Tablet TAKE ONE TABLET [...] 90 Refills: 3 Price Garcia M.D.* Started ActiveZolpidem Tartrate 10 [...] Influenza Administered on:03-May-2012 Tdap (Adacel) Lot #: [id number] Administered on:14-May-2013 Fluzone Quadrivalent 0.5 ML Intramuscular Suspension Lot #: [id number] Administered on:03-Jun-2014 Fluzone Quadrivalent 0.5 ML Intramuscular Suspension Prefilled Syringe Lot #: [id number] Administered on:17-Jun-2015 Family History Grandfather* Name Dates [...] smoker Vital Signs Date Test Result Details 08-Sep-2015 09:49 BP Systolic 144 mm[Hg] Status: [...] Problem not documented On 08-Sep-2014 15:15 Appointment; Iyla Basurto Encounter Diagnosis: Problem not documented On [...]
--- OUTSIDE RECORDS SUMMARY | 2016-12-14 18:22 | XMS REPORT ---
Author Author GENERATED, SYSTEM Organization Unknown Address Unknown Phone Unavailable Care Team Providers Care Elementary Ell Teacher Name Role Phone FRIENDDO DESIRAE [phone] Reason For Visit Chief Complaint MIGRAINE Social History Functional Status Vital Signs Results CT Scan from 05/15/2016 11:03 AMCT CEREBRAL W/O CONTRAST History: Worse headache in the patient's life. Priors: 01/25/16 Findings: Ventricles and Extra axial spaces: Normal in size and morphology for the patient's age. Hemorrhage: None. Cerebral parenchyma: Normal. Mass effect/midline shift: None. Brainstem/Cerebellum: Normal. Calvarium: Normal. Visualized Paranasal sinuses/Mastoids: Clear. Impression: Unremarkable CT scan of the head. Electronically signed by: José Luis Salas MD Dictated: 05/15/2016 11:18 Problems Encounter Diagnosis No relevant problems exist. [...]
--- OUTSIDE RECORDS SUMMARY | 2016-12-14 18:22 | XMS REPORT | Summary of Care ---
Author Author Price Garcia M.D. Organization Unknown Address Unknown Phone Unavailable Care Team Providers Care Semiconductor Development Technician Name Role Phone Price Garcia M.D. Unavailable Unavailable Lisa PUMP TECHNICIAN, Мария Unavailable Unavailable Smarsh[place] PUMP TECHNICIAN, Crystal Unavailable Unavailable Price Garcia PP [...] I25.10) Status: Active Medications Name Dates Details Bkxqnqdqjw-OSKF-Aexspnad 50-325-40 MG Oral Tablet TAKE ONE TABLET BY MOUTH EVERY 4 HOURS NEEDED MAX OF 6 TABLETS PER DAY MUST LAST 30 DAYS Quantity: 180 Price Garcia M.D.* Started 09-Jun-2014 ActiveTriamcinolone .1%/ Eucerin Compound (50/50 mix) -- 1 pound tub (454 grams) APPLY TO THE AFFECTED AREA TWICE DAILY * Quantity: 60 Refills: 0 Smarsh-Kutilek, Crystal PUMP TECHNICIAN* Started 24-Jun-2014 ActiveHydrALAZINE HCl - 50 MG Oral Tablet Take 1 tablet three times daily. * Quantity: 90 Refills: 5 Price Garcia M.D.* Started 05-Aug-2014 ActiveQUEtiapine Fumarate 25 MG Oral Tablet TAKE [...] Influenza Administered on:03-May-2012 Tdap (Adacel) Lot #: [id number] Administered on:14-May-2013 Fluzone Quadrivalent 0.5 ML Intramuscular Suspension Lot #: [id number] Administered on:03-Jun-2014 Family History Grandfather* Name Dates [...] not documented On 29-Dec-2014 11:15 Appointment; Price Garica Encounter Diagnosis: Problem not documented On 18-Dec-2014 [...]
--- OUTSIDE RECORDS SUMMARY | 2016-12-14 18:22 | XMS REPORT ---
Author Author FriendKyara [facility] Address [address] [place], [place] [address] Care Team Providers Care Can Cleaner Name Role Phone FriendKyara Unavailable [phone] PROBLEMS Type Condition ICD9-CM Code BCS36-PK Code Onset Dates Condition Status SNOMED Code Problem Neuropathy G62.9 Active 956419629 Problem CAD (coronary artery disease) I25.10 Active 21021913 Problem Depression F32.9 Active 816488212 Problem Arthritis of left knee M19.90 Active 3197798705344996 Problem Tear of meniscus of left knee S83.207A Active Problem Fibromyalgia M79.7 Active 609727869 Problem 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 54915154 Problem Hallucinations R44.3 Active 0179664 Problem Migraine headache G43.909 Active 46518657 Problem High blood pressure I10 Active 96293981 Problem High cholesterol E78.0 Active 07033970 Problem Elevated alkaline phosphatase level R74.8 Active 805053141 Problem Status post left knee replacement Z96.652 Active 860641212928 ALLERGIES Unknown Allergies SOCIAL HISTORY No smoking Hx information available PLAN OF CARE VITAL SIGNS MEDICATIONS Unknown Medications RESULTS No Results PROCEDURES No Known procedures IMMUNIZATIONS No Known Immunizations
--- OUTSIDE RECORDS SUMMARY | 2016-12-14 18:23 | XMS REPORT ---
Author Author GENERATED, SYSTEM Organization Unknown Address Unknown Phone Unavailable Care Team Providers Care Records And Information Manager Name Role Phone FRIEND, CHIQUI FLOREZ PP [phone] Reason For Visit Chief Complaint HEADACHE, DOESNT FEEL WELL Social History Functional Status Vital Signs Results Chemistry from 11/29/2016 11:50 AMSODIUM 141 MMOL/L (136-145 MMOL/L) POTASSIUM 3.3 MMOL/L L (3.5-5.1 MMOL/L) CHLORIDE 102 MMOL/L (98-107 MMOL/L) TCO2 31.3 MMOL/L (21.0-32.0 MMOL/L) *ANION GAP 7.7 MMOL/L L (8.0-16.0 MMOL/L) BUN 15 MG/DL (7-18 MG/DL) CREATININE 0.79 MG/DL (0.55-1.02 MG/DL) *BUN/CREATININE RATIO 19.0 H (9.1-17.0 ) GLUCOSE 98 MG/DL (65-99 MG/DL) *GFR EST NON AFR AUSTRIAN 81 ML/MIN (Reference Range: not available) *GFR EST AFR AMER >90 ML/MIN (Reference Range: not available) CALCIUM 10.5 MG/DL H (8.5-10.1 MG/DL) BILIRUBIN TOTAL 0.40 MG/DL (0.20-1.00 MG/DL) TOTAL PROTEIN 8.4 GM/DL H (6.4-8.2 GM/DL) ALBUMIN 5.3 GM/DL H (3.4-5.0 GM/DL) *GLOBULIN 3.1 GM/DL (2.3-3.5 GM/DL) *A/G RATIO 1.7 MG/DL (1.5-2.2 MG/DL) ALK PHOS 116 U/L (46-116 U/L) ALT (SGPT) 20 U/L (16-63 U/L) AST (SGOT) 15 U/L (15-37 U/L) MAGNESIUM 2.1 MG/DL (1.8-2.4 MG/DL) TROPONIN-I <0.017 NG/ML (0.000-0.056 NG/ML) Hematology from 11/29/2016 11:50 AMWBC 4.9 X10e3/UL (3.6-11.2 X10e3/UL) RBC 4.18 X10e6/UL (3.63-4.92 X10e6/UL) HEMOGLOBIN 12.6 G/DL (11.0-14.3 G/DL) HEMATOCRIT 37.9 % (31.2-41.9 %) *MCV 90.8 FL (79.0-98.0 FL) *MCH 30.2 PG (27.0-33.0 PG) *MCHC 33.3 G/DL (32.0-36.0 G/DL) *RDW 14.4 % (12.3-17.0 %) *RDWSD 45.5 (37.1-47.8 ) PLATELET 222 X10e3/UL (159-386 X10e3/UL) *MPV 7.6 FL (7.4-10.4 FL) AUTOMATED DIFF PERFORMED (Reference Range: not available) SEGS 59.6 % (Reference Range: not available) *LYMPHOCYTES 33.1 % (Reference Range: not available) *MONOCYTES 6.7 % (Reference Range: not available) *EOSINOPHILS 0.0 % (Reference Range: not available) *BASOPHILS 0.6 % (Reference Range: not available) *ABSOLUTE NEUTROPHILS 2.90 X10e3/UL (1.80-7.80 X10e3/UL) *ABSOLUTE LYMPHOCYTES 1.60 X10e3/UL (1.00-3.00 X10e3/UL) *ABSOLUTE MONOCYTES 0.30 X10e3/UL (0.30-1.00 X10e3/UL) *ABSOLUTE EOSINOPHILS 0.00 X10e3/UL (0.00-0.50 X10e3/UL) *ABSOLUTE BASOPHILS 0.00 X10e3/UL (0.00-0.20 X10e3/UL) Urinalysis from 11/29/2016 11:50 AM*URINE COLOR YELLOW (STRAW/YELL/DK YELL ) *URINE APPEARANCE CLEAR (CLEAR ) URINE PH 5.5 (5.0-8.0 ) URINE SPECIFIC GRAVITY <1.005 (<=1.005->=1.030 ) *URINE GLUCOSE NEGATIVE MG/DL (NEGATIVE MG/DL) *URINE BILIRUBIN NEGATIVE (NEGATIVE ) *URINE KETONES NEGATIVE MG/DL (NEGATIVE MG/DL) *URINE BLOOD NEGATIVE (NEGATIVE ) *URINE PROTEIN NEGATIVE MG/DL (NEGATIVE MG/DL) *URINE UROBILINOGEN 0.2 EU/DL (0.2-1.0 EU/DL) *URINE NITRITES NEGATIVE (NEGATIVE ) *URINE LEUKOCYTES NEGATIVE (NEGATIVE ) Coagulation from 11/29/2016 11:50 AM*PROTHROMBIN TIME 10.4 SECONDS (9.4-11.5 SECONDS) *INR 1.0 (0.9-1.1 ) DX Radiology from 11/29/2016 12:00 PMCHEST 1 VIEW History: weakness Priors: Chest x-ray dated 01/19/2014 Findings: The heart size and pulmonary vasculature within normal limits. No consolidating infiltrates are identified. No significant pleural effusion or pneumothorax is seen. Impression: No acute abnormality. Electronically signed by: Angie Christopher MD Dictated: 11/29/2016 13:07 (Reference Range: not available) CT Scan from 11/29/2016 12:02 PMCT CEREBRAL W/O CONTRAST History: weakness . pt states she has a migraine headache and suffers from them, she also has c/o increased falls due to weakness on left knee that she had total knee replacement in May. Pt states she is unsteady on her feet and she has been attending therapy, but PT therapist states she wants clearance that there isn't more to her weakness than noted. The falls started about 3wks ago Priors: CT head dated 07/31/2016 Findings: Ventricles and Extra axial spaces: Normal in size and morphology for the patient's age. Hemorrhage: None. Cerebral parenchyma: Normal. Mass effect/midline shift: None. Brainstem/Cerebellum: Normal. Calvarium: Normal. Visualized Paranasal sinuses/Mastoids: Clear. Impression: No acute intracranial abnormality. Electronically signed by: Angie hCristopher MD Dictated: 11/29/2016 12:12 (Reference Range: not available) Problems Encounter Diagnosis No relevant problems exist. [...] Allergies, Adverse Reactions, Alerts This section is leather goods sales representative of the current allergy information, at [...]
--- OUTSIDE RECORDS SUMMARY | 2016-12-14 18:23 | XMS REPORT | Summary of Care ---
Author Author Price Garcia M.D. Organization Unknown Address Unknown Phone Unavailable Care Team Providers Care Music Director Name Role Phone Price Garcia M.D. Unavailable [...] Cervical pain (neck) (723.1, M54.2) Status: Active Tear of medial meniscus of knee, left, initial encounter (836.0, S83.242A) Status: Active Primary osteoarthritis of left knee (715.16, M17.12) Status: Active Acute pain of left knee (719.46, M25.562) Status: Active Preop examination (V72.84, Z01.818) Status: Active Localized primary osteoarthritis of left lower leg (715.16, M17.12) Status: Active Migraine without status migrainosus, not intractable (346.90, G43.909) Status: Active Medications Name Dates Details Aspirin 325 MG Oral Tablet TAKE 1 TABLET DAILY. * Started 05-May-2015 ActiveAtorvastatin Calcium 80 MG Oral Tablet TAKE 1 TABLET AT BEDTIME. * Refills: 0 * Started 05-May-2015 ActivePlavix 75 MG Oral Tablet TAKE 1 TABLET DAILY. * Refills: 0 * Started 05-May-2015 ActiveDocusate Sodium 100 MG Oral Capsule Take 1 capsule BID. * Refills: 0 * Started 05-May-2015 ActivePennsaid 2 % Transdermal Solution Apply 2 pumps twice daily over area of pain. * Quantity: 1 Refills: 0 Papa Keys M.D.* Started 23-Dec-2015 Ndswwb483 GM Pump Btl Oxycodone-Acetaminophen 5-325 MG Oral Tablet Si PO every 4-6 hrs prn with a max of 3 per day. * Quantity: 90 Refills: 0 Papa Keys M.D.* Started 21-Jan-2016 ActiveLosartan Potassium 100 MG Oral Tablet TAKE [...] Refills: 0 Price Garcia M.D.* Started 26-Jun-2015 ActiveEvzio 0.4 MG/0.4ML Injection Solution Auto-injector INJECT 0.4MG SC/IM Q 2-3MIN NEEDED PER OVERDOSE * Quantity: 1 Refills: 0 Price Garcia M.D.* Started 17-Jun-2015 Active0.4 ML Package (2 Packages) Atenolol 50 MG Oral Tablet take 25 MG in a.m then 50 MG at p.m * Refills: 0 * Started 05-May-2015 ActiveCyclobenzaprine HCl - 10 MG Oral Tablet TAKE ONE TABLET BY MOUTH THREE TIMES DAILY NEEDED * Quantity: 90 Refills: 3 Price Garcia M.D.* Started ActivePromethazine HCl - 25 MG/ML Injection Solution Inject 12.5mg IM x 1 now * Quantity: 1 Refills: 0 LisaМария nettles UI ENGINEER* Started 24-Jan-2015 Admin RequestedNalbuphine HCl - 10 MG/ML Injection Solution Inject 10mg IM x 1 now * Quantity: 1 Refills: 0 LisaМария nettles APRN* Started 24-Jan-2015 Admin RequestedAmLODIPine Besylate 10 MG Oral Tablet take one tablet by mouth every day * Quantity: 30 Refills: 6 Price Garcia M.D.* Started 30-Oct-2014 ActiveQUEtiapine Fumarate 25 MG Oral Tablet TAKE 1 TABLET IN MORNING, THEN TAKE 1 TABLET IN EVENING, THEN TAKE 2 TABLETS AT BEDTIME * Quantity: 120 Refills: 3 Price Garcia M.D.* Started 30-Oct-2014 OwqyplPnfwugdgpm-UDSZ-Jjyqchpc 50-325-40 MG Oral Tablet TAKE ONE TABLET BY MOUTH EVERY 6 HOURS NEEDED MAX OF 4 TABLETS PER DAY MUST LAST 30 DAYSMAY FILL ON OR AFTER 01/11/16* * Quantity: 120 Refills: 0 Price Garcia [...] Sphenoid Sinus Ostium ECG/ EKG Preop Pendin22-Jan-2016 BASIC METABOLIC PROFILE 1210 Ordered:22-Jan-2016 PROTIME PANEL 7000 Ordered:22-Jan-2016 CBC w/ Auto Diff 7150 Ordered:22-Jan-2016 Clinical Trials 4045 Ordered:11-Jan-2016 Urinalysis, Reflex to Microscopic or Culture PRN 8005 Ordered:22-Jan-2016 XRay CHEST-PA & LAT Ordered:22-Jan-2016 Immunization Name Dates Details Influenza Administered on:21-Jun-2011 Influenza Administered on:03-May-2012 Tdap (Adacel) Lot #: [id number] Administered on:14-May-2013 Fluzone Quadrivalent 0.5 ML Intramuscular Suspension Lot #: [id number] Administered on:03-Jun-2014 Fluzone Quadrivalent 0.5 ML Intramuscular Suspension Prefilled Syringe Lot #: [id number] Administered on:17-Jun-2015 Family History Grandfather* Name Dates [...] Fastin hours Clinical Trials Clinical Trial Lab ([facility]) 11-Jan-2016 08:02 Clinical Trials 4045 Clinical Trials Clinical Trial Lab ([facility]) Plan of Care Planned Observations* Name [...]
--- OUTSIDE RECORDS SUMMARY | 2016-12-14 18:23 | XMS REPORT ---
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 30901750 Problem Depression F32.9 Active 294646023 Problem Neuropathy G62.9 Active 625682645 Assessment Migraine headache G43.909 Sep, Active 73744613 Problem Arthritis of left knee M19.90 Active 3131030663982364 Problem Tear of meniscus of left knee S83.207A Active Problem Fibromyalgia M79.7 Active 366525846 Problem Migraine headache G43.909 Active 05439051 Problem Elevated alkaline phosphatase level R74.8 Active 460665650 Problem High cholesterol E78.0 Active 91163371 Problem CAD (coronary artery disease) I25.10 Active 61849496 Problem Status post left knee replacement Z96.652 Active 639522847491 Problem High blood pressure I10 Active 74037407 ALLERGIES Substance Reaction Event Type Date Status Imitrex heart problems Drug Allergy Sep, Active Codeine Sulfate felt like a heart attack Drug Allergy Sep, Active toradol has a heart stent, it crunches my heart Non Drug Allergy Sep, Active maxalt felt like a heart attack Non Drug Allergy Sep, Active SOCIAL HISTORY No smoking Hx information available PLAN OF CARE Activity Details Pending Test Comprehensive Metabolic Panel (CMP) Pending Test GGT 2 Months,Reason: VITAL SIGNS Height 5 ft 7 in in 2016-10-25 Weight 129 lbs 2016-10-25 BMI 20.20 kg/m2 2016-10-25 Temperature 97.9 degrees Fahrenheit 2016-10-25 Heart Rate 66 /min 2016-10-25 Respiratory Rate 18 /min 2016-10-25 Oximetry 94 % 2016-10-25 Blood pressure systolic 140 mm Hg 2016-10-25 Blood pressure diastolic 82 mm Hg 2016-10-25 MEDICATIONS Medication Instructions Dosage Frequency Start Date End Date Duration Status Losartan Potassium 100 MG Orally Once a day 1 tablet 24h 90 Active QUEtiapine Fumarate ER 200 MG Orally three times a day 1 tablet 8h Active Propranolol HCl 20 MG Orally Twice a day 1 tablet 12h 14 Jul, 2016 Active Amlodipine Besylate 5 MG Orally Once a day preferably at bedtime 1 tablet Aug, 30 day(s) Active Fluvoxamine Maleate 100 MG Orally Once a day 1 tablet at bedtime 24h Active Promethazine HCl 25 MG Orally every 8 hrs prn neausea 1 tablet as needed Jul, Nov, 30 day(s) Active Clopidogrel Bisulfate 75 MG Orally Once a day 1 tablet 24h Active Diazepam 10 MG Orally three times a day 1 tablet as needed 8h Active Zolpidem Tartrate 10 MG Orally Once a day 1 tablet at bedtime as needed 24h Active Sennosides-Docusate Sodium 8.6-50 MG Orally twice a day 1 tablet 12h as needed Active Oxycodone-Acetaminophen 10-325 MG Orally every 6 hours 1 tablet as needed 6h Oct, 30 days Active RESULTS Name Result Date Reference Range Venipuncture 2016-10-25 Comprehensive Metabolic Panel (CMP) 2016-10-25 Glucose 91 70-99 BUN 10 10-20 Creatinine 0.76 0.57-1.11 Calcium 10.3 8.4-10.2 Sodium 142 135-144 Potassium 4.3 3.5-5.2 Chloride 105 99-111 CO2 31 22-31 Albumin 4.3 3.4-4.8 Bilirubin Total 0.3 0.2-1.2 Alkaline Phosphatase 125 40-150 Protein 7.0 6.0-7.6 ALT (SGPT) 32 0-55 AST (SGOT) 26 5-34 Anion Gap 6 3-20 Globulin 2.7 1.8-4.0 GGT 2016-10-25 GGT 179 3-36 eGFR 2016-10-25 eGFR >60 >60 PROCEDURES Procedure Date Ordered Related Diagnosis Body Site ROUTINE VENIPUNCTURE Oct 25, 2016 ASSAY OF GGT.[facility] Oct 25, 2016 [facility] VISIT ESTABLISHED PATIENT Oct 25, 2016 Comprehen Metabolic Panel.[facility] Oct 25, 2016 OFFICE VISIT EST PATIENT LEVEL 3 Oct 25, 2016 IMMUNIZATIONS No Known Immunizations
--- OUTSIDE RECORDS SUMMARY | 2016-12-14 18:23 | XMS REPORT | Summary of Care ---
Author Author Price Garcia M.D. Organization Unknown Address Unknown Phone Unavailable Care Team Providers Care Emblem Cutter Name Role Phone Price Garcia M.D. Unavailable [...] G43.909) Status: Active Medications Name Dates Details Ycfeggvszj-HVMC-Jufrxhgm 50-325-40 MG Oral Tablet TAKE ONE TABLET [...] * Quantity: 1 Refills: 0 Мария Gonzalez ACURA SALES CONSULTANT* Started 24-Jan-2015 Admin RequestedCyclobenzaprine HCl - 10 [...] Started 17-Jun-2015 Active0.4 ML Package (2 Packages) Pennsaid 2 % Transdermal Solution Apply 2 pumps twice daily over area of pain. * Quantity: 1 Refills: 0 Papa Keys M.D.* Started 23-Dec-2015 Xepclh208 GM Pump Btl Acetaminophen-Codeine 300-30 MG Oral [...] Preop Pendin22-Jan-2016 BASIC METABOLIC PROFILE 1210 Ordered:22-Jan-2016 CBC w/ Auto Diff 7150 Ordered:22-Jan-2016 Clinical Trials 4045 Ordered:11-Jan-2016 XRay CHEST-PA & LAT Ordered:22-Jan-2016 Immunization Name Dates Details Influenza Administered on:21-Jun-2011 Influenza Administered on:03-May-2012 Tdap (Adacel) Lot #: [id number] Administered on:14-May-2013 Fluzone Quadrivalent 0.5 ML Intramuscular Suspension Lot #: [id number] Administered on:03-Jun-2014 Fluzone Quadrivalent 0.5 ML Intramuscular Suspension Prefilled Syringe Lot #: [id number] Administered on:17-Jun-2015 Family History Grandfather* Name Dates [...]
--- OUTSIDE RECORDS SUMMARY | 2016-12-14 18:23 | XMS REPORT | Summary of Care ---
Author Author Price Garcia M.D. Organization Unknown Address Unknown Phone Unavailable Care Team Providers Care Duct Layer Name Role Phone Price Garcia M.D. Unavailable Unavailable Lisa ADVERTISING COLUMNIST, Мария Unavailable Unavailable Smarsh-[place] ADVERTISING COLUMNIST, Crystal Unavailable Unavailable Price Garcia PP Unavailable [...] Chronic sinus infection (473.9, J32.9) Status: Active Preop examination (V72.84, Z01.818) Status: Active Migraine headache (346.90, G43.909) Status: Active Medications Name Dates Details Rovhtpvddy-PZLC-Khlcboeu 50-325-40 MG Oral Tablet TAKE ONE TABLET BY MOUTH EVERY 4 HOURS NEEDED MAX OF 6 TABLETS PER DAY MUST LAST 30 DAYS Quantity: 180 Price Garcia M.D.* Started 09-Jun-2014 ActiveZolpidem Tartrate [...] 0 Мария Gonzalez APRN* Started 24-Jan-2015 Admin RequestedNalbuphine HCl - 10 MG/ML Injection Solution Inject 10mg IM x 1 now * Quantity: 1 Refills: 0 Мария Gonzalez ADVERTISING COLUMNIST* Started 24-Jan-2015 Admin RequestedQUEtiapine Fumarate 50 MG Oral Tablet TAKE 1 TABLET AT BEDTIME. * Refills: 0 * Started 30-Oct-2014 ActiveFluvoxaMINE Maleate 100 MG Oral Tablet TAKE 1 TABLET AT BEDTIME. * Quantity: 30 Refills: 5 Price Garcia M.D.* Started 30-Oct-2014 ActiveTriamcinolone .1%/ Eucerin Compound (50/50 mix) -- 1 pound tub (454 grams) APPLY TO THE AFFECTED AREA TWICE DAILY * Quantity: 60 Refills: 0 Jessica Nguyen ADVERTISING COLUMNIST* Started 24-Jun-2014 ActiveMelatonin 5 MG Oral Tablet * Refills: 0 * Started 16-Jun-2014 ActiveDiazepam 10 MG Oral Tablet TAKE ONE TABLET BY MOUTH EVERY 8 HOURS NEEDEDMUST LAST 30 DAYS * Quantity: 90 Refills: 0 Price Garcia M.D.* Started 30-Oct-2014 ActiveHydrALAZINE HCl [...] Refills: 5 Price Garcia M.D.* Started 30-Oct-2014 ActiveLithium Carbonate 300 MG Oral Capsule TAKE 1 CAPSULE TWICE DAILY. * Refills: 0 * Started 18-Dec-2014 Active Allergies and Adverse Reactions Name Dates [...] History of Colonoscopy (Fiberoptic) History of Section ECG/ EKG Preop Pendin Urinalysis, Reflex to Microscopic or Culture PRN 8005 Ordered: CBC w/ Auto Diff 7150 Ordered: BASIC METABOLIC PROFILE 1210 Ordered: PROTIME PANEL 7000 Ordered: XRay CHEST-PA & LAT Ordered: Immunization Name Dates Details Influenza Administered on:21-Jun-2011 Influenza Administered on:03-May-2012 Tdap (Adacel) Lot #: [id number] Administered on:14-May-2013 Fluzone Quadrivalent 0.5 ML Intramuscular Suspension Lot #: [id number] Administered on:03-Jun-2014 Family History Grandfather* Name Dates [...] Date Test Result Details 09:53 BP Systolic 147 mm[Hg] Status: BP [...] m2 Status: Results Date Description Value Details 08:40 MRI CERVICAL SPINE Comments: Exam Date: [...] Problem not documented On 11:15 Appointment; Jessica Ngyuen Encounter Diagnosis: Problem not documented On 09:15 [...]
--- OUTSIDE RECORDS SUMMARY | 2016-12-14 18:23 | XMS REPORT ---
Author Author GENERATED, SYSTEM Organization Unknown Address Unknown Phone Unavailable Care Team Providers Care Anesthesiologist Physician Name Role Phone MD DENISE, GARY Unavailable Reason For Visit Chief Complaint NECK LOCKED IN PLACE, LOT OF PAIN R SIDE Social History Functional Status Vital Signs Results [...]
--- OUTSIDE RECORDS SUMMARY | 2016-12-14 18:24 | XMS REPORT | Summary of Care ---
Author Author Price Garcia M.D. Organization Unknown Address Unknown Phone Unavailable Care Team Providers Care Documentation Supervisor Name Role Phone Price Garcia M.D. Unavailable Unavailable Lisa STUDENT CAREER DEVELOPMENT SPECIALIST, Мария Unavailable Unavailable Smarsh-[place] STUDENT CAREER DEVELOPMENT SPECIALIST, Crystal Unavailable Unavailable Epp Tacho, A Unavailable Unavailable Price Garcia PP Unavailable Unavailable [...] G43.909) Status: Active Medications Name Dates Details Ruibqmnmek-GNFL-Chnyfqln 50-325-40 MG Oral Tablet TAKE ONE TABLET [...] * Quantity: 60 Refills: 0 Smarsh-Kutilek, Crystal STUDENT CAREER DEVELOPMENT SPECIALIST* Started 24-Jun-2014 ActiveHydrALAZINE HCl - 50 MG [...] Influenza Administered on:03-May-2012 Tdap (Adacel) Lot #: [id number] Administered on:14-May-2013 Fluzone Quadrivalent 0.5 ML Intramuscular Suspension Lot #: [id number] Administered on:03-Jun-2014 Family History Grandfather* Name Dates [...]
--- OUTSIDE RECORDS SUMMARY | 2016-12-14 18:24 | XMS REPORT | Summary of Care ---
Author Author Jamison Lobo Unknown Address [address], [place] [address] Phone Unavailable Care Team Providers Care Promotion Specialist Name Role Phone Price Garcia M.D. [...] Z98.89) Status: Active Medications Name Dates Details FluvoxaMINE [...] 90 Refills: 3 Price Garcia M.D.* Started LxnsgpWevvfxwiwh-YHZB-Knzznsrz 50-325-40 MG Oral Tablet TAKE ONE TABLET [...] Refills: 0 Price Garcia M.D.* Started 30-Oct-2014 ActiveEvzio 0.4 MG/0.4ML Injection Solution Auto-injector INJECT 0.4MG SC/IM Q 2-3MIN NEEDED PER OVERDOSE * Quantity: 1 Refills: 0 Price Garcia M.D.* Started 17-Jun-2015 Active0.4 ML Package (2 Packages) Hydrocodone-Acetaminophen 10-325 MG Oral Tablet Take 1/2 - [...] Influenza Administered on:03-May-2012 Tdap (Adacel) Lot #: [id number] Administered on:14-May-2013 Fluzone Quadrivalent 0.5 ML Intramuscular Suspension Lot #: [id number] Administered on:03-Jun-2014 Fluzone Quadrivalent 0.5 ML Intramuscular Suspension Prefilled Syringe Lot #: [id number] Administered on:17-Jun-2015 Family History Grandfather* Name Dates [...] ml/min (Better) Range: >60 EST GFR, NON-AFR [place] >60 ml/min (Better) Range: >60 Comments: EST GFR is reported in ml/min per 1.73 m2 of body surface area. For -Lao, please multiple result by 1.2.----- GLUCOSE 124 [...] not documented On 02-Jun-2015 11:30 Appointment; Price Garcai Encounter Diagnosis: Problem not documented On 22-May-2015 [...] Problem not documented On 11:15 Appointment; April Talely Encounter Diagnosis: Problem not documented On 08:40 [...]
--- OUTSIDE RECORDS SUMMARY | 2016-12-14 18:24 | XMS REPORT | Summary of Care ---
Author Author Price Garcia M.D. Organization Unknown Address Unknown Phone Unavailable Care Team Providers Care Photostat Operator Name Role Phone Price Garcia M.D. Unavailable Unavailable Lisa WOOD BOATBUILDER, Мария Unavailable Unavailable Smarsh-[place] WOOD BOATBUILDER, Crystal Unavailable Unavailable Price Garcia PP Unavailable [...] Refills: 0 Price Garcia M.D.* Started 05-May-2015 ActiveDiazepam 10 MG Oral Tablet TAKE ONE TABLET BY MOUTH EVERY 8 HOURS NEEDED MUST LAST 30 DAYS * Quantity: 90 Refills: 0 Price Garcia M.D.* Started 30-Oct-2014 FyxvafRufdiatqwb-MCVB-Skkbfokt 50-325-40 MG Oral Tablet TAKE ONE TABLET BY MOUTH EVERY 4 HOURS NEEDED MAX OF 6 TABLETS PER DAY MUST LAST 30 DAYS * Quantity: 180 Refills: 0 Price aGrcia M.D.* Started 09-Jun-2014 ActiveAtenolol 50 MG Oral Tablet take 25 MG in a.m then 50 MG at p.m * Refills: 0 * Started 05-May-2015 ActiveEvzio 0.4 MG/0.4ML Injection Solution Auto-injector INJECT 0.4MG SC/IM Q 2-3MIN NEEDED PER OVERDOSE * Quantity: 1 Refills: 0 Price Garcia M.D.* Started 17-Jun-2015 Active0.4 ML Package (2 Packages) Allergies and Adverse Reactions Name Dates Details [...] Influenza Administered on:03-May-2012 Tdap (Adacel) Lot #: [id number] Administered on:14-May-2013 Fluzone Quadrivalent 0.5 ML Intramuscular Suspension Lot #: [id number] Administered on:03-Jun-2014 Family History Grandfather* Name Dates [...] ml/min (Better) Range: >60 EST GFR, NON-AFR [place] >60 ml/min (Better) Range: >60 Comments: EST GFR is reported in ml/min per 1.73 m2 of body surface area. For -[place]er, please multiple result by 1.2.----- GLUCOSE 106 [...] not documented On 30-Oct-2014 09:30 Appointment; [place] Brerios Encounter Diagnosis: Problem not documented On 11-Oct-2014 [...]
--- OUTSIDE RECORDS SUMMARY | 2016-12-14 18:25 | XMS REPORT | Summary of Care ---
Author Author Price Garcia M.D. Organization Unknown Address Unknown Phone Unavailable Care Team Providers Care Animal Care Provider Name Role Phone Price Garcia M.D. Unavailable [...] G43.909) Status: Active Medications Name Dates Details Kdndmkxfgz-GOJU-Pvbdteyk 50-325-40 MG Oral Tablet TAKE ONE TABLET [...] * Quantity: 1 Refills: 0 Prakash Gonzalezy DRUPAL PHP DEVELOPER* Started 24-Jan-2015 Admin RequestedCyclobenzaprine HCl - 10 [...] Refills: 0 Papa Keys M.D.* Started 23-Dec-2015 Tdxdaz505 GM Pump Btl Acetaminophen-Codeine 300-30 MG Oral [...] Influenza Administered on:03-May-2012 Tdap (Adacel) Lot #: [id number] Administered on:14-May-2013 Fluzone Quadrivalent 0.5 ML Intramuscular Suspension Lot #: [id number] Administered on:03-Jun-2014 Fluzone Quadrivalent 0.5 ML Intramuscular Suspension Prefilled Syringe Lot #: [id number] Administered on:17-Jun-2015 Family History Grandfather* Name Dates [...] smoker Vital Signs Date Test Result Details 26-Jan-2016 14:16 BP Systolic 144 mm[Hg] Status: [...] 09:44 Urinalysis, reflex to Micro and Culture ([facility]) 8016 pH 6.0 (Better) Range: 5.0-7.5 [...] ml/min (Better) Range: >60 EST GFR, NON-AFR [place] >60 ml/min (Better) Range: >60 Comments: EST GFR is reported in ml/min per 1.73 m2 of body surface area. For -Estonian, please multiple result by 1.2.----- BUN:CREATININE RATIO [...] not documented On 22-Sep-2015 09:10 Appointment; Gordon Sanyd Encounter Diagnosis: Problem not documented On 16-Sep-2015 [...] Problem not documented On 09-Jun-2015 14:00 Appointment; Gordno Mancera Encounter Diagnosis: Problem not documented On [...] Problem not documented On 08:45 Appointment; Jose rTammell Encounter Diagnosis: Problem not documented On 14:00 [...]
--- OUTSIDE RECORDS SUMMARY | 2016-12-14 18:25 | XMS REPORT | Summary of Care ---
Author Author Linda Bingham APRN Organization Unknown Address [address] [place], [place] [address] Phone Unavailable Care Team Providers Care Change Management Name Role Phone Price Garcia M.D. Unavailable [...] Active Migraine headache (346.90, G43.909) Status: Active Bronchitis, acute (466.0, J20.9) Status: Active Medications Name Dates Details Melatonin 5 MG Oral Tablet * Started 16-Jun-2014 ActiveTriamcinolone .1%/ Eucerin Compound (50/50 mix) -- 1 pound tub (454 grams) APPLY TO THE AFFECTED AREA TWICE DAILY * Quantity: 60 Refills: 0 Jessica Nguyen FURNACE INSTALLER* Started 24-Jun-2014 ActiveAmitriptyline HCl - 100 MG [...] Refills: 0 Price Garcia M.D.* Started 21-Jul-2014 GwfyqeQevjhxmvbf-VBVL-Wbnlthqk 50-325-40 MG Oral Tablet TAKE 1 TABLET Q 4HRS NEEDED FOR MIGRAINEMAX 6 PER DAYMUST LAST 30 DAYS * Quantity: 180 Refills: 0 Price Garcia M.D.* Started 09-Jun-2014 Ended 04-Oct-2014 ActiveBaclofen 10 MG Oral Tablet * Refills: 0 * Started 08-Sep-2014 ActiveHydrOXYzine Pamoate 25 MG Oral Capsule TAKE 1 CAP BY MOUTH EVERY 6 HRS NEEDED * Quantity: 120 Refills: 2 Price Garcia.D.* Started 05-Aug-2014 Active Allergies and Adverse Reactions [...] Influenza Administered on:03-May-2012 Tdap (Adacel) Lot #: [id number] Administered on:14-May-2013 Fluzone Quadrivalent 0.5 ML Intramuscular Suspension Lot #: [id number] Administered on:03-Jun-2014 Family History Grandfather* Name Dates [...] smoker Vital Signs Date Test Result Details 02-Oct-2014 08:22 Heart Rate 74 /min Status: [...] not documented On 03-Jun-2014 13:45 Appointment; Whitney hWitfield Encounter Diagnosis: Problem not documented On 31-May-2014 [...]
--- OUTSIDE RECORDS SUMMARY | 2016-12-14 18:25 | XMS REPORT | Summary of Care ---
Author Author West Berrios D.O. Organization Unknown Address [address], [place] [id number] Phone Unavailable Care Team Providers Care Material Clerk Name Role Phone Price Garcia M.D. 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 * Quantity: 30 Refills: 5 Price aGrcia M.D.* Started 30-Oct-2014 ActiveNalbuphine HCl - 10 [...] Refills: 0 Price Garcia M.D.* Started 17-Jun-2015 IvgjvsJynotakadm-YWPU-Usfajimo 50-325-40 MG Oral Tablet TAKE ONE TABLET [...] AT BEDTIME NEEDED FOR SLEEP.*MUST LAST 30 DAYS* * Quantity: 30 Refills: [...] Influenza Administered on:03-May-2012 Tdap (Adacel) Lot #: [id number] Administered on:14-May-2013 Fluzone Quadrivalent 0.5 ML Intramuscular Suspension Lot #: [id number] Administered on:03-Jun-2014 Fluzone Quadrivalent 0.5 ML Intramuscular Suspension Prefilled Syringe Lot #: [id number] Administered on:17-Jun-2015 Family History Grandfather* Name Dates [...] smoker Vital Signs Date Test Result Details 13-Jul-2015 09:39 BP Systolic 143 mm[Hg] Status: BP Diastolic 87 mm[Hg] Status: Temperature 98.2 f Status: Heart Rate 65 /min Status: O2 SAT 97 % Status: 25-Jun-2015 10:56 BP Systolic 125 mm[Hg] Status: [...] m2 Status: Results Date Description Value Details 25-Jun-2015 10:55 Urinalysis, reflex to Micro and Culture ([facility] [...] not documented On 25-Jun-2015 10:50 Appointment; Gaston aHre Encounter Diagnosis: Problem not documented On 23-Jun-2015 [...] Problem not documented On 14-Jul-2014 13:15 Appointment; Prcie Garcia Encounter Diagnosis: Problem not [...]
--- OUTSIDE RECORDS SUMMARY | 2016-12-14 18:25 | XMS REPORT | Summary of Care ---
Author Author Conner Bustos M.D. Unknown Address [address], [place] [address] Phone Unavailable Care Team Providers Care Perianesthesia Manager Name Role Phone Radha Titus, Price Unavailable [...] Status: Active Nausea (787.02, R11.0) Status: Active Medications Name Dates Details Izrdqzinum-BHFW-Alrgtrol 50-325-40 MG Oral Tablet TAKE 1 TABLET BY MOUTH EVERY 6 HRS NEEDED MAX OF 4 TABS PER DAY MUST LAST 30 DAYSMAY FILL ON OR AFTER 03/09/16* Quantity: 120 Price Garcia M.D. * Start 09-Jun-2014 Active QUEtiapine Fumarate 200 MG Oral Tablet [...] Gonzalez APRN * Start 24-Jan-2015 Admin Requested Cyclobenzaprine HCl - 10 MG Oral Tablet TAKE ONE TABLET BY MOUTH THREE TIMES DAILY NEEDED * Quantity: 90 Refills: 3 Papa Keys M.D. Start Active Aspirin 325 MG Oral Tablet TAKE 1 [...] * Refills: 0 * Start 05-May-2015 Active Losartan Potassium 100 MG Oral Tablet TAKE 1 TABLET DAILY. * Quantity: 30 Refills: 6 Price Garcia M.D. * Start 05-May-2015 Active Evzio 0.4 MG/0.4ML Injection Solution Auto-injector INJECT 0.4MG SC/IM Q 2-3MIN NEEDED PER OVERDOSE * Quantity: 1 Refills: 0 Price Garcia M.D. * Start 17-Jun-2015 Active 0.4 ML Package (2 Packages) Zolpidem Tartrate 10 MG Oral Tablet TAKE ONE TABLET BY MOUTH EVERY NIGHT AT BEDTIME NEEDED FOR SLEEP *MUST LAST 30 DAYS* * Quantity: 30 Refills: 0 Price Garcia M.D. * Start 26-Jun-2015 Active Pennsaid 2 % Transdermal Solution Apply [...] 0 Papa Keys M.D. Start 30-Dec-2015 Active Endocet 10-325 MG Oral Tablet Si PO every 6-8 hrs prn with a max of 3 per day. Script must last 30 days. * Quantity: 90 Refills: 0 Papa Keys M.D. Start 21-Jan-2016 Active Allergies and Adverse Reactions Name Dates Details codeine (Allergy) Status: Active Imitrex (Allergy) Status: Active Maxalt (Allergy) Status: Active Toradol (Allergy) Status: Active [...] not documented Immunization Name Dates Details Influenza on: 21-Jun-2011 Influenza on: 03-May-2012 Tdap (Adacel) Lot #: [id number] on: 14-May-2013 Fluzone Quadrivalent 0.5 ML Intramuscular Suspension Lot #: [id number] on: 03-Jun-2014 Fluzone Quadrivalent 0.5 ML Intramuscular Suspension Prefilled Syringe Lot #: [id number] on: 17-Jun-2015 Family History Name Dates Details [...] smoker Vital Signs Date Test Result Details 13:23 BP Systolic 144 mm[Hg] Status: Comments: Location: ; Position: BP Diastolic 83 mm[Hg] Status: Comments: Location: ; Position: Temperature 97.9 f Status: Comments: Method: Heart Rate 74 /min Status: Comments: Location: ; Physical Findings 98 Status: Comments: O2 Saturation Results Date Description Value Details 04-Apr-2016 07:30 Clinical Trials 4045 Comments: Fastin hours Clinical Trials Clinical Trial Lab Plan of Care Name Dates Details Planned Observations Planned Goals not documented Planned Encounters Appointment; Provider: Andre Pratt M.D. On 18-Jul-2016 11:00 Instructions Name Dates Details Instructions not documented Encounters Appointment; West Berrios D.O. Encounter Diagnosis: Problem not documented On 12:49 Appointment; Papa Keys M.D. Encounter Diagnosis: Problem not documented On 13:00 Appointment; Price Garcia M.D. Encounter Diagnosis: Problem not documented On 13:30 Appointment; Linda Bingham A.PKarunaRJeromy Encounter Diagnosis: Problem not documented On 11:35 [...] not documented On 13-Aug-2015 08:35 Appointment; Price Gracia M.D. Encounter Diagnosis: Problem not documented On [...] documented On 09-Jun-2015 14:35 Appointment; Lesley Trimble P.T.|D.P.T. Encounter Diagnosis: Problem not documented On [...] not documented On 11:15 Appointment; Jessica Nguyen A.P.RJeromy Encounter Diagnosis: Problem not documented On 09:15 Appointment; Price Garcia M.D. Encounter Diagnosis: Problem not documented On 10:45 Appointment; Linda Bingham A.P.RJeromy Encounter Diagnosis: Problem not documented On 09:05 Appointment; Harris Barragan M.D. Encounter Diagnosis: Problem not documented On 11:15 Appointment; Linda Bingham A.P.RKarunaNKaruna Encounter Diagnosis: Problem not documented On 08:30 Appointment; Мария Gonzalez A.P.RJeromy Encounter Diagnosis: Problem not documented On 24-Jan-2015 [...] documented On 05-Dec-2014 13:00 Appointment; Linda Bingham A.P.RJeromy Encounter Diagnosis: Problem not documented On 03-Dec-2014 10:20 Appointment; Price Garcia M.D. Encounter Diagnosis: Problem not documented On 13-Nov-2014 13:45 Appointment; Price Garcia M.D. Encounter Diagnosis: Problem not documented On 30-Oct-2014 09:30 Appointment; [place] Berrios D.O. Encounter Diagnosis: Problem not documented On 11-Oct-2014 08:25 Appointment; Linda Bingham A.P.R.N. Encounter Diagnosis: Problem not documented On 02-Oct-2014 08:15 Appointment; Jessica Nguyen A.PKarunaRJeromy Encounter Diagnosis: Problem not documented On 15-Sep-2014 [...] documented On 27-Jun-2014 12:15 Appointment; Jessica Nguyen A.PKarunaRJeromy Encounter Diagnosis: Problem not documented On 24-Jun-2014 [...] documented On 13-May-2014 08:15 Appointment; Jessica Nguyen A.P.R.N. Encounter Diagnosis: Problem not documented On 29-Apr-2014 11:25 Appointment; Jessica Nguyen A.P.R.N. Encounter Diagnosis: Problem not documented On 09-Apr-2014 08:45"
--- OUTSIDE RECORDS SUMMARY | 2016-12-14 18:25 | XMS REPORT ---
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 Problem Fibromyalgia M79.7 Active Assessment Routine adult health maintenance Z00.00 Active Problem Arthritis of left knee M19.90 Active Problem Status post left knee replacement Z96.652 Active Problem High blood pressure I10 Active Problem Elevated alkaline phosphatase level R74.8 Active Problem Depression F32.9 Active Problem Neuropathy G62.9 Active Problem High cholesterol E78.0 Active Problem CAD (coronary artery disease) I25.10 Active Medications No Known Medications Results Name Result Date Reference Range Unit Abnormality Flag Hemoglobin A1C ----HEMOGLOBIN A1C 5.7 [id number] Summary Purpose eClinicalWorks Submission
--- OUTSIDE RECORDS SUMMARY | 2016-12-14 18:26 | XMS REPORT ---
Author Author GENERATED, SYSTEM Organization Unknown Address Unknown Phone Unavailable Care Team Providers Care Field Marketing Associate Name Role Phone MD DENISE, GARY CASTILLO [...] 11:00 AM * Address # 1 : [facility]: [address], [place]- [phone] or Procedures * Completed septoplasty bilateral inferior [...]
--- OUTSIDE RECORDS SUMMARY | 2016-12-14 18:26 | XMS REPORT | Summary of Care ---
Author Author Jose Jimenez M.D. Unknown Address [address] [place], [place] [address] Phone Unavailable Care Team Providers Care Quality Assurance Supervisor Body Name Role Phone Price Garcia M.D. Unavailable [...] G89.18) Status: Active Medications Name Dates Details Kzogdeglmq-AAYC-Qlnjglkw 50-325-40 MG Oral Tablet TAKE ONE TABLET BY MOUTH EVERY 4 HOURS NEEDED MAX OF 6 TABLETS PER DAY MUST LAST 30 DAYSMAY FILL ON OR AFTER 11/12/15* Quantity: 180 Priec Garcia M.D.* Started 09-Jun-2014 ActiveFluvoxaMINE Maleate 100 [...] * Quantity: 1 Refills: 0 Мария Gonzalez GEOTECHNICAL DEPARTMENT MANAGER* Started 24-Jan-2015 Admin RequestedAspirin 325 MG [...] PRN pain * Quantity: 45 Refills: 0 Lairmore, Jose M.D.* Started 20-Oct-2015 Active Allergies and Adverse Reactions Name Dates [...] Influenza Administered on:03-May-2012 Tdap (Adacel) Lot #: [id number] Administered on:14-May-2013 Fluzone Quadrivalent 0.5 ML Intramuscular Suspension Lot #: [id number] Administered on:03-Jun-2014 Fluzone Quadrivalent 0.5 ML Intramuscular Suspension Prefilled Syringe Lot #: [id number] Administered on:17-Jun-2015 Family History Grandfather* Name Dates [...] % Status: Results Date Description Value Details 05-Oct-2015 [...] ml/min (Better) Range: >60 EST GFR, NON-AFR [place] >60 ml/min (Better) Range: >60 Comments: EST GFR is reported in ml/min per 1.73 m2 of body surface area. For -Serbian, please multiple result by 1.2.----- GLUCOSE 124 [...] Jimenez On 29-Oct-2015 13:30 * Appointment; Provider: Jose Jimenez On 21-Oct-2015 11:30 * Appointment; Provider: Harris Barragan On 03-Apr-2015 [...] not documented On 09-Jan-2014 09:45 Appointment; Melvin Cotot Encounter Diagnosis: Problem not documented On 30-Dec-2013 [...]
--- OUTSIDE RECORDS SUMMARY | 2016-12-14 18:26 | XMS REPORT | Summary of Care ---
Author Author Papa Keys M.D. Organization Unknown Address Unknown Phone Unavailable Care Team Providers Care Blast Furnace Operator Name Role Phone Radha Titus, Price [...] Status: Active Nausea (787.02, R11.0) Status: Active Localized primary osteoarthritis of left lower leg (715.16, M17.12) Status: Active Left knee pain (719.46, M25.562) Status: Active Headache, acute (784.0, R51) Status: Active Medications Name Dates Details Lxdkwjybdc-KPQI-Jjhtfqto 50-325-40 MG Oral Tablet TAKE 1 TABLET BY MOUTH EVERY 6 HRS NEEDED MAX OF 4 TABS PER DAY MUST LAST 30 DAYSMAY FILL ON OR AFTER 03/09/16* Quantity: 120 Papa Keys M.D. * Start 07-May-2016 Active FluvoxaMINE Maleate 100 MG Oral Tablet [...] Price Garcia M.D. * Start 30-Oct-2014 Active Zolpidem Tartrate 10 MG Oral Tablet [...] 90 Refills: 0 Papa Keys M.D. Start 15-May-2016 Active Allergies and Adverse Reactions Name Dates [...] Influenza on: 03-May-2012 Tdap (Adacel) Lot #: [id number] on: 14-May-2013 Fluzone Quadrivalent 0.5 ML Intramuscular Suspension Lot #: [id number] on: 03-Jun-2014 Fluzone Quadrivalent 0.5 ML Intramuscular Suspension Prefilled Syringe Lot #: [id number] on: 17-Jun-2015 Family History Name Dates Details [...] smoker Vital Signs Date Test Result Details 04-May-2016 10:59 BP Systolic 142 mm[Hg] Status: Comments: Location: ; Position: BP Diastolic 70 mm[Hg] Status: Comments: Location: ; Position: Temperature 97.7 f Status: Comments: Method: Heart Rate 74 /min Status: Comments: Location: ; Physical Findings 96 Status: Comments: O2 Saturation 11-Apr-2016 09:31 BP Systolic 148 mm[Hg] Status: Comments: Location: ; Position: BP Diastolic 82 mm[Hg] Status: Comments: Location: ; Position: Temperature 97.7 f Status: Comments: Method: Heart Rate 70 /min Status: Comments: Location: ; Physical Findings 98 Status: Comments: O2 Saturation Results Date Description Value Details Results not documented Plan of Care Name Dates Details Planned Observations Planned Goals not documented Planned Encounters Appointment; Provider: Andre Pratt M.D. On 18-Jul-2016 11:00 Planned Medications Endocet 10-325 MG Oral Tablet Ordered: 15-May-2016 Active Instructions Name Dates Details Instructions not documented Encounters Appointment; Linda Bingham A.P.R.N. Encounter Diagnosis: Problem not documented On 04-May-2016 10:29 Appointment; Ppaa Keys M.D. Encounter Diagnosis: Problem not documented [...] Diagnosis: Problem not documented On 13:15 Appointment; iLnda Bingham A.P.RJeromy Encounter Diagnosis: Problem not documented [...] not documented On 21-Oct-2015 11:30 Appointment; Jose iJmenez M.D. Encounter Diagnosis: Problem not documented On 16-Oct-2015 09:15 Appointment; Gordon Sandy M.D. Encounter Diagnosis: Problem not documented On 16-Oct-2015 08:45 Appointment; Gaston Hare M.D. Encounter Diagnosis: Problem not documented On 15-Oct-2015 16:10 Appointment; Price Garcia M.D. Encounter Diagnosis: Problem not documented On 14-Oct-2015 10:30 Appointment; Gordon Sandy M.D. Encounter Diagnosis: Problem not documented On 30-Sep-2015 09:00 Appointment; Linda Bingham A.P.RJeromy Encounter Diagnosis: Problem not documented On 22-Sep-2015 09:10 Appointment; Gordon Sandy M.D. Encounter Diagnosis: Problem not documented On 16-Sep-2015 08:45 Appointment; Gordon Sandy M.D. Encounter Diagnosis: Problem not documented On 08-Sep-2015 09:45 Appointment; Price Garcia M.D. Encounter Diagnosis: Problem not documented On 03-Sep-2015 10:10 Appointment; Linda Bingham A.P.RJeromy Encounter Diagnosis: Problem not documented On 26-Aug-2015 [...] documented On 09-Jun-2015 14:35 Appointment; Lesley Trimble P.T.|D.P.TKaruna Encounter Diagnosis: Problem not documented On 09-Jun-2015 14:00 Appointment; Gordon Mancera M.D. Encounter Diagnosis: Problem not documented On 06-Jun-2015 10:55 Appointment; Lesley Trimble P.T.|D.P.TKaruna Encounter Diagnosis: Problem not documented On 02-Jun-2015 [...] not documented On 10:00 Appointment; Linda Bingham A.P.RJeromy Encounter Diagnosis: Problem not documented On 09:50 [...] not documented On 11:15 Appointment; Linda Bingham A.P.R.N. Encounter Diagnosis: Problem not documented On 08:30 Appointment; Мария Gonzalez A.P.R.N. Encounter Diagnosis: Problem not documented On 24-Jan-2015 [...] documented On 05-Dec-2014 13:00 Appointment; Linda Bingham A.P.R.N. Encounter Diagnosis: Problem not documented On 03-Dec-2014 [...] Problem not documented On 16-Aug-2014 11:10 Appointment; Priec Garcia M.D. Encounter Diagnosis: Problem [...]
--- OUTSIDE RECORDS SUMMARY | 2016-12-14 18:26 | XMS REPORT ---
Author Author FriendKyara 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 06497911 Problem Depression F32.9 Active 280115989 Problem Neuropathy G62.9 Active 720191115 Problem Arthritis of left knee M19.90 Active 2482887925857989 Problem Tear of meniscus of left knee S83.207A Active Problem Fibromyalgia M79.7 Active 757682953 Problem Migraine headache G43.909 Active 03901120 Problem Elevated alkaline phosphatase level R74.8 Active 897248748 Problem High cholesterol E78.0 Active 30803241 Problem CAD (coronary artery disease) I25.10 Active 51491989 Problem Status post left knee replacement Z96.652 Active 314753570838 Problem High blood pressure I10 Active 11007571 ALLERGIES Unknown Allergies SOCIAL HISTORY No smoking Hx information available PLAN OF CARE VITAL SIGNS MEDICATIONS Medication Instructions Dosage Frequency Start Date End Date Duration Status Zolpidem Tartrate 10 MG Orally Once a day 1 tablet at bedtime as needed 24h 30 Active Diazepam 10 MG Orally three times a day 1 tablet as needed 8h 30 Active RESULTS No Results PROCEDURES No Known procedures IMMUNIZATIONS No Known Immunizations
--- OUTSIDE RECORDS SUMMARY | 2016-12-14 18:26 | XMS REPORT ---
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 76364531 Problem Depression F32.9 Active 224658057 Problem Neuropathy G62.9 Active 633402261 Assessment Migraine headache G43.909 Jul, Active 48621605 Problem Arthritis of left knee M19.90 Active 8732737801236415 Problem Tear of meniscus of left knee S83.207A Active Problem Fibromyalgia M79.7 Active 299918032 Problem Migraine headache G43.909 Active 74481379 Problem Elevated alkaline phosphatase level R74.8 Active 728323111 Problem High cholesterol E78.0 Active 79807083 Problem CAD (coronary artery disease) I25.10 Active 19824177 Problem Status post left knee replacement Z96.652 Active 130100100001 Problem High blood pressure I10 Active 08269717 ALLERGIES Substance Reaction Event Type Date Status Imitrex heart problems Drug Allergy Jul, Active Codeine Sulfate felt like a heart attack Drug Allergy Jul, Active toradol has a heart stent, it crunches my heart Non Drug Allergy Jul, Active maxalt felt like a heart attack Non Drug Allergy Jul, Active SOCIAL HISTORY No smoking Hx information available PLAN OF CARE VITAL SIGNS Height 67 in 2016-08-10 Weight 131.4 lbs 2016-08-10 BMI 20.58 kg/m2 2016-08-10 Temperature 97.6 degrees Fahrenheit 2016-08-10 Heart Rate 68 /min 2016-08-10 Respiratory Rate 20 /min 2016-08-10 Blood pressure systolic 126 mm Hg 2016-08-10 Blood pressure diastolic 86 mm Hg 2016-08-10 MEDICATIONS Medication Instructions Dosage Frequency Start Date End Date Duration Status Zolpidem Tartrate 10 MG Orally Once a day 1 tablet at bedtime as needed 24h Active Promethazine HCl 25 MG Orally every 8 hrs prn neausea 1 tablet as needed Jul, Nov, 30 day(s) Active Fioricet 50-300-40 MG Orally 3-4 times a day 1 capsule as needed Nov, 30 days Active Fluvoxamine Maleate 100 MG Orally Once a day 1 tablet at bedtime 24h Active QUEtiapine Fumarate ER 200 MG Orally three times a day 1 tablet 8h Active Omeprazole 20 MG Orally Once a day before breakfast 1 capsule Active Clopidogrel Bisulfate 75 MG Orally Once a day 1 tablet 24h Active Oxycodone-Acetaminophen 10-325 MG Orally every 4 hours 1 tablet as needed 4h Active Flexeril 10mg 1 tablet 8h Active Propranolol HCl 20 MG Orally Twice a day 1 tablet 12h Jul, 30 day(s) Active Losartan Potassium 100 MG Orally Once a day 1 tablet 24h 90 Active Sennosides-Docusate Sodium 8.6-50 MG Orally twice a day 1 tablet 12h Active Diazepam 10 MG Orally three times a day 1 tablet as needed 8h Active RESULTS No Results PROCEDURES Procedure Date Ordered Related Diagnosis Body Site [facility] VISIT ESTABLISHED PATIENT Aug 10, 2016 OFFICE VISIT EST PATIENT LEVEL 3 Aug 10, 2016 IMMUNIZATIONS No Known Immunizations
--- OUTSIDE RECORDS SUMMARY | 2016-12-14 18:26 | XMS REPORT | Summary of Care ---
Author Author Radha Titus, Price Organization Unknown Address Unknown Phone Unavailable Care Team Providers Care Dressage Judge Name Role Phone Price Garcia M.D. Unavailable Unavailable [employer] CUSTOMER SERVICE DRIVER, Crystal Unavailable Unavailable Price Garcia PP Unavailable [...] * Quantity: 60 Refills: 0 Jessica Nguyen CUSTOMER SERVICE DRIVER* Started 24-Jun-2014 ActiveHydrALAZINE HCl - 50 MG Oral Tablet Take 1 tablet three times daily. * Quantity: 90 Refills: 5 Price Garcia M.D.* Started 05-Aug-2014 ActiveBaclofen 10 MG Oral Tablet * Refills: 0 * Started 08-Sep-2014 ActiveVerapamil HCl - 80 MG Oral Tablet 1 TABLET TWICE DAILY * Refills: 0 * Started 30-Oct-2014 ActiveQUEtiapine Fumarate 25 MG Oral Tablet USE DIRECTED. * Refills: 0 * Started 30-Oct-2014 ActiveFluvoxaMINE Maleate 100 MG Oral Tablet TAKE 1 TABLET AT BEDTIME. * Refills: 0 * Started 30-Oct-2014 ActiveAmLODIPine Besylate 5 MG Oral Tablet TAKE 1 TABLET BY MOUTH DAILY * Quantity: 30 Refills: 5 * Started 30-Oct-2014 ActiveDiazepam 10 MG Oral [...] Refills: 6 Price Garcia M.D.* Started 07-Jul-2014 ActiveIndomethacin 25 MG Oral Capsule TAKE 1 CAPSULE 3 TIMES DAILY WITH FOOD NEEDED. * Quantity: 90 Refills: 3 Price Garcia M.D.* Started 30-Oct-2014 EvrjklNcpvbfrdey-SKFO-Meiknuwd 50-325-40 MG Oral Tablet TAKE ONE TABLET BY MOUTH EVERY 4 HOURS (MAX 6 PER DAY)(MUST LAST 30 DAYS) * Quantity: 180 Refills: 0 Price Garcia M.D.* Started 09-Jun-2014 ActiveHydrocodone-Acetaminophen 5-325 MG Oral Tablet TAKE 1 TABLET EVERY 6 HOURS NEEDED.*Max 4 per day* * Quantity: 56 Refills: 0 Price Garcia M.D.* Started 13-Nov-2014 Active Allergies and Adverse Reactions Name Dates [...] Influenza Administered on:03-May-2012 Tdap (Adacel) Lot #: [id number] Administered on:14-May-2013 Fluzone Quadrivalent 0.5 ML Intramuscular Suspension Lot #: [id number] Administered on:03-Jun-2014 Family History Grandfather* Name Dates [...] smoker Vital Signs Date Test Result Details 13-Nov-2014 13:36 BP Systolic 122 mm[Hg] Status: BP Diastolic 90 mm[Hg] Status: Heart Rate 79 /min Status: Respiration Rate 18 /min Status: O2 SAT 97 % Status: 30-Oct-2014 09:39 BP Systolic 172 mm[Hg] Status: [...] Problem not documented On 21-Jul-2014 14:00 Appointment; nAdre Pratt Encounter Diagnosis: Problem not [...]
--- OUTSIDE RECORDS SUMMARY | 2016-12-14 18:27 | XMS REPORT | Summary of Care ---
Author Author Linda Bingham APRN Organization Unknown Address [address] [place], [place] [address] Phone Unavailable Care Team Providers Care Bottom Crane Operator Name Role Phone Radha Titus, Price Unavailable Unavailable Мария Gonzalez APRN Unavailable Unavailable Linda Bingham APRN Unavailable Unavailable Klaudia Keys M.D. Unavailable [...] R51) Status: Active Medications Name Dates Details Yskwpyoxlv-XTNQ-Ykzakxiu 50-325-40 MG Oral Tablet TAKE 1 TABLET [...] Influenza on: 03-May-2012 Tdap (Adacel) Lot #: [id number] on: 14-May-2013 Fluzone Quadrivalent 0.5 ML Intramuscular Suspension Lot #: [id number] on: 03-Jun-2014 Fluzone Quadrivalent 0.5 ML Intramuscular Suspension Prefilled Syringe Lot #: [id number] on: 17-Jun-2015 Family History Name Dates Details [...] documented On 21-Apr-2016 13:00 Appointment; Linda Bingham A.P.RJeromy Encounter Diagnosis: Problem not documented On 11-Apr-2016 09:20 Appointment; [place] Berrios D.O. Encounter Diagnosis: Problem not documented On 12:49 Appointment; Papa Keys M.D. Encounter Diagnosis: Problem not documented On 13:00 Appointment; Price Garcia M.D. Encounter Diagnosis: Problem not documented On 13:30 Appointment; Linda Bingham A.P.RJeromy Encounter Diagnosis: Problem not documented On 11:35 Appointment; Papa Keys M.D. Encounter Diagnosis: Problem not documented On 13:15 Appointment; Linda Bingham A.P.RJeromy Encounter Diagnosis: Problem not documented On 09:45 Appointment; Price Garcai M.D. Encounter Diagnosis: Problem not documented On [...] Problem not documented On 21-Oct-2015 11:30 Appointment; Jsoe Jimenez M.D. Encounter Diagnosis: Problem not documented [...] documented On 09-Jun-2015 14:35 Appointment; Lesley Trimble, P.T.|D.P.TKaruna Encounter Diagnosis: Problem not documented On 09-Jun-2015 14:00 Appointment; Gordon Mancera M.D. Encounter Diagnosis: Problem not documented On 06-Jun-2015 10:55 Appointment; Lesley Trimble P.T.|Eleuterio Encounter Diagnosis: Problem not documented On 02-Jun-2015 11:30 Appointment; Price Garcia M.D. Encounter Diagnosis: Problem not documented On 22-May-2015 13:15 Appointment; Price Garcia M.D. Encounter Diagnosis: Problem not documented On 14-May-2015 15:15 Appointment; Priec Garcia M.D. Encounter Diagnosis: Problem [...]
--- OUTSIDE RECORDS SUMMARY | 2016-12-14 18:27 | XMS REPORT | Summary of Care ---
Author Author Du Titus, [facility] Unknown Address [address] [place] [address] Phone Unavailable Care Team Providers Care Sales Agent Name Role Phone Price Garcia M.D. 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.51, M71.22) Status: Active Acute knee pain, left (719.46, M25.562) Status: Active Migraine headache (346.90, G43.909) Status: Active Degenerative arthritis of knee (715.36, M17.9) Status: Active Medications Name Dates Details Ihoyhgnscs-CBGR-Frcwgdfz 50-325-40 MG Oral Tablet TAKE ONE TABLET [...] Colonoscopy (Fiberoptic) History of Section ECG/ EKG Outside Interp Pendin24-Sep-2015 Clinical Trials 4045 Ordered:24-Sep-2015 Immunization Name Dates Details Influenza Administered on:21-Jun-2011 Influenza Administered on:03-May-2012 Tdap (Adacel) Lot #: [id number] Administered on:14-May-2013 Fluzone Quadrivalent 0.5 ML Intramuscular Suspension Lot #: [id number] Administered on:03-Jun-2014 Fluzone Quadrivalent 0.5 ML Intramuscular Suspension Prefilled Syringe Lot #: [id number] Administered on:17-Jun-2015 Family History Grandfather* Name Dates [...] /min Status: O2 SAT 95 % Status: Results Date Description Value Details 02-Sep-2015 09:34 Clinical Trials 4045 Comments: Fastin hours Clinical Trials Clinical Trial Lab ([facility]) 14-Sep-2015 08:28 MRI KNEE LEFT Comments: Exam Date: 09/14/2015 07: 01Dictation Date: 09/14/2015 08:28 XMR EXT KNEE LEFT (Better) 17-Sep-2015 08:56 Clinical Trials 4045 Comments: Fastin hours Clinical Trials Clinical Trial Lab ([facility]) Plan of Care Planned Observations* Name [...] Problem not documented On 18-Dec-2014 09:45 Appointment; Gasotn Hare Encounter Diagnosis: Problem not documented On [...]
--- OUTSIDE RECORDS SUMMARY | 2016-12-14 18:27 | XMS REPORT | Summary of Care ---
Author Author Papa Keys M.D. Organization Unknown Address Unknown Phone Unavailable Care Team Providers Care Book Canvasser Name Role Phone Radha Titus, Price Unavailable [...] G43.909) Status: Active Medications Name Dates Details Otxvcatmiw-NWRO-Nophqumx 50-325-40 MG Oral Tablet TAKE 1 TABLET EVERY 6 HOURS NEEDED.Must last 30 days. Quantity: 120 Papa Keys M.D. * Start 06-Jun-2016 Active FluvoxaMINE Maleate 100 MG Oral Tablet [...] Influenza on: 03-May-2012 Tdap (Adacel) Lot #: [id number] on: 14-May-2013 Fluzone Quadrivalent 0.5 ML Intramuscular Suspension Lot #: [id number] on: 03-Jun-2014 Fluzone Quadrivalent 0.5 ML Intramuscular Suspension Prefilled Syringe Lot #: [id number] on: 17-Jun-2015 Family History Name Dates Details [...] Physical Findings 96 Status: Comments: O2 Saturation Results Date Description Value Details Results not documented Plan of Care Name Dates Details Planned Observations Planned Goals not documented Planned Encounters Appointment; Provider: Andre Pratt M.D. On 18-Jul-2016 11:00 Planned Medications Emnhebsmvf-GDRO-Ycpuqzyu 50-325-40 MG Oral Tablet Ordered: 06-Jun-2016 Active Endocet 10-325 MG Oral Tablet Ordered: 14-Jul-2016 Active Instructions Name Dates Details Instructions not [...] documented On 09-Jun-2015 14:35 Appointment; Lesley Trimble P.T.|Shiela.PEdward Encounter Diagnosis: Problem not documented On 09-Jun-2015 [...] Encounter Diagnosis: Problem not documented On 29-May-2014 11:30"
--- OUTSIDE RECORDS SUMMARY | 2016-12-14 18:28 | XMS REPORT ---
Author Author FriendKyara [employer] Address Unknown Phone Unavailable Care Team Providers Care Principal Solutions Architect Name Role Phone Friend, Kyara CP Unavailable [...]
--- OUTSIDE RECORDS SUMMARY | 2016-12-14 18:28 | XMS REPORT | Summary of Care ---
Author Author Papa Keys M.D. Organization Unknown Address [address] [place], [place] [address] Phone Unavailable Care Team Providers Care Pug Mill Operator Helper Name Role Phone Price Garcia M.D. Unavailable [...] G43.909) Status: Active Medications Name Dates Details Fmfvvhqdwy-SLPB-Qpwzmolq 50-325-40 MG Oral Tablet TAKE ONE TABLET [...] * Quantity: 1 Refills: 0 Мария Gonzalez LINING FINISHER* Started 24-Jan-2015 Admin RequestedPromethazine HCl - 25 MG/ML Injection Solution Inject 12.5mg IM x 1 now * Quantity: 1 Refills: 0 Мария Gonzalez LINING FINISHER* Started 24-Jan-2015 Admin RequestedAspirin 325 MG Oral [...] Refills: 0 Papa Keys M.D.* Started 23-Dec-2015 [id number] GM Pump Btl Acetaminophen-Codeine 300-30 MG Oral [...] EKG Preop Pendin22-Jan-2016 Clinical Trials 4045 Ordered:11-Jan-2016 CBC w/ Auto Diff 7150 Ordered:22-Jan-2016 BASIC METABOLIC PROFILE 1210 Ordered:22-Jan-2016 PROTIME PANEL 7000 Ordered:22-Jan-2016 Urinalysis, Reflex to Microscopic or Culture PRN 8005 Ordered:22-Jan-2016 XRay CHEST-PA & LAT Ordered:22-Jan-2016 Immunization Name Dates Details Influenza Administered on:21-Jun-2011 Influenza Administered on:03-May-2012 Tdap (Adacel) Lot #: [id number] Administered on:14-May-2013 Fluzone Quadrivalent 0.5 ML Intramuscular Suspension Lot #: [id number] Administered on:03-Jun-2014 Fluzone Quadrivalent 0.5 ML Intramuscular Suspension Prefilled Syringe Lot #: [id number] Administered on:17-Jun-2015 Family History Grandfather* Name Dates [...] Fastin hours Clinical Trials Clinical Trial Lab ([facility]) 11-Jan-2016 08:02 Clinical Trials 4045 Clinical Trials Clinical Trial Lab ([facility]) Plan of Care Planned Observations* Name [...] not documented On 22-Apr-2015 10:15 Appointment; Harris Braragan Encounter Diagnosis: Problem not documented On 13-Apr-2015 [...]
--- OUTSIDE RECORDS SUMMARY | 2016-12-14 18:28 | XMS REPORT ---
Author Author FriendKyara [employer] Address Unknown Phone Unavailable Care Team Providers Care Electrophysiology Technologist Name Role Phone Friend, Kyara CP Unavailable [...]
--- OUTSIDE RECORDS SUMMARY | 2016-12-14 18:28 | XMS REPORT | Summary of Care ---
Author Author Provider, Outside Organization Unknown Address Unknown Phone Unavailable Care Team Providers Care Parts Counter Clerk Name Role Phone Price Garcia M.D. [...] Status: Active Non-smoker (V49.89, Z78.9) Status: Active Medications Name Dates Details Tlunkzybeq-ZXLG-Znrucfzi 50-325-40 MG Oral Tablet TAKE 1 TABLET [...] Refills: 0 Papa Keys M.D.* Started 23-Dec-2015 Zmwgdq022 GM Pump Btl Acetaminophen-Codeine 300-30 MG Oral [...] Influenza Administered on:03-May-2012 Tdap (Adacel) Lot #: [id number] Administered on:14-May-2013 Fluzone Quadrivalent 0.5 ML Intramuscular Suspension Lot #: [id number] Administered on:03-Jun-2014 Fluzone Quadrivalent 0.5 ML Intramuscular Suspension Prefilled Syringe Lot #: [id number] Administered on:17-Jun-2015 Family History Grandfather* Name Dates [...] Problem not documented On 03-Nov-2015 08:15 Appointment; Jsoe Jimenez Encounter Diagnosis: Problem not documented On [...] Problem not documented On 14-May-2015 15:15 Appointment; rPice Garcia Encounter Diagnosis: Problem not [...] Diagnosis: Problem not documented On 09:15 Appointment; rPice Garcia Encounter Diagnosis: Problem not [...] Problem not documented On 14-Jul-2014 13:15 Appointment; Pirce Garcia Encounter Diagnosis: Problem [...] Problem not documented On 07-Jun-2014 08:45 Appointment; Jsoe Trammell Encounter Diagnosis: Problem not [...]
--- OUTSIDE RECORDS SUMMARY | 2016-12-14 18:28 | XMS REPORT ---
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 59085612 Problem Depression F32.9 Active 925896438 Problem Neuropathy G62.9 Active 955450896 Problem Arthritis of left knee M19.90 Active 0125056560562119 Problem Tear of meniscus of left knee S83.207A Active Problem Fibromyalgia M79.7 Active 603360611 Problem Migraine headache G43.909 Active 00641097 Problem Elevated alkaline phosphatase level R74.8 Active 366221322 Problem High cholesterol E78.0 Active 06558105 Problem CAD (coronary artery disease) I25.10 Active 55740419 Problem Status post left knee replacement Z96.652 Active 878281376425 Problem High blood pressure I10 Active 93463100 ALLERGIES Unknown Allergies SOCIAL HISTORY No smoking Hx information available PLAN OF CARE VITAL SIGNS MEDICATIONS Unknown Medications RESULTS No Results PROCEDURES No Known procedures IMMUNIZATIONS No Known Immunizations
--- OUTSIDE RECORDS SUMMARY | 2016-12-14 18:28 | XMS REPORT ---
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 85958022 Problem Depression F32.9 Active 413224683 Problem Neuropathy G62.9 Active 332130265 Problem Arthritis of left knee M19.90 Active 6717460602190843 Problem Tear of meniscus of left knee S83.207A Active Problem Fibromyalgia M79.7 Active 006813956 Problem Migraine headache G43.909 Active 24229161 Problem Elevated alkaline phosphatase level R74.8 Active 936881657 Problem High cholesterol E78.0 Active 93073590 Problem CAD (coronary artery disease) I25.10 Active 08428348 Problem Status post left knee replacement Z96.652 Active 423731856794 Problem High blood pressure I10 Active 62234361 ALLERGIES Unknown Allergies SOCIAL HISTORY No smoking [...]
--- OUTSIDE RECORDS SUMMARY | 2016-12-14 18:28 | XMS REPORT ---
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 75647355 Problem Depression F32.9 Active 303945870 Problem Neuropathy G62.9 Active 407188628 Problem Migraine headache G43.909 Active 58906533 Problem Elevated alkaline phosphatase level R74.8 Active 703920553 Problem High cholesterol E78.0 Active 56303286 Problem CAD (coronary artery disease) I25.10 Active 27349459 Problem Status post left knee replacement Z96.652 Active 092508196133 Problem High blood pressure I10 Active 17549786 Assessment Dysuria R30.0 Oct, Active 44748371 Problem Arthritis of left knee M19.90 Active 2543357661822081 Assessment Acute low back pain M54.5 Oct, Active 949283313 Problem Tear of meniscus of left knee S83.207A Active Assessment UTI (urinary tract infection) N39.0 Oct, Active 21264706 Problem Fibromyalgia M79.7 Active 131244289 ALLERGIES Substance Reaction Event Type Date Status Imitrex heart problems Drug Allergy Oct, Active Codeine Sulfate felt like a heart attack Drug Allergy Oct, Active toradol has a heart stent, it crunches my heart Non Drug Allergy Oct, Active maxalt felt like a heart attack Non Drug Allergy Oct, Active SOCIAL HISTORY No smoking Hx information available PLAN OF CARE Activity Details Pending Test Urine Culture as scheduled,Reason: VITAL SIGNS Height 5 ft 7 in in 2016-11-03 Weight 129 lb 0 oz lbs 2016-11-03 BMI 20.20 kg/m2 2016-11-03 Temperature 98.6 degrees Fahrenheit 2016-11-03 Heart Rate 68 /min 2016-11-03 Oximetry 99 % 2016-11-03 Blood pressure systolic 118 mm Hg 2016-11-03 Blood pressure diastolic 70 mm Hg 2016-11-03 MEDICATIONS Medication Instructions Dosage Frequency Start Date End Date Duration Status Nitrofurantoin Monohyd Macro 100 MG Orally every 12 hrs 1 capsule with food 12h Oct, 16 Oct, 2016 7 day(s) Active QUEtiapine Fumarate ER 200 MG Orally three times a day 1 tablet 8h Active Propranolol HCl 20 MG Orally Twice a day 1 tablet 12h Jul, Active Naproxen 500 MG Orally every 12 hrs 1 tablet as needed 12h Oct, Nov, 30 days Active Fluvoxamine Maleate 100 MG Orally Once a day 1 tablet at bedtime 24h Active Oxycodone-Acetaminophen 10-325 MG Orally every 6 hours 1 tablet as needed 6h 30 Oct, 2016 30 days Active Amlodipine Besylate 5 MG Orally Once a day preferably at bedtime 1 tablet Aug, 30 day(s) Active Clopidogrel Bisulfate 75 MG Orally Once a day 1 tablet 24h Active Zolpidem Tartrate 10 MG Orally Once a day 1 tablet at bedtime as needed 24h 30 Active Losartan Potassium 100 MG Orally Once a day 1 tablet 24h 90 Active Atorvastatin Calcium 40 MG Orally Once a day 1 tablet 24h Active Promethazine HCl 25 MG Orally every 8 hrs prn neausea 1 tablet as needed Jul, Nov, 30 day(s) Active Diazepam 10 MG Orally three times a day 1 tablet as needed 8h 30 Active Sennosides-Docusate Sodium 8.6-50 MG Orally twice a day 1 tablet 12h as needed Active RESULTS Name Result Date Reference Range Urinalysis (UA) - 2016-11-03 Color yellow Character cloudy Blood trace-intact Glucose neg 0 - 0 Bilirubin neg Ketones neg 0 - 0 Specific [place] 1.015 pH 7.0 Leukocytes neg Protein neg 0 - 0 Nitrates neg Urobilirubin 0.2 0.2 - 1 PROCEDURES Procedure Date Ordered Related Diagnosis Body Site URINALYSIS NONAUTO WO SCOPE November 03, 2016 URINE CULTURE/COLONY COUNT.AMS November 03, 2016 OFFICE VISIT EST PATIENT LEVEL 3 November 03, 2016 [facility] VISIT ESTABLISHED PATIENT November 03, 2016 IMMUNIZATIONS No Known Immunizations
--- OUTSIDE RECORDS SUMMARY | 2016-12-14 18:28 | XMS REPORT | Summary of Care ---
Author Author Gaston Hare M.D. Organization Unknown Address [address], [place] [address] Phone Unavailable Care Team Providers Care Ice Cream Truck Driver Name Role Phone Price Garcia M.D. Unavailable Unavailable Lisa SENIOR LOGISTICS MANAGER, Мария Unavailable Unavailable [place] SENIOR LOGISTICS MANAGER, Crystal Unavailable Unavailable Price Garcia PP [...] of 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, M47.812) Status: Active Migraine headache (346.90, G43.909) Status: [...] Influenza Administered on:03-May-2012 Tdap (Adacel) Lot #: [id number] Administered on:14-May-2013 Fluzone Quadrivalent 0.5 ML Intramuscular Suspension Lot #: [id number] Administered on:03-Jun-2014 Fluzone Quadrivalent 0.5 ML Intramuscular Suspension Prefilled Syringe Lot #: [id number] Administered on:17-Jun-2015 Family History Grandfather* Name Dates [...] smoker Vital Signs Date Test Result Details 13-Aug-2015 09:06 BP Systolic 142 mm[Hg] Status: [...] 11:00 * Appointment; Provider: Price Garcia On 17-Aug-2015 11:00 * Appointment; Provider: Harris Barragan On 03-Apr-2015 13:00 * Appointment; Provider: [facility] On 07:00 Instructions * Instructions not [...] Problem not documented On 20-Nov-2013 13:00 Appointment; Melvni Cotto Encounter Diagnosis: Problem not [...]
--- OUTSIDE RECORDS SUMMARY | 2016-12-14 18:29 | XMS REPORT ---
Author Author GENERATED, SYSTEM Organization Unknown Address Unknown Phone Unavailable Care Team Providers Care Moid Middle School Teacher Name Role Phone MD DENISE, GARY CASTILLO Unavailable Reason For Visit Chief Complaint MIGRAINE Social History Functional Status Vital Signs Results CT Scan from 01/25/2016 7:52 PMCT CEREBRAL W/O CONTRAST History: headache, visualchanges . Priors: CT head dated 01/19/2014 Findings: Ventricles and Extra axial spaces: Normal in size and morphology for the patient's age. Hemorrhage: None. Cerebral parenchyma: Normal. Mass effect/midline shift: None. Brainstem/Cerebellum: Normal. Calvarium: Normal. Visualized Paranasal sinuses/Mastoids: There is a small amount of fluid and mucosal thickening within the left sphenoid sinus Impression: No acute intracranial abnormality. Mild left sphenoid sinusitis. Electronically signed by: Angie Christopher MD Dictated: 01/26/2016 10:25 Problems Encounter Diagnosis No relevant problems exist. [...]
--- OUTSIDE RECORDS SUMMARY | 2016-12-14 18:29 | XMS REPORT | Summary of Care ---
Author Author Jamison Lobo Unknown Address [address] [place], [place] [address] Phone Unavailable Care Team Providers Care Md Ophthalmologist Name Role Phone Price Garcia M.D. Unavailable Unavailable Мария Gonzalez APRN Unavailable Unavailable Tony Titus, R Unavailable Unavailable Price Garcia PP Unavailable Unavailable [...] 90 Refills: 3 Price Garcia M.D.* Started BfxgafMsdyaovqll-HMMF-Dajskvkz 50-325-40 MG Oral Tablet TAKE ONE TABLET [...] Influenza Administered on:03-May-2012 Tdap (Adacel) Lot #: [id number] Administered on:14-May-2013 Fluzone Quadrivalent 0.5 ML Intramuscular Suspension Lot #: [id number] Administered on:03-Jun-2014 Fluzone Quadrivalent 0.5 ML Intramuscular Suspension Prefilled Syringe Lot #: [id number] Administered on:17-Jun-2015 Family History Grandfather* Name Dates [...] ml/min (Better) Range: >60 EST GFR, NON-AFR HAITIAN >60 ml/min (Better) Range: >60 Comments: EST GFR is reported in ml/min per 1.73 m2 of body surface area. For -Pakistani, please multiple result by 1.2.----- GLUCOSE 124 [...] Problem not documented On 25-Jun-2015 10:50 Appointment; aGston Hare Encounter Diagnosis: Problem not documented On [...]
--- OUTSIDE RECORDS SUMMARY | 2016-12-14 18:29 | XMS REPORT | Summary of Care ---
Author Author Papa Keys M.D. Organization Unknown Address [address] [place], [place] [address] Phone Unavailable Care Team Providers Care Content Writer Name Role Phone Price Garcia M.D. [...] of left knee (715.16, M17.12) Status: Active Localized primary osteoarthritis of right lower leg (715.16, M17.11) Status: Active Medications Name Dates Details Zdzpczxafb-AGTI-Iteulxpt 50-325-40 MG Oral Tablet TAKE ONE TABLET [...] Influenza Administered on:03-May-2012 Tdap (Adacel) Lot #: [id number] Administered on:14-May-2013 Fluzone Quadrivalent 0.5 ML Intramuscular Suspension Lot #: [id number] Administered on:03-Jun-2014 Fluzone Quadrivalent 0.5 ML Intramuscular Suspension Prefilled Syringe Lot #: [id number] Administered on:17-Jun-2015 Family History Grandfather* Name Dates [...] (Better) Range: 0-10 23-Nov-2015 09:09 URINE CULTURE [id number] Comments: Socialmoth performed at: [facility], [address], Dehairing Machine Tender: Igor Perez D.O., [facility] Collection Date/Time: [id number] Results Received Date/Time: [id number] Reported Date/Time: [id number] performed at: [facility], [address] [place] [address], [address], Dehairing Machine Tender: Igor Perez D.O., MPHQuest Collection Date/Time: [id number] Results Received Date/Time: [id number] Reported Date/Time: [id number] CULTURE, URINE, ROUTINE SEE NOTE (Abnormal) Comments: CULTURE, URINE, ROUTINE MICRO NUMBER: [id number] TEST STATUS: FINAL SPECIMEN SOURCE : URINE, [...] Date: 11/25/2015 09:22 XMR SPINE LUMBAR ([facility]) 30-Nov-2015 07:30 Clinical Trials 4045 Clinical Trials Clinical Trial Lab ([facility]) 14:02 MRI KNEE LEFT Comments: Exam Date: 11/30/2015 06:28Dictation Date : 11/30/2015 14:02 XMR EXT KNEE LEFT ([facility]) Plan of Care Planned Observations* Name Dates Details Planned Goals not documented Goal Planned Encounters* Appointment; Provider: Andre Pratt On 18-Jul-2016 11:00 * Appointment; Provider: Papa Keys On 23-Dec-2015 14:00 * Appointment; Provider: Papa Keys On 16-Dec-2015 14:00 * Appointment; Provider: Price Garcia On 11-Dec-2015 14:00 * Appointment; Provider: Schedule Radiology On [...] not documented On 06-Jan-2015 10:45 Appointment; Price Gacria Encounter Diagnosis: Problem not documented On 29-Dec-2014 [...]
--- OUTSIDE RECORDS SUMMARY | 2016-12-14 18:29 | XMS REPORT | Summary of Care ---
Author Author Papa Keys M.D. Organization Unknown Address [address] [place], [place] [address] Phone Unavailable Care Team Providers Care Flight Steward Name Role Phone Price Garcia M.D. Unavailable [...] G43.909) Status: Active Medications Name Dates Details Fjnfkakofh-BDPD-Amymtdhz 50-325-40 MG Oral Tablet TAKE ONE TABLET [...] * Quantity: 1 Refills: 0 Мария Gonzalez CINDER WORKER* Started 24-Jan-2015 Admin RequestedCyclobenzaprine HCl - 10 [...] Influenza Administered on:03-May-2012 Tdap (Adacel) Lot #: [id number] Administered on:14-May-2013 Fluzone Quadrivalent 0.5 ML Intramuscular Suspension Lot #: [id number] Administered on:03-Jun-2014 Fluzone Quadrivalent 0.5 ML Intramuscular Suspension Prefilled Syringe Lot #: [id number] Administered on:17-Jun-2015 Family History Grandfather* Name Dates [...] (Better) Range: 0-10 23-Nov-2015 09:09 URINE CULTURE [id number] Comments: Azendoo performed at: [facility], [address] [place] [address], [address], Auto Job Estimator: Igor Perez D.O., MPHQuest Collection Date/Time: [id number] Results Received Date/Time: [id number] Reported Date/Time: [id number] performed at: [facility], [address] [place] [address], [address], Auto Job Estimator: Igor Perez D.O., MPHQuest Collection Date/Time: [id number] Results Received Date/Time: [id number] Reported Date/Time: [id number] CULTURE, URINE, ROUTINE SEE NOTE (Abnormal) Comments: CULTURE, URINE, ROUTINE MICRO NUMBER: [id number] TEST STATUS: FINAL SPECIMEN SOURCE : URINE, [...] Problem not documented On 08-Sep-2015 09:45 Appointment; Prcie Garcia Encounter Diagnosis: Problem not [...]
--- OUTSIDE RECORDS SUMMARY | 2016-12-14 18:30 | XMS REPORT | Summary of Care ---
Author Author Linda Bingham APRN Organization Unknown Address [address] [place], [place] [address] Phone Unavailable Care Team Providers Care Temperer Name Role Phone Price Garcia M.D. Unavailable Unavailable Lisa MEDICAL BILLING REPRESENTATIVE, Мария Unavailable Unavailable Smarsh-[place] MEDICAL BILLING REPRESENTATIVE, Crystal Unavailable Unavailable Linda Bingham APRN Unavailable Unavailable Price Garcia PP Unavailable [...] G43.909) Status: Active Medications Name Dates Details Sukxdsured-CLZB-Bczsaztz 50-325-40 MG Oral Tablet TAKE ONE TABLET [...] * Quantity: 60 Refills: 0 Michaelle-Jessica Sanchez APRN* Started 24-Jun-2014 ActiveHydrALAZINE HCl - 50 MG Oral Tablet Take 1 tablet three times daily. * Quantity: 90 Refills: 5 Price Garcia M.D.* Started 05-Aug-2014 ActiveZolpidem Tartrate ER 12.5 MG Oral Tablet [...] Refills: 0 Price Garcia M.D.* Started 30-Oct-2014 ActiveKetorolac Tromethamine 60 MG/2ML Intramuscular Solution 60 mg IM given in office * Quantity: 1 Refills: 0 Linda Bingham APRN* Started Admin RequestedPromethazine HCl - 25 MG/ML Injection Solution 25 mg IM given IM * Quantity: 1 Refills: 0 Linda Bingham APRN* Started Admin Requested Allergies and Adverse Reactions Name [...] History of Section ECG/ EKG Preop Pendin CBC w/ Auto Diff 7150 Ordered: BASIC METABOLIC PROFILE 1210 Ordered: PROTIME PANEL 7000 Ordered: Urinalysis, Reflex to Microscopic or Culture PRN 8005 Ordered: XRay CHEST-PA & LAT Ordered: Immunization Name Dates Details Influenza Administered on:21-Jun-2011 Influenza Administered on:03-May-2012 Tdap (Adacel) Lot #: [id number] Administered on:14-May-2013 Fluzone Quadrivalent 0.5 ML Intramuscular Suspension Lot #: [id number] Administered on:03-Jun-2014 Family History Grandfather* Name Dates [...] % Status: Results Date Description Value Details 08:40 [...] * Instructions not documented Encounters Appointment; Linda Bignham Encounter Diagnosis: Problem not documented On 09:50 [...]
--- OUTSIDE RECORDS SUMMARY | 2016-12-14 18:30 | XMS REPORT | Summary of Care ---
Author Author Conner Bustos M.D. Unknown Address [address], [place] [address] Phone Unavailable Care Team Providers Care Distiller Name Role Phone Price Garcia M.D. Unavailable [...] Clinical trial exam (V70.7, Z00.6) Status: Active Medications Name Dates Details Dhfutobyky-OAJM-Eygkedam 50-325-40 MG Oral Tablet TAKE ONE TABLET [...] Influenza Administered on:03-May-2012 Tdap (Adacel) Lot #: [id number] Administered on:14-May-2013 Fluzone Quadrivalent 0.5 ML Intramuscular Suspension Lot #: [id number] Administered on:03-Jun-2014 Fluzone Quadrivalent 0.5 ML Intramuscular Suspension Prefilled Syringe Lot #: [id number] Administered on:17-Jun-2015 Family History Grandfather* Name Dates [...]
--- OUTSIDE RECORDS SUMMARY | 2016-12-14 18:30 | XMS REPORT | Summary of Care ---
Author Author Papa Keys M.D. Organization Unknown Address [address], [place] [address] Phone Unavailable Care Team Providers Care Stage Producer Name Role Phone Price Garcia M.D. Unavailable [...] M17.11) Status: Active Medications Name Dates Details Ebgnpiajec-RQRL-Hitggqzq 50-325-40 MG Oral Tablet TAKE ONE TABLET [...] Influenza Administered on:03-May-2012 Tdap (Adacel) Lot #: [id number] Administered on:14-May-2013 Fluzone Quadrivalent 0.5 ML Intramuscular Suspension Lot #: [id number] Administered on:03-Jun-2014 Fluzone Quadrivalent 0.5 ML Intramuscular Suspension Prefilled Syringe Lot #: [id number] Administered on:17-Jun-2015 Family History Grandfather* Name Dates [...] (Better) Range: 0-10 23-Nov-2015 09:09 URINE CULTURE [id number] Comments: 6connect performed at: [facility], [address], Business Center Representative: Igor Perez D.O., [facility] Collection Date/Time: [id number] Results Received Date/Time: [id number] Reported Date/Time: [id number] [facility] at: [facility], [address] [place] [address], [phone], Business Center Representative: Igor Perez D.O., MPHQuest Collection Date/Time: [id number] Results Received Date/Time: [id number] Reported Date/Time: [id number] CULTURE, URINE, ROUTINE SEE NOTE (Abnormal) Comments: CULTURE, URINE, ROUTINE MICRO NUMBER: [id number] TEST STATUS: FINAL SPECIMEN SOURCE : URINE, [...] 15Dictation Date: 11/25/2015 09:22 XMR SPINE LUMBAR ([facility]) 30-Nov-2015 07:30 Clinical Trials 4045 Clinical Trials Clinical Trial Lab ([facility]) 14:02 MRI KNEE LEFT Comments: Exam Date: 11/30/2015 06:28Dictation Date : 11/30/2015 14:02 XMR EXT KNEE LEFT ([facility]) Plan of Care Planned [...] not documented On 09-Jun-2015 14:35 Appointment; Lesley rTimble Encounter Diagnosis: Problem not documented On 09-Jun-2015 [...] Problem not documented On 18-Dec-2014 09:45 Appointment; Gastno Hare Encounter Diagnosis: Problem not documented On [...]
--- OUTSIDE RECORDS SUMMARY | 2016-12-14 18:30 | XMS REPORT | Summary of Care ---
Author Author Papa Keys M.D. Organization Unknown Address [address], [place] [id number] Phone Unavailable Care Team Providers Care Real Estate Underwriter Name Role Phone Price Garcia M.D. Unavailable [...] of right side (723.8, M54.81) Status: Active Pre-op testing (V72.84, Z01.818) Status: Active Post-op pain (338.18, G89.18) Status: Active Status post arthroscopy of left knee (V45.89, Z98.89) Status: Active Low back ache (724.2, M54.5) Status: Active Lower back pain (724.2, M54.5) Status: Active Lumbar radiculopathy (724.4, M54.16) Status: Active Primary osteoarthritis of left knee [...] 90 Refills: 3 Price Garcia M.D.* Started AvxltpPvjvxlddae-NHIZ-Ywwzhdma 50-325-40 MG Oral Tablet TAKE ONE TABLET [...] Influenza Administered on:03-May-2012 Tdap (Adacel) Lot #: [id number] Administered on:14-May-2013 Fluzone Quadrivalent 0.5 ML Intramuscular Suspension Lot #: [id number] Administered on:03-Jun-2014 Fluzone Quadrivalent 0.5 ML Intramuscular Suspension Prefilled Syringe Lot #: [id number] Administered on:17-Jun-2015 Family History Grandfather* Name Dates [...] to report Results Date Description Value Details 02-Nov-2015 08:23 Clinical Trials 4045 Clinical Trials Clinical Trial Lab (Better) Plan of Care Planned Observations* Name Dates Details Planned Goals not documented Goal Planned Encounters* Appointment; Provider: Ander Pratt On 18-Jul-2016 11:00 * Appointment; Provider: [...]
--- OUTSIDE RECORDS SUMMARY | 2016-12-14 18:31 | XMS REPORT ---
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 18745422 Problem Depression F32.9 Active 208879411 Problem Neuropathy G62.9 Active 942939720 Problem Arthritis of left knee M19.90 Active 1799718410917326 Problem Tear of meniscus of left knee S83.207A Active Problem Fibromyalgia M79.7 Active 551372626 Problem Migraine headache G43.909 Active 61710776 Problem Elevated alkaline phosphatase level R74.8 Active 703836535 Problem High cholesterol E78.0 Active 57249904 Problem CAD (coronary artery disease) I25.10 Active 67090740 Problem Status post left knee replacement Z96.652 Active 297552323235 Problem High blood pressure I10 Active 47821435 ALLERGIES Unknown Allergies SOCIAL HISTORY No smoking Hx information available PLAN OF CARE VITAL SIGNS MEDICATIONS Unknown Medications RESULTS No Results PROCEDURES No Known procedures IMMUNIZATIONS No Known Immunizations
--- OUTSIDE RECORDS SUMMARY | 2016-12-14 18:31 | XMS REPORT | Summary of Care ---
Author Author Radha Titus, Price Organization Unknown Address Unknown Phone Unavailable Care Team Providers Care Vending Service Technician Name Role Phone Radha Titus, Price Unavailable Unavailable Patrick DELIVERY MERCHANDISER, Jessica Unavailable Unavailable Jose Trammell M.D. Unavailable [...] Refills: 6 Jose Trammell M.D.* Started 09-Jun-2014 AenxuwLrdyejiejw-WHEU-Gscdsiyf 50-325-40 MG Oral Tablet TAKE 1 TABLET Q 4HRS NEEDED FOR MIGRAINEMAX 6 PER DAYMUST LAST 30 DAYS * Quantity: 180 Refills: 0 Price Garcia M.D.* Started 09-Jun-2014 Ended 04-Oct-2014 ActiveTriamcinolone .1%/ Eucerin Compound (50/50 mix) -- 1 pound tub (454 grams) APPLY TO THE AFFECTED AREA TWICE DAILY * Quantity: 60 Refills: 0 Patrick, Jessica DELIVERY MERCHANDISER* Started 24-Jun-2014 ActiveDiazepam 5 MG Oral Tablet TAKE 1 TABLET EVERY 8HRS NEEDED.*MUST LAST 30 DAYS*MAY FILL ON OR AFTER * * Quantity: 90 Refills: 0 Price Garcia M.D.* Started 21-Jul-2014 ActiveHydrOXYzine Pamoate 25 MG Oral Capsule TAKE 1 CAP BY MOUTH EVERY 6 HRS NEEDED * Quantity: 120 Refills: 2 Price Garcia M.D.* Started 05-Aug-2014 ActiveBaclofen 10 MG Oral Tablet * Refills: 0 * Started 08-Sep-2014 ActiveHydrALAZINE HCl - 50 MG Oral Tablet Take 1 tablet three times daily. * Quantity: 90 Refills: 5 Price Garcia M.D.* Started 05-Aug-2014 ActivePropranolol HCl - 80 MG Oral Tablet TAKE 1 TABLET EVERY 12 HOURS DAILY. * Quantity: 60 Refills: 3 Price Garcia M.D.* Started 07-Jul-2014 ActiveMelatonin 5 MG Oral Tablet * Refills: 0 * Started 16-Jun-2014 Active Allergies and Adverse Reactions Name Dates [...] Influenza Administered on:03-May-2012 Tdap (Adacel) Lot #: [id number] Administered on:14-May-2013 Fluzone Quadrivalent 0.5 ML Intramuscular Suspension Lot #: [id number] Administered on:03-Jun-2014 Family History Grandfather* Name Dates [...] Problem not documented On 29-Oct-2012 08:00 Appointment; eMlvin Cotto Encounter Diagnosis: Problem not documented On 25-Oct-2012 14:45 Appointment; Melvin Cotto Encounter Diagnosis: Problem not documented On 10-Oct-2012 11:45 Appointment; Melvin Cotto Encounter Diagnosis: Problem not documented On 04-Oct-2012 12:30 Appointment; Melvin Cotto Encounter Diagnosis: Problem not documented On 26-Sep-2012 08:45
--- OUTSIDE RECORDS SUMMARY | 2016-12-14 18:31 | XMS REPORT | Summary of Care ---
Author Author Gaston Hare M.D. Organization Unknown Address [address], [place] [address] Phone Unavailable Care Team Providers Care Flake Drier Name Role Phone Price Garcia M.D. Unavailable Unavailable Lisa PARKS WORKER, Мария Unavailable Unavailable Smarsh-[place] PARKS WORKER, Crystal Unavailable Unavailable Price Garcia PP Unavailable [...] G43.909) Status: Active Medications Name Dates Details Jnpwmhcplc-SFMK-Ciniifxp 50-325-40 MG Oral Tablet TAKE ONE TABLET BY MOUTH EVERY 4 HOURS NEEDED MAX OF 6 TABLETS PER DAY MUST LAST 30 DAYS Quantity: 180 Price Garcia M.D.* Started 09-Jun-2014 ActiveTriamcinolone .1%/ Eucerin Compound (50/50 mix) -- 1 pound tub (454 grams) APPLY TO THE AFFECTED AREA TWICE DAILY * Quantity: 60 Refills: 0 Jessica Nguyen PARKS WORKER* Started 24-Jun-2014 ActiveFluvoxaMINE Maleate 100 MG Oral Tablet TAKE 1 TABLET AT BEDTIME. * Quantity: 30 Refills: 5 Price Garcia M.D.* Started 30-Oct-2014 ActiveNalbuphine HCl - 10 MG/ML Injection Solution Inject 10mg IM x 1 now * Quantity: 1 Refills: 0 Мария Gonzalez PARKS WORKER* Started 24-Jan-2015 Admin RequestedPromethazine HCl - 25 MG/ML Injection Solution Inject 12.5mg IM x 1 now * Quantity: 1 Refills: 0 Мария Gonzalez PARKS WORKER* Started 24-Jan-2015 Admin RequestedCyclobenzaprine HCl - [...] Influenza Administered on:03-May-2012 Tdap (Adacel) Lot #: [id number] Administered on:14-May-2013 Fluzone Quadrivalent 0.5 ML Intramuscular Suspension Lot #: [id number] Administered on:03-Jun-2014 Family History Grandfather* Name Dates [...] (Better) Range: 0-2 18-May-2015 09:32 URINE CULTURE [id number] Comments: [employer] performed at: [facility], [address] [place] [address], [address], Hvac Installer: Igor Perez D.O., MPHQuest Collection Date/Time: [id number] Results Received Date/Time: [id number] Reported Date/Time: [id number] performed at: [facility], [address] [place] [address], [address], Hvac Installer: Igor Perez D.O., MPHQuest Collection Date/Time: [id number] Results Received Date/Time: [id number] Reported Date/Time: [id number] CULTURE, URINE, ROUTINE SEE NOTE (Abnormal) Comments: CULTURE, URINE, ROUTINE MICRO NUMBER: [id number] TEST STATUS: FINAL SPECIMEN SOURCE : URINE, [...] ml/min (Better) Range: >60 EST GFR, NON-AFR GERMAN >60 ml/min (Better) Range: >60 Comments: EST GFR is reported in ml/min per 1.73 m2 of body surface area. For -Estonian, please multiple result by 1.2.----- GLUCOSE 106 [...] Diagnosis: Problem not documented On 08:30 Appointment; Маряи Gonzalez Encounter Diagnosis: Problem not documented On [...] Problem not documented On 11-Oct-2014 08:25 Appointment; iLnda Bingham Encounter Diagnosis: Problem not documented On [...]
--- OUTSIDE RECORDS SUMMARY | 2016-12-14 18:31 | XMS REPORT ---
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 83361625 Problem Depression F32.9 Active 848360714 Problem Neuropathy G62.9 Active 975520963 Problem Migraine headache G43.909 Active 11748999 Problem Elevated alkaline phosphatase level R74.8 Active 304356948 Problem High cholesterol E78.0 Active 78562211 Problem CAD (coronary artery disease) I25.10 Active 53128054 Problem Status post left knee replacement Z96.652 Active 873601300255 Problem High blood pressure I10 Active 27215535 Assessment 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
--- OUTSIDE RECORDS SUMMARY | 2016-12-14 18:31 | XMS REPORT ---
Author Author Josue Patel Organization Unknown Address [address] [place], [place] [address] Phone Care Team Providers Care Cadmium Burner Name Role Phone Yadiel Charles PP Unavailable Unavailable Reason for Referral return patient. right elbow History of Present Illness No HPI available. [...] Pain In The Left Knee (719.46); (Active) * Arthralgia Of The Humerus / Elbow (719.42); (Active) Medication * Zolpidem Tartrate 10 MG Oral Tablet; TAKE 1 TABLET AT BEDTIME NEEDED FOR INSOMNIA.; Start Date: 02/16/2011 (Active) * ALPRAZolam 1 MG Oral Tablet; TAKE 2 TABS IN AM TAKE 1 TAB NOON & PM; Start Date: 02/16/2011 (Active) * Morphine Sulfate 15 MG Oral Tablet; Take 15mg- 2 tablets in am, 3 tablet in pm; Start Date: 04/19/2012 (Active) * Lisinopril 10 MG Oral Tablet; TAKE 1 TABLET DAILY.; Start Date: 03/04/2013; End Date: (Active) * SEROquel 300 MG Oral Tablet; TAKE 1 TABLET AT BEDTIME.; Start Date: 2012 (Active) * Bystolic 20 MG Oral Tablet; Start Date: 05/20/2013 (Active) * HydrOXYzine HCl 25 MG Oral Tablet; Start Date: 06/12/2013 (Active) Allergies and Adverse Reactions * No [...] on: 05/03/2012 * Tdap (Adacel) (Lot #: [id number]) - Administered on: 05/14/2013 Family History * [...] Alcohol (Active) * Never A Smoker (Active) Treatment Plan * XM CAD (DIAGNOSTIC) 10/21/2011 [...] 05/14/2013 Routine * XRay KNEE-Left 06/04/2013 Routine * ORTHO ELBOW RIGHT (2 VIEWS ONLY) 07/01/2013 Routine Advance Directives * No Advance Directives available. Encounters * Appointment 07/01/2013 * RTNPT , Provider: Brooke Parr, Status: Adin , Time: 3:45 PM 2012 * PX30 , Provider: Marilyn Ahuja, Status: Aleah , Time: 12:30 PM * RTNPT , Provider: Yadiel Charles, Status: Adin , Time: 10:15 AM 2012
--- OUTSIDE RECORDS SUMMARY | 2016-12-14 18:31 | XMS REPORT ---
Author Author Friend, Kyara Boss [employer] Address Unknown Phone Unavailable Care Team Providers Care Belly Packer Name Role Phone Friend, Kyara CP Unavailable Allergies No Known Allergies Problems Problem Type Condition Code Onset Dates Condition Status Assessment Pre-op chest exam Z01.811 Active Problem Tear of meniscus of left [...] Instructions Start Date End Date Status Dosage Zolpidem Tartrate [facility][NOTE 3] [address]-85 10 MG Orally Once a day 1 tablet at bedtime as needed Flexeril NDC 0 10mg three times a day 1 tablet Seroquel [facility][NOTE 3] [address]-29 200 MG Orally three times a day 1 tablet at bedtime Clopidogrel Bisulfate [facility][NOTE 3] [address]-65 75 MG Orally Once a day 1 tablet Losartan Potassium [facility][NOTE 3] [address]-02 100 MG Orally Once a day 1 tablet Atenolol [facility][NOTE 3] [address]-65 25 MG Orally Once a day 1 tablet Fioricet [facility][NOTE 3] [address]-02 50-300-40 MG Orally 3-4 times a day 1 capsule as needed Fluvoxamine Maleate [facility][NOTE 3] [address]-01 100 MG Orally Once a day 1 tablet at bedtime Oxycodone HCl [facility][NOTE 3] [address]-27 10 MG Orally three times a day 1 tablet as needed Atenolol [facility][NOTE 3] [address]-44 50 MG Orally at bedtime 1 tablet Procedures Procedure Coding System Code Date X-Ray Chest CPT-4 07445 Jun 01, 2016 X-Ray Chest CPT-4 21769 Jun 01, 2016 Results Name Result Date Reference Range Unit Abnormality Flag X Ray : Chest PA & Lateral (CXR) - IH Summary Purpose eClinicalWorks Submission
--- OUTSIDE RECORDS SUMMARY | 2016-12-14 18:31 | XMS REPORT ---
Author Author GENERATED, SYSTEM Organization Unknown Address Unknown Phone Unavailable Care Team Providers Care Slurry Blender Name Role Phone MD DENISE, GARY CASTILLO [...] 11:00 AM * Address # 1 : [facility]: [address], [place]- or Procedures [...]
--- OUTSIDE RECORDS SUMMARY | 2016-12-14 18:32 | XMS REPORT | Summary of Care ---
Author Author Price Garcia M.D. Organization Unknown Address Unknown Phone Unavailable Care Team Providers Care Production Welder Name Role Phone Price Gacria M.D. Unavailable Unavailable Lisa TOYS INSPECTOR, Мария Unavailable Unavailable Smarsh-Kutilek TOYS INSPECTOR, Crystal Unavailable Unavailable Price Garcia PP Unavailable [...] Status: Active Dysuria (788.1, R30.0) Status: Active Medications Name Dates Details Triamcinolone .1%/ Eucerin Compound (50/50 mix) -- 1 pound tub (454 grams) APPLY TO THE AFFECTED AREA TWICE DAILY Quantity: 60 Jessica Nguyen TOYS INSPECTOR* Started 24-Jun-2014 ActiveFluvoxaMINE Maleate 100 MG Oral Tablet TAKE 1 TABLET AT BEDTIME. * Quantity: 30 Refills: 5 Price Garcia M.D.* Started 30-Oct-2014 ActiveNalbuphine HCl - 10 MG/ML Injection Solution Inject 10mg IM x 1 now * Quantity: 1 Refills: 0 Мария Gonzalez TOYS INSPECTOR* Started 24-Jan-2015 Admin RequestedPromethazine HCl - 25 MG/ML Injection Solution Inject 12.5mg IM x 1 now * Quantity: 1 Refills: 0 Мария Gonzalez TOYS INSPECTOR* Started 24-Jan-2015 Admin RequestedCyclobenzaprine HCl - 10 MG Oral Tablet TAKE 1 TABLET 3 TIMES DAILY NEEDED. * Quantity: 90 Refills: 3 Price Garcia M.D.* Started VfebnrPdcgkpwdcz-IYPU-Byhqifly 50-325-40 MG Oral Tablet TAKE ONE TABLET [...] History of Colonoscopy (Fiberoptic) History of Section Urinalysis, Reflex to Microscopic or Culture PRN [id number] Ordered:14-May-2015 Immunization Name Dates Details Influenza Administered on:21-Jun-2011 Influenza Administered on:03-May-2012 Tdap (Adacel) Lot #: [id number] Administered on:14-May-2013 Fluzone Quadrivalent 0.5 ML Intramuscular Suspension Lot #: [id number] Administered on:03-Jun-2014 Family History Grandfather* Name Dates [...] Problem not documented On 14-Aug-2014 09:30 Appointment; Pirce Garcia Encounter Diagnosis: Problem not [...]
--- OUTSIDE RECORDS SUMMARY | 2016-12-14 18:32 | XMS REPORT | Summary of Care ---
Author Author Papa Keys M.D. Organization Unknown Address [address] [place], [place] [address] Phone Unavailable Care Team Providers Care Forest Resources Professor Name Role Phone Price Garcia M.D. Unavailable [...] Low back ache (724.2, M54.5) Status: Active Medications Name Dates Details FluvoxaMINE [...] * Quantity: 1 Refills: 0 Мария Gonzalez CURATOR HORTICULTURAL MUSEUM* Started 24-Jan-2015 Admin RequestedAspirin 325 MG Oral [...] 90 Refills: 3 Price Garcia M.D.* Started MfcfbxNcencvunjc-XMKI-Xuawwhhj 50-325-40 MG Oral Tablet TAKE ONE TABLET [...] Influenza Administered on:03-May-2012 Tdap (Adacel) Lot #: [id number] Administered on:14-May-2013 Fluzone Quadrivalent 0.5 ML Intramuscular Suspension Lot #: [id number] Administered on:03-Jun-2014 Fluzone Quadrivalent 0.5 ML Intramuscular Suspension Prefilled Syringe Lot #: [id number] Administered on:17-Jun-2015 Family History Grandfather* Name Dates [...] to report Results Date Description Value Details 7-Mar-2016 08:23 Clinical Trials 4045 Clinical Trials Clinical Trial Lab ([facility]) Plan of Care Planned Observations* Name Dates Details Planned Goals not documented Goal Planned Encounters* Appointment; Provider: Andre Pratt On 18-Jul-2016 11:00 * Appointment; Provider: Price Garcia On 11-Dec-2015 14:00 * Appointment; Provider: Papa Keys On 25-Nov-2015 13:00 * Appointment; Provider: Harris Barragan On 03-Apr-2015 [...] Problem not documented On 22-Jan-2015 10:30 Appointment; Prcie Garcia Encounter Diagnosis: Problem not [...] not documented On 09-Apr-2014 08:45 Appointment; Igor Cahrles Encounter Diagnosis: Problem not documented On 08:45 [...]
--- OUTSIDE RECORDS SUMMARY | 2016-12-14 18:32 | XMS REPORT | Summary of Care ---
Author Author Radha Titus, Price Organization Unknown Address Unknown Phone Unavailable Care Team Providers Care Employee Benefits Attorney Name Role Phone Radha Titus, Price Unavailable Unavailable Patrick STUDIO TECHNICIAN, Jessica Unavailable Unavailable Jose Trammell M.D. Unavailable [...] * Quantity: 60 Refills: 0 Michaelle-Jessica Sanchez STUDIO TECHNICIAN* Started 24-Jun-2014 ActiveAmitriptyline HCl - 100 MG [...] Refills: 0 Price Garcia M.D.* Started 21-Jul-2014 CmivyrAwzsgdyvwm-URGQ-Gznhztlx 50-325-40 MG Oral Tablet TAKE 1 TABLET [...] Influenza Administered on:03-May-2012 Tdap (Adacel) Lot #: [id number] Administered on:14-May-2013 Fluzone Quadrivalent 0.5 ML Intramuscular Suspension Lot #: [id number] Administered on:03-Jun-2014 Family History Grandfather* Name Dates [...] not documented On 16-Jun-2014 08:30 Appointment; Jose Trmamell Encounter Diagnosis: Problem not documented On 09-Jun-2014 [...]
--- OUTSIDE RECORDS SUMMARY | 2016-12-14 18:32 | XMS REPORT | Summary of Care ---
Author Author Radha Titus, Price Organization Unknown Address Unknown Phone Unavailable Care Team Providers Care Explosive Ordnance Disposal Specialist Name Role Phone Radha Titus, Price Unavailable Unavailable Patrick APRON CLEANER, Jessica Unavailable Unavailable Jose Trammell M.D. Unavailable [...] Refills: 6 Jose Trammell M.D.* Started 09-Jun-2014 BnvjltKcvsirvyhy-OTGD-Ugegksxy 50-325-40 MG Oral Tablet TAKE 1 TABLET [...] * Quantity: 60 Refills: 0 rsh-Ladyk, Crystal APRON CLEANER* Started 24-Jun-2014 ActivePropranolol HCl - 80 MG [...] Influenza Administered on:03-May-2012 Tdap (Adacel) Lot #: [id number] Administered on:14-May-2013 Fluzone Quadrivalent 0.5 ML Intramuscular Suspension Lot #: [id number] Administered on:03-Jun-2014 Family History Grandfather* Name Dates [...]
--- OUTSIDE RECORDS SUMMARY | 2016-12-14 18:33 | XMS REPORT | Summary of Care ---
Author Author Radha Titus, Price Organization Unknown Address Unknown Phone Unavailable Care Team Providers Care Motorcycle Builder Name Role Phone Price Garcia M.D. Unavailable Unavailable Smarsh-[place]utilek REGENERATION OPERATOR, Crystal Unavailable Unavailable Price Garcia PP [...] Status: Active Polyarthritis (716.50, M13.0) Status: Active Hypertension (401.9, I10) Status: Active Spondylolysis, lumbar region (738.4, M43.06) Status: Active Migraine headache (346.90, G43.909) Status: Active Medications Name Dates Details Pvptedewvt-KAUP-Dgrrolxv 50-325-40 MG Oral Tablet TAKE ONE TABLET [...] Refills: 6 Price Garcia M.D.* Started 07-Jul-2014 ActiveHydrALAZINE HCl [...] Influenza Administered on:03-May-2012 Tdap (Adacel) Lot #: [id number] Administered on:14-May-2013 Fluzone Quadrivalent 0.5 ML Intramuscular Suspension Lot #: [id number] Administered on:03-Jun-2014 Family History Grandfather* Name Dates [...] smoker Vital Signs Date Test Result Details 18-Dec-2014 09:42 BP Systolic 162 mm[Hg] Status: [...]
--- OUTSIDE RECORDS SUMMARY | 2016-12-14 18:33 | XMS REPORT ---
Author Author FriendKyara [facility] Address [address] [place], [place] [address] Care Team Providers Care Trolley Operator Name Role Phone FriendKyara Unavailable [phone] PROBLEMS Type Condition ICD9-CM Code [id number] Code Onset Dates Condition Status SNOMED Code Problem Neuropathy G62.9 Active 886975032 Problem CAD (coronary artery disease) I25.10 Active 88874982 Problem Depression F32.9 Active 989641991 Problem Hallucinations R44.3 Active 3303213 Problem Migraine headache G43.909 Active 17680936 Problem High blood pressure I10 Active 07401441 Problem High cholesterol E78.0 Active 48078016 Problem Elevated alkaline phosphatase level R74.8 Active 558437048 Problem Status post left knee replacement Z96.652 Active 197575011406 Assessment Dyspnea R06.00 Nov, Active 346584981 Problem Arthritis of left knee M19.90 Active 3217730194196386 Problem Tear of meniscus of left knee S83.207A Active Assessment Headache, migraine, with status migrainosus G43.901 Nov, Active 564088050 Problem Fibromyalgia M79.7 Active 572998361 Assessment Confusion R41.0 Nov, Active 33866655 Problem 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 69848246 ALLERGIES Substance Reaction Event Type Date Status [...] PLAN OF CARE Activity Details Pending Test TSH with Reflex Free T4 Pending Test MRI : Brain with and without contrast (74907) 2 Weeks,Reason: VITAL SIGNS Height 5 ft 7 in in 2016-11-30 Weight 125 lbs 2016-11-30 BMI 19.58 kg/m2 2016-11-30 Temperature 97.9 degrees Fahrenheit 2016-11-30 Heart Rate 101 /min 2016-11-30 Respiratory Rate 18 /min 2016-11-30 Oximetry 95 % 2016-11-30 Blood pressure systolic 142 mm Hg 2016-11-30 Blood pressure diastolic 100 mm Hg 2016-11-30 MEDICATIONS Medication Instructions Dosage Frequency Start Date End Date Duration Status Fluvoxamine Maleate 100 MG Orally Once a day 1 tablet at bedtime 24h Active Cyclobenzaprine HCl 10 MG Orally Three times a day as needed 1 tablet 30 Active Diazepam 10 MG Orally three times a day 1 tablet as needed 8h 30 Active Promethazine HCl 25 MG Orally every 8 hrs prn neausea 1 tablet as needed Jul, Nov, 30 day(s) Active QUEtiapine Fumarate ER 200 MG Orally three times a day 1 tablet 8h Active Sennosides-Docusate Sodium 8.6-50 MG Orally twice a day 1 tablet 12h as needed Active Propranolol HCl 20 MG Orally Twice a day 1 tablet 12h Jul, Active Oxycodone-Acetaminophen 10-325 MG Orally every 6 hrs 1 tablet as needed 6h Nov, Nov, 14 days Active Clopidogrel Bisulfate 75 MG Orally Once a day 1 tablet 24h Active Atorvastatin Calcium 40 MG Orally Once a day 1 tablet 24h Active Zolpidem Tartrate 10 MG Orally Once a day 1 tablet at bedtime as needed 24h 30 Active Losartan Potassium 100 MG Orally Once a day 1 tablet 24h 90 Active Amlodipine Besylate 5 MG Orally Once a day preferably at bedtime 1 tablet Aug, 30 day(s) Active RESULTS Name Result Date Reference Range Venipuncture 2016-11-30 PROCEDURES Procedure Date Ordered Related Diagnosis Body Site [facility] VISIT ESTABLISHED PATIENT November 30, 2016 OFFICE VISIT EST PATIENT LEVEL 4 November 30, 2016 ROUTINE VENIPUNCTURE November 30, 2016 ASSAY THYROID STIM HORMONE.AMS November 30, 2016 IMMUNIZATIONS No Known Immunizations
--- OUTSIDE RECORDS SUMMARY | 2016-12-14 18:33 | XMS REPORT ---
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 18124792 Problem Depression F32.9 Active 916740090 Problem Neuropathy G62.9 Active 782482069 Problem Arthritis of left knee M19.90 Active 9911753527676894 Problem Tear of meniscus of left knee S83.207A Active Problem Fibromyalgia M79.7 Active 225613972 Problem Migraine headache G43.909 Active 88255415 Problem Elevated alkaline phosphatase level R74.8 Active 787504481 Problem High cholesterol E78.0 Active 42607327 Problem CAD (coronary artery disease) I25.10 Active 45000569 Problem Status post left knee replacement Z96.652 Active 710686922706 Problem High blood pressure I10 Active 37657156 ALLERGIES Unknown Allergies SOCIAL HISTORY No smoking Hx information available PLAN OF CARE VITAL SIGNS MEDICATIONS Unknown Medications RESULTS No Results PROCEDURES No Known procedures IMMUNIZATIONS No Known Immunizations
--- OUTSIDE RECORDS SUMMARY | 2016-12-14 18:33 | XMS REPORT ---
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 51322787 Problem Depression F32.9 Active 869014638 Problem Neuropathy G62.9 Active 686184437 Problem Arthritis of left knee M19.90 Active 3011340931262126 Problem Tear of meniscus of left knee S83.207A Active Problem Fibromyalgia M79.7 Active 267604511 Problem Migraine headache G43.909 Active 17837246 Problem Elevated alkaline phosphatase level R74.8 Active 953830156 Problem High cholesterol E78.0 Active 07616052 Problem CAD (coronary artery disease) I25.10 Active 31728601 Problem Status post left knee replacement Z96.652 Active 250270725890 Problem High blood pressure I10 Active 19520057 ALLERGIES Unknown Allergies SOCIAL HISTORY No smoking Hx information available PLAN OF CARE VITAL SIGNS MEDICATIONS Unknown Medications RESULTS No Results PROCEDURES No Known procedures IMMUNIZATIONS No Known Immunizations
--- OUTSIDE RECORDS SUMMARY | 2016-12-14 18:33 | XMS REPORT | Summary of Care ---
Author Author Conner Bustos M.D. Unknown Address [address] [place], [place] [address] Phone Unavailable Care Team Providers Care Client Retention Specialist Name Role Phone Price Garcia M.D. [...] left lower leg (715.16, M17.12) Status: Active Cervical pain (neck) (723.1, M54.2) Status: Active Medications Name Dates Details Imowshfyrf-PKSL-Tvgifacy 50-325-40 MG Oral Tablet TAKE ONE TABLET [...] * Quantity: 1 Refills: 0 Мария Gonzalez FISHING ACCESSORIES MAKER* Started 24-Jan-2015 Admin RequestedCyclobenzaprine HCl - 10 [...] Refills: 0 Papa Keys M.D.* Started 23-Dec-2015 [id number] GM Pump Btl Acetaminophen-Codeine 300-30 MG Oral [...] Influenza Administered on:03-May-2012 Tdap (Adacel) Lot #: [id number] Administered on:14-May-2013 Fluzone Quadrivalent 0.5 ML Intramuscular Suspension Lot #: [id number] Administered on:03-Jun-2014 Fluzone Quadrivalent 0.5 ML Intramuscular Suspension Prefilled Syringe Lot #: [id number] Administered on:17-Jun-2015 Family History Grandfather* Name Dates [...] m2 Status: Results Date Description Value Details 04-Jan-2016 [...] Problem not documented On 23-Jun-2015 10:35 Appointment; Prcie Garcia Encounter Diagnosis: Problem not [...]
--- OUTSIDE RECORDS SUMMARY | 2016-12-14 18:33 | XMS REPORT ---
Author Author Yue Zapata [facility] Address 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 45325900 Problem Depression F32.9 Active 445940854 Problem Neuropathy G62.9 Active 484653531 Problem Migraine headache G43.909 Active 69711363 Problem Elevated alkaline phosphatase level R74.8 Active 617941396 Problem High cholesterol E78.0 Active 51255597 Problem CAD (coronary artery disease) I25.10 Active 15851948 Problem Status post left knee replacement Z96.652 Active 488264056034 Problem High blood pressure I10 Active 95254816 Assessment Migraine G43.909 Aug, Active 78977677 Problem Arthritis of left knee M19.90 Active 3173983716198113 Problem Tear of meniscus of left knee S83.207A Active Assessment Vaginal itching L29.8 Aug, Active 76634477 Problem Fibromyalgia M79.7 Active 483231737 ALLERGIES Substance Reaction Event Type Date Status Imitrex heart problems Drug Allergy Aug, Active Codeine Sulfate felt like a heart attack Drug Allergy Aug, Active toradol has a heart stent, it crunches my heart Non Drug Allergy Aug, Active maxalt felt like a heart attack Non Drug Allergy Aug, Active SOCIAL HISTORY No smoking Hx information available PLAN OF CARE VITAL SIGNS Height 5 ft 7 in in 2016-09-01 Weight 130 lb 2 oz lbs 2016-09-01 BMI 20.38 kg/m2 2016-09-01 Temperature 97.8 degrees Fahrenheit 2016-09-01 Heart Rate 80 /min 2016-09-01 Respiratory Rate 20 /min 2016-09-01 Oximetry 96 % 2016-09-01 Blood pressure systolic 170 mm Hg 2016-09-01 Blood pressure diastolic 96 mm Hg 2016-09-01 MEDICATIONS Medication Instructions Dosage Frequency Start Date End Date Duration Status Fiorinal 50-325-40 MG Orally 3-4 times a day 1 capsule as needed Jul, 15 Active QUEtiapine Fumarate ER 200 MG Orally three times a day 1 tablet 8h Active Diflucan 150 MG Orally once, may repeat in 72 hours prn 1 tablet Aug, Aug, 1 dose Active Propranolol HCl 20 MG Orally Twice a day 1 tablet 12h Jul, 30 day(s) Active Omeprazole 20 MG Orally Once a day before breakfast 1 capsule Active Sennosides-Docusate Sodium 8.6-50 MG Orally twice a day 1 tablet 12h Active Oxycodone-Acetaminophen 10-325 MG Orally every 4 hours 1 tablet as needed 4h Active Zolpidem Tartrate 10 MG Orally Once a day 1 tablet at bedtime as needed 24h Active Clopidogrel Bisulfate 75 MG Orally Once a day 1 tablet 24h Active Fluvoxamine Maleate 100 MG Orally Once a day 1 tablet at bedtime 24h Active Macrobid 100 MG Orally every 12 hrs 1 capsule with food 12h Active Promethazine HCl 25 MG Orally every 8 hrs prn neausea 1 tablet as needed Jul, Nov, 30 day(s) Active Losartan Potassium 100 MG Orally Once a day 1 tablet 24h 90 Active Diazepam 10 MG Orally three times a day 1 tablet as needed 8h Active RESULTS No Results PROCEDURES Procedure Date Ordered Related Diagnosis Body Site MED-Zofran (Odansetron) 4mg ODT, PO 2016-09-01 Improved FQHC VISIT ESTABLISHED PATIENT Sep 01, 2016 DIPHENHYDRAMINE HCL INJECTIO Sep 01, 2016 OFFICE VISIT EST PATIENT LEVEL 4 Sep 01, 2016 KETOROLAC TROMETHAMINE INJ Sep 01, 2016 THERPROPHDIAG INJ, SCIM Sep 01, 2016 IMMUNIZATIONS Vaccine Route Administration Date Status Diphenhydramine (Benadryl) 50mg/mL IM Intramuscular Sep 01, 2016 Administered Ketoralac (Toradol) 30mg/mL IM Intramuscular Sep 01, 2016 Administered
--- OUTSIDE RECORDS SUMMARY | 2016-12-14 18:33 | XMS REPORT | Summary of Care ---
Author Author Jose Trammell M.D. Organization Unknown Address [address] [place], [place] [address] Phone Unavailable Care Team Providers Care Tenterer Name Role Phone Jose Trammell M.D. Unavailable Unavailable Price Garcia PP Unavailable Unavailable Unavailable Functional Status Functional Status Health Issues* Name Dates Details Functional status health issues are not documented Status: Cognitive Status Health Issues* Name Dates Details Cognitive status health issues are not documented Status: Problems Name Dates Details Bone Pain In The Foot Status: Active Constipation (Symptom) Status: Active Bilateral Elbow Joint Pain Status: Active Axilla Pain Bilateral Status: Active Joint Pain In Both Wrists Status: Active Joint Pain In Both Knees Status: Active Involuntary Movements Which Come And Go Status: Active Foot Pain Sudden Onset Status: Active Burning Sensation During Urination Status: Active Neck Pain In The Lower Neck / Upper Back Left Status: Active Injection Of Trigger Point(S) One Or Two Muscle Group(S) Status: Active A Fall (E888.9) Status: Active Arthralgia Of The Humerus / Elbow (719.42) Status: Active Difficulty swallowing (787.20, R13.10) Status: Active Polyuria (788.42, R35.8) Status: Active Involuntary movements (781.0, R25.8) Status: Active Muscle spasm (728.85, M62.838) Status: Active Feeling weak (780.79, R53.1) Status: Active Insomnia (780.52, G47.00) Status: Active Upper respiratory infection (465.9, J06.9) Status: Active Idiopathic peripheral neuropathy (356.9, G60.9) Status: Active Fatigue (780.79, R53.83) Status: Active Migraine with aura, intractable (346.01, G43.119) Status: Active Headache (784.0, R51) Status: Active Lower back pain (724.2, M54.5) Status: Active Diarrhea (787.91, R19.7) Status: Active Abdominal pain (789.00, R10.9) Status: Active Dysuria (788.1, R30.0) Status: Active Postmenopausal status (V49.81, Z78.0) Status: Active Memory loss (780.93, R41.3) Status: Active Abnormal gait (781.2, R26.9) Status: Active Concentration deficit (799.51, R41.840) Status: Active Pain in joint of left knee (719.46, M25.562) Status: Active Tremor (781.0, R25.1) Status: Active Endometriosis (617.9, N80.9) Status: Active Osteoarthritis (715.90, M19.90) Status: Active Tension type headache (339.10, G44.209) Status: Active Essential and other specified forms of tremor (333.1, R25.1) Status: Active Obsessive compulsive disorder (300.3, F42) Status: Active Chest pain (786.50, R07.9) Status: Active Postconcussion syndrome (310.2, F07.81) Status: Active Strain of coccyx (847.4, S39.012A) Status: Active Esophageal reflux (530.81, K21.9) Status: Active Elbow injury (959.3, S59.909A) Status: Active Abnormal electrocardiogram (794.31, R94.31) Status: Active Arthritis (716.90, M19.90) Status: Active Well woman exam (V70.0, Z00.00) Status: Active High risk medication use (V58.69, Z79.899) Status: Active Closed fracture of neck of radius (813.06, S52.133A) Status: Active Restless leg syndrome (333.94, G25.81) Status: Active Syncope (780.2, R55) Status: Active Radiculopathy (729.2, M54.10) Status: Active Peripheral neuropathy (356.9, G62.9) Status: Active 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, G50.0) Status: Active Atypical facial pain (350.2, G50.1) Status: Active Thoughts of harming others (V49.89, Z78.9) Status: Active Urinary tract infection (599.0, N39.0) Status: Active Cough (786.2, R05) Status: Active Viral syndrome (079.99, B34.9) Status: Active Classic migraine with aura (346.00, G43.109) Status: Active Bipolar mood disorder (296.80, F31.9) Status: Active Hypertension (401.9, I10) Status: Active Hyperthyroidism (242.90, E05.90) Status: Active Need for influenza vaccination (V04.81, Z23) Status: Active Anxiety (300.00, F41.9) Status: Active Depression (311, F32.9) Status: Active Migraine headache (346.90, G43.909) Status: Active Medications Name Dates Details ALPRAZolam 0.5 MG Oral Tablet TAKE 2 TABLETS AM & PM; 1 TABLET AT NOON PRN Quantity: 20 Jose Trammell M.D.* Started ActiveBystolic 10 MG Oral Tablet TAKE 1 TABLET DAILY. * Quantity: 30 Refills: 0 Jose Trammell M.D.* Started 20-May-2013 ActiveZolpidem Tartrate 5 MG Oral Tablet TAKE 1 TABLET BY MOUTH EVERY NIGHT AT BEDTIME NEEDED . * Quantity: 30 Refills: 0 Jose Trammell M.D.* Started 03-Jun-2014 ActiveLosartan Potassium 100 MG Oral Tablet Take 1 tablet daily * Quantity: 90 Refills: 0 Jose Trammell M.D.* Started 29-May-2014 ActiveAmitriptyline HCl - 25 MG Oral Tablet TAKE 1 TABLET AT BEDTIME. * Quantity: 30 Refills: 0 Jose Trammell M.D.* Started 09-Jun-2014 IhscenZporvfzcyd-MXMM-Ogtcrovt 50-325-40 MG Oral Tablet TAKE 1 TABLET 4 TIMES DAILY NEEDED FOR HEADACHE. * Refills: 0 Jose Trammell M.D.* Started 09-Jun-2014 ActiveCloNIDine HCl - 0.2 MG/24HR Transdermal Patch Weekly APPLY 1 PATCH WEEKLY DIRECTED. * Refills: 0 Jose Trammell M.D.* Started 09-Jun-2014 ActiveNorvasc 5 MG Oral Tablet TAKE 1 TABLET TWICE DAILY. * Refills: 0 Jose Trammell M.D.* Started 09-Jun-2014 ActiveXanax 1 MG Oral Tablet TAKE 1 TABLET IN MORNING. * Refills: 0 Jose Trammell M.D.* Started 09-Jun-2014 Active Allergies and Adverse Reactions Name Dates Details No Known Drug Allergies Status: Active Past Medical History Name Dates Details History of anemia (V12.3, Z86.2) Status: Resolved History of fibrocystic disease of breast (V13.89, Z87.898) Status: Resolved History of Inflamed seborrheic keratosis (702.11, L82.0) Status: Resolved History of migraine (V12.49, Z86.69) Status: Resolved Procedures Procedure Dates Details History of Appendectomy History of Tonsillectomy History of Cholecystectomy History of Tubal Ligation Injection Of Trigger Point(S) One Or Two Muscle Group(S) Procedures not documented Immunization Name Dates Details Influenza Administered on:21-Jun-2011 Influenza Administered on:03-May-2012 Tdap (Adacel) Lot #: [id number] Administered on:14-May-2013 Fluzone Quadrivalent 0.5 ML Intramuscular Suspension Lot #: [id number] Administered on:03-Jun-2014 Family History Mother* Name Dates Details Family history of Chronic Obstructive Pulmonary Disease Status: Active Father* Name Dates Details Family history of Acute Myocardial Infarction (V17.3) Status: Active Sister* Name Dates Details Family history of Asthma (V17.5) Status: Active Family history of Arthritis (V17.7) Status: Active Family history of Uterine Cancer (V16.49) Status: Active Social History Name Dates Details Smoking Status* Never smoker Vital Signs Date Test Result Details 09-Jun-2014 11:40 BP Systolic 128 mm[Hg] Status: BP Diastolic 80 mm[Hg] Status: Heart Rate 80 /min Status: Temperature 35.9 c Status: O2 SAT 98 % Status: 07-Jun-2014 08:20 BP Systolic 134 mm[Hg] Status: BP Diastolic 72 mm[Hg] Status: Heart Rate 95 /min Status: Temperature 98.4 f Status: O2 SAT 96 % Status: 03-Jun-2014 13:51 BP Systolic 170 mm[Hg] Status: BP Diastolic 98 mm[Hg] Status: Heart Rate 74 /min Status: Temperature 35.9 c Status: Weight 144 lb Status: O2 SAT 97 % Status: Body Mass Index Calculated 23.24 kg/m2 Status: Body Surface Area Calculated 1.74 m2 Status: 29-May-2014 11:37 BP Systolic 128 mm[Hg] Status: BP Diastolic 74 mm[Hg] Status: Heart Rate 81 /min Status: Weight 144.375 lb Status: O2 SAT 96 % Status: Body Mass Index Calculated 23.3 kg/m2 Status: Body Surface Area Calculated 1.74 m2 Status: 19-May-2014 11:35 BP Systolic 132 mm[Hg] Status: BP Diastolic 94 mm[Hg] Status: Heart Rate 73 /min Status: Temperature 35.5 c Status: O2 SAT 97 % Status: 13-May-2014 08:09 BP Systolic 157 mm[Hg] Status: BP Diastolic 92 mm[Hg] Status: Heart Rate 133 /min Status: Temperature 98.1 f Status: O2 SAT 98 % Status: Results Date Description Value Details 28-May-2014 12:23 Iron Panel with TIBC 1612 IRON 83 ug/dL (Better) Range: 50-170 TOTAL IRON BIND. CAPACITY 426 ug/dL (Better) Range: 250-450 % IRON SATURATION 19 % (Below low threshold) Range: 20-55 12:29 VITAMIN B12 3606 VITAMIN B12 358 pg/mL (Better) Range: 211-911 12:29 FOLATE 3608 FOLATE >20 ng/mL (Above high threshold) Range: 5.4-20.3 12:30 FERRITIN 3025 FERRITIN 34 ng/mL (Better) Range: 10-291 Plan of Care Planned Observations* Name Dates Details Planned Goals not documented Goal Planned Encounters* Appointment; Provider: Karolyn Cox On 17-Jul-2014 15:45 * Appointment; Provider: Price Garcia On 07-Jul-2014 15:00 * Appointment; Provider: Jose Trammell On 16-Jun-2014 09:45 Instructions * Instructions not documented Encounters Appointment; Jose Trammell Encounter Diagnosis: Problem not [...] Problem not documented On 12-Jun-2013 09:00 Appointment; Mevlin Cotto Encounter Diagnosis: Problem not documented On 05-Jun-2013 12:30 Appointment; Melvin Cotto Encounter Diagnosis: Problem not documented On 23-May-2013 09:00 Appointment; Melvin Cotto Encounter Diagnosis: Problem not documented On 20-May-2013 09:00 Appointment; Gaston Haer Encounter Diagnosis: Problem not documented On 14-May-2013 [...] Diagnosis: Problem not documented On 26-Sep-2012 08:45 Appointment; Melvin Cotto Encounter Diagnosis: Problem not documented On 05-Sep-2012 09:30 Appointment; Melvin Cotto Encounter Diagnosis: Problem not documented On 13-Aug-2012 12:45 Appointment; Harrsi Gomez Encounter Diagnosis: Problem not documented On 11-Jul-2012 12:30 Appointment; Karolyn Cox Encounter Diagnosis: Problem not documented On 03-Jul-2012 15:45 Appointment; Harris Gomez Encounter Diagnosis: Problem not documented On 25-Jun-2012 12:00
--- OUTSIDE RECORDS SUMMARY | 2016-12-14 18:34 | XMS REPORT | Summary of Care ---
Author Author Bessie Romero M.D. Unknown Address [address] [place], [place] [address] Phone Unavailable Care Team Providers Care Drilling Machine Runner Name Role Phone Jose Trammell M.D. Unavailable [...] Refills: 0 Jose Trammell M.D.* Started 20-May-2013 ActiveLosartan Potassium 100 MG Oral Tablet Take 1 tablet daily * Quantity: 90 Refills: 0 Jose Trammell M.D.* Started 29-May-2014 ActiveZolpidem Tartrate 5 MG Oral Tablet TAKE 1 TABLET BY MOUTH EVERY NIGHT AT BEDTIME NEEDED . * Quantity: 30 Refills: 0 Jose Trammell M.D.* Started 03-Jun-2014 ActiveAmitriptyline HCl - 25 MG Oral Tablet TAKE 1 TABLET AT BEDTIME. * Quantity: 30 Refills: 0 Jose Trammell M.D.* Started 09-Jun-2014 RooedtMrlcullusd-TIXK-Rssqeieb 50-325-40 MG Oral Tablet TAKE 1 TABLET [...] Influenza Administered on:03-May-2012 Tdap (Adacel) Lot #: [id number] Administered on:14-May-2013 Fluzone Quadrivalent 0.5 ML Intramuscular Suspension Lot #: [id number] Administered on:03-Jun-2014 Family History Mother* Name Dates [...] Problem not documented On 13-Aug-2012 12:45 Appointment; Harris Gomez Encounter Diagnosis: Problem not documented On 11-Jul-2012 12:30 Appointment; Karolyn Cox Encounter Diagnosis: Problem not documented On 03-Jul-2012 15:45 Appointment; Harris Gomez Encounter Diagnosis: Problem not documented On 25-Jun-2012 12:00
--- OUTSIDE RECORDS SUMMARY | 2016-12-14 18:34 | XMS REPORT | Summary of Care ---
Author Author Price Garcia M.D. Organization Unknown Address Unknown Phone Unavailable Care Team Providers Care Director Loan Name Role Phone Price Garcia M.D. Unavailable Unavailable Lisa OVERHEAD GARAGE DOOR HANGER, Мария Unavailable Unavailable [place] OVERHEAD GARAGE DOOR HANGER, Crystal Unavailable Unavailable Price Garcia PP Unavailable [...] Active Cerumen impaction (380.4, H61.20) Status: Active Migraine headache (346.90, G43.909) Status: Active Chronic sinus infection (473.9, J32.9) Status: Active Nasal septal deviation (470, J34.2) Status: Active Cervicalgia (723.1, M54.2) Status: Active Medications Name Dates Details Uraryglcqr-UCJD-Hugfqmrw 50-325-40 MG Oral Tablet TAKE ONE TABLET [...] * Quantity: 60 Refills: 0 Jessica Nguyen OVERHEAD GARAGE DOOR HANGER* Started 24-Jun-2014 ActiveHydrALAZINE HCl - 50 MG Oral Tablet Take 1 tablet three times daily. * Quantity: 90 Refills: 5 Price Garcia M.D.* Started 05-Aug-2014 ActiveVerapamil HCl - 80 MG Oral Tablet 1 TABLET TWICE DAILY * Quantity: 60 Refills: 5 Price Garcia M.D.* Started 30-Oct-2014 ActiveQUEtiapine Fumarate 50 MG Oral Tablet TAKE 1 TABLET AT BEDTIME. * Refills: 0 * Started 30-Oct-2014 ActiveZolpidem Tartrate ER 12.5 MG [...] * Quantity: 1 Refills: 0 Мария Gonzalez OVERHEAD GARAGE DOOR HANGER* Started 24-Jan-2015 Admin RequestedPromethazine HCl - 25 MG/ML Injection Solution Inject 12.5mg IM x 1 now * Quantity: 1 Refills: 0 LisaPrakash najeray OVERHEAD GARAGE DOOR HANGER* Started 24-Jan-2015 Admin Requested Allergies and Adverse [...] Influenza Administered on:03-May-2012 Tdap (Adacel) Lot #: [id number] Administered on:14-May-2013 Fluzone Quadrivalent 0.5 ML Intramuscular Suspension Lot #: [id number] Administered on:03-Jun-2014 Family History Grandfather* Name Dates [...] smoker Vital Signs Date Test Result Details 11:13 BP Systolic 128 mm[Hg] Status: BP [...] not documented On 05-Dec-2014 13:00 Appointment; Linda Binhgam Encounter Diagnosis: Problem not documented On 03-Dec-2014 [...]
--- OUTSIDE RECORDS SUMMARY | 2016-12-14 18:34 | XMS REPORT | Summary of Care ---
Author Author Price Garcia M.D. Organization Unknown Address Unknown Phone Unavailable Care Team Providers Care Restaurant Expeditor Name Role Phone Price Garcia M.D. Unavailable [...] of left knee (715.16, M17.12) Status: Active Dysuria (788.1, R30.0) Status: Active Frequency of urination (788.41, R35.0) Status: Active Medications Name Dates Details Aiwxfelcpx-CCWI-Yozxhxrn 50-325-40 MG Oral Tablet TAKE ONE TABLET [...] * Quantity: 1 Refills: 0 Мария Gonzalez RDA* Started 24-Jan-2015 Admin RequestedPromethazine HCl - 25 MG/ML Injection Solution Inject 12.5mg IM x 1 now * Quantity: 1 Refills: 0 Мария Gonzalez RDA* Started 24-Jan-2015 Admin RequestedAspirin 325 MG Oral [...] Influenza Administered on:03-May-2012 Tdap (Adacel) Lot #: [id number] Administered on:14-May-2013 Fluzone Quadrivalent 0.5 ML Intramuscular Suspension Lot #: [id number] Administered on:03-Jun-2014 Fluzone Quadrivalent 0.5 ML Intramuscular Suspension Prefilled Syringe Lot #: [id number] Administered on:17-Jun-2015 Family History Grandfather* Name Dates [...] for Culture----- [place] Trace (Abnormal) Range: Negative Plan of Care Planned Observations* [...] Problem not documented On 14-May-2015 15:15 Appointment; Pirce Garcia Encounter Diagnosis: Problem not [...] not documented On 09-Jun-2014 11:00 Appointment; Whitney Whiftield Encounter Diagnosis: Problem not documented On 07-Jun-2014 [...] Problem not documented On 08:15 Appointment; Jose Tarmmell Encounter Diagnosis: Problem not documented On 11:15 [...]
--- OUTSIDE RECORDS SUMMARY | 2016-12-14 18:34 | XMS REPORT ---
Author Author GENERATED, SYSTEM Organization Unknown Address Unknown Phone Unavailable Care Team Providers Care Power Brake Rebuilder Name Role Phone MD DENISE, GARY CASTILLO [...] 11:00 AM * Address # 1 : [facility]: [address], [place]- or [...]
--- OUTSIDE RECORDS SUMMARY | 2016-12-14 18:35 | XMS REPORT | Summary of Care ---
Author Author Radha Titus, Price Organization Unknown Address Unknown Phone Unavailable Care Team Providers Care After School Program Coordinator Name Role Phone Price Garcia M.D. [...] Status: Active Anxiety (300.00, F41.9) Status: Active Medications Name Dates Details Jmyffdndxe-QWWN-Zsnngvbk 50-325-40 MG Oral Tablet TAKE ONE TABLET [...] Refills: 5 Price aGrcia M.D.* Started 30-Oct-2014 ActiveAmLODIPine Besylate 10 MG [...] * Quantity: 1 Refills: 0 Мария Gonzalez MEMORY CARE DIRECTOR* Started 24-Jan-2015 Admin RequestedAspirin 325 MG Oral [...] Influenza Administered on:03-May-2012 Tdap (Adacel) Lot #: [id number] Administered on:14-May-2013 Fluzone Quadrivalent 0.5 ML Intramuscular Suspension Lot #: [id number] Administered on:03-Jun-2014 Fluzone Quadrivalent 0.5 ML Intramuscular Suspension Prefilled Syringe Lot #: [id number] Administered on:17-Jun-2015 Family History Grandfather* Name Dates [...] smoker Vital Signs Date Test Result Details 14-Oct-2015 10:02 BP Systolic 146 mm[Hg] Status: [...] Pratt On 18-Jul-2016 11:00 * Appointment; Provider: Gordon Sandy On 16-Oct-2015 [...] not documented On 14-May-2015 15:15 Appointment; Price Gracia Encounter Diagnosis: Problem not documented On 05-May-2015 [...] not documented On 18-Dec-2014 09:45 Appointment; Gaston Hrae Encounter Diagnosis: Problem not documented On 05-Dec-2014 [...] documented On 28-Nov-2013 11:50 Appointment; Melvin Cotto Diagnosis: Problem not documented On 20-Nov-2013 13:00 Appointment; Melvin Cotto Encounter Diagnosis: Problem not documented On 13-Nov-2013 11:00 Appointment; Melvin Cotto Encounter Diagnosis: Problem not documented On 30-Oct-2013 11:00 Appointment; Melvin Cotto Diagnosis: Problem not documented On 25-Oct-2013 15:30
--- OUTSIDE RECORDS SUMMARY | 2016-12-14 18:35 | XMS REPORT | Summary of Care ---
Author Author Papa Keys M.D. Organization Unknown Address [address] [place], [place] [id number] Phone Unavailable Care Team Providers Care Mixer Whipped Topping Name Role Phone Price Garcia M.D. Unavailable [...] M17.12) Status: Active Medications Name Dates Details Lsyrqeozlm-DEXV-Gihqlkwt 50-325-40 MG Oral Tablet TAKE ONE TABLET [...] * Quantity: 1 Refills: 0 Мария Gonzalez PUMP MACHINE OPERATOR* Started 24-Jan-2015 Admin RequestedAspirin 325 MG [...] Refills: 0 Papa Keys M.D.* Started 23-Dec-2015 Dfdlwx189 GM Pump Btl Acetaminophen-Codeine 300-30 MG Oral [...] Influenza Administered on:03-May-2012 Tdap (Adacel) Lot #: [id number] Administered on:14-May-2013 Fluzone Quadrivalent 0.5 ML Intramuscular Suspension Lot #: [id number] Administered on:03-Jun-2014 Fluzone Quadrivalent 0.5 ML Intramuscular Suspension Prefilled Syringe Lot #: [id number] Administered on:17-Jun-2015 Family History Grandfather* Name Dates [...]
--- OUTSIDE RECORDS SUMMARY | 2016-12-14 18:35 | XMS REPORT | Summary of Care ---
Author Author Andre Pratt M.D. Unknown Address [address] [place], [place] [address] Phone Unavailable Care Team Providers Care Marketing Automation Specialist Name Role Phone Price Garcia M.D. Unavailable Unavailable Michaelle-Laura DIETARY COOK, Jessica Unavailable Unavailable Jose Trammell M.D. Unavailable [...] Refills: 6 Jose Trammell M.D.* Started 09-Jun-2014 XedwhuQcfudbjxdx-TIDH-Mfusmygg 50-325-40 MG Oral Tablet TAKE 1 TABLET [...] Influenza Administered on:03-May-2012 Tdap (Adacel) Lot #: [id number] Administered on:14-May-2013 Fluzone Quadrivalent 0.5 ML Intramuscular Suspension Lot #: [id number] Administered on:03-Jun-2014 Family History Grandfather* Name Dates [...] Problem not documented On 16-Jun-2014 08:30 Appointment; oJse Trammell Encounter Diagnosis: Problem not documented On [...] Problem not documented On 13-May-2014 08:15 Appointment; Jesisca Nguyen Encounter Diagnosis: Problem not [...] Problem not documented On 28-Nov-2013 11:50 Appointment; Mlevin Cotto Encounter Diagnosis: Problem not [...]
--- OUTSIDE RECORDS SUMMARY | 2016-12-14 18:35 | XMS REPORT ---
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 58970046 Problem Depression F32.9 Active 190974533 Problem Neuropathy G62.9 Active 587794849 Problem Migraine headache G43.909 Active 39139526 Problem Elevated alkaline phosphatase level R74.8 Active 916760179 Problem High cholesterol E78.0 Active 12128900 Problem CAD (coronary artery disease) I25.10 Active 04533602 Problem Status post left knee replacement Z96.652 Active 094740289373 Problem High blood pressure I10 Active 29768471 Assessment 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 14 Oct, 2016 Active 27699613 Assessment Major depressive disorder, recurrent, severe with psychotic features F33.3 14 Oct, 2016 Active 72249304 Problem Arthritis of left knee M19.90 Active 8111291036274659 Assessment OCD (obsessive compulsive disorder) F42.9 14 Oct, 2016 Active 193056600 Problem Tear of meniscus of left knee S83.207A Active Assessment Generalized anxiety disorder F41.1 Oct, Active 62063392 Problem Fibromyalgia M79.7 Active 022922372 ALLERGIES Unknown Allergies SOCIAL HISTORY No smoking Hx information available PLAN OF CARE VITAL SIGNS MEDICATIONS Medication Instructions Dosage Frequency Start Date End Date Duration Status Atorvastatin Calcium 40 MG Orally Once a day 1 tablet 24h Active Cyclobenzaprine HCl 10 MG Orally Three times a day as needed 1 tablet 30 Active Diazepam 10 MG Orally three times a day 1 tablet as needed 8h 30 Active Oxycodone-Acetaminophen 10-325 MG Orally every 6 hours 1 tablet as needed 6h 30 Oct, 2016 30 days Active Promethazine HCl 25 MG Orally every 8 hrs prn neausea 1 tablet as needed Jul, Nov, 30 day(s) Active Fluvoxamine Maleate 100 MG Orally Once a day 1 tablet at bedtime 24h Active Sennosides-Docusate Sodium 8.6-50 MG Orally twice a day 1 tablet 12h as needed Active Nitrofurantoin Monohyd Macro 100 MG Orally every 12 hrs 1 capsule with food 12h Oct, 16 Oct, 2016 7 day(s) Active Propranolol HCl 20 MG Orally Twice a day 1 tablet 12h Jul, Active Naproxen 500 MG Orally every 12 hrs 1 tablet as needed 12h Oct, Nov, 30 days Active Losartan Potassium 100 MG Orally Once a day 1 tablet 24h 90 Active Amlodipine Besylate 5 MG Orally Once a day preferably at bedtime 1 tablet Aug, 30 day(s) Active Zolpidem Tartrate 10 MG Orally Once a day 1 tablet at bedtime as needed 24h 30 Active Clopidogrel Bisulfate 75 MG Orally Once a day 1 tablet 24h Active QUEtiapine Fumarate ER 200 MG Orally three times a day 1 tablet 8h Active RESULTS No Results PROCEDURES Procedure Date Ordered Related Diagnosis Body Site PSYTX PT 45 MINUTES November 08, 2016 FQ VISIT MENTAL HEALTH ESTAB PT November 08, 2016 IMMUNIZATIONS No Known Immunizations
--- OUTSIDE RECORDS SUMMARY | 2016-12-14 18:35 | XMS REPORT ---
Author Author FriendKyara [employer] Address Unknown Phone Unavailable Care Team Providers Care Coal Handler Name Role Phone Friend, Kyara CP Unavailable [...]
--- OUTSIDE RECORDS SUMMARY | 2016-12-14 18:35 | XMS REPORT | Summary of Care ---
Author Author Nahid Titus, Whitney Organization Unknown Address [address] [place], [place] [address] Phone Unavailable Care Team Providers Care Software Security Architect Name Role Phone Jose Trammell M.D. Unavailable [...] Refills: 0 Jose Trammell M.D.* Started 09-Jun-2014 SnxhhiGlrytmrwww-SJDK-Yptvkpgu 50-325-40 MG Oral Tablet TAKE 1 TABLET [...] Influenza Administered on:03-May-2012 Tdap (Adacel) Lot #: [id number] Administered on:14-May-2013 Fluzone Quadrivalent 0.5 ML Intramuscular Suspension Lot #: [id number] Administered on:03-Jun-2014 Family History Mother* Name Dates [...] Body Surface Area Calculated 1.74 m2 Status: 2-Oct-2014 11:37 BP Systolic 128 mm[Hg] Status: BP [...] not documented On 21-Jun-2013 08:40 Appointment; Josue Ptael Encounter Diagnosis: Problem not documented On 12-Jun-2013 [...]
--- OUTSIDE RECORDS SUMMARY | 2016-12-14 18:36 | XMS REPORT | Summary of Care ---
Author Author Price Garcia M.D. Organization Unknown Address Unknown Phone Unavailable Care Team Providers Care Drawer Liner Name Role Phone Price Garcia M.D. Unavailable Unavailable Lisa HELICOPTER MECHANIC, Мария Unavailable Unavailable Smarsh-[place] HELICOPTER MECHANIC, Crystal Unavailable Unavailable Price Garcia PP Unavailable [...] of nasal turbinates (478.0, J34.3) Status: Active Hypertension (401.9, I10) Status: Active Cervicogenic headache (784.0, R51) Status: Active Anxiety (300.00, F41.1) Status: Active Pain of both shoulder joints (719.41, M25.511) Status: Active Knee joint pain, right (719.46, M25.561) Status: Active Medications Name Dates Details Mmtsqeskjj-XLOZ-Dzjwwcvd 50-325-40 MG Oral Tablet TAKE ONE TABLET [...] * Quantity: 60 Refills: 0 Smarsh-Kutilek, Crystal HELICOPTER MECHANIC* Started 24-Jun-2014 ActiveHydrALAZINE HCl - 50 MG [...] BEDTIME. * Refills: 0 * Started 30-Oct-2014 ActiveNalbuphine HCl - 10 MG/ML Injection Solution Inject 10mg IM x 1 now * Quantity: 1 Refills: 0 Мария Gonzalez APRN* Started 24-Jan-2015 Admin RequestedPromethazine HCl - 25 MG/ML Injection Solution Inject 12.5mg IM x 1 now * Quantity: 1 Refills: 0 Мария Gonzalez HELICOPTER MECHANIC* Started 24-Jan-2015 Admin RequestedCyclobenzaprine HCl - 10 MG Oral Tablet TAKE 1 TABLET 3 TIMES DAILY NEEDED. * Quantity: 90 Refills: 3 Price Garcia M.D.* Started ActiveDiazepam 10 MG Oral Tablet TAKE ONE TABLET BY MOUTH EVERY 8 HOURS NEEDEDMUST LAST 30 DAYS * Quantity: 90 Refills: 0 Price Garcia M.D.* Started 30-Oct-2014 ActiveAmLODIPine Besylate 10 MG Oral Tablet take one tablet by mouth every day * Quantity: 30 Refills: 6 Price Garcia M.D.* Started 30-Oct-2014 Active Allergies [...] of Colonoscopy (Fiberoptic) History of Section XRay SHOULDER-BILATERAL Ordered:22-Apr-2015 XRay KNEE-Right Ordered:22-Apr-2015 Immunization Name Dates Details Influenza Administered on:21-Jun-2011 Influenza Administered on:03-May-2012 Tdap (Adacel) Lot #: [id number] Administered on:14-May-2013 Fluzone Quadrivalent 0.5 ML Intramuscular Suspension Lot #: [id number] Administered on:03-Jun-2014 Family History Grandfather* Name Dates [...] smoker Vital Signs Date Test Result Details 22-Apr-2015 10:01 BP Systolic 158 mm[Hg] Status: [...] ml/min (Better) Range: >60 EST GFR, NON-AFR AZERBAIJANI >60 ml/min (Better) Range: >60 Comments: EST GFR is reported in ml/min per 1.73 m2 of body surface area. For -Palauan, please multiple result by 1.2.----- BUN:CREATININE RATIO 11 (Better) GLUCOSE 92 mg/dL (Better) Range: 70-100 CALCIUM 9.7 mg/dL (Better) Range: 8.5-10.1 Plan of Care Planned Observations* Name Dates Details Planned Goals not documented Goal Planned Encounters* Appointment; Provider: Andre Pratt On 15-Jul-2015 13:45 * Appointment; Provider: Price Garcia On 17-Jun-2015 10:15 * Appointment; Provider: Harris Barragan On 05-May-2015 10:45 * Appointment; Provider: Harris Barragan On 03-Apr-2015 [...] Problem not documented On 08:30 Appointment; Мария Gonzlaez Encounter Diagnosis: Problem not documented On 24-Jan-2015 [...]
--- OUTSIDE RECORDS SUMMARY | 2016-12-14 18:36 | XMS REPORT | Summary of Care ---
Author Author Jose Trammell M.D. Organization Unknown Address [address] [place], [place] [address] Phone Unavailable Care Team Providers Care Staff Educator Name Role Phone Price Garcia M.D. Unavailable Unavailable Lisa SHAMPOO TECHNICIAN, Мария Unavailable Unavailable Smarsh-[place] SHAMPOO TECHNICIAN, Crystal Unavailable Unavailable Jose Trammell M.D. Unavailable [...] Active Migraine headache (346.90, G43.909) Status: Active Nausea (787.02, R11.0) Status: Active Inflamed seborrheic keratosis (702.11, L82.0) Status: Active Medications Name Dates Details Qwzjedbcoy-CHVG-Xiebtbio 50-325-40 MG Oral Tablet TAKE ONE TABLET [...] * Quantity: 1 Refills: 0 Мария Gonzalez SHAMPOO TECHNICIAN* Started 24-Jan-2015 Admin RequestedPromethazine HCl - 25 [...] 90 Refills: 0 Price Garcia M.D.* Started ActiveHydrocodone-Acetaminophen 5-325 MG Oral Tablet TAKE 1 TABLET EVERY 8 HOURS NEEDED.*MAX 3 PER DAY* * Quantity: 90 Refills: 0 Jose Trammell M.D.* Started 17-Jun-2015 Active Allergies and Adverse [...] Influenza Administered on:03-May-2012 Tdap (Adacel) Lot #: [id number] Administered on:14-May-2013 Fluzone Quadrivalent 0.5 ML Intramuscular Suspension Lot #: [id number] Administered on:03-Jun-2014 Fluzone Quadrivalent 0.5 ML Intramuscular Suspension Prefilled Syringe Lot #: [id number] Administered on:17-Jun-2015 Family History Grandfather* Name Dates [...] /min Status: O2 SAT 94 % Status: Results Date Description Value Details 25-Jun-2015 10:55 Urinalysis, reflex to Micro and Culture ([facility]) 8016 pH 6.0 (Better) Range: 5.0-7.5 [...] 11:00 * Appointment; Provider: Price Garcia On 13-Aug-2015 10:00 * Appointment; Provider: Harris Barragan On 03-Apr-2015 13:00 * Appointment; Provider: Schedule Radiology On 07:00 Instructions * Instructions not documented Encounters Appointment; Andre Pratt Encounter Diagnosis: Problem not [...]
--- OUTSIDE RECORDS SUMMARY | 2016-12-14 18:36 | XMS REPORT ---
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 02556940 Problem Depression F32.9 Active 550276969 Problem Neuropathy G62.9 Active 229821876 Problem Arthritis of left knee M19.90 Active 8826964309897236 Problem Tear of meniscus of left knee S83.207A Active Problem Fibromyalgia M79.7 Active 406039275 Problem Migraine headache G43.909 Active 46439805 Problem Elevated alkaline phosphatase level R74.8 Active 136945377 Problem High cholesterol E78.0 Active 75713438 Problem CAD (coronary artery disease) I25.10 Active 17379683 Problem Status post left knee replacement Z96.652 Active 721591858871 Problem High blood pressure I10 Active 34103946 ALLERGIES Unknown Allergies SOCIAL HISTORY No smoking Hx information available PLAN OF CARE VITAL SIGNS MEDICATIONS Unknown Medications RESULTS No Results PROCEDURES No Known procedures IMMUNIZATIONS No Known Immunizations
--- OUTSIDE RECORDS SUMMARY | 2016-12-14 18:36 | XMS REPORT ---
Author Author FriendKyara [facility] Address [address] [place], [place] [address] Care Team Providers Care Office Engineer Name Role Phone FriendKyara Unavailable [phone] PROBLEMS Type Condition ICD9-CM Code QIK41-SP Code Onset Dates Condition Status SNOMED Code Problem Neuropathy G62.9 Active 213652004 Problem CAD (coronary artery disease) I25.10 Active 20913925 Problem Depression F32.9 Active 221955135 Problem Arthritis of left knee M19.90 Active 2757830637793667 Problem Tear of meniscus of left knee S83.207A Active Problem Fibromyalgia M79.7 Active 381239173 Problem 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
--- OUTSIDE RECORDS SUMMARY | 2016-12-14 18:36 | XMS REPORT | Summary of Care ---
Author Author Linda Bingham APRN Organization Unknown Address [address] [place] [place], [place] [address] Phone Unavailable Care Team Providers Care Banana Carrier Name Role Phone Price Garcia M.D. Unavailable [...] * Quantity: 60 Refills: 0 Smarsh-Kutilek, Crystal CIRCULATION REPRESENTATIVE* Started 24-Jun-2014 JrvgxpKqdybortiz-OGPJ-Iemzfejj 50-325-40 MG Oral Tablet TAKE ONE TABLET [...] Influenza Administered on:03-May-2012 Tdap (Adacel) Lot #: [id number] Administered on:14-May-2013 Fluzone Quadrivalent 0.5 ML Intramuscular Suspension Lot #: [id number] Administered on:03-Jun-2014 Family History Grandfather* Name Dates [...]
--- OUTSIDE RECORDS SUMMARY | 2016-12-14 18:37 | XMS REPORT | Summary of Care ---
Author Author Papa Keys M.D. Organization Unknown Address Unknown Phone Unavailable Care Team Providers Care Brick Pitcher Name Role Phone Price Garcia M.D. Unavailable [...] M43.06) Status: Active Medications Name Dates Details Wiytwvkoia-ZCKL-Ygdarrqk 50-325-40 MG Oral Tablet TAKE 1 TABLET [...] Refills: 0 Papa Keys M.D.* Started 23-Dec-2015 Axwffw259 GM Pump Btl Acetaminophen-Codeine 300-30 MG Oral [...] Refills: 0 Price Garcia M.D.* Started 26-Jun-2015 ActiveDiazePAM 10 MG Oral Tablet TAKE ONE [...] Influenza Administered on:03-May-2012 Tdap (Adacel) Lot #: [id number] Administered on:14-May-2013 Fluzone Quadrivalent 0.5 ML Intramuscular Suspension Lot #: [id number] Administered on:03-Jun-2014 Fluzone Quadrivalent 0.5 ML Intramuscular Suspension Prefilled Syringe Lot #: [id number] Administered on:17-Jun-2015 Family History Grandfather* Name Dates [...] Problem not documented On 21-Jul-2014 14:00 Appointment; Adnre Pratt Encounter Diagnosis: Problem not documented On [...]
--- OUTSIDE RECORDS SUMMARY | 2016-12-14 18:37 | XMS REPORT ---
Author Author FriendKyara Organization [employer] Address Unknown Phone Unavailable Care Team Providers Care Brake Assembler Name Role Phone Friend, Kyara CP Unavailable Allergies No Known Allergies Problems Problem Type Condition Code Onset Dates Condition Status Assessment Encounter for screening mammogram for breast cancer Z12.31 Active Problem Tear of meniscus of left [...] Start Date End Date Status Dosage Atenolol [facility] [address]-07 50 MG Orally at bedtime 1 tablet Losartan Potassium [facility] [address]-83 100 MG Orally Once a day 1 tablet Oxycodone HCl [facility] [address]-60 10 MG Orally three times a day 1 tablet as needed Fioricet [facility] [address]-90 50-300-40 MG Orally 3-4 times a day 1 capsule as needed Zolpidem Tartrate [facility] [address]-61 10 MG Orally Once a day 1 tablet at bedtime as needed Atenolol [facility] [address]-03 25 MG Orally Once a day 1 tablet Fluvoxamine Maleate [facility] [address]-54 100 MG Orally Once a day 1 tablet at bedtime Seroquel [facility] [address]-64 200 MG Orally three times a day 1 tablet at bedtime Clopidogrel Bisulfate [facility] [address]-71 75 MG Orally Once a day 1 tablet Flexeril NDC 0 10mg three times a day 1 tablet Procedures Procedure Coding System Code Date Screening Mammography Digital Bilateral CPT-4 G0202 Jun 06, 2016 Comp Screen Mammogram Add CPT-4 43142 Jun 06, 2016 Results No Known Results Summary Purpose eClinicalWorks Submission
--- OUTSIDE RECORDS SUMMARY | 2016-12-14 18:37 | XMS REPORT | Summary of Care ---
Author Author [facility]itus, [facility] Address [address] [place] [address] Phone Unavailable Care Team Providers Care Astronomy Department Chair Name Role Phone Price Garcia M.D. Unavailable [...] of right side (723.8, M54.81) Status: Active Medications Name Dates Details Eymryokqjz-CSFN-Mzutdimr 50-325-40 MG Oral Tablet TAKE ONE TABLET [...] Influenza Administered on:03-May-2012 Tdap (Adacel) Lot #: [id number] Administered on:14-May-2013 Fluzone Quadrivalent 0.5 ML Intramuscular Suspension Lot #: [id number] Administered on:03-Jun-2014 Fluzone Quadrivalent 0.5 ML Intramuscular Suspension Prefilled Syringe Lot #: [id number] Administered on:17-Jun-2015 Family History Grandfather* Name Dates [...]
--- OUTSIDE RECORDS SUMMARY | 2016-12-14 18:37 | XMS REPORT | Summary of Care ---
Author Author Jessica Nguyen APRN Organization Unknown Address [address], [place] [id number] Phone Unavailable Care Team Providers Care Shearer Operator Name Role Phone Price Garcia M.D. Unavailable Unavailable Jessica Nguyen APRN Unavailable Unavailable Jose Trammell M.D. Unavailable Unavailable Price Garcia PP Unavailable Unavailable Unavailable Functional Status Functional Status Health Issues* Name Dates Details Functional status health issues are not documented Status: Cognitive Status Health Issues* Name Dates Details Cognitive status health issues are not documented Status: Problems Name Dates Details Well woman exam (V70.0, Z00.00) Status: Active High risk medication use (V58.69, Z79.899) Status: Active Atypical facial pain (350.2, G50.1) Status: Active Headache (784.0, R51) Status: Active Insomnia (780.52, G47.00) Status: Active Dermatitis (692.9, L30.9) Status: Active Inflamed seborrheic keratosis (702.11, L82.0) Status: Active Migraine headache (346.90, G43.909) Status: Active Anxiety (300.00, F41.9) Status: Active Hypertension (401.9, I10) Status: Active Depression (311, F32.9) Status: Active Need for influenza vaccination (V04.81, Z23) Status: Active Abnormal electrocardiogram (794.31, R94.31) Status: Active Postconcussion syndrome (310.2, F07.81) Status: Active Obsessive compulsive disorder (300.3, F42) Status: Active Essential and other specified forms of tremor (333.1, R25.1) Status: Active Endometriosis (617.9, N80.9) Status: Active Postmenopausal status (V49.81, Z78.0) Status: Active Injection Of Trigger Point(S) One Or Two Muscle Group(S) Status: Active Joint Pain In Both Knees Status: Active Joint Pain In Both Wrists Status: Active Bilateral Elbow Joint Pain Status: Active Hyperthyroidism (242.90, E05.90) Status: Active Medications Name Dates Details Zolpidem Tartrate 10 MG Oral Tablet TAKE 1 TABLET AT BEDTIME NEEDED FOR SLEEP. Quantity: 30 Jose Trammell M.D.* Started 03-Jun-2014 ActiveAmitriptyline HCl - 100 MG Oral Tablet TAKE 1 TABLET DAILY AT BEDTIME. * Quantity: 30 Refills: 6 Jose Trammell M.D.* Started 09-Jun-2014 QkrqkmYrqnqcpqoa-OQQY-Vmmhbmik 50-325-40 MG Oral Tablet TAKE 1 TABLET [...] * Quantity: 60 Refills: 0 Smarsh-Kutilek, Crystal ARTIST'S MANAGER* Started 24-Jun-2014 ActivePropranolol HCl - 80 MG [...] MOUTH EVERY 6 HRS NEEDED WHILE IN NURSING HOME. * Quantity: 120 Refills: 2 Price Garcia [...] Resolved Procedures Procedure Dates Details History of Section History of Colonoscopy (Fiberoptic) Injection Of Trigger Point(S) One Or Two Muscle Group(S) History of Tubal Ligation History of Cholecystectomy History of Tonsillectomy History of Appendectomy Procedures not documented Immunization Name Dates Details Influenza Administered on:21-Jun-2011 Influenza Administered on:03-May-2012 Tdap (Adacel) Lot #: [id number] Administered on:14-May-2013 Fluzone Quadrivalent 0.5 ML Intramuscular Suspension Lot #: [id number] Administered on:03-Jun-2014 Family History Grandfather* Name Dates Details Family history of Suicide by gunshot wound (E955.9, X74.9XXA) Status: Active Mother* Name Dates Details Family history of Chronic Obstructive Pulmonary Disease Status: Active Father* Name Dates Details Family history of chronic obstructive pulmonary disease (V17.6, Z82.5) Status: Active Family history of diabetes mellitus (V18.0, Z83.3) Status: Active Family history of hypertension (V17.49, Z82.49) Status: Active Family history of cerebrovascular accident (V17.1, Z82.3) Status: Active Family history of myocardial infarction (V17.3, Z82.49) Status: Active Family history of Acute Myocardial Infarction (V17.3) Status: Active Sister* Name Dates Details Family history of Uterine Cancer (V16.49) Status: Active Family history of Arthritis (V17.7) Status: Active Family history of Asthma (V17.5) [...]
--- OUTSIDE RECORDS SUMMARY | 2016-12-14 18:37 | XMS REPORT ---
Author Author Yue Zapata [facility] Address 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 36916139 Problem Depression F32.9 Active 590831410 Problem Neuropathy G62.9 Active 550135697 Assessment Migraine G43.909 Oct, Active 64341086 Problem Arthritis of left knee M19.90 Active 2708374408397188 Problem Tear of meniscus of left knee S83.207A Active Problem Fibromyalgia M79.7 Active 378069306 Problem Migraine headache G43.909 Active 58436216 Problem Elevated alkaline phosphatase level R74.8 Active 228806040 Problem High cholesterol E78.0 Active 89664034 Problem CAD (coronary artery disease) I25.10 Active 93055178 Problem Status post left knee replacement Z96.652 Active 441910497947 Problem High blood pressure I10 Active 69310805 ALLERGIES Substance Reaction Event Type Date Status Imitrex heart problems Drug Allergy Oct, Active Codeine Sulfate felt like a heart attack Drug Allergy Oct, Active toradol-in high or freq doses has a heart stent, it crunches my heart Non Drug Allergy Oct, Active maxalt felt like a heart attack Non Drug Allergy Oct, Active SOCIAL HISTORY No smoking Hx information available PLAN OF CARE VITAL SIGNS Height 5 ft 7 in in 2016-11-22 Weight 127 lbs 2016-11-22 BMI 19.89 kg/m2 2016-11-22 Temperature 98.8 degrees Fahrenheit 2016-11-22 Heart Rate 73 /min 2016-11-22 Oximetry 97 % 2016-11-22 Blood pressure systolic 130 mm Hg 2016-11-22 Blood pressure diastolic 80 mm Hg 2016-11-22 MEDICATIONS Medication Instructions Dosage Frequency Start Date [...] prn neausea 1 tablet as needed Jul, 13 Nov, 2016 30 day(s) Active QUEtiapine Fumarate ER 200 MG Orally three times a day 1 tablet 8h Active Atorvastatin Calcium 40 MG Orally Once a day 1 tablet 24h Active Naproxen 500 MG Orally every 12 hrs 1 tablet as needed 12h 09 Oct, 2016 8 Nov, 2016 30 days Active Losartan Potassium 100 MG Orally Once a day 1 tablet 24h 90 Active Sennosides-Docusate Sodium 8.6-50 MG Orally twice a day 1 tablet 12h as needed Active Oxycodone-Acetaminophen 10-325 MG Orally every 6 hours 1 tablet as needed 6h 30 Oct, 2016 30 days Active Diazepam 10 MG Orally three times a day 1 tablet as needed 8h 30 Active Clopidogrel Bisulfate 75 MG Orally Once a day 1 tablet 24h Active Zolpidem Tartrate 10 MG Orally Once a day 1 tablet at bedtime as needed 24h 30 Active Cyclobenzaprine HCl 10 MG Orally Three times a day as needed 1 tablet 30 Active RESULTS No Results PROCEDURES Procedure Date Ordered Related Diagnosis Body Site [facility] VISIT ESTABLISHED PATIENT November 22, 2016 OFFICE VISIT EST PATIENT LEVEL 3 November 22, 2016 THERPROPHDIAG INJ, SCIM November 22, 2016 DIPHENHYDRAMINE HCL INJECTIO November 22, 2016 KETOROLAC TROMETHAMINE INJ November 22, 2016 IMMUNIZATIONS Vaccine Route Administration Date Status Diphenhydramine (Benadryl) 50mg/mL IM Intramuscular November 22, 2016 Administered Ketoralac (Toradol) 30mg/mL IM Intramuscular November 22, 2016 Administered
--- OUTSIDE RECORDS SUMMARY | 2016-12-14 18:37 | XMS REPORT | Summary of Care ---
Author Author West Berrios D.O. Organization Unknown Address [address] [place], [place] [address] Phone Unavailable Care Team Providers Care Ordnance Handler Name Role Phone Price Garcia M.D. Unavailable Unavailable Мария Gonzalez APRN Unavailable Unavailable Tiarra Berrios D.O. Unavailable Unavailable Klaudia Keys M.D. Unavailable Unavailable Verify PCP Unavailable Unavailable Unavailable Unavailable Functional Status Name [...] R11.0) Status: Active Medications Name Dates Details Bscjwmbfwc-XIYN-Hrfqpidz 50-325-40 MG Oral Tablet TAKE 1 TABLET BY MOUTH EVERY 6 HRS NEEDED MAX OF 4 TABS PER DAY MUST LAST 30 DAYSMAY FILL ON OR AFTER 03/09/16* Quantity: 120 Price Garcia M.D. * Start 09-Jun-2014 Active FluvoxaMINE Maleate [...] EKG Preop Pendin22-Jan-2016 XRay CHEST-PA & LAT Ordered: 22-Jan-2016 Immunization Name Dates Details Influenza on: 21-Jun-2011 Influenza on: 03-May-2012 Tdap (Adacel) Lot #: [id number] on: 14-May-2013 Fluzone Quadrivalent 0.5 ML Intramuscular Suspension Lot #: [id number] on: 03-Jun-2014 Fluzone Quadrivalent 0.5 ML Intramuscular Suspension Prefilled Syringe Lot #: [id number] on: 17-Jun-2015 Family History Name Dates Details [...] Physical Findings 98 Status: Comments: O2 Saturation 13:39 BP Systolic 144 mm[Hg] Status: Comments: Location: ; Position: BP Diastolic 94 mm[Hg] Status: Comments: Location: ; Position: Heart Rate 80 /min Status: Comments: Location: ; Physical Findings 16 Status: Comments: Respiration Height 66 in Status: Weight 137 lb Status: Physical Findings 93 Status: Comments: O2 Saturation Body Mass Index Calculated 22.11 kg/m2 Status: Body Surface Area Calculated 1.7 m2 Status: 11:52 BP Systolic 124 mm[Hg] Status: Comments: Location: ; Position: BP Diastolic 88 mm[Hg] Status: Comments: Location: ; Position: Temperature 97.9 f Status: Comments: Method: Heart Rate 67 /min Status: Comments: Location: ; Physical Findings 97 Status: Comments: O2 Saturation Results Date Description Value Details 13:39 XRay KNEE-Left Comments: Exam Date: 02/23/2016 12: 06Dictation Date: 02/23/2016 13:39 X KNEE COMP (MIN 4V) LT Plan of Care Name Dates Details Planned [...] documented On 06-Jun-2015 10:55 Appointment; Lesley Trimble P.T.|D.P.T. Encounter Diagnosis: Problem [...] not documented On 10:45 Appointment; Linda Bingham A.P.R.N. Encounter Diagnosis: Problem not documented On 09:05 [...] documented On 27-Jun-2014 12:15 Appointment; Jessica Nguyen AKarunaPKarunaRJeromy Encounter Diagnosis: Problem not documented On 24-Jun-2014 [...] documented On 13-May-2014 08:15 Appointment; Jessica Nguyen AKarunaP.RKarunaNKaruna Encounter Diagnosis: Problem not documented On 29-Apr-2014 11:25 Appointment; Jessica Nguyen AKarunaP.RKarunaNKaruna Encounter Diagnosis: Problem not documented On 09-Apr-2014 08:45 Appointment; Igor Charles M.D. Encounter Diagnosis: Problem not documented On 08:45 Appointment; Jose Trammell M.D. Encounter Diagnosis: Problem not documented On 14:00"
--- OUTSIDE RECORDS SUMMARY | 2016-12-14 18:38 | XMS REPORT ---
Author Author Friend, Kyara Boss [employer] Address Unknown Phone Unavailable Care Team Providers Care Transportation Equipment Painter Name Role Phone Friend, Kyara CP Unavailable Allergies, Adverse Reactions, Alerts Substance Reaction Event Type Imitrex Info Not Available Drug Allergy Codeine Sulfate Info Not Available Drug Allergy toradol Info Not Available Non Drug Allergy maxalt Info Not Available Non Drug Allergy Problems Problem Type Condition Code Onset Dates Condition Status Assessment Severe depression F32.2 Active Problem Tear of meniscus of left knee S83.207A Active Problem Arthritis of left knee M19.90 Active Problem High cholesterol E78.0 Active Assessment Encounter for screening mammogram for breast cancer Z12.31 Active Problem CAD (coronary artery disease) I25.10 Active Problem High blood pressure I10 Active Problem 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 Problem Fibromyalgia M79.7 Active Problem Depression F32.9 Active Problem Neuropathy G62.9 Active Assessment Screening for thyroid disorder Z13.29 Active Assessment Fibromyalgia M79.7 Active Assessment Need for hepatitis C screening test Z11.59 Active Assessment Screening, deficiency anemia, iron Z13.0 Active Assessment 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 Assessment CAD (coronary artery disease) I25.10 Active Assessment Fatigue R53.83 Active Assessment High cholesterol E78.0 Active Assessment Arthritis of left knee M19.90 Active Assessment High blood pressure I10 Active Medications Medication Code System Code Instructions Start Date End Date Status Dosage Flexeril NDC 0 10mg three times a day 1 tablet Fluvoxamine Maleate [facility] [address]-58 100 MG Orally Once a day 1 tablet at bedtime Clopidogrel Bisulfate [facility] [address]-89 75 MG Orally Once a day 1 tablet Oxycodone HCl [facility] [address]-50 10 MG Orally three times a day 1 tablet as needed Zolpidem Tartrate [facility] [address]-78 10 MG Orally Once a day 1 tablet at bedtime as needed Losartan Potassium [facility] [address]-94 100 MG Orally Once a day 1 tablet Atenolol [facility] [address]-75 50 MG Orally at bedtime 1 tablet Atenolol [facility] [address]-23 25 MG Orally Once a day 1 tablet Fioricet [facility] [address]-88 50-300-40 MG Orally 3-4 times a day 1 capsule as needed Seroquel [facility] [address]-89 200 MG Orally Once a day 1 tablet at bedtime Procedures Procedure Coding System Code Date ROUTINE VENIPUNCTURE [facility]-4 [id number] Apr 05, 2016 ASSAY THYROID STIM HORMONE.[facility] CPT-4 81641 Apr 05, 2016 Lipid Panel - [facility]-4 58996 Apr 05, 2016 OFFICE VISIT NEW PATIENT LEVEL 4 CPT-4 28613 Apr 05, 2016 COMPLETE CBC W/AUTO DIFF WBC.[facility]-4 33896 Apr 05, 2016 Metabolic Panel Total Ca.[facility]-4 42080 Apr 05, 2016 [facility] VISIT NEW PATIENT CPT-4 G0466 Apr 05, 2016 HEP C ABO SC IND HI RSK&OTH COV IND.[facility] CPT-4 G0472 Apr 05, 2016 Vital Signs Date/Time: Apr 05, 2016 BMI 21.11 Index Weight 134.8 lbs Height 67 in Blood Pressure Diastolic 78 mm Hg Blood Pressure Systolic 112 mm Hg Cardiac Monitoring Heart Rate 64 /min Temperature 97.5 F Respiratory Rate 18 /min Results Name Result Date Reference Range Unit Abnormality Flag CBC With Platelet and Differential ----Immature Granulocytes 0.2 64886932 0.0-1.0 % ----Platelet Count 253 [id number] 150-400 K/uL ----Monocytes 8 50193058 4-11 % ----HGB 11.9 53578224 12.0-18.0 g/dL L ----Lymphocytes 46 71117241 20-46 % ----HCT 36.4 49456485 37.0-47.0 % L ----Neutrophils 46 28185612 51-75 % L ----MCV 92.9 64359916 82.0-99.0 fL ----Absolute Basophils 0.01 38725477 0.00-0.20 10*3 ----MCH 30.4 29864564 27.0-32.0 pg ----Absolute Eosinophils 0.01 44971526 0.00-0.50 10*3 ----MCHC 32.7 49315841 32.0-36.0 g/dL ----Eosinophils 0 90266677 0-4 % ----Absolute Monocytes 0.35 71648728 0.30-1.00 10*3 ----RDW 13.1 80654748 11.5-14.5 % ----Basophils 0 58705384 0-2 % ----WBC 4.5 38159409 4.8-10.8 K/uL L ----MPV 10.2 29268548 8.8-14.8 fL ----Absolute Lymphocytes 2.06 89109642 0.80-3.30 10*3 ----RBC 3.92 62994854 4.00-5.20 10*6/uL L ----Absolute Neutrophils 2.07 02935849 1.90-7.00 10*3 Hepatitis C Antibody, Total ----Hepatitis C Total Antibody Negative [id number] Venipuncture Basic Metabolic Panel (BMP) ----Chloride 106 95150891 99-111 mEq/L ----Potassium 3.8 31911321 3.5-5.2 mEq/L ----Anion Gap 9 05635380 3-20 ----CO2 25 38526396 22-31 mEq/L ----Calcium 10.3 51381099 8.9-10.5 mg/dL ----Sodium 140 88939789 135-144 mEq/L ----BUN 12 19695610 10-20 mg/dL ----Creatinine 0.72 91851942 0.57-1.11 mg/dL ----Glucose 99 18547523 70-99 mg/dL eGFR ----eGFR >60 57346158 >60 mL/min TSH with Reflex Free T4 Lipid Panel ----Cardiac Risk 4.0 29238081 0.0-5.0 ----VLDL Cholesterol 26 85017486 0-28 mg/dL ----LDL Cholesterol 181 08969142 0-130 mg/dL H ----HDL Cholesterol 69 14798242 40-84 mg/dL ----Triglycerides 132 27156631 0-149 mg/dL ----Cholesterol 276 75515733 0-199 mg/dL H Non-HDL Cholesterol ----Non-HDL Cholesterol 207 82807654 0-159 mg/dL H Summary Purpose eClinicalWorks Submission
--- OUTSIDE RECORDS SUMMARY | 2016-12-14 18:38 | XMS REPORT ---
Author Author GENERATED, SYSTEM Organization Unknown Address Unknown Phone Unavailable Care Team Providers Care Metal Welder Name Role Phone MD DENISE, GARY CASTILLO Unavailable Reason For Visit Chief Complaint LT KNEE PAIN Social History Functional Status Vital Signs Results Hematology from 10/30/2015 7:51 PMWBC 6.5 X10e3/UL (3.6-11.2 X10e3/UL) RBC 3.43 X10e6/UL L (3.63-4.92 X10e6/UL) HEMOGLOBIN 10.4 G/DL L (11.0-14.3 G/DL) HEMATOCRIT 31.7 % (31.2-41.9 %) *MCV 92.4 FL (79.0-98.0 FL) *MCH 30.3 PG (27.0-33.0 PG) *MCHC 32.8 G/DL (32.0-36.0 G/DL) *RDW 14.3 % (12.3-17.0 %) *RDWSD 45.5 (37.1-47.8 ) PLATELET 247 X10e3/UL (159-386 X10e3/UL) *MPV 7.7 FL (7.4-10.4 FL) AUTOMATED DIFF PERFORMED SEGS 59.2 % *LYMPHOCYTES 31.3 % *MONOCYTES 8.8 % *EOSINOPHILS 0.2 % *BASOPHILS 0.5 % *ABSOLUTE NEUTROPHILS 3.90 X10e3/UL (1.80-7.80 X10e3/UL) *ABSOLUTE LYMPHOCYTES 2.00 X10e3/UL (1.00-3.00 X10e3/UL) *ABSOLUTE MONOCYTES 0.60 X10e3/UL (0.30-1.00 X10e3/UL) *ABSOLUTE EOSINOPHILS 0.00 X10e3/UL (0.00-0.50 X10e3/UL) *ABSOLUTE BASOPHILS 0.00 X10e3/UL (0.00-0.20 X10e3/UL) Coagulation from 10/30/2015 7:51 PM*PROTHROMBIN TIME 10.1 SECONDS (9.4-11.5 SECONDS) *INR 1.0 (0.9-1.1 ) PARTIAL THROMBOPLASTIN TIME 25.5 SECONDS (23.0-31.0 SECONDS) DX Radiology from 10/30/2015 7:21 PMKNEE LEFT 3 VIEWS History: Left knee pain Technique: 3 view knee performed. Priors: None. Findings: No acute fractures or subluxations are identified. There is a small knee joint effusion. Impression: Small knee joint effusion without evidence acute fracture. Electronically signed by: Osvaldo Hdez MD Dictated: 10/31/2015 10:41 Problems Encounter Diagnosis No relevant problems exist. [...]
--- OUTSIDE RECORDS SUMMARY | 2016-12-14 18:38 | XMS REPORT | Summary of Care ---
Author Author Yung Titus, Harris Boss Unknown Address [address] [place], [place] [id number] Phone Unavailable Care Team Providers Care Trauma Registrar Name Role Phone Price Garcia M.D. Unavailable Unavailable Lisa STORAGE MANAGEMENT ARCHITECT, Мария Unavailable Unavailable Smarsh-Kutilek STORAGE MANAGEMENT ARCHITECT, Crystal Unavailable Unavailable Price Garcia PP Unavailable [...] J34.3) Status: Active Medications Name Dates Details Bjezwkboks-IKZN-Gmmhhill 50-325-40 MG Oral Tablet TAKE ONE TABLET [...] * Quantity: 60 Refills: 0 Michaelle-Jessica Sanchez STORAGE MANAGEMENT ARCHITECT* Started 24-Jun-2014 ActiveHydrALAZINE HCl - 50 MG [...] Influenza Administered on:03-May-2012 Tdap (Adacel) Lot #: [id number] Administered on:14-May-2013 Fluzone Quadrivalent 0.5 ML Intramuscular Suspension Lot #: [id number] Administered on:03-Jun-2014 Family History Grandfather* Name Dates [...] ml/min (Better) Range: >60 EST GFR, NON-AFR [place] >60 ml/min (Better) Range: >60 Comments: EST GFR is reported in ml/min per 1.73 m2 of body surface area. For -Spanish, please multiple result by 1.2.----- BUN:CREATININE RATIO [...]
--- OUTSIDE RECORDS SUMMARY | 2016-12-14 18:38 | XMS REPORT ---
Author Author Friend, Kyara Boss [employer] Address Unknown Phone Unavailable Care Team Providers Care Quality Assurance Project Manager Name Role Phone Friend, Kyara GRANGER Unavailable Allergies, Adverse Reactions, Alerts Substance Reaction Event Type Imitrex heart problems Drug Allergy Codeine Sulfate felt like a heart attack Drug Allergy toradol Info Not Available Non Drug Allergy maxalt felt like a heart attack Non Drug Allergy Problems Problem Type Condition [...] CAD (coronary artery disease) I25.10 Active Assessment Elevated alkaline phosphatase level R74.8 Active Assessment Status post left knee replacement Z96.652 Active Assessment Bilateral leg cramps R25.2 Active Assessment Needs flu shot Z23 Active Problem Arthritis of left knee M19.90 Active Medications Medication Code System Code Instructions Start Date End Date Status Dosage Seroquel [facility] [address]-50 200 MG Orally three times a day as needed 1 tablet Fluvoxamine Maleate [facility] [address]-04 100 MG Orally Once a day 1 tablet at bedtime Losartan Potassium [facility] [address]-14 100 MG Orally Once a day 1 tablet Atenolol [facility] [address]-21 25 MG Orally Once a day in the morning 1 tablet total dose is 75 mg Clopidogrel Bisulfate [facility] [address]-21 75 MG Orally Once a day 1 tablet Oxycodone HCl [facility] [address]-34 10 MG Orally three times a day 1 tablet as needed Atenolol [facility] [address]-77 50 MG Orally at bedtime 1 tablet total dose is 75 mg Fioricet [facility] [address]-52 50-300-40 MG Orally 3-4 times a day 1 capsule as needed Flexeril NDC 0 10mg three times a day 1 tablet Zolpidem Tartrate NDC [address]-35 10 MG Orally Once a day 1 tablet at bedtime as needed Procedures Procedure Coding System Code Date IMMUNIZATION ADMIN CPT-4 33847 Jul 14, 2016 FQ VISIT ESTABLISHED PATIENT CPT-4 G0467 Jul 14, 2016 FLU VACC 4 DUDLEY 3 YRS PLUS IM CPT-4 94476 Jul 14, 2016 OFFICE VISIT EST PATIENT LEVEL 3 CPT-4 70284 Jul 14, 2016 Vital Signs Date/Time: Jul 14, 2016 BMI 20.14 Index Weight 128.6 lbs Height 67 in Blood Pressure Diastolic 78 mm Hg Blood Pressure Systolic 118 mm Hg Cardiac Monitoring Heart Rate 72 /min Temperature 97.5 F Respiratory Rate 20 /min Results Name Result Date Reference Range Unit Abnormality Flag OTHER-IMMUNIZATION ADMIN Immunizations Vaccine Administration Date *Fluzone, private, 3+ yrs, 0.5mL, quad vial, Jul 14, 2016 Summary Purpose eClinicalWorks Submission
--- OUTSIDE RECORDS SUMMARY | 2016-12-14 18:38 | XMS REPORT | Summary of Care ---
Author Author Price Garcia M.D. Organization Unknown Address Unknown Phone Unavailable Care Team Providers Care Early Childhood Associate Teacher Name Role Phone Price Garcia M.D. [...] right lower leg (715.16, M17.11) Status: Active Low back pain (724.2, M54.5) Status: Active Spondylolysis, lumbar region (738.4, M43.06) Status: Active Medications Name Dates Details FluvoxaMINE Maleate 100 MG Oral Tablet TAKE 1 TABLET AT BEDTIME. Quantity: 30 Price Garcia M.D.* Started 5-Oct-2015 ActiveAmLODIPine Besylate 10 MG Oral Tablet take one tablet by mouth every day * Quantity: 30 Refills: 6 Price Garcia M.D.* Started 30-Oct-2014 ActiveQUEtiapine Fumarate 25 MG Oral Tablet TAKE 1 TABLET IN MORNING, THEN TAKE 1 TABLET IN EVENING, THEN TAKE 2 TABLETS AT BEDTIME * Quantity: 120 Refills: 3 Price Garcia M.D.* Started 30-Oct-2014 UjaehmGfkgsbzhsz-OFNX-Lfllymde 50-325-40 MG Oral Tablet TAKE ONE TABLET BY MOUTH EVERY 4 HOURS NEEDED MAX OF 6 TABLETS PER DAY MUST LAST 30 DAYSMAY FILL ON OR AFTER 01/09/16* * Quantity: 180 Refills: 0 Price Garcia [...] Influenza Administered on:03-May-2012 Tdap (Adacel) Lot #: [id number] Administered on:14-May-2013 Fluzone Quadrivalent 0.5 ML Intramuscular Suspension Lot #: [id number] Administered on:03-Jun-2014 Fluzone Quadrivalent 0.5 ML Intramuscular Suspension Prefilled Syringe Lot #: [id number] Administered on:17-Jun-2015 Family History Grandfather* Name Dates [...] (Better) Range: 0-10 23-Nov-2015 09:09 URINE CULTURE [id number] Comments: LEHR performed at: [facility] Funding [facility], [address] [place] [address], [address], Treater Helper: Igor Perez D.O., [facility] Collection Date/Time: [id number] Results Received Date/Time: [id number] Reported Date/Time: [id number] performed at: [facility] Funding [employer], [address], Treater Helper: Igor Perez D.O., [facility] Collection Date/Time: [id number] Results Received Date/Time: [id number] Reported Date/Time: [id number] CULTURE, URINE, ROUTINE SEE NOTE (Abnormal) Comments: CULTURE, URINE, ROUTINE MICRO NUMBER: [id number] TEST STATUS: FINAL SPECIMEN SOURCE : URINE, [...] 15Dictation Date: 11/25/2015 09:22 XMR SPINE LUMBAR ([facility]) 30-Nov-2015 07:30 Clinical Trials 4045 Clinical Trials Clinical Trial Lab ([facility]) 14:02 MRI KNEE LEFT Comments: Exam Date: 11/30/2015 06:28Dictation Date : 11/30/2015 14:02 XMR EXT KNEE LEFT ([facility]) Plan of Care Planned Observations* Name Dates Details Planned Goals not documented Goal Planned Encounters* Appointment; Provider: Andre Pratt On 18-Jul-2016 11:00 * Appointment; Provider: Price Garcia On 10:00 * Appointment; Provider: Papa Keys On 23-Dec-2015 14:00 * Appointment; Provider: Papa Keys On 16-Dec-2015 14:00 * Appointment; Provider: Schedule Radiology On [...]
--- OUTSIDE RECORDS SUMMARY | 2016-12-14 18:38 | XMS REPORT ---
Author Author FriendKyara eClinicalWorks Address Unknown Phone Unavailable Care Team Providers Care Clinical Project Leader Name Role Phone Friend, Kyara CP Unavailable [...] CAD (coronary artery disease) I25.10 Active Medications Medication Code System Code Instructions Start Date End Date Status Dosage Losartan Potassium [facility] [address]-99 100 MG Orally Once a day 1 tablet Results No Known Results Summary Purpose eClinicalWorks Submission
--- OUTSIDE RECORDS SUMMARY | 2016-12-14 18:38 | XMS REPORT ---
Author Author GENERATED, SYSTEM Organization Unknown Address Unknown Phone Unavailable Care Team Providers Care Eyeglass Cutter Name Role Phone MD DENISE, GARY CASTILLO Unavailable Reason For Visit Chief Complaint NOT FEELING WELL Social History Functional Status Vital Signs Results Chemistry from 02/21/2016 6:04 PMSODIUM 140 MMOL/L (136-145 MMOL/L) POTASSIUM 3.6 MMOL/L (3.5-5.1 MMOL/L) CHLORIDE 106 MMOL/L (98-107 MMOL/L) TCO2 32.8 MMOL/L H (21.0-32.0 MMOL/L) *ANION GAP 1.2 MMOL/L L (8.0-16.0 MMOL/L) BUN 15 MG/DL (7-18 MG/DL) CREATININE 0.66 MG/DL (0.55-1.02 MG/DL) *BUN/CREATININE RATIO 22.7 H (9.1-17.0 ) GLUCOSE 73 MG/DL (65-99 MG/DL) *GFR EST NON AFR EQUATORIAL GUINEAN >90 ML/MIN *GFRA EST AFR AMER >90 ML/MIN CALCIUM 9.2 MG/DL (8.5-10.1 MG/DL) BILIRUBIN TOTAL <0.10 MG/DL L (0.20-1.00 MG/DL) TOTAL PROTEIN 6.4 GM/DL (6.4-8.2 GM/DL) ALBUMIN 3.2 GM/DL L (3.4-5.0 GM/DL) *GLOBULIN 3.2 GM/DL (2.3-3.5 GM/DL) *A/G RATIO 1.0 MG/DL L (1.5-2.2 MG/DL) ALK PHOS 124 U/L H (46-116 U/L) ALT (SGPT) 30 U/L (16-63 U/L) AST (SGOT) 23 U/L (15-37 U/L) TSH 1.352 UIU/ML (0.340-4.820 UIU/ML) Hematology from 02/21/2016 5:24 PMWBC 3.8 X10e3/UL (3.6-11.2 X10e3/UL) RBC 3.49 X10e6/UL L (3.63-4.92 X10e6/UL) HEMOGLOBIN 10.7 G/DL L (11.0-14.3 G/DL) HEMATOCRIT 32.6 % (31.2-41.9 %) *MCV 93.4 FL (79.0-98.0 FL) *MCH 30.5 PG (27.0-33.0 PG) *MCHC 32.7 G/DL (32.0-36.0 G/DL) *RDW 13.9 % (12.3-17.0 %) *RDWSD 45.9 (37.1-47.8 ) PLATELET 193 X10e3/UL (159-386 X10e3/UL) *MPV 8.5 FL (7.4-10.4 FL) *MANUAL DIFF PERFORMED SEGS 40.0 % *BANDS 1.0 % *LYMPHOCYTES 51.0 % *MONOCYTES 7.0 % *EOSINOPHILS 0.0 % *BASOPHILS 1.0 % *ABSOLUTE NEUTROPHILS 1.56 X10e3/UL L (1.80-7.80 X10e3/UL) *ABSOLUTE LYMPHOCYTES 1.94 X10e3/UL (1.00-3.00 X10e3/UL) *ABSOLUTE MONOCYTES 0.27 X10e3/UL L (0.30-1.00 X10e3/UL) *ABSOLUTE EOSINOPHILS 0.00 X10e3/UL (0.00-0.50 X10e3/UL) *ABSOLUTE BASOPHILS 0.04 X10e3/UL (0.00-0.20 X10e3/UL) Problems Encounter Diagnosis No relevant problems exist. [...]
--- OUTSIDE RECORDS SUMMARY | 2016-12-14 18:39 | XMS REPORT | Summary of Care ---
Author Author Yung Titus, Harris Boss Unknown Address [address], [place] [address] Phone Unavailable Care Team Providers Care Sock Turner Name Role Phone Price Garcia M.D. Unavailable Unavailable Lisa AVIATION TECHNICIAN, Мария Unavailable Unavailable Smarsh-Kutilek AVIATION TECHNICIAN, Crystal Unavailable Unavailable Price Garcia PP [...] J32.9) Status: Active Medications Name Dates Details Lczxohpjrt-RUFF-Zpcnizhx 50-325-40 MG Oral Tablet TAKE ONE TABLET [...] * Quantity: 60 Refills: 0 Smarsh-Kutilek, Crystal AVIATION TECHNICIAN* Started 24-Jun-2014 ActiveHydrALAZINE HCl - 50 [...] * Quantity: 1 Refills: 0 Мария Gonzalez AVIATION TECHNICIAN* Started 24-Jan-2015 Admin RequestedCyclobenzaprine HCl - [...] Influenza Administered on:03-May-2012 Tdap (Adacel) Lot #: [id number] Administered on:14-May-2013 Fluzone Quadrivalent 0.5 ML Intramuscular Suspension Lot #: [id number] Administered on:03-Jun-2014 Family History Grandfather* Name Dates [...]
--- OUTSIDE RECORDS SUMMARY | 2016-12-14 18:39 | XMS REPORT | Summary of Care ---
Author Author Yung Titus, Harris Boss Unknown Address [address] [place], [place] [address] Phone Unavailable Care Team Providers Care Community Educator Name Role Phone Price Garcia M.D. Unavailable Unavailable Lisa MAINFRAME SYSTEMS ADMINISTRATOR, Мария Unavailable Unavailable [place] MAINFRAME SYSTEMS ADMINISTRATOR, Crystal Unavailable Unavailable Price Garcia PP Unavailable [...] Status: Active Cervicalgia (723.1, M54.2) Status: Active Migraine headache (346.90, G43.909) Status: Active Cervicogenic headache (784.0, R51) Status: Active Headache (784.0, R51) Status: Active Nasal septal deviation (470, J34.2) Status: Active Nasal congestion (478.19, R09.81) Status: Active Hypertrophy of nasal turbinates (478.0, J34.3) Status: Active Chronic sinus infection (473.9, J32.9) Status: Active Medications Name Dates Details Uuwfmdnqdr-NOCU-Rygfnopx 50-325-40 MG Oral Tablet TAKE ONE TABLET [...] * Quantity: 60 Refills: 0 Smarsh-Kutilek, Crystal MAINFRAME SYSTEMS ADMINISTRATOR* Started 24-Jun-2014 ActiveHydrALAZINE HCl - 50 MG [...] Influenza Administered on:03-May-2012 Tdap (Adacel) Lot #: [id number] Administered on:14-May-2013 Fluzone Quadrivalent 0.5 ML Intramuscular Suspension Lot #: [id number] Administered on:03-Jun-2014 Family History Grandfather* Name Dates [...] smoker Vital Signs Date Test Result Details 08:34 BP Systolic 163 mm[Hg] Status: BP [...] Price Garcia On 11:15 * Appointment; Provider: Schedule Radiology On 07:00 [...]
--- OUTSIDE RECORDS SUMMARY | 2016-12-14 18:39 | XMS REPORT ---
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 16633865 Problem Depression F32.9 Active 631060172 Problem Neuropathy G62.9 Active 408423411 Assessment HTN (hypertension) I10 06 Aug, 2016 Active 88127663 Problem Arthritis of left knee M19.90 Active 7313299703250637 Problem Tear of meniscus of left knee S83.207A Active Problem Fibromyalgia M79.7 Active 522332957 Problem Migraine headache G43.909 Active 05248459 Problem Elevated alkaline phosphatase level R74.8 Active 005734613 Problem High cholesterol E78.0 Active 25950135 Problem CAD (coronary artery disease) I25.10 Active 76093438 Problem Status post left knee replacement Z96.652 Active 433759281959 Problem High blood pressure I10 Active 42281446 ALLERGIES Unknown Allergies SOCIAL HISTORY No smoking Hx information available PLAN OF CARE VITAL SIGNS Height 5 ft 7 in in 2016-09-02 Weight 132.4 lbs 2016-09-02 BMI 20.73 kg/m2 2016-09-02 Temperature 97.3 degrees Fahrenheit 2016-09-02 Heart Rate 59 /min 2016-09-02 Respiratory Rate 20 /min 2016-09-02 Oximetry 97 % 2016-09-02 Blood pressure systolic 168 mm Hg 2016-09-02 Blood pressure diastolic 84 mm Hg 2016-09-02 MEDICATIONS Medication Instructions Dosage Frequency Start Date End Date Duration Status Clopidogrel Bisulfate 75 MG Orally Once a day 1 tablet 24h Active Oxycodone-Acetaminophen 10-325 MG Orally every 4 hours 1 tablet as needed 4h Active Omeprazole 20 MG Orally Once a day before breakfast 1 capsule Active Losartan Potassium 100 MG Orally Once a day 1 tablet 24h 90 Active Diflucan 150 MG Orally once, may repeat in 72 hours prn 1 tablet Aug, Aug, 1 dose Active Amlodipine Besylate 5 MG Orally Once a day preferably at bedtime 1 tablet Aug, 30 day(s) Active Propranolol HCl 20 MG Orally Twice a day 1 tablet 12h Jul, 30 day(s) Active Sennosides-Docusate Sodium 8.6-50 MG Orally twice a day 1 tablet 12h Active Macrobid 100 MG Orally every 12 hrs 1 capsule with food 12h Active Diazepam 10 MG Orally three times a day 1 tablet as needed 8h Active Fiorinal 50-325-40 MG Orally 3-4 times a day 1 capsule as needed Jul, 15 Active QUEtiapine Fumarate ER 200 MG Orally three times a day 1 tablet 8h Active Fluvoxamine Maleate 100 MG Orally Once a day 1 tablet at bedtime 24h Active Zolpidem Tartrate 10 MG Orally Once a day 1 tablet at bedtime as needed 24h Active Promethazine HCl 25 MG Orally every 8 hrs prn neausea 1 tablet as needed Jul, Nov, 30 day(s) Active RESULTS No Results PROCEDURES Procedure Date Ordered Related Diagnosis Body Site NURSE VISIT-BP CHECK 2016-09-02 N/A BLOOD PRESSURE, MEASURED Sep 02, 2016 NURSE VISIT- NO CHARGE Sep 02, 2016 IMMUNIZATIONS No Known Immunizations
--- OUTSIDE RECORDS SUMMARY | 2016-12-14 18:39 | XMS REPORT ---
Author Author FriendKyara eClinicalWorks Address Unknown Phone Unavailable Care Team Providers Care Physical Chemist Name Role Phone Friend, Kyara CP Unavailable [...]
--- OUTSIDE RECORDS SUMMARY | 2016-12-14 18:39 | XMS REPORT | Summary of Care ---
Author Author Atilio Jimenez D.P.T., [facility] Unknown Address [address] [place], [place] [address] Phone Unavailable Care Team Providers Care Deboning Team Leader Name Role Phone Price Garcia M.D. Unavailable Unavailable Lisa SIGNAL WIRER, Мария Unavailable Unavailable Smarsh-[place] SIGNAL WIRER, Crystal Unavailable Unavailable Price Garcia PP Unavailable [...] AREA TWICE DAILY Quantity: 60 Smarsh-Kutilek, Crystal SIGNAL WIRER* Started 24-Jun-2014 ActiveFluvoxaMINE Maleate 100 MG Oral Tablet TAKE 1 TABLET AT BEDTIME. * Quantity: 30 Refills: 5 Price Garcia M.D.* Started 30-Oct-2014 ActiveNalbuphine HCl - 10 MG/ML Injection Solution Inject 10mg IM x 1 now * Quantity: 1 Refills: 0 Lisa, Мария SIGNAL WIRER* Started 24-Jan-2015 Admin RequestedPromethazine HCl - 25 MG/ML Injection Solution Inject 12.5mg IM x 1 now * Quantity: 1 Refills: 0 Мария Gonzalez SIGNAL WIRER* Started 24-Jan-2015 Admin RequestedCyclobenzaprine HCl - 10 [...] Refills: 0 Price Garcia M.D.* Started 30-Oct-2014 IzadflVfcbuhuplu-UXKP-Uuxmwxik 50-325-40 MG Oral Tablet TAKE ONE TABLET [...] Influenza Administered on:03-May-2012 Tdap (Adacel) Lot #: [id number] Administered on:14-May-2013 Fluzone Quadrivalent 0.5 ML Intramuscular Suspension Lot #: [id number] Administered on:03-Jun-2014 Family History Grandfather* Name Dates [...] smoker Vital Signs Date Test Result Details 22-May-2015 13:31 BP Systolic 126 mm[Hg] Status: [...] (Better) Range: 0-2 18-May-2015 09:32 URINE CULTURE [id number] Comments: [employer] performed at: [facility], [address] [place] [address], Telegraph Office Route Aide: Igor Perez D.O., MPHQuest Collection Date/Time: [id number] Results Received Date/Time: [id number] Reported Date/Time: [id number] performed at: [facility], [address] [place] [address], [address] [place] [address], Telegraph Office Route Aide: Igor Perez D.O., MPHQuest Collection Date/Time: [id number] Results Received Date/Time: [id number] Reported Date/Time: [id number] CULTURE, URINE, ROUTINE SEE NOTE (Abnormal) Comments: CULTURE, URINE, ROUTINE MICRO NUMBER: [id number] TEST STATUS: FINAL SPECIMEN SOURCE : URINE, [...] ml/min (Better) Range: >60 EST GFR, NON-AFR TOGOLESE >60 ml/min (Better) Range: >60 Comments: EST GFR is reported in ml/min per 1.73 m2 of body surface area. For -[place], please multiple result by 1.2.----- GLUCOSE 106 [...] Instructions * Instructions not documented Encounters Appointment; Lesley Trimble Encounter Diagnosis: Problem not [...] Problem not documented On 11-Jul-2013 09:35 Appointment; Jouse Patel Encounter Diagnosis: Problem not documented On 01-Jul-2013 14:15 Appointment; Jasmin Trejo Encounter Diagnosis: Problem not documented On 21-Jun-2013 08:40 Appointment; Josue Patel Encounter Diagnosis: Problem not documented On 12-Jun-2013 09:00 Appointment; Melvin Cotto Encounter Diagnosis: Problem not documented On 05-Jun-2013 12:30
--- OUTSIDE RECORDS SUMMARY | 2016-12-14 18:39 | XMS REPORT ---
Author Author GENERATED, SYSTEM Organization Unknown Address Unknown Phone Unavailable Care Team Providers Care Desk Sergeant Name Role Phone MD DENISE, GARY Unavailable Reason For Visit Chief Complaint KNEE PAIN,HAD SURGERY YESTERDAY,PT LEFT WITHOUT BEING SEEN Social History Functional Status Vital Signs Results [...]
--- OUTSIDE RECORDS SUMMARY | 2016-12-14 18:40 | XMS REPORT ---
Author Author FriendKyara eClinicalWorks Address Unknown Phone Unavailable Care Team Providers Care Emt Dispatcher Name Role Phone Friend, Kyara CP Unavailable [...]
--- OUTSIDE RECORDS SUMMARY | 2016-12-14 18:40 | XMS REPORT | Summary of Care ---
Author Author Linda Bingham APRN Organization Unknown Address [address] [place], [place] [phone] Phone Unavailable Care Team Providers Care Material Requirements Planning Manager Name Role Phone Radha Titus, Price [...] M25.562) Status: Active Medications Name Dates Details Zjcpupylgv-NBOJ-Eqkqsvio 50-325-40 MG Oral Tablet TAKE 1 TABLET [...] AFTER 03/09/16 * Quantity: 90 Refills: 0 Pirce Garcia M.D. * Start 30-Oct-2014 Active Endocet [...] Quantity: 30 Refills: 0 Price Garcia M.D. Start 26-Jun-2015 Active Cyclobenzaprine HCl - 10 [...] Influenza on: 03-May-2012 Tdap (Adacel) Lot #: [id number] on: 14-May-2013 Fluzone Quadrivalent 0.5 ML Intramuscular Suspension Lot #: [id number] on: 03-Jun-2014 Fluzone Quadrivalent 0.5 ML Intramuscular Suspension Prefilled Syringe Lot #: [id number] on: 17-Jun-2015 Family History Name Dates Details [...] Physical Findings 98 Status: Comments: O2 Saturation 13:23 BP Systolic 144 mm[Hg] Status: Comments: [...] documented On 09-Jun-2015 14:35 Appointment; Lesley Trimble P.T.|Shiela.P.TKaruna Encounter Diagnosis: Problem not documented On 09-Jun-2015 [...] not documented On 11:15 Appointment; Linda Bingham A.P.RJeromy Encounter Diagnosis: Problem not documented On 08:30 Appointment; Мария Gonzalez A.P.RErlinda. Encounter Diagnosis: Problem not documented On 24-Jan-2015 10:35 Appointment; Price Garcia M.D. Encounter Diagnosis: Problem not documented On 22-Jan-2015 10:30 Appointment; Price Garcia M.D. Encounter Diagnosis: Problem not documented On 06-Jan-2015 10:45 Appointment; rPice Garcia M.D. Encounter Diagnosis: Problem not documented [...] documented On 27-Jun-2014 12:15 Appointment; Jessica Nguyen A.P.RJeromy Encounter Diagnosis: Problem not documented On 24-Jun-2014 [...] documented On 13-May-2014 08:15 Appointment; Jessica Nguyen A.P.RJeromy Encounter Diagnosis: Problem not documented On 29-Apr-2014 11:25"
--- OUTSIDE RECORDS SUMMARY | 2016-12-14 18:40 | XMS REPORT | Summary of Care ---
Author Author Linda Bingham APRN Organization Unknown Address [address] [place], [place] [address] Phone Unavailable Care Team Providers Care Thin Film Technician Name Role Phone Price Garcia M.D. Unavailable Unavailable Lisa FUNCTIONAL MANAGER, Мария Unavailable Unavailable Smarsh[place] FUNCTIONAL MANAGER, Crystal Unavailable Unavailable Price Garcia PP [...] H61.20) Status: Active Medications Name Dates Details Atydnyqrgr-KCWA-Rkydcwyr 50-325-40 MG Oral Tablet TAKE ONE TABLET [...] TWICE DAILY * Quantity: 60 Refills: 0 linhh-Franckantoniok, Jessica FUNCTIONAL MANAGER* Started 24-Jun-2014 ActiveZolpidem Tartrate ER 12.5 MG [...] DAILY * Quantity: 60 Refills: 5 Price Garica M.D.* Started 30-Oct-2014 ActiveAmLODIPine Besylate 5 MG [...] Influenza Administered on:03-May-2012 Tdap (Adacel) Lot #: [id number] Administered on:14-May-2013 Fluzone Quadrivalent 0.5 ML Intramuscular Suspension Lot #: [id number] Administered on:03-Jun-2014 Family History Grandfather* Name Dates [...] smoker Vital Signs Date Test Result Details 09:04 BP Systolic 158 mm[Hg] Status: BP [...] Price Garcia On 11:15 * Appointment; Provider: Price Garcia On 10:45 Instructions * Instructions not documented Encounters Appointment; [...]
--- OUTSIDE RECORDS SUMMARY | 2016-12-14 18:40 | XMS REPORT | Summary of Care ---
Author Author Мария Gonzalez APRN Organization Unknown Address [address] [place], [place] [address] Phone Unavailable Care Team Providers Care Bindery Machine Feeder Offbearer Name Role Phone Price Garcia M.D. Unavailable Unavailable Мария Gonzalez APRN Unavailable Unavailable Smarsh-[place] HORTICULTURAL WORKER, Crystal Unavailable Unavailable Price Garcia PP [...] G43.909) Status: Active Medications Name Dates Details Fykekfvoby-QVAY-Ynvlyivv 50-325-40 MG Oral Tablet TAKE ONE TABLET [...] TWICE DAILY * Quantity: 60 Refills: 0 Smarsh-Ladyk, Crystal HORTICULTURAL WORKER* Started 24-Jun-2014 ActiveHydrALAZINE HCl - 50 MG [...] * Quantity: 1 Refills: 0 Мария Gonzalez HORTICULTURAL WORKER* Started 24-Jan-2015 Admin RequestedPromethazine HCl - 25 MG/ML Injection Solution Inject 12.5mg IM x 1 now * Quantity: 1 Refills: 0 LisaPrakash nettlesy HORTICULTURAL WORKER* Started 24-Jan-2015 Admin Requested Allergies and Adverse [...] Influenza Administered on:03-May-2012 Tdap (Adacel) Lot #: [id number] Administered on:14-May-2013 Fluzone Quadrivalent 0.5 ML Intramuscular Suspension Lot #: [id number] Administered on:03-Jun-2014 Family History Grandfather* Name Dates [...]
--- OUTSIDE RECORDS SUMMARY | 2016-12-14 18:41 | XMS REPORT | Summary of Care ---
Author Author Jose Jimenez M.D. Unknown Address [address] [place], [place] [address] Phone Unavailable Care Team Providers Care Outpatient Clerk Name Role Phone Price Garcia M.D. [...] Active Pre-op testing (V72.84, Z01.818) Status: Active Medications Name Dates Details Osygdonymp-AXQC-Yyymstki 50-325-40 MG Oral Tablet TAKE ONE TABLET [...] Sinus Ostium ECG/ EKG Outside Interp Ordered:24-Sep-2015 Comprehensive Metabolic Panel 1212 Ordered:16-Oct-2015 CBC w/ Auto Diff 7150 Ordered:16-Oct-2015 XRay CHEST-PA & LAT Ordered:16-Oct-2015 Immunization Name Dates Details Influenza Administered on:21-Jun-2011 Influenza Administered on:03-May-2012 Tdap (Adacel) Lot #: [id number] Administered on:14-May-2013 Fluzone Quadrivalent 0.5 ML Intramuscular Suspension Lot #: [id number] Administered on:03-Jun-2014 Fluzone Quadrivalent 0.5 ML Intramuscular Suspension Prefilled Syringe Lot #: [id number] Administered on:17-Jun-2015 Family History Grandfather* Name Dates [...] Diagnosis: Problem not documented On 09:15 Appointment; Pirce Garcia Encounter Diagnosis: Problem not [...]
--- OUTSIDE RECORDS SUMMARY | 2016-12-14 18:41 | XMS REPORT ---
Author Author FriendKyara eClinicalWorks Address Unknown Phone Unavailable Care Team Providers Care Simulation Analyst Name Role Phone Friend, Kyara CP Unavailable [...]
--- OUTSIDE RECORDS SUMMARY | 2016-12-14 18:41 | XMS REPORT | Summary of Care ---
Author Author West Berrios D.O. Organization Unknown Address [address], [place] [address] Phone Unavailable Care Team Providers Care General Lot Attendant Name Role Phone Price Garcia M.D. Unavailable Unavailable Lisa ZINC ETCHER, Мария Unavailable Unavailable Smarsh-[place] ZINC ETCHER, Crystal Unavailable Unavailable Price Garcia PP Unavailable [...] R11.0) Status: Active Medications Name Dates Details Triamcinolone .1%/ Eucerin Compound (50/50 mix) -- 1 pound tub (454 grams) APPLY TO THE AFFECTED AREA TWICE DAILY Quantity: 60 Jessica Nguyen ZINC ETCHER* Started 24-Jun-2014 ActiveFluvoxaMINE Maleate 100 MG Oral [...] Refills: 0 Price Garcia M.D.* Started 17-Jun-2015 GhojgiTcfxzlkjhk-VYWY-Mtldvbxr 50-325-40 MG Oral Tablet TAKE ONE TABLET [...] Influenza Administered on:03-May-2012 Tdap (Adacel) Lot #: [id number] Administered on:14-May-2013 Fluzone Quadrivalent 0.5 ML Intramuscular Suspension Lot #: [id number] Administered on:03-Jun-2014 Fluzone Quadrivalent 0.5 ML Intramuscular Suspension Prefilled Syringe Lot #: [id number] Administered on:17-Jun-2015 Family History Grandfather* Name Dates [...] 10:55 Urinalysis, reflex to Micro and Culture ([facility]) 8016 pH 6.0 (Better) Range: [...]
--- OUTSIDE RECORDS SUMMARY | 2016-12-14 18:41 | XMS REPORT | Summary of Care ---
Author Author Virginia Medina Organization Unknown Address [address] [place] [address] Phone Unavailable Care Team Providers Care Cut Out Operator Name Role Phone Price Garcia M.D. Unavailable Unavailable Lisa KNITTING MACHINE MECHANIC, Мария Unavailable Unavailable Smarsh-[place] KNITTING MACHINE MECHANIC, Crystal Unavailable Unavailable Price Garcia PP [...] Active Migraine headache (346.90, G43.909) Status: Active Urinary symptom or sign (788.99, R39.9) Status: Active Medications Name Dates Details Triamcinolone .1%/ Eucerin Compound (50/50 mix) -- 1 pound tub (454 grams) APPLY TO THE AFFECTED AREA TWICE DAILY Quantity: 60 Smarsh-Kutilek, Crystal KNITTING MACHINE MECHANIC* Started 24-Jun-2014 EszxcuVumdxqiljb-BWIX-Uzabdguz 50-325-40 MG Oral Tablet TAKE ONE TABLET [...] * Quantity: 1 Refills: 0 Мария Gonzalez KNITTING MACHINE MECHANIC* Started 24-Jan-2015 Admin RequestedPromethazine HCl - 25 [...] every day * Quantity: 30 Refills: 6 rPice Garcia M.D.* Started 30-Oct-2014 ActiveQUEtiapine Fumarate 25 [...] Influenza Administered on:03-May-2012 Tdap (Adacel) Lot #: [id number] Administered on:14-May-2013 Fluzone Quadrivalent 0.5 ML Intramuscular Suspension Lot #: [id number] Administered on:03-Jun-2014 Fluzone Quadrivalent 0.5 ML Intramuscular Suspension Prefilled Syringe Lot #: [id number] Administered on:17-Jun-2015 Family History Grandfather* Name Dates [...] 10:55 Urinalysis, reflex to Micro and Culture ([facility]) 8016 pH 6.0 (Better) Range: 5.0-7.5 SP [...]
--- OUTSIDE RECORDS SUMMARY | 2016-12-14 18:41 | XMS REPORT ---
Author Author FriendKyara [employer] Address Unknown Phone Unavailable Care Team Providers Care Sample Card Maker Name Role Phone Friend, Kyara CP Unavailable [...]
--- OUTSIDE RECORDS SUMMARY | 2016-12-14 18:41 | XMS REPORT ---
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 77143909 Problem Depression F32.9 Active 459269044 Problem Neuropathy G62.9 Active 200595798 Problem Arthritis of left knee M19.90 Active 1536910734398540 Problem Tear of meniscus of left knee S83.207A Active Problem Fibromyalgia M79.7 Active 847586560 Problem Migraine headache G43.909 Active 58966692 Problem Elevated alkaline phosphatase level R74.8 Active 722772385 Problem High cholesterol E78.0 Active 81730781 Problem CAD (coronary artery disease) I25.10 Active 09728181 Problem Status post left knee replacement Z96.652 Active 194223843037 Problem High blood pressure I10 Active 59807623 ALLERGIES Unknown Allergies SOCIAL HISTORY No smoking Hx information available PLAN OF CARE VITAL SIGNS MEDICATIONS Unknown Medications RESULTS No Results PROCEDURES No Known procedures IMMUNIZATIONS No Known Immunizations
--- OUTSIDE RECORDS SUMMARY | 2016-12-14 18:42 | XMS REPORT | Summary of Care ---
Author Author Linda Bingham APRN Organization Unknown Address [address] [place], [place] [id number] Phone Unavailable Care Team Providers Care Traffic Expert Name Role Phone Price Garcia M.D. Unavailable [...] G43.909) Status: Active Medications Name Dates Details FluvoxaMINE [...] * Quantity: 1 Refills: 0 Мария Gonzalez ABSTRACT MAKER* Started 24-Jan-2015 Admin RequestedAspirin 325 MG Oral [...] 90 Refills: 3 Price Garcia M.D.* Started GujwtuQxnrpdhyqj-CMVV-Ebzwjurb 50-325-40 MG Oral Tablet TAKE ONE TABLET [...] Influenza Administered on:03-May-2012 Tdap (Adacel) Lot #: [id number] Administered on:14-May-2013 Fluzone Quadrivalent 0.5 ML Intramuscular Suspension Lot #: [id number] Administered on:03-Jun-2014 Fluzone Quadrivalent 0.5 ML Intramuscular Suspension Prefilled Syringe Lot #: [id number] Administered on:17-Jun-2015 Family History Grandfather* Name Dates [...] Trials Clinical Trial Lab ([facility]) 02-Sep-2015 09:34 Clinical Trials 4045 Comments: Fastin hours Clinical Trials Clinical Trial Lab ([facility]) 14-Sep-2015 08:28 MRI KNEE LEFT Comments: Exam Date: 09/14/2015 07: 01Dictation Date: 09/14/2015 08:28 XMR EXT KNEE LEFT ([facility]) 17-Sep-2015 08:56 Clinical Trials 4045 Comments: [...] Problem not documented On 11-Oct-2014 08:25 Appointment; Linad Bingham Encounter Diagnosis: Problem not [...]
--- OUTSIDE RECORDS SUMMARY | 2016-12-14 18:42 | XMS REPORT | Summary of Care ---
Author Author Papa Keys M.D. Organization Unknown Address [address], [place] [address] Phone Unavailable Care Team Providers Care Senior Environmental Practice Leader Name Role Phone Price Garcia M.D. [...] G43.909) Status: Active Medications Name Dates Details Wcfrwaurhv-ELZU-Uirkhlzp 50-325-40 MG Oral Tablet TAKE 1 TABLET [...] * Quantity: 1 Refills: 0 Мария Gonzalez CNA* Started 24-Jan-2015 Admin RequestedAspirin 325 MG Oral [...] Refills: 0 Papa Keys M.D.* Started 23-Dec-2015 Epknoz929 GM Pump Btl Acetaminophen-Codeine 300-30 MG Oral Tablet Si PO every 4-6 hrs prn with a max of 4 per day. Scripts must last 30 days. * Quantity: 120 Refills: 0 Ppaa Keys M.D.* Started 30-Dec-2015 ActiveQUEtiapine Fumarate 200 [...] Influenza Administered on:03-May-2012 Tdap (Adacel) Lot #: [id number] Administered on:14-May-2013 Fluzone Quadrivalent 0.5 ML Intramuscular Suspension Lot #: [id number] Administered on:03-Jun-2014 Fluzone Quadrivalent 0.5 ML Intramuscular Suspension Prefilled Syringe Lot #: [id number] Administered on:17-Jun-2015 Family History Grandfather* Name Dates [...] 09:44 Urinalysis, reflex to Micro and Culture ([facility]) 8016 pH 6.0 (Better) Range: [...] ml/min (Better) Range: >60 EST GFR, NON-AFR CHINESE >60 ml/min (Better) Range: >60 Comments: EST GFR is reported in ml/min per 1.73 m2 of body surface area. For -[place] Citizen, please multiple result by 1.2.----- BUN:CREATININE RATIO [...]
--- OUTSIDE RECORDS SUMMARY | 2016-12-14 18:42 | XMS REPORT | Summary of Care ---
Author Author Radha Titus, Price Organization Unknown Address Unknown Phone Unavailable Care Team Providers Care Clinical Pharmacologist Name Role Phone Price Garcia M.D. Unavailable Unavailable [employer] BILINGUAL MANAGER, Crystal Unavailable Unavailable Price Garcia PP [...] * Quantity: 60 Refills: 0 Patrick, Jessica BILINGUAL MANAGER* Started 24-Jun-2014 ActiveZolpidem Tartrate ER 12.5 [...] Refills: 5 Price Garcia M.D.* Started 30-Oct-2014 ZomwbbXkyqfyatcj-ZZCW-Jrjvvcww 50-325-40 MG Oral Tablet TAKE ONE TABLET [...] 7800 Ordered:18-Dec-2014 HLA B 27 Disease Association 041916 Ordered:18-Dec-2014 Immunization Name Dates Details Influenza Administered on:21-Jun-2011 Influenza Administered on:03-May-2012 Tdap (Adacel) Lot #: [id number] Administered on:14-May-2013 Fluzone Quadrivalent 0.5 ML Intramuscular Suspension Lot #: [id number] Administered on:03-Jun-2014 Family History Grandfather* Name Dates [...] m2 Status: Results Date Description Value Details 12-Dec-2014 10:12 LITHIUM 1162 LITHIUM 0.77 mmol/L (Better) Range: 0.30-1.19 Comments: Mj/ED----- Dose last dose last night at 5pm. (Better) 29-Dec-2014 12:40 XRay CHEST-PA & LAT Comments: [...] Diagnosis: Problem not documented On 14:00 Appointment; Gastno Hare Encounter Diagnosis: Problem not [...] not documented On 31-Jul-2013 15:30 Appointment; Melvin oCtto Encounter Diagnosis: Problem not documented On 24-Jul-2013 [...]
--- OUTSIDE RECORDS SUMMARY | 2016-12-14 18:43 | XMS REPORT ---
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
--- OUTSIDE RECORDS SUMMARY | 2016-12-14 18:43 | XMS REPORT ---
Author Author GENERATED, SYSTEM Organization Unknown Address Unknown Phone Unavailable Care Team Providers Care Aquatic Centre Manager Name Role Phone MD DENISE, GARY Unavailable [...]
--- OUTSIDE RECORDS SUMMARY | 2016-12-14 18:43 | XMS REPORT | Summary of Care ---
Author Author Papa Keys M.D. Organization Unknown Address [address] [place], [place] [address] Phone Unavailable Care Team Providers Care Belt Picker Name Role Phone Price Garcia M.D. [...] * Quantity: 1 Refills: 0 Мария Gonzalez POWER SHOVEL OPERATOR* Started 24-Jan-2015 Admin RequestedAspirin 325 MG [...] Refills: 0 Price Garcia M.D.* Started 30-Oct-2014 WlxcobEbsptxutam-DXTC-Ickawvyd 50-325-40 MG Oral Tablet TAKE ONE TABLET [...] Influenza Administered on:03-May-2012 Tdap (Adacel) Lot #: [id number] Administered on:14-May-2013 Fluzone Quadrivalent 0.5 ML Intramuscular Suspension Lot #: [id number] Administered on:03-Jun-2014 Fluzone Quadrivalent 0.5 ML Intramuscular Suspension Prefilled Syringe Lot #: [id number] Administered on:17-Jun-2015 Family History Grandfather* Name Dates [...] (Better) Range: 0-10 23-Nov-2015 09:09 URINE CULTURE [id number] Comments: [employer] performed at: [facility] [employer] [facility], [address] [place] [address], [phone], Metal Furrer: Igor Perez D.O., MPHQuest Collection Date/Time: [id number] Results Received Date/Time: [id number] Reported Date/Time: [id number] performed at: [facility], [address] [place] [address], [phone], Metal Furrer: Igor Perez D.O., M[employer] Collection Date/Time: [id number] Results Received Date/Time: [id number] Reported Date/Time: [id number] CULTURE, URINE, ROUTINE SEE NOTE (Abnormal) Comments: CULTURE, URINE, ROUTINE MICRO NUMBER: [id number] TEST STATUS: FINAL SPECIMEN SOURCE : URINE, [...] 15Dictation Date: 11/25/2015 09:22 XMR SPINE LUMBAR ([facility]) 30-Nov-2015 07:30 Clinical Trials 4045 Clinical Trials Clinical Trial Lab ([facility]) 14:02 MRI KNEE LEFT Comments: Exam Date: 11/30/2015 06:28Dictation Date : 11/30/2015 14:02 XMR EXT KNEE LEFT ([facility]) Plan of Care Planned Observations* Name Dates [...]
--- OUTSIDE RECORDS SUMMARY | 2016-12-14 18:43 | XMS REPORT | Summary of Care ---
Author Author Jessica Nguyen APRN Organization Unknown Address [address] [place], [place] [address] Phone Unavailable Care Team Providers Care Underpresser Hand Name Role Phone Price Garcia M.D. Unavailable [...] G43.909) Status: Active Medications Name Dates Details Nmewkqdaqw-CLXS-Ybjsvptx 50-325-40 MG Oral Tablet TAKE ONE TABLET [...] 0 Мария Gonzalez APRN* Started 24-Jan-2015 Admin RequestedKetorolac Tromethamine 60 MG/2ML Injection Solution 60mg IM * Quantity: 1 Refills: 0 Jessica Nguyen APRN* Started Admin RequestedOrphenadrine Citrate 30 MG/ML Injection Solution 30mg given IM in the office * Quantity: 1 Refills: 0 Jessica Nguyen APRN* Started Admin Requested Allergies and Adverse [...] Influenza Administered on:03-May-2012 Tdap (Adacel) Lot #: [id number] Administered on:14-May-2013 Fluzone Quadrivalent 0.5 ML Intramuscular Suspension Lot #: [id number] Administered on:03-Jun-2014 Family History Grandfather* Name Dates [...]
--- OUTSIDE RECORDS SUMMARY | 2016-12-14 18:43 | XMS REPORT | Summary of Care ---
Author Author Price Garcia M.D. Organization Unknown Address Unknown Phone Unavailable Care Team Providers Care Conference Center Manager Name Role Phone Price Garcia M.D. Unavailable Unavailable Lisa GRAPE PRUNER, Мария Unavailable Unavailable [employer] GRAPE PRUNER, Crystal Unavailable Unavailable Price Garcia PP Unavailable [...] G43.909) Status: Active Medications Name Dates Details Spxlsupirw-CCDQ-Yvxnrmjl 50-325-40 MG Oral Tablet TAKE ONE TABLET BY MOUTH EVERY 4 HOURS NEEDED MAX OF 6 TABLETS PER DAY MUST LAST 30 DAYS Quantity: 180 Price Garcia M.D.* Started 09-Jun-2014 ActiveTriamcinolone .1%/ Eucerin Compound (50/50 mix) -- 1 pound tub (454 grams) APPLY TO THE AFFECTED AREA TWICE DAILY * Quantity: 60 Refills: 0 Jessica Nguyen GRAPE PRUNER* Started 24-Jun-2014 ActiveFluvoxaMINE Maleate 100 MG Oral Tablet TAKE 1 TABLET AT BEDTIME. * Quantity: 30 Refills: 5 Price Garcia M.D.* Started 30-Oct-2014 ActiveNalbuphine HCl - 10 MG/ML Injection Solution Inject 10mg IM x 1 now * Quantity: 1 Refills: 0 Мария Gonzalez GRAPE PRUNER* Started 24-Jan-2015 Admin RequestedPromethazine HCl - 25 MG/ML Injection Solution Inject 12.5mg IM x 1 now * Quantity: 1 Refills: 0 Мария Gonzalez GRAPE PRUNER* Started 24-Jan-2015 Admin RequestedCyclobenzaprine HCl - 10 [...] Influenza Administered on:03-May-2012 Tdap (Adacel) Lot #: [id number] Administered on:14-May-2013 Fluzone Quadrivalent 0.5 ML Intramuscular Suspension Lot #: [id number] Administered on:03-Jun-2014 Family History Grandfather* Name Dates [...] (Better) Range: 0-2 18-May-2015 09:32 URINE CULTURE [id number] Comments: [employer] performed at: [facility], [address] [place] [address], [phone], Border Machine Operator: Igor Perez D.O., MPHQuest Collection Date/Time: [id number] Results Received Date/Time: [id number] Reported Date/Time: [id number] performed at: [facility] [employer], [address], Border Machine Operator: Igor Perez D.O., MPHQuest Collection Date/Time: [id number] Results Received Date/Time: [id number] Reported Date/Time: [id number] CULTURE, URINE, ROUTINE SEE NOTE (Abnormal) Comments: CULTURE, URINE, ROUTINE MICRO NUMBER: [id number] TEST STATUS: FINAL SPECIMEN SOURCE : URINE, CLEAN CATCH SPECIMEN QUALITY: ADEQUATE RESULT: Greater than 100,000 CFU/mL of Escherichia coli E.coli INT NHEA AMOX/ CLAVULANATE S 4 AMPICILLIN S 4 [...] ml/min (Better) Range: >60 EST GFR, NON-AFR [place] >60 ml/min (Better) Range: >60 Comments: EST GFR is reported in ml/min per 1.73 m2 of body surface area. For -[place], please multiple result by 1.2.----- GLUCOSE 106 [...] Problem not documented On 31-May-2014 10:15 Appointment; Bsesie Romero Encounter Diagnosis: Problem not documented On [...]
[2016-12-14] MEDS ORDERED: CYCL-375 PO (18:47)
[2016-12-14] MEDS ORDERED: DIAZ10TA4 PO (18:47)
[2016-12-14] MEDS ORDERED: NAPR500T3 PO (18:47)
[2016-12-14] MEDS ORDERED: ZOLP10TA6 PO (18:47)
[2016-12-14] MEDS ORDERED: AMLO5TAB2 PO (18:47)
[2016-12-14] MEDS ORDERED: PROP20TA7 PO (18:47)
[2016-12-14] MEDS ORDERED: FLUV100T2 PO (18:50)
[2016-12-14] MEDS ORDERED: ACET325T51 PO (18:50)
[2016-12-14] MEDS ORDERED: CLOP75TA33 PO (18:50)
[2016-12-14] MEDS ORDERED: QUET200T58 PO (18:50)
[2016-12-14] MEDS ORDERED: LOSA100T44 PO (18:50)
--- NOTE | 2016-12-14 18:54 | ERPDOC ---
Departure Disposition Decision Date: Dec 14, 2016 Disposition Decision Time: 20:26 Disposition: 65 TO PSYCH HOSP/UNIT Impression Impression Impression: Primary Impression: Acute psychosis Additional Impression: Opioid abuse Severity: Moderate Condition: Improved Seen By: Physician only Problems/Meds/Labs Reviewed?: Yes Medications reviewed and manag: Yes Follow up care ordered?: Yes Mental Status: Alert HPI - Psychosocial General Chief Complaint: Suicide Ideation/Attempt Stated Complaint: PAIN ISSUES AND MENTAL ISSUES Time Seen by MD: 18:35 Source: patient, family Exam Limitations: no limitations HPI - Psychosocial Initial Comments Patient presents with complaints of being out of her oxycodone and not being able to get refills from her primary care physician. She states that because of this her anxiety and her psychosis has flared up and she is considering suicide by slashing her arms longitudinally. In looking at the patient's medical records, specifically her pharmacy records, it is found that the patient has been using significant amounts of oxycodone since her surgery on her knee last year. I was able to speak to the doctor that is primarily taking care of the patient, Dr. Dowell Friend, and was told to somewhat different story about today's events. Apparently the patient had used a 15 day supply of oxycodone in 7 days, presented in clinic with significant narcotic addiction and withdrawal symptoms as well as psychosis, hallucinations , and significant anxiety. Patient was directed to [facility] for inpatient admission for both her psychiatric illness as well as her narcotic addiction. Apparently the patient was redirected from per review to [facility] for medical screening, but has already been accepted as an inpatient per review by Dr. Holguin. In the past week due to the patient's significant symptoms she has had a negative CT head, negative MRI, and a negative stress test with Dr. Arrieta. When I clarified a few of these details with the patient, she readily admitted all of those were true fax, and she was only here for medical screening exam. Occurred At: home Onset: Gradual Duration: 1 week Severity: severe Associated Symptoms: anxiety, impaired concentration, suicidal ideation Hx of Similar Symptoms: Yes Allergies: Coded Allergies: fluvoxamine (Verified Adverse Reaction, Mild, TACHYCARDIA, 12/14/16) Past History Patient Medical History Problem List Updates: Opioid addiction/abuse Bipolar with anxiety and psychosis Past Medical History Metabolic: hypertension Neurological: migraines, neuropathy, other Musculoskeletal: other Psychological: anxiety, depression Surgical History Cardiac: other Family History Family PMH: FOUND: CAD, COPD, CA, alcohol abuse, cancer, diabetes, hypercholesterolemia, hypertension Vaccines Hx Influenza Vaccination: Yes (04/10) Review of Systems Constitutional Constitutional: DENIES: appetite decrease, appetite increase, chills, dizziness , fever, weakness ENMT Ears: DENIES: pain Hearing: DENIES: hearing loss, tinnitus Balance: DENIES: vertigo Mouth/Throat: DENIES: change in swallowing, change in voice, hoarsness, painful swallowing, sore throat Cardiovascular Cardiac: DENIES: chest pain, dyspnea on exertion Rhythm/Rate: DENIES: irregular beat, palpitations, tachycardia Vascular: DENIES: pedal edema Pulmonary Respiratory: DENIES: cough, dyspnea, pleuritic chest pain GI Upper Abdomen: DENIES: dysphagia, heartburn/indigestion, nausea, pain, vomiting Lower Abdomen: DENIES: blood in stool, constipation, diarrhea, pain General: DENIES: burning, dysuria, frequency, pain, urgency Musculoskeletal General: joint pain, pain, tenderness, DENIES: atrophy of muscles, cramps, gout , joint swelling, spasm, weakness Integumentary Skin: DENIES: rash, sores Neurological General: DENIES: headache, numbness, tingling, vertigo, weakness Psychiatric Psychiatric: DENIES: anxiety, depression, nervousness Physical Exam General General Nourishment: well nourished, well developed, appears stated age, no acute distress Distress Description Patient appears either mildly confused or somewhat disingenuous with her history General Body Habitus: disheveled Vitals and Pain First Documented Vital Signs Date Time Temp Pulse Resp B/P Pulse Ox O2 Delivery O2 Flow Rate FiO2 12/14/16 18:14 97.8 79 18 145/73 98 Room Air Weight: Kilograms: Height (feet): 5 Height (inches): 7.00 Triage Pain Scale: RN VS reviewed by Provider: Yes Normal Exams: Head: Normocephalic w/o trauma Eyes: Pupils are PERRLA w/ EOMI, No scleral icterus, irritation, or foreign bodies noted ENMT: No facial trauma, nasal exudates, pharyngeal erythema, or exudates are noted Neck: Full range of motion, without adenopathy, JVD, bruits or thyromegaly Chest/Resp: Clear all vega, with good airflow, and symmetry bilaterally CV: Regular rate and rhythm, without murmur or gallop, Pulses 2+ all extremities, capillary refill, <2 seconds all ext., no pedal edema noted Abdomen: Bowel sounds positive, soft, non-tender, non-distended, no hepatosplenomegaly, masses or bruits noted Lymphatic: No lymphadenopathy, or lymphedema noted Integumentary: No rashes, hives, or bruising noted, hair and nails, without abnormality Neurologic: Patient is alert, and oriented, cranial nerves, motor/sensory/ cerebellar, exams w/o gross deficits, to observation Psychiatric: Patient exhibits, appropriate attention, emotion and affect Musculoskeletal (brief) Musculoskeletal Brief: FOUND: tenderness, NOT FOUND: deformity, loss of motion , spasm Comments Mild nonreproducible knee tenderness on the left only Progress Results/Orders Orders Procedure Category Date Status Time Nothing By Mouth (Ed EDM 12/14/16 Transmitted Only) 18:35 Cbc W/Auto LAB 12/14/16 Complete Diff-Reflex Manual 18:35 Bmp - Basic Metabolic LAB 12/14/16 Complete Panel 18:35 Ethanol LAB 12/14/16 Complete 18:35 Drug Screen LAB 12/14/16 Complete Urine-Test At [facility] 18:35 Acetaminophen LAB 12/14/16 Complete 18:35 Salicylate LAB 12/14/16 Complete 18:35 Ua, Dip Wreflex LAB 12/14/16 Complete Microsc & Nut Threader 18:35 Tsh - Thyroid Stim LAB 12/14/16 Complete Hormone 18:35 Ketorolac (Toradol) PHA 12/14/16 Complete 19:00 Lab Results Laboratory Tests Test 12/14/16 19:06 12/14/16 19:18 White Blood Count 4.4T/MM3 Red Blood Count 3.31M/MM3 Hemoglobin 10.1GM/DL Hematocrit 30.5% Mean Corpuscular Volume 92.1UM3 Mean Corpuscular Hemoglobin 30.5UUG Mean Corpuscular Hemoglobin Concent 33.1GM/DL RDW Standard Deviation 44.0FL Platelet Count 229T/MM3 Mean Platelet Volume 9.5UM3 Immature Granulocyte % (Auto) 0.2% Neutrophils (%) (Auto) 60.0% Lymphocytes (%) (Auto) 31.1% Monocytes (%) (Auto) 8.2% Eosinophils (%) (Auto) 0.0% Basophils (%) (Auto) 0.5% Absolute Immature Granulocyte (auto 0.01T/MM3 Absolute Neutrophils (auto) 2.6T/MM3 Absolute Lymphocytes (auto) 1.4T/MM3 Absolute Monocytes (auto) 0.4T/MM3 Absolute Eosinophils (auto) 0.0T/MM3 Absolute Basophils (auto) 0.0T/MM3 Turbidity < 20 Sodium Level 145MEQ/L Potassium Level 3.7MEQ/L Chloride Level 107MEQ/L Carbon Dioxide Level 27MEQ/L Anion Gap 11MEQ/L Blood Urea Nitrogen 13.0MG/DL Creatinine 0.6MG/DL Glomerular Filtration Rate Calc 102 BUN/Creatinine Ratio 22RATIO Glucose Level 116MG/DL Calculated Osmolality 280MOSM/KG Calcium Level 10.2MG/DL Icterus Index < 2 Thyroid Stimulating Hormone (TSH) 0.41MIU/L Chemistry Specimen Hemolysis < 15 Salicylates Level < 1.0MG/DL Acetaminophen Level < 10UG/ML Alcohol, Quantitative <10MG/DL Urine Collection Type Cleancatch-midstream Urine Color Yellow Urine Turbidity Clear Urine pH 7.5 Urine Specific Bard 1.015 Urine Protein Negative Urine Glucose (UA) Negative Urine Ketones Negative Urine Blood Trace-intact Urine Nitrite Negative Urine Bilirubin Negative Urine Urobilinogen 0.2EU/DL Urine Leukocyte Esterase Negative Urinalysis Comment Microscopic not ind. Urine Opiates Screen NegativeNG/ML Urine Oxycodone Screen NegativeNG/ML Urine Methadone Screen NegativeNG/ML Urine Propoxyphene Screen NegativeNG/ML Urine Barbiturates Screen NegativeNG/ML Urine Tricyclic Antidepressants PositiveNG/ML Urine Phencyclidine Screen NegativeNG/ML Urine Amphetamines Screen NegativeNG/ML Urine Methamphetamines Screen NegativeNG/ML Urine Benzodiazepines Screen PositiveNG/ML Urine Cocaine Screen NegativeNG/ML Urine Cannabinoids Screen NegativeNG/ML Urine Drug Screen Confirmation Sent out Urine Drug Screen Information Pending Medications Current ED Medications Ketorolac Tromethamine (Toradol) 60 mg O ONCE IM Last administered on t 19:22; Start 12/14/16 at 19:00; Stop 12/14/16 at 19:01; Status DC Progress Progress Patient is given Toradol 60 mg for her perceived pain Screening lab including CBC, CMP, TSH, drug screen, and, and salicylates - all normal with the exception of TSH which is minimally low at 0.41, with normal being 0.47 or above Patient notes that sometime in the past she had high thyroid, but is never received treatment. Patient is accepted by Dr. Holguin to [facility] M[facility] MD Dec 14, 2016 18:54
[2016-12-14] MEDS ORDERED: KETOROLAC 60mg/2ml INJECTION IM ONE (19:00)
--- NOTE | 2016-12-14 19:05 | NUR ---
LAB LAB AT BEDSIDE FOR BLOOD DRAW AND UDS COLLECTION
[2016-12-14 19:25] LABS: BLOOD, URINE TRACE-INTACT (NEGATIVE); COLOR,URINE YELLOW (YELLOW); LEUKOCYTE ESTERASE ,URINE NEGATIVE (NEGATIVE); NITRITE,URINE NEGATIVE (NEGATIVE); UROBILINOGEN,URINE 0.2 EU/DL (NORMAL)
[2016-12-14 19:26] LABS: BASOPHILS % (AUTO) 0.5 % (0-2); HCT - HEMATOCRIT 30.5 % (36-46); HGB - HEMOGLOBIN 10.1 GM/DL (12-16); IMMATURE GRANULOCYTE # (AUTO) 0.01 T/MM3 (0.00-0.03); IMMATURE GRANULOCYTE % (AUTO) 0.2 % (0.0-0.5); LYMPHOCYTES # (AUTO) 1.4 T/MM3 (1-4.8); LYMPHOCYTES % (AUTO) 31.1 % (23-45); MEAN CORPUSCULAR HGB 30.5 UUG (26-34); MEAN CORPUSCULAR HGB CONC(MCHC 33.1 GM/DL (31-37); MEAN CORPUSCULAR VOLUME 92.1 UM3 (80-100); MEAN PLATELET VOLUME 9.5 UM3 (9.4-12.4); MONOCYTES # (AUTO) 0.4 T/MM3 (0-0.8); MONOCYTES % (AUTO) 8.2 % (0-9.0); NEUTROPHILS #(AUTO)-ABSOLUTE 2.6 T/MM3 (1.8-7.7); RED BLOOD COUNT 3.31 M/MM3 (4.00-5.20); WBC - WHITE BLOOD COUNT 4.4 T/MM3 (4.5-11.0)
[2016-12-14 19:30] VITALS: Ht 167.6 cm; Wt 60.0 kg
[2016-12-14 19:34] LABS: ACETAMINOPHEN < 10 UG/ML (10-30); ANION GAP 11 MEQ/L (5-15); BUN/CREATININE RATIO 22 RATIO (6-26); CALCIUM 10.2 MG/DL (8.4-10.2); CHLORIDE 107 MEQ/L (98-107); CO2 - CARBON DIOXIDE 27 MEQ/L (22-30); CREATININE 0.6 MG/DL (0.7-1.2); ETHANOL <10 MG/DL (<10); GLOMERULAR FILTRATION RATE 102; GLUCOSE 116 MG/DL (65-110); POTASSIUM 3.7 MEQ/L (3.6-5); SALICYLATE < 1.0 MG/DL (2-20); SODIUM 145 MEQ/L (134-144)
[2016-12-14 19:37] LABS: AMPHETAMINE SCREEN,URINE NEGATIVE; BARBITURATE SCREEN,URINE NEGATIVE; BENZODIAZEPINES SCREEN,URINE POSITIVE; CANNABINOID SCREEN,URINE NEGATIVE; COCAINE SCREEN,URINE NEGATIVE; METHADONE SCREEN, URINE NEGATIVE; METHAMPHETAMINE SCREEN, URINE NEGATIVE; OPIATE SCREEN,URINE NEGATIVE; PHENCYCLIDINE SCREEN,URINE NEGATIVE
[2016-12-14 19:38] LABS: TRICYCLIC ANTIDEPRESSANT,URINE POSITIVE
--- OUTSIDE RECORDS SUMMARY | 2016-12-14 19:41 | XMS REPORT ---
Author Author GENERATED, SYSTEM Organization Unknown Address Unknown Phone Unavailable Care Team Providers Care Joint Cleaning Machine Operator Name Role Phone MD DENISE, GARY Unavailable [...]
--- OUTSIDE RECORDS SUMMARY | 2016-12-14 19:41 | XMS REPORT ---
Author Author [employer] SYSTEM Organization Unknown Address Unknown Phone Unavailable Care Team Providers Care Truck Driver Name Role Phone FRIEND, CHIQUI FLOREZ PP [phone] Reason For Visit Chief Complaint MUSCLE CRAMPS [...] MG/DL (65-99 MG/DL) *GFR EST NON AFR [place] >90 ML/MIN *GFR EST AFR AMER >90 [...]
--- OUTSIDE RECORDS SUMMARY | 2016-12-14 19:42 | XMS REPORT ---
Author Author GENERATED, SYSTEM Organization Unknown Address Unknown Phone Unavailable Care Team Providers Care Candy Cooker Helper Name Role Phone MD DENISE, GARY CASTILLO [...] 11:00 AM * Address # 1 : [facility]: [address], [place]- or [...]
--- OUTSIDE RECORDS SUMMARY | 2016-12-14 19:43 | XMS REPORT ---
Author Author GENERATED, SYSTEM Organization Unknown Address Unknown Phone Unavailable Care Team Providers Care Welding Tester Name Role Phone DO TIERNEY ALAN [phone] Reason For Visit Chief Complaint MIGRAIN HEADACH [...]
--- OUTSIDE RECORDS SUMMARY | 2016-12-14 19:43 | XMS REPORT ---
Author Author GENERATED, SYSTEM Organization Unknown Address Unknown Phone Unavailable Care Team Providers Care Apprentice Plant Attendant Name Role Phone MD DENISE, GARY CASTILLO [...]
--- OUTSIDE RECORDS SUMMARY | 2016-12-14 19:43 | XMS REPORT | Continuity of care Document ---
[...] H (65-99 MG/DL) GFR EST NON AFR SAMO[place] >=90 ML/MIN GFRA EST AFR AMER >=90 [...] - CT CEREBRAL W/O CONTRAST CPT Code(s): 00910-; ; ; INDICATION / CLINICAL HISTORY: Headache COMPARISON: None. FINDINGS: The ventricles are normal in size and configuration. There is no mass effect or midline shift. No intracranial hemorrhage or abnormal extraaxial fluid collections are demonstrated. The visualized sinuses are well aerated. IMPRESSION: No acute intracranial processes.
--- OUTSIDE RECORDS SUMMARY | 2016-12-14 19:44 | XMS REPORT | Continuity of Care Document ---
Author Author [facility] Organization [facility] Address Unknown Phone Unavailable Allergies [...] Code Diagnosis Diagnosed By 10/28/2015 ITA PAGAN [id number] Pain in left leg 10/28/2015 ITA PAGAN [...] Aragon MD I25.10 ATHSCL HEART DISEASE OF [place] CORONARY ARTERY W/O 06/15/2016 Gordon Aragon MD M17.12 UNILATERAL PRIMARY OSTEOARTHRITIS, LEFT KNEE 06/15/2016 Gordon Aragon MD M25.562 PAIN IN LEFT KNEE 06/15/2016 Gordon Aragon MD M79.7 FIBROMYALGIA 12/06/2016 D R296 Repeated falls 12/06/2016 D R51 Headache 12/06/2016 D R531 Weakness 12/06/2016 D Z955 Presence of coronary angioplasty implant and graft Procedures Code Description Performed By Performed On [id number] REPLACE OF L KNEE JT WITH SYNTH SUB, CEMENT, OPEN Gordon Aragon MD 06/15/2016 76175 11/29/2016 81389 11/29/2016 70653 11/29/2016 21601 11/29/2016 75888 11/29/2016 18179 11/29/2016 26810 11/29/2016 51790 11/29/2016 50446 11/29/2016 05145 11/29/2016 A9270 11/29/2016 Results Test Result Range [...] - 07/12/16 15:30 *GFR EST NON AFR CHADIAN >90 mL/min NRG *GRFA EST AFR AMER [...] - 11/29/16 11:50 *GFR EST NON AFR CHADIAN 81 mL/min NRG *GRFA EST AFR AMER [...] Status Pt. Type Provider Facility Loc./Unit Complaint [id number] 02/08/2016 08:19:00 ACT Outpatient [facility] [employer]
--- OUTSIDE RECORDS SUMMARY | 2016-12-14 19:48 | XMS REPORT ---
Author Author GENERATED, SYSTEM Organization Unknown Address Unknown Phone Unavailable Care Team Providers Care Environmental Sampling Technician Name Role Phone FRIEND, CHIQUI FLOREZ [phone] Reason For Visit Chief Complaint MRI BRAIN [...] Allergies, Adverse Reactions, Alerts This section is tax representative of the current allergy information, at [...]
--- OUTSIDE RECORDS SUMMARY | 2016-12-14 19:49 | XMS REPORT ---
Author Author GENERATED, SYSTEM Organization Unknown Address Unknown Phone Unavailable Care Team Providers Care Salesforce Specialist Name Role Phone MD DENISE, GARY CASTILLO [...] 11:00 AM * Address # 1 : [facility]: [address], [place]- [...]
--- OUTSIDE RECORDS SUMMARY | 2016-12-14 19:51 | XMS REPORT ---
Author Author GENERATED, SYSTEM Organization Unknown Address Unknown Phone Unavailable Care Team Providers Care Director Of Cloud Services Name Role Phone FRIEND, CHIQUI FLOREZ [phone] Reason For Visit Chief Complaint R74.8 Social [...]
--- OUTSIDE RECORDS SUMMARY | 2016-12-14 19:51 | XMS REPORT ---
Author Author GENERATED, SYSTEM Organization Unknown Address Unknown Phone Unavailable Care Team Providers Care Mill Stenciler Name Role Phone FRIENDDO DESIRAE [phone] Reason For Visit Chief Complaint MIGRAINE, NAUSEA [...]
--- OUTSIDE RECORDS SUMMARY | 2016-12-14 19:54 | XMS REPORT ---
Author Author GENERATED, SYSTEM Organization Unknown Address Unknown Phone Unavailable Care Team Providers Care Boathouse Keeper Name Role Phone MD DENISE, GARY CASTILLO [...]
--- OUTSIDE RECORDS SUMMARY | 2016-12-14 19:55 | XMS REPORT | Continuity of care Document ---
[...] H (65-99 MG/DL) GFR EST NON AFR [place] CITIZ[place] 68 ML/MIN GFRA EST AFR AMER 79 [...] 01/19/2014 11:15 PM* CULTURE URINE Specimen Number: [id number] Specimen Source: Sample Collection Date/Time: 01/19/2014 11:15 PM CULTURE URINE: >100,000 cfu/ml 3 or more mixed colony types Suggestive of colonization or contamination Report Status: FINAL DX Radiology from 01/19/2014 9:57 PMCHEST 1 VIEW DATE OF EXAM: Jan 19 2014 10: 11PM Proc: DG 0066 - CHEST 1 VIEW CPT Code(s): 41384-; ; ; INDICATION / CLINICAL HISTORY: Hypertension COMPARISON: None. FINDINGS: The cardiac silhouette and pulmonary vasculature are within normal limits. There are no acute infiltrates or effusions. IMPRESSION: Negative chest. CT Scan from 01/19/2014 9:55 PMCT FACIAL BONES W/O CONTRAST DATE OF EXAM: Jan 19 2014 10:21PM Proc: CT 0008 - CT FACIAL BONES W/O CONTRAST CPT Code(s): 11862-; ; ; INDICATION / CLINICAL HISTORY: Fall. [...] CT SPINE CERVICAL W/O CONTRAST CPT Code(s): 39931-; ; ; INDICATION / CLINICAL HISTORY: Fall. [...] - CT CEREBRAL W/O CONTRAST CPT Code(s): 09841-; ; ; INDICATION / CLINICAL HISTORY: Head [...]
--- OUTSIDE RECORDS SUMMARY | 2016-12-14 19:56 | XMS REPORT ---
Author Author GENERATED, SYSTEM Organization Unknown Address Unknown Phone Unavailable Care Team Providers Care Hospice Spiritual Care Coordinator Name Role Phone FRIENDDO DESIRAE [phone] Reason For Visit Chief Complaint MIGRAINE Social [...]
--- OUTSIDE RECORDS SUMMARY | 2016-12-14 19:57 | XMS REPORT ---
Author Author GENERATED, SYSTEM Organization Unknown Address Unknown Phone Unavailable Care Team Providers Care Drafter Engineering Name Role Phone MD DENISE, GARY Unavailable [...]
--- OUTSIDE RECORDS SUMMARY | 2016-12-14 19:57 | XMS REPORT ---
Author Author GENERATED, SYSTEM Organization Unknown Address Unknown Phone Unavailable Care Team Providers Care Business Process Architect Name Role Phone FRIEND, CHIQUI FLOREZ PP [phone] Reason For Visit Chief Complaint HEADACHE, DOESNT [...] MG/DL (65-99 MG/DL) *GFR EST NON AFR [place] 81 ML/MIN (Reference Range: not available) *GFR [...] acute intracranial abnormality. Electronically signed by: Angie Christopher MD Dictated: 11/29/2016 12:12 (Reference Range: not [...] Allergies, Adverse Reactions, Alerts This section is field support representative of the current allergy information, at [...]
--- OUTSIDE RECORDS SUMMARY | 2016-12-14 19:59 | XMS REPORT ---
Author Author GENERATED, SYSTEM Organization Unknown Address Unknown Phone Unavailable Care Team Providers Care Residency Coordinator Name Role Phone MD DENISE, GARY CASTILLO [...] 11:00 AM * Address # 1 : [facility]: [address], [place]- or Procedures * Completed septoplasty bilateral inferior [...]
--- OUTSIDE RECORDS SUMMARY | 2016-12-14 20:02 | XMS REPORT ---
Author Author GENERATED, SYSTEM Organization Unknown Address Unknown Phone Unavailable Care Team Providers Care Washing Machine Operator Name Role Phone MD DENISE, GARY CASTILLO [...]
--- OUTSIDE RECORDS SUMMARY | 2016-12-14 20:03 | XMS REPORT ---
Author Author GENERATED, SYSTEM Organization Unknown Address Unknown Phone Unavailable Care Team Providers Care Turbinated Bone Grinder Name Role Phone MD DENISE, GARY CASTILLO [...] 11:00 AM * Address # 1 : [facility]: [address], [place]- or Procedures [...]
--- NOTE | 2016-12-14 20:04 | NUR ---
UPDATE PATIENT REPORTS SIGNIFICANT IMPROVEMENT IN HER PAIN AFTER TORADOL ADMIN.
--- OUTSIDE RECORDS SUMMARY | 2016-12-14 20:05 | XMS REPORT ---
Author Author GENERATED, SYSTEM Organization Unknown Address Unknown Phone Unavailable Care Team Providers Care Massage Operator Name Role Phone MD DENISE, GARY [...] 11:00 AM * Address # 1 : [facility]: [address], [place]- or [...]
--- OUTSIDE RECORDS SUMMARY | 2016-12-14 20:08 | XMS REPORT ---
Author Author GENERATED, SYSTEM Organization Unknown Address Unknown Phone Unavailable Care Team Providers Care Folder And Notcher Name Role Phone MD DENISE, GARY CASTILLO [...]
--- OUTSIDE RECORDS SUMMARY | 2016-12-14 20:09 | XMS REPORT ---
Author Author GENERATED, SYSTEM Organization Unknown Address Unknown Phone Unavailable Care Team Providers Care Biztalk Architect Name Role Phone MD DENISE, GARY Unavailable [...]
--- OUTSIDE RECORDS SUMMARY | 2016-12-14 20:09 | XMS REPORT ---
Author Author GENERATED, SYSTEM Organization Unknown Address Unknown Phone Unavailable Care Team Providers Care Cashier Or Checker Stock Clerk Name Role Phone MD DENISE, GARY CASTILLO [...] MG/DL (65-99 MG/DL) *GFR EST NON AFR [place]EN[place] AFR[place] >90 ML/MIN *GFRA EST AFR AMER >90 [...]
--- OUTSIDE RECORDS SUMMARY | 2016-12-14 20:12 | XMS REPORT ---
Author Author GENERATED, SYSTEM Organization Unknown Address Unknown Phone Unavailable Care Team Providers Care Hybrid Corn Breeder Name Role Phone MD DENISE, GARY Unavailable [...]
[2016-12-14 20:18] LABS: THYROID STIM HORMONE-TSH 0.41 MIU/L (0.47-4.68)
--- NOTE | 2016-12-14 20:25 | NUR ---
[facility], LAB RESULTS FAXED.
--- NOTE | 2016-12-14 20:53 | NUR ---
REPORT REPORT GIVEN TO KOLE MEJIA AT [facility]
--- NOTE | 2016-12-14 21:00 | NUR ---
[facility] CALLED FOR TRANSFER TO [facility]
--- NOTE | 2016-12-14 21:10 | NUR ---
[facility] ARRIVE TO [facility] AT [facility] TIME.
[2016-12-14 21:15] VITALS: BP 158/74; PULSE 77; RESP 17; O2SAT 97
--- NOTE | 2016-12-14 21:15 | NUR ---
[facility] PT LEAVES AMBULATORY WITH EMS AT THIS TIME.
== END 2016-12-14 21:15 ==
LOC: ED 17:58
DX: Z02.2 Encounter for examination for admission to residential institution (principal); R45.851 Suicidal ideations; F41.9 Anxiety disorder, unspecified; F23 Brief psychotic disorder; F11.10 Opioid abuse, uncomplicated; M25.562 Pain in left knee; Z79.899 Other long term (current) drug therapy
CPT/HCPCS: 36415; 80048; 80306; 80307; 81003; 84443; 85025; 96372; 99285; J1885